=== PATIENT | female | born 1955 | race Caucasian/White ===

== ENCOUNTER 2024-03-21 16:52 | Emergency (ER) | payer OTHER, SELFPAY ==
[2024-03-21 17:01] VITALS: PULSE 90; TEMP 36.6; O2SAT 98; BMI 32.6
[2024-03-21 17:04] VITALS: BP 165/88; O2SAT 98
--- NOTE | 2024-03-21 17:16 | ED.BACK1 ---
HPI HPI - Back Pain/Injury General Chief Complaint: Back Pain/Injury Stated Complaint: BACK PAIN Time Seen by Provider: 03/21/24 17:11 Source: patient Mode of arrival: walk-in History of Present Illness HPI Narrative: 69 year old female presents to the ED for right mid back pain. Onset was 3 days ago. Denies fever, chills, injury, urinary sx. Denies cough, SOB. She took Aleve this morning. The pain is worse with movement and palpation. Related Data Previous Rx's ?Medication ?Instructions ?Recorded acetaminophen 300 mg-codeine 30 mg 1 tab PO TID PRN pain 4 days #12 03/21/24 tablet tabs lidocaine 5 % topical patch 1 patch topical DAILY #15 ea 03/21/24 (Lidoderm) Allergies Allergy/AdvReac Type Severity Reaction Status Date / Time Penicillins AdvReac Unknown Rash Verified 03/21/24 17:05 Sulfa (Sulfonamide AdvReac Unknown Rash Verified 03/21/24 17:05 Antibiotics) Opioid HPI Opioid Management Most Recent Opioid Data: Last SEP Pain Assessment 03/21/24 17:31 Review of Systems ROS Constitutional Denies: fever or chills Ears, nose, mouth, and throat Denies: neck pain Cardiovascular Denies: chest pain Respiratory Denies: shortness of breath or cough Gastrointestinal Denies: abdominal pain, nausea, vomiting or diarrhea Genitourinary Denies: painful urination, urinary frequency, urinary urgency or blood in urine Musculoskeletal Reports: back pain; Denies: neck pain, extremity pain or extremity swelling Neurological Denies: numbness in extremities or weakness in extremities Exam Constitutional Vital Signs, click to edit/add: Last Vital Signs Temp 97.8 F 03/21/24 17:01 Pulse 74 03/21/24 19:20 Resp 18 03/21/24 19:20 BP 164/82 H 03/21/24 19:20 Pulse Ox 97 03/21/24 19:20 O2 Del Method Room Air 03/21/24 19:20 Common normals: no apparent distress and oriented x3 General appearance: cooperative Eye Common normals: conjunctivae normal and no scleral icterus Neck & C-Spine Common normals: supple Chest Chest: symmetrical chest wall rise Respiratory Common normals: normal respiratory effort Effort & inspection: able to speak in complete sentences and symmetric chest movement Cardio Common normals: regular rate and regular rhythm Bladder/kidney exam: no CVA tenderness Back & Pelvis Thoracic spine/upper back: normal to inspection and paraspinal muscle tenderness Thoracic paraspinal muscle tenderness: right; no thoracic spinal tenderness Lumbar spine/lower back: normal to inspection; no lumbar spinal tenderness and no paraspinal muscle tenderness Neuro Common normals: oriented x3 and moves all extremities Sensorium/orientation: awake and alert Course Vital Signs Vital signs: Vital Signs Temperature 97.8 F 03/21/24 17:01 Pulse Rate 90 03/21/24 17:01 Respiratory Rate 20 03/21/24 17:01 Pulse Oximetry 98 03/21/24 17:01 Temperature 97.8 F 03/21/24 17:01 Pulse Rate 74 03/21/24 19:20 Respiratory Rate 18 03/21/24 19:20 Blood Pressure 164/82 H 03/21/24 19:20 Pulse Oximetry 97 03/21/24 19:20 Oxygen Delivery Method Room Air 03/21/24 19:20 MDM - Back Pain/Injury MDM Narrative Medical decision making narrative: The patient's pain appeared to be musculoskeletal. She was given medication for her sx with some improvement. Urinalysis was unremarkable for blood and infection. X-ray of the thoracic spine was negative for acute findings; degenerative changes with relatively preserved intervertebral disc heights. OARRS was reviewed. Prescriptions were provided for Lidoderm patches and norco. Follow up with pcp for a recheck, further evaluation and treatment. Medical Records Attestation: I reviewed the patient's medical records. Lab Data Attestation: I reviewed the patient's lab results. Labs: Lab Results 03/21/24 Range/Units 17:28 Urine Color Lt. yellow (YELLOW) Urine Clarity Clear (CLEAR) Urine pH 6.5 (5.0-9.0) Ur Specific [place] 1.015 (1.005-1.025) Urine Protein Negative (NEG/TRACE) mg/dL Urine Glucose (UA) >=1000 A (NEGATIVE) mg/dL Urine Ketones Negative (NEGATIVE) mg/dL Urine Occult Blood Negative (NEGATIVE) Urine Nitrite Negative (NEGATIVE) Urine Bilirubin Negative (NEGATIVE) Urine Urobilinogen 0.2 (0.2-1.0) EU/dL Ur Leukocyte Esterase Negative (NEGATIVE) Imaging Data XR thoracic: Attestation: I have reviewed the pertinent imaging results. Radiologist's impression: ITS Impressions Thoracic Spine X-Ray 03/21/24 18:05 IMPRESSION: No radiographically evident thoracic spine fractures or malalignment. Thoracic spine degenerative changes with relatively preserved intervertebral disc heights. Remainder unremarkable Electronically authenticated by: LEONA LOMAX Date: 03/21/2024 18:46 Discharge Plan Discharge Stand Alone Forms: Work/School Release, Portal Instructions Chief Complaint: Back Pain/Injury Clinical Impression: Back pain Patient Disposition: Home, Self-Care Time of Disposition Decision: 19:01 Condition: Good Mode of Transportation: Private Vehicle Prescriptions / Home Meds: New lidocaine [Lidoderm] 5 % adhesive patch,medicated 1 patch topical DAILY Qty: 15 0RF Rx Instructions: leave on most painful area for up to 12 hrs acetaminophen-codeine 300-30 mg tablet 1 tab PO TID PRN (Reason: pain) 4 Days Qty: 12 0RF Print Language: Hebrew Instructions: Muscle Spasm (ED), Back Pain (ED) Additional Instructions: Return to the ER for new or worsening symptoms. Referrals: ALANA PARKINSON [Primary Care Provider] - 1 week Discharge Date/Time: 03/21/24 19:20
[2024-03-21] MEDS: MORPHINE SULFATE 2 MG/ML SYRINGE IM (17:31)
[2024-03-21] MEDS: LIDOCAINE 5% PATCH 1 PATCH TOPICAL (17:32)
[2024-03-21] MEDS: TIZANIDINE HCL 4 MG TABLET PO (17:32)
[2024-03-21 17:46] LABS: Bilirubin Urine NEGATIVE (NEGATIVE); Blood Urine NEGATIVE (NEGATIVE); Clarity Urine CLEAR (CLEAR); Color Urine LT. YELLOW (YELLOW); Glucose Urine UA >=1000 mg/dL (NEGATIVE); Ketones Urine NEGATIVE (NEGATIVE); Leukocyte Esterase Urine NEGATIVE (NEGATIVE); Nitrite Urine NEGATIVE (NEGATIVE); Protein Urine NEGATIVE (NEG/TRACE); Specific Gravity Urine 1.015 (1.005-1.025); Urobilinogen Urine 0.2 EU/dL (0.2-1.0); pH Urine 6.5 (5.0-9.0)
[2024-03-21 17:47] LABS: Urine Microscopic Indicated NO
--- NOTE | 2024-03-21 18:05 | XR_ITS ---
[address] [address] Patient Name: VIRGILIO BROWN MRN: [id number] date: 1955 Sex: F Assigned Patient Location: ER Current Patient Location: ED.MAIN Accession/Order Number: [id number] Exam Date: 03/21/2024 17:55 Report Date: 03/21/2024 18:46 At the request of: JOSE MCKEON Procedure: XR thoracic spine 3V Exam: Radiographs: XR thoracic spine 3V Reason for exam: pain Comparison: None XR/XR thoracic spine 3V IMPRESSION: No radiographically evident thoracic spine fractures or malalignment. Thoracic spine degenerative changes with relatively preserved intervertebral disc heights. Remainder unremarkable Electronically authenticated by: LEONA LOMAX Date: 03/21/2024 18:46
[2024-03-21] MEDS: OXYCODONE HCL/ACETAMINOPHEN 5MG/325MG 1 TAB PO (19:11)
[2024-03-21] MEDS: KETOROLAC TROMETHAMINE 30 MG/ML VIAL 15 MG IM (19:12)
[2024-03-21 19:20] VITALS: BP 164/82; PULSE 74; O2SAT 97
== END 2024-03-21 19:20 | disposition home or self-care (01) ==
PROVIDERS: Nurse Practitioner Family; Emergency Provider Emergency Medicine; PCP Family Medicine
DX: M54.89 Other dorsalgia (principal)
CPT/HCPCS: 72072; 81003; 96372; 99285; J1885; J2270

== ENCOUNTER 2024-09-26 10:08 | Emergency (ER) | payer MEDICARE, SELFPAY ==
[2024-09-26 10:18] VITALS: BP 123/72; PULSE 103; TEMP 37.2; O2SAT 97; BMI 32.2
--- OUTSIDE RECORDS SUMMARY | 2024-09-26 10:18 | XMS_ITS | CCD ---
Author Organization [facility] Care Team Providers Care Process Improvement Consultant Name Role Phone Alana Parkinson Unavailable DO Alana Parkinson Primary Care Provider [phone] [facility] Emergency Provider LORENZO Palacios Emergency Provider DO Alana Parkinson Attending Provider Noé Ko II Unavailable DO Alana Parkinson Primary Care Provider [facility] [place] E Emergency Provider [phone] LORENZO Palacios Emergency Provider DO Alana Parkinson Attending Provider MD Noé Ko II Attending Provider Community, Outreach Attending Provider DO Alana Parkinson Primary Care Provider STEFANIE Jimenez Attending Provider [phone] Community, Outreach Attending Provider DO Alana Parkinson Primary Care Provider DO Alana Parkinson Attending Provider DO Jarrett Dang Emergency Provider MD Brigido Man Attending Provider [phone] DO Alana Parkinson Primary Care Provider MD Brigido Man Attending Provider DO Alana Parkinson Attending Provider DO Alana Parkinson Primary Care Provider [phone] DO Hector Wall Attending Provider NO FAMILY, PHYSICIAN Primary Care Provider Unava ilable Jarrett Dang Admitting Unavailable Jarrett Dang Attending Unavailable Gwendolyn, Alana Primary Care Unavailable Hector Wall Admitting Unavailable Gwendolyn, Alana Primary Care Unavailable Hector Wall Attending Unavailable Hector Wall Referring Unavailable Alana Parkinson Attending Unavailable Gwendolyn, Alana Admitting Unavailable Gwendolyn, Alana Primary Care Unavailable Brigido Man Admitting Unavailable Brigido Man Attending Unavailable Gwendolyn, Alana Primary Care Unavailable Gwendolyn, Alana Admitting Unavailable Gwendolyn, Alana Primary Care Unavailable Gwendolyn, Alana Attending Unavailable Gwendolyn, Alana Admitting Unavailable Gwendolyn, Alana Primary Care Unavailable Gwendolyn, Alana Attending Unavailable NO FAMILY, PHYSICIAN Primary Care Unavailable Hector Wall Admitting Unavailable Hector Wall Attending Unavailable DO Hector Wall Referring Provider DO Alana Parkinson Primary Care Provider [phone] Alana Parkinson MD Primary Care Provider Tabitha New Unavailable [phone] BRIGIDO MAN Attending Unavailable BRIGIDO MAN Referring Unavailable TABITHA THORNTON Attending Unavailable ALANA PARKINSON Referring Unavailable JESS OREILLY Attending Unavailable JESS OREILLY Attending Unavailable JESS OREILLY Attending Unavailable JUAN PABLO RUEDA Attending Unavailable HECTOR WALL Attending Unavailable JESS OREILLY Referring Unavailable HECTOR WALL Attending Unavailable HECTOR WALL Attending Unavailable HECTOR WALL Attending Unavailable EVELINA CHAN Attending Unavailable EVELINA CHAN Referring Unavailable Allergies Allergy Classification Reported Allergen(s) Allergy Type Date of Onset Reaction(s) Facility (19 sources) Penicillin Drug Allergy Unknown [facility] Other (19 sources) Sulfonamides (Antibiotic) Propensity to adverse reactions Unknown [facility] Other (20 sources) Penicillins; Translations: [Penicillins] Allergy to substance 2 [facility] (18 sources) Sulfonamides (Antibiotic); Translations: [Sulfa (Sulfonamide Antibiotics)] Allergy to substance 2 Rash [facility] (8 sources) Sulfanilamide Allergy to substance 4 Rash [facility] Medications Current Medications Medication Drug Class(es) Dates Sig (Normalized) Sig (Original) acetaminophen 325 mg / HYDROcodone bitartrate 5 mg oral tablet (20 sources) Opioid Agonist Start: 07-27-2023 End: 12-10-2023 take 1 tablet by mouth every four to six hours Hydrocodone-Aceta minophen Active 1 TAB PO EVERY 4-6 HOURS December 10, 2023 11:02am Start: 05-27-2022 End: 07-27-2023 take 1 tablet by mouth every six hours Hydrocodone-Acetaminophen Discontinued 1 TAB PO Q6H 10 3 May 27, 2022 July 27, 2023 1:06pm atorvastatin 40 mg oral tablet (20 sources) HMG-CoA Reductase Inhibitor Start: 07-17-2022 take 1 tablet by mouth every twenty-four hours Atorvastatin Calcium 40 MG 1 tablet Orally Once a day Jul, Active Start: 05-27-2022 Atorvastatin A ctive MG TABLET May 27, 2022 12:00am Start: 11-13-2020 take 20 mg by mouth once daily Atorvastatin Active 20 MG PO Daily May 27, 2022 12:00am Start: 11-13-2020 take 1 tablet by fe th every twenty-four hours Atorvastatin Calcium 40 MG 1 tablet Orally Once a day Oct, Active cholecalciferol 0.125 mg oral tablet (13 sources) Vitamin D Start: 07-27-2023 take 1 tablet by mouth once daily Cholecalciferol (Vitamin D3) (Vitamin D3) 125 mcg (5,000 unit) Tablet Active 125 MCG PO Daily July 27, 2023 1:00am Start: 01-20-2023 take 1 capsule by mo uth every twenty-four hours Vitamin D3 50 MCG (2000 UT) 1 capsule Orally Once a day Dec, Active Continuous Glucose Biomechanical Engineer (FreeStyle [place] 2 [place]) device (3 sources) Start: 03-29-2024 Continuous Glucose Biomechanical Engineer (FreeStyle [place] 2 [place]) device USE DIRECTED. 03/29/2024 Active Continuous Glucose Sensor (FreeStyle Desean 2 Sensor) misc (3 sources) Start: 03-29-2024 Continuous Glucose Sensor (FreeStyle Desean 2 Sensor) misc CHANGE EVERY 14 DAYS. 03/29/2024 Active cyclobenzaprine hydrochloride 5 mg oral tablet (12 sources) Muscle Relaxant Start: 07-27-2023 End: 12-10-2023 take 5 mg by mouth every eight hours Cyclobenzaprine Active 5 MG PO Q8H December 10, 2023 10:58am empagliflozin 25 mg oral tablet (3 sources) Sodium-Glucose Cotransporter 2 Inhibitor take 25 mg by mouth once daily empagliflozin (Jardiance) 25 MG Take 25 mg by mouth Daily Active FreeStyle [place] Glucometer (14 sources) Start: 05-22-2014 FreeStyle [place] Glucometer test kit daily as directed Dx: Insulin Dependent Diabetes May, Active FreeStyle D[place] 2 [place] - (4 sources) Start: 01-20-2023 FreeStyle D[place] 2 [place] - as directed E11.65 for 30 days Dec, Active FreeStyle Desean 2 Sensor - (4 sources) Start: 01-20-2023 FreeStyle [place] 2 Sensor - as directed E11.65 for 28 days Dec, Active gabapentin 300 mg oral capsule (5 sources) Anti-epileptic Agent take 1 capsule by mouth once daily at bedtime Gabapentin 300 MG TAKE 1 CAPSULE BY MOUTH EVERY NIGHT AT BEDTIME FOR 30 DAYS Oral Active Insulin Aspart U-100 (Novolog Flexpen U-100 Insulin) 100 unit/mL (3 mL) insulin pen (17 sources) Start: 05-27-2022 inject 100 [IU] by subcutaneous injection before mealtime Insulin Aspart U-100 (Novolog Flexpen U-100 Insulin) 100 unit/mL (3 mL) insulin pen Active SUBCUT Before meals May 27, 2022 12:00am Start: 05-27-2022 inject 100 [IU] by s ubcutaneous injection before mealtime Insulin Aspart U-100 (Novolog Flexpen U-100 Insulin) 100 unit/mL (3 mL) insulin pen Active SUBCUT Before meals May 26, 2022 11:00pm Start: 05-27-2022 Insulin Aspart U-100 (Novolog Flexpen U-100 Insulin) 100 unit/mL (3 mL) insulin pen Active SUBCUT May 26, 2022 11:00pm Start: 05-27-2022 Insulin Aspart U-100 (Novolog Flexpen U-100 Insulin) 100 unit/mL (3 mL) insulin pen Active SUBCUT May 27, 2022 12:00am 3 ml insulin aspart, human 100 unt/ml pen injector (20 sources) Insulin Analog Start: 12-27-2015 inject 8 [IU] by subcutaneous injection before lunch, then inject 12 [IU] by subcutaneous injection at dinner NovoLOG FlexPen 100 UNIT/ML 8 units Subcutaneous before lunch and 12 units before evening meal November, Active Start: 12-27-2015 inject 8 [IU] by sub cutaneous injection once before lunch, then inject 12 [IU] by subcutaneous injection at dinner NovoLOG FlexPen 100 UNIT/ML 8 units Subcutaneous before lunch and 12 units before evening meal quantity sufficient for 90 days November, Active 3 ml insulin detemir 100 unt/ml pen injector (20 sources) Insulin Analog Start: 05-27-2022 Insulin Detemi r U-100 (Levemir Flextouch U-100 Insuln) 100 unit/mL (3 mL) insulin pen Active UNIT SUBCUT May 26, 2022 11:00pm insulin detemir (Levemir FlexTouch) 100 UNIT/ML pen Subcutaneous Active Levemir FlexPen 100 UNIT/ML INJECT 60 UNITS UNDER THE SKIN AT BEDTIME for 90 Active 3 ml insulin glargine 100 unt/ml pen injector (6 sources) Insulin Analog Start: 12-10-2023 Insulin Glargi ne (Lantus Solostar U-100 Insulin) 100 unit/mL (3 mL) insulin pen Active 60 UNIT SUBCUT .COMPLEX 15 December 10, 2023 12:00am 60 units subcutaneously at bedtime; Start: 06-16-2023 Lantus SoloSta r 100 UNIT/ML inject 60 units Subcutaneous at bedtime for 90 days Jun, Active LEVEMIR FLEXTOUCH 100 UNIT/ ML (7 sources) Start: 04-28-2017 LEVEMIR FLEXTO UCH 100 UNIT/ ML inject 60 units Subcutaneous qd hs for 90 days Apr, Active Start: 04-28-2017 LEVEMIR FLEXTO UCH 100 UNIT/ ML inject 60 units Subcutaneous qd hs Apr, Active Levemir FlexTouch 100 UNIT/ML (1 source) Levemir FlexTouc h 100 UNIT/ML INJECT 60 UNITS SUBCUTANEOUSLY AT BEDTIME Active melatonin gummy (4 sources) Start: 12-10-2023 melatonin gummy Active PO December 10, 2023 12:00am Multiple Vitamin (multivitamin) capsule (8 sources) take 1 capsule by mouth once daily Multiple Vitamin (multivitamin) capsule Take 1 capsule by mouth Daily Active Multivit With Min-Folic Acid (Multivitamin Gummies) 200 mcg Tablet,Chewable (8 sources) Start: 07-27-2023 take 1 tablet by mouth once daily Multivit With Min-Folic Acid (Multivitamin Gummies) 200 mcg Tablet,Chewable Active 1 TAB PO Daily July 27, 2023 1:00am Start: 07-27-2023 take 1 tablet by fe th once daily Multivit With Min-Folic Acid (Multivitamin Gummies) 200 mcg Tablet,Chewable Active 1 TAB PO Daily July 27, 2023 12:00am naproxen sodium 220 mg oral capsule (4 sources) Nonsteroidal Anti-inflammatory Drug Start: 12-10-2023 take 1 capsule by mouth once Naproxen Sodium (Aleve) 220 mg capsule Active 220 MG PO Once December 10, 2023 12:00am pioglitazone 45 mg oral tablet (4 sources) Peroxisome Proliferator Receptor alpha Agonist, Peroxisome Proliferator Receptor gamma Agonist, Thiazolidinedione Start: 07-12-2024 End: 07-12-2025 take 1 tablet by mouth once daily pioglitazone (Actos) 45 MG tablet Indications: Type 2 diabetes mellitus with hyperglycemia, with long-term current use of insulin (CMS/HCC) Take 1 tablet (45 mg) by mouth Daily 90 tablet 3 07/12/2024 07/12/2025 Active End: 07-12-2024 take 1 tablet by mouth once daily pioglitazone (Actos) 15 MG tablet Take 15 mg by mouth Daily 07/12/2024 Discontinued (Dose adjustment) rosuvastatin calcium 10 mg oral tablet (8 sources) HMG-CoA Reductase Inhibitor rosuvastatin (Cresto r) 10 MG tablet 1 (one) time each day at the same time Active True Metrix Blood Glucose Test - (8 sources) True Metrix Bloo d Glucose Test - TEST BLOOD SUGAR THREE TIMES DAILY DIRECTED for 90 Active True Metrix Bloo d Glucose Test - TEST 3 TIMES DAILY DIRECTED for 90 Active Completed/Discontinued Medications Medication Drug Class(es) Dates Sig (Normalized) Sig (Original) acetaminophen 325 mg / oxyCODONE hydrochloride 5 mg oral tablet (17 sources) Opioid Agonist Start: 04-17-2019 End: 05-27-2022 take 2 tablets by mouth every four to six hours Oxycodone-Acetamin ophen (Percocet) 5-325 mg tablet Discontinued 2 TAB PO EVERY 4-6 HOURS 19 10April 17, 2019 May 27, 2022 12:25pm doxycycline hyclate 100 mg oral capsule (20 sources) Tetracycline-class Drug Start: 05-27-2022 End: 07-27-2023 take 100 mg by mouth twice daily Doxycycline Hyclate Discontinued 100 MG PO Twice daily 21 05May 27, 2022 12:00am July 27, 2023 1:06pm ibuprofen 800 mg oral tablet (14 sources) Nonsteroidal Anti-inflammatory Drug Start: 06-18-2022 Ibuprofen 800 MG 1 tablet Orally q8-12 hrs prn with food Jun, Not-Taking/PRN Start: 06-18-2022 Ibuprofen 800 MG 1 tablet Orally q8-12 hrs prn with food Jun, Not-Taking take 1 tablet by fe th in the morning as needed, then take 1 tablet by mouth in the evening as needed, then take 1 tablet by mouth at bedtime as needed ibuprofen 800 MG tablet Take 800 mg by mouth in the morning and 800 mg in the evening and 800 mg before bedtime. With food or milk as needed. Active Insulin Detemir U-100 (Levem ir Flextouch U-100 Insuln) 100 unit/mL (3 mL) insulin pen (8 sources) Start: 05-27-2022 End: 12-10-2023 Insulin Detemir U-100 (Levem ir Flextouch U-100 Insuln) 100 unit/mL (3 mL) insulin pen Discontinued 60 UNIT SUBCUT Every evening May 27, 2022 12:00am December 10, 2023 11:46am Start: 05-27-2022 Insulin Detemi r U-100 (Levemir Flextouch U-100 Insuln) 100 unit/mL (3 mL) insulin pen Active 60 UNIT SUBCUT Every evening May 27, 2022 12:00am Start: 05-27-2022 Insulin Detemi r U-100 (Levemir Flextouch U-100 Insuln) 100 unit/mL (3 mL) insulin pen Active 60 UNIT SUBCUT Every evening May 26, 2022 11:00pm lidocaine 0.05 mg/mg medicated patch (8 sources) Antiarrhythmic, Amide Local Anesthetic Start: 07-27-2023 End: 12-10-2023 apply 1 dose topically once daily Lidocaine (Lidoderm) 5 % adhesive patch,medicated Discontinued 1 PATCH TOPICAL Daily July 27, 2023 1:00am December 10, 2023 11:13am leave on most painful area for up to 12 hrs lisinopril 10 mg oral tablet (20 sources) Angiotensin Converting Enzyme Inhibitor Start: 05-27-2022 End: 12-10-2023 take 10 mg by mouth once daily Lisinopril Discontinued 10 MG PO Daily May 27, 2022 12:00am December 10, 2023 10:59am Start: 05-27-2022 Lisinopril Act kay MG TABLET May 27, 2022 12:00am Triamcinolone (20 sources) Corticosteroid Start: 03-29-2018 Kenalog -40 mg Mar, 40 mg Problems Active Problems Problem Classification Problem Date Documented Da te Episodic/Chronic Coagulation and hemorrhagic disorders (20 sources) Thrombocytopenic disorder; Translations: [Thrombocytopenia, unspecified] Chronic Complications of surgical procedures or medical care (3 sources) Postprocedural infection; Translations: [Infection following a procedure, unspecified, initial encounter] Onset: 4 05-10-2024 Episodic Diabetes mellitus with complications (20 sources) Type II diabetes mellitus uncontrolled; Translations: [Type 2 diabetes mellitus with hyperglycemia] Onset: 1 Resolved: 2 Chronic Diabetes mellitus without complication (7 sources) Diabetes mellitus; Translations: [Type 2 diabetes mellitus without complications] Onset: 4 11-15-2023 Chronic Disorders of lipid metabolism (20 sources) Hyperlipidemia; Translations: [Hyperlipidemia, unspecified] Onset: 1 Resolved: 2 Chronic Essential hypertension (20 sources) Hypertensive disorder; Translations: [Essential (primary) hypertension] Onset: 1 Resolved: 2 Chronic Fracture of upper limb (17 sources) Fracture of humerus ; Translations: [Unspecified fracture of shaft of humerus, unspecified arm, initial encounter for closed fracture] 04-17-2019 Episodic Genitourinary symptoms and ill-defined conditions (1 source) Nocturia Episodic Lymphadenitis (2 sources) Localized enlarged lymph nodes Episodic Nonmalignant breast conditions (1 source) Mastodynia Episodic Nutritional deficiencies (5 sources) Vitamin D deficiency; Translations: [Vitamin D deficiency, unspecified] Onset: 4 07-12-2024 Chronic Osteoarthritis (20 sources) Bilateral arthritis of knees; Translations: [Bilateral primary osteoarthritis of knee] Chronic Other aftercare (16 sources) Follow-up status; Translations: [Encounter for change or removal of nonsurgical wound dressing] 05-29-2022 Episodic Other aftercare (4 sources) Long-term current use of 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; Translations: [Other correction (current) 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] 12-10-2023 Episodic Other aftercare (5 sources) Long-term current use of insulin; Translations: [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] Onset: 4 07-12-2024 Episodic Other and unspecified benign neoplasm (4 sources) Hemangioma of liver; Translations: [Hemangioma of intra-abdominal structures] 12-10-2023 Episodic Other and unspecified benign neoplasm (3 sources) Hemangioma of intra-abdominal structures; Translations: [Hemangioma of intra-abdominal structures] 12-10-2023 Episodic Other bone disease and musculoskeletal deformities (5 sources) Other specified disorders of bone density and structure, unspecified site; Translations: [Disorder of bone and cartilage, unspecified] Episodic Other bone disease and musculoskeletal deformities (4 sources) Osteopenia; Translations: [Other specified disorders of bone density and structure, unspecified site] 12-10-2023 Episodic Other connective tissue disease (1 source) Pain in leg, unspecified Episodic Other connective tissue disease (16 sources) Pain in left lower limb; Translations: [Pain in left leg] 05-29-2022 Episodic Other connective tissue disease (1 source) Pain in left leg Episodic Other ear and sense organ disorders (4 sources) Tinnitus; Translations: [Tinnitus, unspecified ear] 12-10-2023 Episodic Other ear and sense organ disorders (3 sources) Tinnitus, unspecified ear; Translations: [Tinnitus, unspecified] 12-10-2023 Episodic Other gastrointestinal disorders (4 sources) Diarrhea; Translations: [Diarrhea, unspecified] 12-10-2023 Episodic Other gastrointestinal disorders (4 sources) Constipation; Translations: [Constipation, unspecified] 12-10-2023 Episodic Other gastrointestinal disorders (3 sources) Constipation, unspecified; Translations: [Constipation, unspecified] 12-10-2023 Episodic Other gastrointestinal disorders (3 sources) Diarrhea, unspecified; Translations: [Diarrhea] 12-10-2023 Episodic Other liver diseases (4 sources) Steatosis of liver; Translations: [Fatty (change of) liver, not elsewhere classified] 12-10-2023 Chronic Other liver diseases (3 sources) Fatty (change of) liver, not elsewhere classified; Translations: [Other chronic nonalcoholic liver disease] 12-10-2023 Chronic Other liver diseases (1 source) Abnormal levels of other serum enzymes Episodic Other nervous system disorders (19 sources) Peripheral nerve disease ; Translations: [Polyneuropathy, unspecified] Chronic Other nervous system disorders (2 sources) Polyneuropathy, unspecified Onset: 1 Resolved: 2 Chronic Other nervous system disorders (8 sources) Neuropathy of lower limb; Translations: [Unspecified mononeuropathy of left lower limb] Chronic Other nervous system disorders (1 source) Unspecified mononeuropathy of left lower limb Chronic Other nervous system disorders (4 sources) Left leg peripheral neuropathy; Translations: [Unspecified mononeuropathy of left lower limb] 12-10-2023 Chronic Other nutritional; endocrine; and metabolic disorders (2 sources) Obesity caused by energy imbalance; Translations: [Class 1 obesity due to excess calories with serious comorbidity and body mass index (BMI) of 32.0 to 32.9 in adult] 07-12-2024 Chronic Other nutritional; endocrine; and metabolic disorders (3 sources) Body mass index 30+ - obesity; Translations: [Body mass index (BMI) 33.0-33.9, adult] Onset: 4 06-14-2024 Chronic Other nutritional; endocrine; and metabolic disorders (3 sources) Obesity; Translations: [Obesity, unspecified] Onset: 4 06-14-2024 Chronic Other nutritional; endocrine; and metabolic disorders (3 sources) Abnormal weight loss Onset: 1 Resolved: 1 Episodic Other nutritional; endocrine; and metabolic disorders (2 sources) Abnormal weight gain Onset: 2 Resolved: 2 Episodic Other screening for suspected conditions (not mental disorders or infectious disease) (3 sources) Encounter for screening mammogram for malignant neoplasm of breast Onset: 1 Resolved: 2 Episodic Residual codes; unclassified (1 source) Family history of ischemic heart disease and other diseases of the circulatory system Episodic Substance-related disorders (7 sources) Nicotine dependence; Translations: [Nicotine dependence, unspecified, uncomplicated] 12-10-2023 Chronic Unclassified (1 source) Encounter for screening mammogram for malignant neoplasm of breast; Translations: [Encounter for screening mammogram for malignant neoplasm of breast] Onset: 4 Past or Other Problems Problem Classification Problem Date Documented Da te Episodic/Chronic Abdominal pain (9 sources) Unspecified abdominal pain; Translations: [Abdominal pain] Onset: 06-16-2021 Resolved: 06-16-2021 Episodic Calculus of urinary tract (1 source) Calculus of kidney; Translations: [Calculus of kidney] Onset: 11-22-2023 Episodic Conditions associated with dizziness or vertigo (1 source) Dizziness and giddiness Onset: 06-16-2021 Resolved: 06-16-2021 Episodic E Codes: Fall (1 source) Unspecified fall, initial encounter Onset: 06-16-2021 Resolved: 06-16-2021 Episodic Open wounds of head; neck; and trunk (10 sources) Open wound of abdomen; Translations: [Unspecified open wound of abdominal wall, unspecified quadrant without penetration into peritoneal cavity, initial encounter] Onset: 03-07-2024 03-07-2024 Episodic Other aftercare (7 sources) Other correction (current) 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; Translations: [Long-term (current) use of other medications] Onset: 06-16-2021 Resolved: 06-16-2021 Episodic Other non-traumatic joint disorders (1 source) Pain in unspecified knee Onset: 01-27-2022 Resolved: 01-27-2022 Episodic Skin and subcutaneous tissue infections (20 sources) Abscess of buttock; Translations: [Cutaneous abscess of buttock] Onset: 03-07-2024 05-27-2022 Episodic Spondylosis; intervertebral disc disorders; other back problems (10 sources) Backache; Translations: [Dorsalgia, unspecified] Onset: 07-27-2023 07-27-2023 Episodic Unclassified (2 sources) Acute low back pain, unspecified back pain laterality, unspecified whether sciatica present M54.50 Results Test Name Value Interpretation Reference Range Facility Glucose (Bld) [Mass/Vol]Orde red By: Chela Jean on 07-12-2024 Glucose Blood, POC 219 mg/dL [facility] - Hematology and Cell countson 07-12-2024 HbA1c (Bld) [Mass fraction] 11.8 % [facility] No Panel InformationOrdered By: Chela Jean on 07-12-2024 [facility] PATHOLOGY REQUEST FOR LAB CO RPon 03-15-2024 PATHOLOGY REQUEST FOR LAB ADRIAN [facility] Comment on above: See report. Scanned copy available in EMR. PATHOLOGY SKIN BX SPECIMEN [facility] No Panel InformationOrdered By: Hector Wall on 2024 Miscellaneous Pathology Test See comment [facility] Comment on above: See report. Scanned copy available in EMR. Pathology Request for Lab Co rpon 2024 Pathology Request for Lab Adrian Normal [facility] Comment on above: Order Comment: PATHO LOGY SKIN BX SPECIMEN Result Comment: See report. Scanned copy available in EMR. PERFORMED BY: [place] [address] PATHOLOGIST MACHINE FEEDER RAW STOCK BRODY GARZA M.D. Performed By: #### P ATH TO [facility] ####[facility] [id number] [address] US renal BIon 11-22-2023 US renal BI [facility] [address] [place] [address] Ultrasound Report Signed Patient: Chela Padilla MR#: [id number] 06 : 1955 Acct:[id number] Age/Sex: 68 / F ADM Date: 11/22/23 Loc: UL Room: Type: [facility] Attending Dr: lAana Parkinson DO Ordering Provider: Alana Parkinson DO Date of Service: 11/22/23 US/US abdomen limited: R10.9 - Unspecified abdominal pain ([id number]) US/US renal BI: R10.9 - Unspecified abdominal pain Copies to: Alana Parkinson DO CLINICAL HISTORY: Right upper quadrant and back pain. LIMITED ABDOMINAL ULTRASOUND: COMPARISON: CT 07/27/2023 The gallbladder is physiologically distended without shadowing calculi, wall thickening or pericholecystic fluid. There is a small amount of sludge. No intra- or extrahepatic biliary dilatation is evident. The common duct measures 3 - 4 mm. The liver is echogenic correlating with fatty infiltration seen at the time of the prior. There is a hypoechoic area near the gallbladder that may be focal fatty sparing. There is a hyperechoic nodular area within the periphery of the right hepatic lobe measuring 15 x 17 x 21 mm that likely correlates with the hemangioma seen previously. The pancreas shows no significant sonographic abnormality. There is appropriate hepatopetal flow within the main portal vein. No ascites is noted. US/US abdomen limited IMPRESSION: FATTY LIVER WITH FOCAL SPARING AND A RIGHT HEPATIC HEMANGIOMA. MILD GALLBLADDER SLUDGE. BILATERAL RENAL AND BLADDER ULTRASOUND COMPARISON: CT 07/27/2023 Estimation of renal size is approximately 12.1 cm on the right and 10.1 cm on the left. No shadowing calculi or hydronephrosis are identified. No renal mass lesions were imaged. There is no perinephric fluid. The urinary bladder is partially distended with a volume of 120 mL No contour or intraluminal abnormalities are seen. The post void bladder residual is 24 mL. IMPRESSION: NO OBSTRUCTIVE UROPATHY. Impression dictated by: Cici Andrade M.D.11/22/2023 10:52 AM Dictation Location: [place] [address] Tech: Rosalina Tom Transcribed By: YUNG 11/22/23 1052 Dictated By: Cici Adnrade MD 11/22/23 1035 Signed By: 11/22/23 1052 Normal [facility] A1C with Estimated Average G gaudenciochristopher 11-16-2023 Glucose [Mass/Vol] 335 mg/dL Normal [facility] Comment on above: Result Comment: PERF ORMED BY: [facility] [address] [place] [address] PATHOLOGIST MACHINE FEEDER RAW STOCK BRODY GARZA M.D. Performed By: #### C BC, LIPID, A1C WTH eA, CMP #### [facility] [address] [place] [address] [place] Alanine aminotransferase [En zymatic activity/volume] in Serum or PlasmaOrdered By: Alana Parkinson on 11-16-2023 ALT [Catalytic activity/Vol] 18 U/L Normal 7-52 [facility] Comment on above: Performed By: #### C BC, LIPID, A1C WTH eA, CMP #### [facility] [address] [place] [address] [place] Albumin [Mass/volume] in Ser um or Plasma by Bromocresol green (BCG) dye binding methoOrdered By: Alana Parkinson on 11-16-2023 Albumin BCG dye [Mass/Vol] 3.8 g/dL 3.5-5.7 [facility] Alkaline phosphatase [Enzyma tic activity/volume] in Serum or PlasmaOrdered By: Alana Parkinson on 11-16-2023 ALP [Catalytic activity/Vol] 92 U/L Normal 34-104 [facility] Comment on above: Performed By: #### C BC, LIPID, A1C WT eA, CMP #### [place] [address] [place] Aspartate aminotransferase [ Enzymatic activity/volume] in Serum or PlasmaOrdered By: Alana Parkinson on 11-16-2023 AST [Catalytic activity/Vol] 14 U/L Normal 13-39 [facility] Comment on above: Performed By: #### C BC, LIPID, A1C WT eA, CMP #### [facility] [address] [place] [address] [place] Automated basophil %Ordered By: Alana Parkinson on 11-16-2023 Basophils/100 WBC (Bld) 0.9 % Normal . [facility] Comment on above: Performed By: #### C BC, LIPID, A1C WTH eA, CMP #### [place] [address] [place] Automated basophil countOrde red By: Alana Parkinson on 11-16-2023 Basophils (Bld) [#/Vol] 0.1 10*3/uL Normal 0.0-0.2 [facility] Comment on above: Result Comment: PERF ORMED BY: [place] [address] PATHOLOGIST MACHINE FEEDER RAW STOCK BRODY GARZA M.D. Performed By: #### C BC, LIPID, A1C WTH eA, CMP #### [address] Automated blood monocyte cou ntOrdered By: Alana Parkinson on 11-16-2023 Monocytes (Bld) [#/Vol] 0.4 10*3/uL Normal 0.0-0.8 [facility] Comment on above: Performed By: #### C BC, LIPID, A1C WTH eA, CMP #### [address] Automated eosinophil %Ordere d By: Alana Parkinson on 11-16-2023 Eosinophils/100 WBC (Bld) 5.2 % Normal . [facility] Comment on above: Performed By: #### C BC, LIPID, A1C WTH eA, CMP #### [address] Automated eosinophil countOr dered By: Alana Parkinson on 11-16-2023 Eosinophils (Bld) [#/Vol] 0.3 10*3/uL Normal 0.0-0.45 [facility] Comment on above: Performed By: #### C BC, LIPID, A1C WTH eA, CMP #### [address] Automated monocyte %Ordered By: Alana Parkinson on 11-16-2023 Monocytes/100 WBC (Bld) 5.9 % Normal . [facility] Comment on above: Performed By: #### C BC, LIPID, A1C WTH eA, CMP #### [address] Automated neutrophil %Ordere d By: Alana Parkinson on 11-16-2023 Neutrophils/100 WBC (Bld) 60.1 % Normal . [facility] Comment on above: Performed By: #### C BC, LIPID, A1C WTH eA, CMP #### [address] Bilirubin.total [Mass/volume ] in Serum or PlasmaOrdered By: Alnaa Parkinson on 11-16-2023 Bilirubin [Mass/Vol] 0.4 mg/dL Normal 0.3-1.0 [facility] Comment on above: Performed By: #### C BC, LIPID, A1C WTH eA, CMP #### [facility] [address] [place] [address] [place] Calcium [Mass/volume] in Ser um or PlasmaOrdered By: Alana Parkinson on 11-16-2023 Calcium [Mass/Vol] 9.3 mg/dL Normal 8.6-10.3 [facility] Comment on above: Performed By: #### C BC, LIPID, A1C WTH eA, CMP #### [facility] [address] Carbon dioxide, total [Moles /volume] in Serum or PlasmaOrdered By: Alana Parkinson on 11-16-2023 CO2 [Moles/Vol] 32.4 mmol/L High 21.0-31.0 [facility] Comment on above: Performed By: #### C BC, LIPID, A1C WTH eA, CMP #### [facility] [address] [place] [address] [place] Chloride [Moles/volume] in S atul or PlasmaOrdered By: Alana Parkinson on 11-16-2023 Chloride [Moles/Vol] 104 mmol/L Normal 98-107 [facility] Comment on above: Performed By: #### C BC, LIPID, A1C WTH eA, CMP #### [facility] [address] [place] [address] [place] Cholesterol [Mass/volume] in Serum or PlasmaOrdered By: Alana Parkinson on 11-16-2023 Cholesterol [Mass/Vol] 232 mg/dL High 140-200 [facility] Comment on above: Chol less than 200 m g/dl low riskChol 201-239 mg/dl borderline riskChol 240 mg/dl and greater high risk Result Comment: Chol less than 200 mg/dl low risk Chol 201-239 mg/dl borderline risk Chol 240 mg/dl and greater high risk Performed By: #### C BC, LIPID, A1C WTH eA, CMP #### [facility] [address] Cholesterol in LDL Calc [Mas s/Vol]Ordered By: Alana Parkinson on 11-16-2023 Cholesterol in LDL [Mass/Vol] 152 mg/dL 0-100 [facility] Comment on above: LDL ATP III CLASSIFI CATIONLDL less than 100 mg/dL OptimalLDL 100-129 mg/dL Near or above optimalLDL 130-159 mg/dL Borderline highLDL 160-189 mg/dL HighLDL greater than 189 mg/dL Very high Cholesterol in VLDL Calc [Ma ss/Vol]Ordered By: Alana Parkinson on 11-16-2023 Cholesterol in VLDL [Mass/Vol] 31 mg/dL [facility] Complete Blood Count Auto Di ffon 11-16-2023 Mean Corpuscular HGB Conc 33.2 g/dL Normal 32.0-35.0 [facility] Comment on above: Performed By: #### C BC, LIPID, A1C WT Candy, CMP #### [address] NRBC% 0.1 /100{WBC} Normal 0-0.5 [facility] Comment on above: Performed By: #### C BC, LIPID, A1C WT Candy, CMP #### [facility] [address] Comprehensive Metabolic Pane shalini 11-16-2023 Albumin [Mass/Vol] 3.8 g/dL Normal 3.5-5.7 [facility] Comment on above: Performed By: #### C BC, LIPID, A1C WT Candy, CMP #### [place] [address] [place] GFR/1.73 sq M.predicted MDRD (S/P/Bld) [Vol rate/Area] mL/min/{1.73_m2} Normal [facility] Comment on above: Performed By: #### C BC, LIPID, A1C WTH Candy, CMP #### [address] Creatinine [Mass/volume] in Serum or PlasmaOrdered By: Alana Parkinson on 11-16-2023 Creatinine [Mass/Vol] 0.58 mg/dL Low 0.60-1.20 [facility] Comment on above: Performed By: #### C BC, LIPID, A1C WT eA, CMP #### [facility] [address] Erythrocyte distribution wid th [Ratio] by Automated countOrdered By: Alana Parkinson on 11-16-2023 Erythrocyte distribution width (RBC) [Ratio] 13.6 % Normal 11.9-15.3 [facility] Comment on above: Performed By: #### C BC, LIPID, A1C WT eA, CMP #### [facility] [address] Erythrocytes [#/volume] in B lood by Automated countOrdered By: Alana Parkinson on 11-16-2023 RBC (Bld) [#/Vol] 4.72 10*6/uL Normal 3.60-5.00 [facility] Comment on above: Performed By: #### C BC, LIPID, A1C WT Candy, CMP #### [facility] [address] Glucose [Mass/volume] in Ser um or PlasmaOrdered By: Alana Parkinson on 11-16-2023 Glucose [Mass/Vol] 185 mg/dL High 70-100 [facility] Comment on above: ADA recommended refe rence rangeRandom Glucose Reference Range is dependent on time and content of last meal. Glucose of more than 200 mg/dL in a nonstressed, ambulatory subject supports the diagnosis of Diabetes Mellitus. Result Comment: [place] Glucose Reference Range is dependent on time and content of last meal. Glucose of more than 200 mg/dL in a nonstressed, ambulatory subject supports the diagnosis of Diabetes Mellitus. ADA recommended reference range Performed By: #### C BC, LIPID, A1C WT eA, CMP #### [facility] [address] Glucose mean value [Mass/vol ume] in Blood Estimated from glycated hemoglobinOrdered By: Alana Parkinson on 11-16-2023 Average glucose Estimated from glycated hemoglobin (Bld) [Mass/Vol] 335 mg/dL [facility] Hematocrit [Volume Fraction] of Blood by Automated countOrdered By: Alana Parkinson on 11-16-2023 Hematocrit (Bld) [Volume fraction] 42.5 % Normal 34.0-46.4 [facility] Comment on above: Performed By: #### C BC, LIPID, A1C WTH eA, CMP #### [address] Hemoglobin A1c percentageOrd ered By: Alana Parkinson on 11-16-2023 HbA1c (Bld) [Mass fraction] 13.3 % High 4.3-5.6 [facility] Comment on above: Increased risk for d iabetes: 5.7 - 6.4diabetes: >6.4glycemic control for adults with diabetes: <7.0 Result Comment: Incr eased risk for diabetes: 5.7 - 6.4 diabetes: >6.4 glycemic control for adults with diabetes: <7.0 Performed By: #### C BC, LIPID, A1C WTH eA, CMP #### [address] Hemoglobin [Mass/volume] in BloodOrdered By: Alana Parkinson on 11-16-2023 Hemoglobin (Bld) [Mass/Vol] 14.1 g/dL Normal 11.8-15.4 [facility] Comment on above: Performed By: #### C BC, LIPID, A1C WTH eA, CMP #### [address] Leukocytes [#/volume] correc adalid for nucleated erythrocytes in Blood by Automated counOrdered By: Alana Parkinson on 11-16-2023 WBC corrected for nucl RBC Auto (Bld) [#/Vol] 6.6 10*3/uL 3.8-11.6 [facility] Leukocytes [#/volume] in Blo od by Automated countOrdered By: Alana Parkinson on 11-16-2023 WBC (Bld) [#/Vol] 6.6 10*3/uL Normal 3.8-11.6 [facility] Comment on above: Performed By: #### C BC, LIPID, A1C WTH eA, CMP #### [address] [place] [address] [place] Lipid Panelon 11-16-2023 LDL Cholesterol,Calculated 152 mg/dL High 0-100 [facility] Comment on above: Result Comment: LDL ATP III CLASSIFICATION LDL less than 100 mg/dL Optimal LDL 100-129 mg/dL Near or above optimal LDL 130-159 mg/dL Borderline high LDL 160-189 mg/dL High LDL greater than 189 mg/dL Very high Performed By: #### C BC, LIPID, A1C WTH eA, CMP #### [address] Triglyceride w/Reflex 155 mg/dL High 0-149 [facility] Comment on above: Result Comment: TRIG ATP III CLASSIFICATION TRIG less than 150 mg/dL Normal TRIG 150-199 mg/dL Borderline high TRIG 200-500 mg/dL High TRIG greater than 500 mg/dL Very high Standard traceable to the Center for Disease Conrtrol and Prevention (CDC) test method. Performed By: #### C BC, LIPID, A1C WTH eA, CMP #### [address] VLDL CHOLESTEROL 31 mg/dL Normal [facility] Comment on above: Performed By: #### C BC, LIPID, A1C WTH eA, CMP #### [address] Lymphocytes [#/volume] in Bl ood by Automated countOrdered By: Alana Parkinson on 11-16-2023 Lymphocytes (Bld) [#/Vol] 1.8 10*3/uL Normal 1.00-4.8 [facility] Comment on above: Performed By: #### C BC, LIPID, A1C WTH eA, CMP #### [place] [address] [place] Lymphocytes/100 leukocytes i n Blood by Automated countOrdered By: Alana Parkinson on 11-16-2023 Lymphocytes/100 WBC (Bld) 27.9 % Normal . [facility] Comment on above: Performed By: #### C BC, LIPID, A1C WTH eA, CMP #### [place] [address] [place] MCH [Entitic mass] by Automa adalid countOrdered By: Alana Parkinson on 11-16-2023 MCH (RBC) [Entitic mass] 29.8 pg Normal 24.7-34.3 [facility] Comment on above: Performed By: #### C BC, LIPID, A1C WT eA, CMP #### [address] MCHC Auto (RBC) [Mass/Vol]Or dered By: Alana Parkinson on 11-16-2023 MCHC (RBC) [Mass/Vol] 33.2 g/dL 32.0-35.0 [facility] MCV [Entitic volume] by Auto mated countOrdered By: Alana Parkinson on 11-16-2023 MCV (RBC) [Entitic vol] 90.0 fL Normal 80-100 [facility] Comment on above: Performed By: #### C BC, LIPID, A1C [facility] eA, CMP #### [address] Neutrophils [#/volume] in Bl ood by Automated countOrdered By: Alana Parkinson on 11-16-2023 Neutrophils (Bld) [#/Vol] 4.0 10*3/uL Normal 1.8-7.7 [facility] Comment on above: Performed By: #### C BC, LIPID, A1C [facility] eA, CMP #### [address] No Panel InformationOrdered By: Alana Parkinson on 11-16-2023 Estimated GFR (CKD-EPI) > 60.0 mL/Min [facility] Creatinine Clearance (Chem N/A [facility] Nucleated erythrocytes [Pres ence] in Blood by Automated countOrdered By: Alana Parkinson on 11-16-2023 Nucleated RBC Auto Ql (Bld) 0.1 /100{WBC} 0-0.5 [facility] Platelet mean volume [Entiti c volume] in Blood by Automated countOrdered By: Alana Parkinson on 11-16-2023 Platelet mean volume (Bld) [Entitic vol] 9.3 fL Normal 6.3-10.7 [facility] Comment on above: Performed By: #### C BC, LIPID, A1C WTH eA, CMP #### [address] Platelets [#/volume] in Bloo d by Automated countOrdered By: Alana Parkinson on 11-16-2023 Platelets (Bld) [#/Vol] 187 10*3/uL Normal 150-450 [facility] Comment on above: Performed By: #### C BC, LIPID, A1C WTH eA, CMP #### [address] Potassium [Moles/volume] in Serum or PlasmaOrdered By: Alana Parkinson on 11-16-2023 Potassium [Moles/Vol] 4.2 mmol/L Normal 3.5-5.1 [facility] Comment on above: Performed By: #### C BC, LIPID, A1C WTH eA, CMP #### [address] Protein [Mass/volume] in Ser um or PlasmaOrdered By: Alana Parkinson on 11-16-2023 Protein [Mass/Vol] 6.0 g/dL Low 6.4-8.9 [facility] Comment on above: Performed By: #### C BC, LIPID, A1C WTH eA, CMP #### [address] Serum globulin measurement b y calculation (mass/volume)Ordered By: Alana Parkinson on 11-16-2023 Globulin (S) [Mass/Vol] 2.2 g/dL [facility] Comment on above: Performed By: #### C BC, LIPID, A1C WTH eA, CMP #### [address] Serum or plasma albumin/glob ulin mass ratioOrdered By: Alana Parkinson on 11-16-2023 Albumin/Globulin [Mass ratio] 1.7 {ratio} [facility] Comment on above: Performed By: #### C BC, LIPID, A1C WTH eA, CMP #### [address] Serum or plasma anion gap de terminationOrdered By: Alana Parkinson on 11-16-2023 Anion gap [Moles/Vol] 6.8 mmol/L Normal 6.0-15.0 [facility] Comment on above: Performed By: #### C BC, LIPID, A1C WTH eA, CMP #### [address] Serum or plasma high density lipoprotein (HDL) cholesterol measurementOrdered By: Alana Parkinson on 11-16-2023 Cholesterol in HDL [Mass/Vol] 49 mg/dL Normal 23-92 [facility] Comment on above: HDL CHOL ATP-III CLA SSIFICATION Cardiovascular RiskHDL > or equal to 60 mg/dL LOWHDL < 40 mg/dL HIGH Result Comment: HDL CHOL ATP-III CLASSIFICATION Cardiovascular Risk HDL > or equal to 60 mg/dL LOW HDL < 40 mg/dL HIGH Performed By: #### C BC, LIPID, A1C WTH eA, CMP #### [address] Serum or plasma total choles terol/high density lipoprotein (HDL) cholesterol mass ratOrdered By: Alana Parkinson on 11-16-2023 Cholesterol.total/Chol esterol in HDL [Mass ratio] 4.7 {ratio} Normal <5.0 [facility] Comment on above: Result Comment: PERF ORMED BY: [place] [address] PATHOLOGIST MACHINE FEEDER RAW STOCK BRODY GARZA M.D. Performed By: #### C BC, LIPID, A1C WTH eA, CMP #### [address] Sodium [Moles/volume] in Ser um or PlasmaOrdered By: Alana Parkinson on 11-16-2023 Sodium [Moles/Vol] 139 mmol/L Normal 136-145 [facility] Comment on above: Performed By: #### C BC, LIPID, A1C WTH eA, CMP #### [address] Triglyceride [Mass/volume] i n Serum or PlasmaOrdered By: Alana Parkinson on 04-16-2024 Triglyceride [Mass/Vol] 155 mg/dL 0-149 [facility] Comment on above: TRIG ATP III CLASSIF ICATIONTRIG less than 150 mg/dL NormalTRIG 150-199 mg/dL Borderline highTRIG 200-500 mg/dL High TRIG greater than 500 mg/dL Very highStandard traceable to the Center for Disease Conrtrol and Prevention (CDC) test method. Urea nitrogen [Mass/volume] in Serum or PlasmaOrdered By: Alana Parkinson on 11-16-2023 Urea nitrogen [Mass/Vol] 13 mg/dL Normal 7-25 [facility] Comment on above: Performed By: #### C BC, LIPID, A1C WTH eA, CMP #### [facility] [address] XR KUBon 11-16-2023 XR KUB [facility] [address] [place] [address] [place] [address] XRay Report Signed Patient: Chela Padilla MR#: [id number] [birth year] : 1955 Acct:[id number] Age/Sex: 68 / F ADM Date: 11/16/23 Loc: XD Room: Type: [facility] Attending Dr: Alana Parkinson DO Copies to: Alana Parkinson DO Ordering Provider: Alana Parkinson DO Date of Service: 11/16/23 XR/XR KUB: R10.9 - Unspecified abdominal pain KUB: COMPARISON: CT 07/27/2023 CLINICAL DATA: Posterior mid and lower back pain. History kidney stones. Supine view of the abdomen and pelvis was obtained. There is scattered small and large bowel air, without disproportionate distention. There is mild to moderate right and mild left-sided colonic stool. There is air within several left-sided colonic diverticula. No soft tissue masses or suspect renal calculi are noted. Pelvic phleboliths are again seen on the left. There are minor degenerative changes at the spine. XR/XR KUB IMPRESSION: NONSPECIFIC, NONOBSTRUCTIVE BOWEL GAS PATTERN. DIVERTICULOSIS. Impression dictated by: Cici Andrade M.D.11/16/2023 2:06 PM Dictation Location: [place] [address] Transcribed By: YUNG 11/16/23 1406 Dictated By: Cici Andrade MD 11/16/23 1403 Signed By: 11/16/23 1406 Normal [facility] MM screening mammo BI w/CADo n 08-31-2023 MM screening mammo BI w/CAD [facility] [address] [place] [address] [place], [place] [id number] Mammography Report Signed Patient: Chela Padilla MR#: [id number] [birth year] : 1955 Acct:[id number] Age/Sex: 68 / F ADM Date: 08/31/23 Loc: [place] Room: Type: [facility] Attending Dr: Brigido Man MD Copies to: DO Brigido Hahn MD-[facility] Ordering Provider: Brigido Man MD-[facility] Date of Service: 08/31/23 MM/MM screening mammo BI w/CAD: screening;Screening mammogram, encounter for CLINICAL DATA: Screening for malignancy. BILATERAL SCREENING MAMMOGRAMS - FULL FIELD DIGITAL WITH TOMOSYNTHESIS AND CAD Tomosynthesis craniocaudal and mediolateral oblique views of both breasts were obtained using low- dose digital technique. Comparison is made to prior studies from July 10, 2016 through August 21, 2022. This examination was reviewed with the aid of CAD. The breast parenchyma has been largely replaced by fat. Benign calcifications are visualized. Similar asymmetries are present at the lateral breasts. There are no developing masses, typically malignant calcifications or architectural distortion. There has been no significant interval change. MM/MM screening mammo BI w/CAD IMPRESSION: NO MAMMOGRAPHIC EVIDENCE OF MALIGNANCY. ROUTINE FOLLOW-UP IS RECOMMENDED IN ONE YEAR. RESULT CODE: 2 Benign Findings(s) DENSITY CODE: 1 (<25% glandular) FOLLOW UP: 1YR The false-negative rate of mammography is approximately 10-percent. Management of a palpable abnormality must be based on clinical grounds. Patient was entered into a reminder system with a target due date for the next mammogram. Impression dictated by: Cici Andrade M.D.08/31/2023 2:14 PM Dictation Location: [facility] Transcribed By: YUNG 08/31/23 1414 Dictated By: Cici Andrade MD 08/31/23 1410 Signed By: 08/31/23 1414 Normal [facility] Activated partial thrombopla stin time (aPTT) in platelet poor plasma by coagulation aOrdered By: Jarrett Dang on 07-27-2023 aPTT Coag (PPP) [Time] 26.5 s 25.1-36.5 [facility] Comment on above: A hematocrit value g reater than 55% may lead to inaccurate results in coagulation testing. Patients having hematocrit values >55% require a special collection tube for coagulation studies. Please contact the laboratory at [phone] for redraw instructions. Alanine aminotransferase [En zymatic activity/volume] in Serum or PlasmaOrdered By: Jarrett Dang on 07-27-2023 ALT [Catalytic activity/Vol] 19 U/L Normal 7-52 [facility] Comment on above: Performed By: #### B WILDLIFE TECHNICIAN, DDIMER, HS TROP, BMP, PT, PTT, CBC, HEPATIC, CK #### [facility] [address] [place] [address] [place] Albumin [Mass/volume] in Ser um or Plasma by Bromocresol green (BCG) dye binding methoOrdered By: Jarrett Dang on 07-27-2023 Albumin BCG dye [Mass/Vol] 3.9 g/dL 3.5-5.7 [facility] Alkaline phosphatase [Enzyma tic activity/volume] in Serum or PlasmaOrdered By: Jarrett Dang on 07-27-2023 ALP [Catalytic activity/Vol] 98 U/L Normal 34-104 [facility] Comment on above: Performed By: #### B WILDLIFE TECHNICIAN, DDIMER, HS TROP, BMP, PT, PTT, CBC, HEPATIC, CK #### [facility] [address] [place] [id number] [place] Aspartate aminotransferase [ Enzymatic activity/volume] in Serum or PlasmaOrdered By: Jarrett Dang on 07-27-2023 AST [Catalytic activity/Vol] 13 U/L Normal 13-39 [facility] Comment on above: Performed By: #### B WILDLIFE TECHNICIAN, DDIMER, HS TROP, BMP, PT, PTT, CBC, HEPATIC, CK #### [facility] [address] [place] [address] [place] Automated basophil %Ordered By: Jarrett Dang on 07-27-2023 Basophils/100 WBC (Bld) 1.2 % Normal . [facility] Comment on above: Performed By: #### B WILDLIFE TECHNICIAN, DDIMER, HS TROP, BMP, PT, PTT, CBC, HEPATIC, CK #### [address] Automated basophil countOrde red By: Jarrett Dang on 07-27-2023 Basophils (Bld) [#/Vol] 0.1 10*3/uL Normal 0.0-0.2 [facility] Comment on above: Result Comment: PERF ORMED BY: [place] [address] PATHOLOGIST MACHINE FEEDER RAW STOCK BRODY GARZA M.D. Performed By: #### B WILDLIFE TECHNICIAN, DDIMER, HS TROP, BMP, PT, PTT, CBC, HEPATIC, CK #### [address] Automated blood monocyte cou ntOrdered By: Jarrett Dang on 07-27-2023 Monocytes (Bld) [#/Vol] 0.4 10*3/uL Normal 0.0-0.8 [facility] Comment on above: Performed By: #### B WILDLIFE TECHNICIAN, DDIMER, HS TROP, BMP, PT, PTT, CBC, HEPATIC, CK #### [address] Automated eosinophil %Ordere d By: Jarrett Dang on 07-27-2023 Eosinophils/100 WBC (Bld) 2.3 % Normal . [facility] Comment on above: Performed By: #### B WILDLIFE TECHNICIAN, DDIMER, HS TROP, BMP, PT, PTT, CBC, HEPATIC, CK #### [address] Automated eosinophil countOr dered By: Jarrett Dang on 07-27-2023 Eosinophils (Bld) [#/Vol] 0.2 10*3/uL Normal 0.0-0.45 [facility] Comment on above: Performed By: #### B WILDLIFE TECHNICIAN, DDIMER, HS TROP, BMP, PT, PTT, CBC, HEPATIC, CK #### [facility] [address] Automated monocyte %Ordered By: Jarrett Dang on 07-27-2023 Monocytes/100 WBC (Bld) 5.5 % Normal . [facility] Comment on above: Performed By: #### B WILDLIFE TECHNICIAN, DDIMER, HS TROP, BMP, PT, PTT, CBC, HEPATIC, CK #### [facility] [address] Automated neutrophil %Ordere d By: Jarrett Dang on 07-27-2023 Neutrophils/100 WBC (Bld) 77.1 % Normal . [facility] Comment on above: Performed By: #### B WILDLIFE TECHNICIAN, DDIMER, HS TROP, BMP, PT, PTT, CBC, HEPATIC, CK #### [address] BNP ser/plasOrdered By: Dia Dang on 07-27-2023 Natriuretic peptide B (Bld) [Mass/Vol] 129.0 pg/mL High 5-100 [facility] Comment on above: Result Comment: PERF ORMED BY: [place] [address] PATHOLOGIST MACHINE FEEDER RAW STOCK BRODY GARZA M.D. Performed By: #### B WILDLIFE TECHNICIAN, DDIMER, HS TROP, BMP, PT, PTT, CBC, HEPATIC, CK ####[address] Basic Metabolic Panelon 12-2 Creatinine Clr Calc Pharmacy 66.11 Normal [facility] Comment on above: Result Comment: PERF ORMED BY: [place] [address] PATHOLOGIST MACHINE FEEDER RAW STOCK BRODY GARZA M.D. Performed By: #### B WILDLIFE TECHNICIAN, DDIMER, HS TROP, BMP, PT, PTT, CBC, HEPATIC, CK ####[facility] GFR/1.73 sq M.predicted MDRD (S/P/Bld) [Vol rate/Area] mL/min/{1.73_m2} Normal [facility] Comment on above: Performed By: #### B WILDLIFE TECHNICIAN, DDIMER, HS TROP, BMP, PT, PTT, CBC, HEPATIC, CK ####[facility] [id number] Bilirubin.direct [Mass/volum e] in Serum or PlasmaOrdered By: Jarrett Dang on 07-27-2023 Bilirubin.direct [Mass/Vol] 0.00 mg/dL 0.03-0.18 [facility] Comment on above: If the DBIL is less than 0.1, IBIL is not able to becalculated. Bilirubin.total [Mass/volume ] in Serum or PlasmaOrdered By: Jarrett Dang on 07-27-2023 Bilirubin [Mass/Vol] 0.5 mg/dL Normal 0.3-1.0 [facility] Comment on above: Performed By: #### B WILDLIFE TECHNICIAN, DDIMER, HS TROP, BMP, PT, PTT, CBC, HEPATIC, CK #### [facility] [address] COVID CepheidOrdered By: Melissa Dang on 07-27-2023 SARS-CoV-2 (COVID-19) Ab IA Ql Negative Negative [facility] Comment on above: This is a duplicate Cepheid Xpert Xpress CoV-2/Flu/RSV Plus RNA by RT-PCR result to be used for statistical tracking purpose only. SARS-CoV-2 (COVID-19) RNA LATANYA+probe Ql (Unsp spec) [facility] COVID-19 / Flu A/B / RSV PCR on 07-27-2023 SARS-CoV-2 (COVID-19) RNA LATANYA+probe Ql (Unsp spec) COVID-19 Cepheid Result Negative for SARS-CoV-2 RNA by RT-PCR Flu A Cepheid Result Negative for Flu A RNA by RT-PCR Flu B Cepheid Result Negative for Flu B RNA by RT-PCR RSV Cepheid Result Negative for RSV RNA by RT-PCR COVID19 Blank Space ---- Reference: Negative COVID19 Blank Space ---- Cepheid Disclaimer The Cepheid Xpert Xpress CoV-2/Flu/RSV Plus has Cepheid Disclaimer not been FDA cleared or approved; this test has Cepheid Disclaimer been authorized by FDA under an EUA for use by Cepheid Disclaimer authorized laboratories; this test has been Cepheid Disclaimer authorized only for the simultaneous qualitative Cepheid Disclaimer detection and differentiation of nucleic acids from Cepheid Disclaimer SARS-CoV-2, influenza A, influenza B, and Cepheid Disclaimer respiratory syncytial virus (RSV), and not for any Cepheid Disclaimer other viruses or pathogens; and this test is only Cepheid Disclaimer authorized for the duration of the declaration that Cepheid Disclaimer circumstances exist justifying the authorization of Cepheid Disclaimer emergency use of in vitro diagnostic tests for Cepheid Disclaimer detection and/or diagnosis of COVID-19 under Cepheid Disclaimer Section 564(b)(1) of the Act, 21 U.S.C. 360bbb- Cepheid Disclaimer 3(b)(1), unless the authorization is terminated or Cepheid Disclaimer revoked sooner. PERFORMED BY: [place] [address] PATHOLOGIST MACHINE FEEDER RAW STOCK BRODY GARZA M.D. Normal [facility] Comment on above: Performed By: #### C OVID19 FLU RSV, CEPHEID NEG ####[facility] [id number] [place] [id number] [facility] CT chest w christopher 07-27-2023 CT chest w [facility] [address] [place] [address] [place] [id number] Scan Report Signed Patient: Chela Padilla MR#: [id number] 06 : 1955 Acct:[id number] Age/Sex: 68 / F ADM Date: 07/27/23 Loc: ER Room: Type: [facility] ER Attending Dr: Copies to: Jarrett Dang DO Ordering Provider: Jarrett Dang DO Date of Service: 07/27/23 CT/CT chest w con: back pain ([id number]) CT/CT abdomen pelvis w con: back pain CT CHEST, ABDOMEN AND PELVIS WITH CONTRAST COMPARISON: CT abdomen 11/19/2020 CLINICAL DATA: Shortness of breath, diaphoresis and mid back pain. Spiral images were obtained through the chest, abdomen and pelvis following 90 mL of Isovue-300. Images of the chest were reviewed using both narrow and wide window settings. This CT exam was performed using one or more following dose reduction techniques: Automated exposure control, adjustment of the mA and/or kV according to patient size, or use of iterative reconstruction technique. The heart is within normal limits for size. No pericardial effusion is present. There is minor coronary artery disease. There is no aortic aneurysm or dissection. There is minor plaque at the aortic arch. No enlarged lymph nodes are seen. There is minor atelectasis or scarring at the bases, greater on the left. There is no additional consolidation. No pleural effusion or pneumothorax is seen. No pulmonary nodularity is noted. No acute compression fractures or displacement are identified. Endplate spurring is present. There is fatty infiltration of the liver. There is an enhancing area at the hepatic dome which was seen previously and is probably hemangioma. No developing hepatic abnormalities are present. No calcified gallstones or biliary dilatation are seen. The spleen, pancreas and adrenal glands show no acute findings. There are symmetric bilateral renal nephrograms, without hydronephrosis. A punctate stone is present at the lower pole of the left kidney. There is atherosclerotic plaque involving the aorta. There are tiny abdominal lymph nodes. No ascites is present. The stomach is decompressed. Normal caliber small bowel loops are seen. There is stool within the colon, greater on the right. Scattered colonic diverticula are visualized. Once again , there is skin thickening and subcutaneous stranding in the supraumbilical region. There are no acute lumbar compression fractures or displacement. There is minor degenerative change at the lumbar spine, greatest at the lumbosacral junction. Images through the pelvis show normal caliber small bowel loops. There is moderate stool at the cecum and a small amount at the distal colon. There are additional diverticula, without associated active inflammation. The appendix is surgically absent. The uterus is retroverted and tilted toward the right. There are no adnexal cysts. No bladder abnormalities are seen. There is no ascites. CT/CT abdomen pelvis w con IMPRESSION: MINOR ATELECTASIS OR SCARRING. FATTY LIVER WITH SUSPECTED HEMANGIOMA. NO BOWEL OR URINARY TRACT OBSTRUCTION. LEFT NEPHROLITHIASIS. DIVERTICULOSIS. NO ACUTE FINDINGS. Impression dictated by: Cici Andrade M.D.07/27/2023 1:30 PM Dictation Location: [place] [address] Transcribed By: [facility] 07/27/23 1330 Dictated By: Cici Andrade MD 07/27/23 1318 Signed By: 07/27/23 1330 Normal [facility] Calcium [Mass/volume] in Ser um or PlasmaOrdered By: Jarrett Dang on 07-27-2023 Calcium [Mass/Vol] 9.1 mg/dL Normal 8.6-10.3 [facility] Comment on above: Performed By: #### B WILDLIFE TECHNICIAN, DDIMER, HS TROP, BMP, PT, PTT, CBC, HEPATIC, CK ####[facility] [id number] [place] [id number] [facility] Carbon dioxide, total [Moles /volume] in Serum or PlasmaOrdered By: Jarrett Dang on 07-27-2023 CO2 [Moles/Vol] 27.6 mmol/L Normal 21.0-31.0 [facility] Comment on above: Performed By: #### B WILDLIFE TECHNICIAN, DDIMER, HS TROP, BMP, PT, PTT, CBC, HEPATIC, CK ####[facility] [id number] [place] [address] [facility] Cepheid COVID PCR Negativeon 07-27-2023 SARS-CoV-2 (COVID-19) RNA LATANYA+probe Ql (Unsp spec) Negative Normal Negative [facility] Comment on above: Result Comment: This is a duplicate Cepheid Xpert Xpress CoV-2/Flu/RSV Plus RNA by RT-PCR result to be used for statistical tracking purpose only. PERFORMED BY: [facility] [address] [address] PATHOLOGIST MACHINE FEEDER RAW STOCK BRODY GARZA M.D. Performed By: #### C OVID19 FLU RSV, CEPHEID NEG ####[address] Chloride [Moles/volume] in S atul or PlasmaOrdered By: Jarrett Dang on 07-27-2023 Chloride [Moles/Vol] 104 mmol/L Normal 98-107 [facility] Comment on above: Performed By: #### B WILDLIFE TECHNICIAN, DDIMER, HS TROP, BMP, PT, PTT, CBC, HEPATIC, CK ####[place] [address] [address] Complete Blood Count Auto Di ffon 07-27-2023 Mean Corpuscular HGB Conc 34.1 g/dL Normal 32.0-35.0 [facility] Comment on above: Performed By: #### B WILDLIFE TECHNICIAN, DDIMER, HS TROP, BMP, PT, PTT, CBC, HEPATIC, CK #### [address] Monocytes/100 WBC (Bld) 18.82 % Normal 0.00-20.00 [facility] Comment on above: Performed By: #### B WILDLIFE TECHNICIAN, DDIMER, HS TROP, BMP, PT, PTT, CBC, HEPATIC, CK #### [facility] [address] NRBC% 0.1 /100{WBC} Normal 0-0.5 [facility] Comment on above: Performed By: #### B WILDLIFE TECHNICIAN, DDIMER, HS TROP, BMP, PT, PTT, CBC, HEPATIC, CK #### [facility] [address] [place] [address] [place] Creatine kinase [Enzymatic a ctivity/volume] in Serum or PlasmaOrdered By: Jarrett Dang on 07-27-2023 CK [Catalytic activity/Vol] 100 U/L Normal 30-223 [facility] Comment on above: Performed By: #### B WILDLIFE TECHNICIAN, DDIMER, HS TROP, BMP, PT, PTT, CBC, HEPATIC, CK ####[address] [place] [address] [facility] Creatinine [Mass/volume] in Serum or PlasmaOrdered By: Jarrett Dang on 07-27-2023 Creatinine [Mass/Vol] 0.65 mg/dL Normal 0.60-1.20 [facility] Comment on above: Performed By: #### B WILDLIFE TECHNICIAN, DDIMER, HS TROP, BMP, PT, PTT, CBC, HEPATIC, CK ####[place] [address] [place] [address] [facility] D-Dimer High Sensitivityon 1 09-27-2022 D-Dimer High Sensitivity < 200 Normal 0-243 [facility] Comment on above: Result Comment: The reference range for D-dimer is <243 ng/mL D-dimer units. D-dimer results must be used in conjunction with a clinical pretest probability (PTP) assessment model for deep vein thrombosis (DVT) and pulmonary embolism (PE). Results <230 ng/mL d-dimer units can be used as a negative predictor in patients with low or moderate probability for DVT/PE. Results above the exclusion threshold of 230 ng/ml D-dimer units for DVT/PE may indicate the need for further diagnostic testing. D-Dimer can be increased in hospitalized patients due to co-morbid conditions. A hematocrit value greater than 55% may lead to inaccurate results in coagulation testing. Patients having hematocrit values >55% require a special collection tube for coagulation studies. Please contact the laboratory at [phone] for redraw instructions. PERFORMED BY: [place] [address] PATHOLOGIST MACHINE FEEDER RAW STOCK BRODY GARZA M.D. Performed By: #### B WILDLIFE TECHNICIAN, DDIMER, HS TROP, BMP, PT, PTT, CBC, HEPATIC, CK ####[place] [address] [place] [address] [facility] ECG 12 lead ECGon 07-27-2023 ECG 12 lead ECG [facility] [address] [place] [address] [place], [place] [id number] Electrocardiograph Report Signed Patient: Chela Padilla MR#: [id number] 06 : 1955 Acct:[id number] Age/Sex: 68 / F ADM Date: 07/27/23 Loc: ER Room: Type: [facility] ER Attending Dr: Ordering Provider: Jarrett Dang DO Date of Service: 07/27/23 ECG/ECG 12 lead ECG: Back Pain/Injury Copies to: Test Reason : Blood Pressure : 198/091 mmHG Vent. Rate : 080 BPM Atrial Rate : 080 BPM P-R Int : 152 ms QRS Dur : 080 ms QT Int : 396 ms P-R-T Axes : 021 -14 052 degrees QTc Int : 456 ms Normal sinus rhythm Low voltage QRS Cannot rule out Anterior infarct , age undetermined Abnormal ECG When compared with ECG of 16-AUG-2013 04:04, Minimal criteria for Anterior infarct are now present ST no longer depressed in Anterior leads Nonspecific T wave abnormality, worse in Anterior leads Confirmed by Jarrett Dang DO ([id number]) on 07/27/2023 1:55:56 PM Referred By: Electronically Signed By:Jarrett Dang DO Transcribed By: MUS Signed By Jarrett Dang DO 3 1356 Normal [facility] Erythrocyte distribution wid th [Ratio] by Automated countOrdered By: Jarrett Dang on 07-27-2023 Erythrocyte distribution width (RBC) [Ratio] 13.3 % Normal 11.9-15.3 [facility] Comment on above: Performed By: #### B WILDLIFE TECHNICIAN, DDIMER, HS TROP, BMP, PT, PTT, CBC, HEPATIC, CK #### [facility] [address] Erythrocytes [#/volume] in B lood by Automated countOrdered By: Jarrett Dang on 07-27-2023 RBC (Bld) [#/Vol] 4.66 10*6/uL Normal 3.60-5.00 [facility] Comment on above: Performed By: #### B WILDLIFE TECHNICIAN, DDIMER, HS TROP, BMP, PT, PTT, CBC, HEPATIC, CK #### [facility] [address] Fibrin D-dimer [Presence] in Platelet poor plasma by Latex agglutinationOrdered By: Jarrett Dang on 07-27-2023 Fibrin D-dimer LA Ql (PPP) < 200 ng/mL 0-243 [facility] Comment on above: The reference range for D-dimer is <243 ng/mL D-dimer units.D-dimer results must be used in conjunction with a clinicalpretest probability (PTP) assessment model for deep veinthrombosis (DVT) and pulmonary embolism (PE). Results <230ng/mL d-dimer units can be used as a negative predictor inpatients with low or moderate probability for DVT/PE.Results above the exclusion threshold of 230 ng/ml D-dimerunits for DVT/PE may indicate the need for furtherdiagnostic testing.D-Dimer can be increased in hospitalized patients due toco-morbid conditions.A hematocrit value greater than 55% may lead to inaccurate results in coagulation testing. Patients having hematocrit values >55% require a special collection tube for coagulation studies. Please contact the laboratory at [phone] for redraw instructions. Glucose [Mass/volume] in Ser um or PlasmaOrdered By: Jarrett Dang on 07-27-2023 Glucose [Mass/Vol] 297 mg/dL High 70-100 [facility] Comment on above: ADA recommended refe rence rangeRandom Glucose Reference Range is dependent on time and content of last meal. Glucose of more than 200 mg/dL in a nonstressed, ambulatory subject supports the diagnosis of Diabetes Mellitus. Result Comment: [place] Glucose Reference Range is dependent on time and content of last meal. Glucose of more than 200 mg/dL in a nonstressed, ambulatory subject supports the diagnosis of Diabetes Mellitus. ADA recommended reference range Performed By: #### B WILDLIFE TECHNICIAN, DDIMER, HS TROP, BMP, PT, PTT, CBC, HEPATIC, CK ####[facility] [id number] Hematocrit [Volume Fraction] of Blood by Automated countOrdered By: Jarrett Dang on 07-27-2023 Hematocrit (Bld) [Volume fraction] 41.9 % Normal 34.0-46.4 [facility] Comment on above: Performed By: #### B WILDLIFE TECHNICIAN, DDIMER, HS TROP, BMP, PT, PTT, CBC, HEPATIC, CK #### [facility] [address] Hemoglobin [Mass/volume] in BloodOrdered By: Jarrett Dang on 07-27-2023 Hemoglobin (Bld) [Mass/Vol] 14.3 g/dL Normal 11.8-15.4 [facility] Comment on above: Performed By: #### B WILDLIFE TECHNICIAN, DDIMER, HS TROP, BMP, PT, PTT, CBC, HEPATIC, CK #### [facility] [address] Hepatic Panelon 07-27-2023 Albumin [Mass/Vol] 3.9 g/dL Normal 3.5-5.7 [facility] Comment on above: Performed By: #### B WILDLIFE TECHNICIAN, DDIMER, HS TROP, BMP, PT, PTT, CBC, HEPATIC, CK #### [facility] [address] Bilirubin,Indirect 0.5 mg/dL Normal [facility] Comment on above: Performed By: #### B WILDLIFE TECHNICIAN, DDIMER, HS TROP, BMP, PT, PTT, CBC, HEPATIC, CK #### [facility] [address] Bilirubin.indirect [Mass/Vol] 0.00 mg/dL Low 0.03-0.18 [facility] Comment on above: Result Comment: If t he DBIL is less than 0.1, IBIL is not able to be calculated. Performed By: #### B WILDLIFE TECHNICIAN, DDIMER, HS TROP, BMP, PT, PTT, CBC, HEPATIC, CK #### [facility] [address] INR in Platelet poor plasma by Coagulation assayOrdered By: Jarrett Dang on 07-27-2023 INR Coag (PPP) [Relative time] 0.9 {INR} Normal [facility] Comment on above: INR Therapeutic Rang e A) Pre- and Peroperative OAT started two weeks before surgery. NOT HIP SURGERY: 1.5 - 2.5 HIP SURGERY: 2 - 3B) Primary and secondary prevention of venous THROMBOSIS: 2 - 3C) Active venous thrombosis, pulmonary embolismand prevention of recurrent venous thrombosis: 2 - 3D) Prevention of arterial thromboembolismincluding patients with mechanical heart valves: 3 - 4.5 Result Comment: INR Therapeutic Range A) Pre- and Peroperative OAT started two weeks before surgery. NOT HIP SURGERY: 1.5 - 2.5 HIP SURGERY: 2 - 3 B) Primary and secondary prevention of venous THROMBOSIS: 2 - 3 C) Active venous thrombosis, pulmonary embolism and prevention of recurrent venous thrombosis: 2 - 3 D) Prevention of arterial thromboembolism including patients with mechanical heart valves: 3 - 4.5 Performed By: #### B WILDLIFE TECHNICIAN, DDIMER, HS TROP, BMP, PT, PTT, CBC, HEPATIC, CK ####[facility] [id number] Leukocytes [#/volume] correc adalid for nucleated erythrocytes in Blood by Automated counOrdered By: Jarrett Dang on 07-27-2023 WBC corrected for nucl RBC Auto (Bld) [#/Vol] 7.7 10*3/uL 3.8-11.6 [facility] Leukocytes [#/volume] in Blo od by Automated countOrdered By: Jarrett Dang on 07-27-2023 WBC (Bld) [#/Vol] 7.7 10*3/uL Normal 3.8-11.6 [facility] Comment on above: Performed By: #### B WILDLIFE TECHNICIAN, DDIMER, HS TROP, BMP, PT, PTT, CBC, HEPATIC, CK #### [facility] [address] Lymphocytes [#/volume] in Bl ood by Automated countOrdered By: Jarrett Dang on 07-27-2023 Lymphocytes (Bld) [#/Vol] 1.1 10*3/uL Normal 1.00-4.8 [facility] Comment on above: Performed By: #### B WILDLIFE TECHNICIAN, DDIMER, HS TROP, BMP, PT, PTT, CBC, HEPATIC, CK #### [facility] [address] [place] [address] [place] Lymphocytes/100 leukocytes i n Blood by Automated countOrdered By: Jarrett Dang on 07-27-2023 Lymphocytes/100 WBC (Bld) 13.9 % Normal . [facility] Comment on above: Performed By: #### B WILDLIFE TECHNICIAN, DDIMER, HS TROP, BMP, PT, PTT, CBC, HEPATIC, CK #### [facility] [address] [place] [address] [place] MCH [Entitic mass] by Automa adalid countOrdered By: Jarrett Dang on 07-27-2023 MCH (RBC) [Entitic mass] 30.6 pg Normal 24.7-34.3 [facility] Comment on above: Performed By: #### B WILDLIFE TECHNICIAN, DDIMER, HS TROP, BMP, PT, PTT, CBC, HEPATIC, CK #### [facility] [address] MCHC Auto (RBC) [Mass/Vol]Or dered By: Jarrett Dang on 07-27-2023 MCHC (RBC) [Mass/Vol] 34.1 g/dL 32.0-35.0 [facility] MCV [Entitic volume] by Auto mated countOrdered By: Jarrett Dang on 07-27-2023 MCV (RBC) [Entitic vol] 89.9 fL Normal 80-100 [facility] Comment on above: Performed By: #### B WILDLIFE TECHNICIAN, DDIMER, HS TROP, BMP, PT, PTT, CBC, HEPATIC, CK #### [facility] [address] Monocyte distribution width [Entitic volume] in Blood by AutomatedOrdered By: Jarrett Dang on 07-27-2023 Monocyte distribution width Auto (Bld) [Entitic vol] 18.82 % 0.00-20.00 [facility] Neutrophils [#/volume] in Bl ood by Automated countOrdered By: Jarrett Dang on 07-27-2023 Neutrophils (Bld) [#/Vol] 5.9 10*3/uL Normal 1.8-7.7 [facility] Comment on above: Performed By: #### B WILDLIFE TECHNICIAN, DDIMER, HS TROP, BMP, PT, PTT, CBC, HEPATIC, CK #### [facility] [address] No Panel InformationOrdered By: Jarrett Dang on 07-27-2023 Estimated GFR (CKD-EPI) > 60.0 mL/Min [facility] Creatinine Clearance (Chem 66.11 [facility] Nucleated erythrocytes [Pres ence] in Blood by Automated countOrdered By: Jarrett Dang on 07-27-2023 Nucleated RBC Auto Ql (Bld) 0.1 /100{WBC} 0-0.5 [facility] Partial Thromboplastin Timeo n 07-27-2023 aPTT Coag (Bld) [Time] 26.5 s Normal 25.1-36.5 [facility] Comment on above: Result Comment: A he matocrit value greater than 55% may lead to inaccurate results in coagulation testing. Patients having hematocrit values >55% require a special collection tube for coagulation studies. Please contact the laboratory at [phone] for redraw instructions. Performed By: #### B WILDLIFE TECHNICIAN, DDIMER, HS TROP, BMP, PT, PTT, CBC, HEPATIC, CK ####[facility] Ofw[address] [place] [address] [place] Platelet mean volume [Entiti c volume] in Blood by Automated countOrdered By: Jarrett Dang on 07-27-2023 Platelet mean volume (Bld) [Entitic vol] 9.0 fL Normal 6.3-10.7 [facility] Comment on above: Performed By: #### B WILDLIFE TECHNICIAN, DDIMER, HS TROP, BMP, PT, PTT, CBC, HEPATIC, CK #### [facility] [address] [place] [address] [place] Platelets [#/volume] in Bloo d by Automated countOrdered By: Jarrett Dang on 07-27-2023 Platelets (Bld) [#/Vol] 167 10*3/uL Normal 150-450 [facility] Comment on above: Performed By: #### B WILDLIFE TECHNICIAN, DDIMER, HS TROP, BMP, PT, PTT, CBC, HEPATIC, CK #### [facility] [address] [place] [id number] [place] Potassium [Moles/volume] in Serum or PlasmaOrdered By: Jarrett Dang on 07-27-2023 Potassium [Moles/Vol] 4.0 mmol/L Normal 3.5-5.1 [facility] Comment on above: Performed By: #### B WILDLIFE TECHNICIAN, DDIMER, HS TROP, BMP, PT, PTT, CBC, HEPATIC, CK ####[facility] [id number] [place] [id number] [place] Protein [Mass/volume] in Ser um or PlasmaOrdered By: Jarrett Dang on 07-27-2023 Protein [Mass/Vol] 6.4 g/dL Normal 6.4-8.9 [facility] Comment on above: Performed By: #### B WILDLIFE TECHNICIAN, DDIMER, HS TROP, BMP, PT, PTT, CBC, HEPATIC, CK #### [facility] [address] Prothrombin time (PT)Ordered By: Jarrett Dang on 07-27-2023 PT Coag (PPP) [Time] 10.5 s Normal 9.0-12.9 [facility] Comment on above: A hematocrit value g reater than 55% may lead to inaccurate results in coagulation testing. Patients having hematocrit values >55% require a special collection tube for coagulation studies. Please contact the laboratory at [phone] for redraw instructions. Result Comment: A he matocrit value greater than 55% may lead to inaccurate results in coagulation testing. Patients having hematocrit values >55% require a special collection tube for coagulation studies. Please contact the laboratory at [phone] for redraw instructions. Performed By: #### B WILDLIFE TECHNICIAN, DDIMER, HS TROP, BMP, PT, PTT, CBC, HEPATIC, CK ####[facility] Serum globulin measurement b y calculation (mass/volume)Ordered By: Jarrett Dang on 07-27-2023 Globulin (S) [Mass/Vol] 2.5 g/dL [facility] Comment on above: Performed By: #### B WILDLIFE TECHNICIAN, DDIMER, HS TROP, BMP, PT, PTT, CBC, HEPATIC, CK #### [facility] [facility] [address] Serum or plasma albumin/glob ulin mass ratioOrdered By: Jarrett Dang on 07-27-2023 Albumin/Globulin [Mass ratio] 1.6 {ratio} [facility] Comment on above: Performed By: #### B WILDLIFE TECHNICIAN, DDIMER, HS TROP, BMP, PT, PTT, CBC, HEPATIC, CK #### [facility] [address] Serum or plasma anion gap de terminationOrdered By: Jarrett Dang on 07-27-2023 Anion gap [Moles/Vol] 10.4 mmol/L Normal 6.0-15.0 [facility] Comment on above: Performed By: #### B WILDLIFE TECHNICIAN, DDIMER, HS TROP, BMP, PT, PTT, CBC, HEPATIC, CK ####[place] [id number] [place] [id number] [facility] Serum or plasma non-glucuron idated bilirubin measurement (mass/volume)Ordered By: Jarrett Dang on 07-27-2023 Bilirubin.indirect [Mass/Vol] 0.5 mg/dL [facility] Sodium [Moles/volume] in Ser um or PlasmaOrdered By: Jarrett Dang on 07-27-2023 Sodium [Moles/Vol] 138 mmol/L Normal 136-145 [facility] Comment on above: Performed By: #### B WILDLIFE TECHNICIAN, DDIMER, HS TROP, BMP, PT, PTT, CBC, HEPATIC, CK ####[place] [address] [place] [id number] [facility] Troponin I High Sensitivityo n 07-27-2023 Troponin I High Sensitivity 4.4 pg/mL Normal 0.0-15.0 [facility] Comment on above: Result Comment: PERF ORMED BY: [facility] [address] [place] [id number] PATHOLOGIST MACHINE FEEDER RAW STOCK BRODY GARZA M.D. Performed By: #### B WILDLIFE TECHNICIAN, DDIMER, HS TROP, BMP, PT, PTT, CBC, HEPATIC, CK ####[place] [id number] [facility] Troponin I.cardiac [Mass/vol ume] in Serum or Plasma by Detection limit <= 0.01 ng/Ordered By: Jarrett Dang on 07-27-2023 Troponin I.cardiac DL <= 0.01 ng/mL [Mass/Vol] 4.4 pg/mL 0.0-15.0 [facility] Urea nitrogen [Mass/volume] in Serum or PlasmaOrdered By: Jarrett Dang on 07-27-2023 Urea nitrogen [Mass/Vol] 13 mg/dL Normal 7-25 [facility] Comment on above: Performed By: #### B WILDLIFE TECHNICIAN, DDIMER, HS TROP, BMP, PT, PTT, CBC, HEPATIC, CK ####[facility] XR chest 1V portableon 07-27 XR chest 1V portable [facility] Main [place] [address] [place] [address] XRay Report Signed Patient: Chela Padilla MR#: [id number] 06 : 1955 Acct:[id number] Age/Sex: 68 / F ADM Date: 07/27/23 Loc: ER Room: Type: [facility] ER Attending Dr: Copies to: Jarrett Dang DO Ordering Provider: Jarrett Dang DO Date of Service: 07/27/23 XR/XR chest 1V portable: Back Pain/Injury SINGLE VIEW CHEST CLINICAL HISTORY: Shortness of breath with back pain started yesterday. COMPARISON: None FINDINGS: Heart normal size. Lungs are clear. No free air. XR/XR chest 1V portable IMPRESSION: NO ACUTE FINDINGS Impression dictated by: Moo Maxwell Jr., D.O.07/27/2023 10:57 AM Dictation Location: [place] [address] Transcribed By: YUNG 07/27/23 105 Dictated By: Moo Maxwell Jr, DO 07/27/23 105 Signed By: 07/27/23 105 Normal [facility] Alanine aminotransferase [En zymatic activity/volume] in Serum or PlasmaOrdered By: Alana Parkinson on 06-18-2023 ALT [Catalytic activity/Vol] 18 U/L Normal [facility] Comment on above: Performed By: #### A DDONUAPLUS, CMP, TSH3, A1C WTH eA, URMACRERAT, CUU, LIPID, CBC ####[facility] [address] Albumin [Mass/volume] in Ser um or Plasma by Bromocresol green (BCG) dye binding methoOrdered By: Alana Parkinson on 06-18-2023 Albumin BCG dye [Mass/Vol] 3.8 g/dL 3.5-5.7 [facility] Alkaline phosphatase [Enzyma tic activity/volume] in Serum or PlasmaOrdered By: Alana Parkinson on 06-18-2023 ALP [Catalytic activity/Vol] 115 U/L High 34-104 [facility] Comment on above: Performed By: #### A DDONUAPLUS, CMP, TSH3, A1C WTH eA, URMACRERAT, CUU, LIPID, CBC ####[address] Aspartate aminotransferase [ Enzymatic activity/volume] in Serum or PlasmaOrdered By: Alana Parkinson on 06-18-2023 AST [Catalytic activity/Vol] 11 U/L Low 13-39 [facility] Comment on above: Performed By: #### A DDONUAPLUS, CMP, TSH3, A1C WTH eA, URMACRERAT, CUU, LIPID, CBC ####[address] Automated basophil %Ordered By: Alana Parkinson on 06-18-2023 Basophils/100 WBC (Bld) 1.3 % Normal . [facility] Comment on above: Performed By: #### A DDONUAPLUS, CMP, TSH3, A1C WTH eA, URMACRERAT, CUU, LIPID, CBC ####[address] Automated basophil countOrde red By: Alana Parkinson on 06-18-2023 Basophils (Bld) [#/Vol] 0.1 10*3/uL Normal 0.0-0.2 [facility] Comment on above: Result Comment: PERF ORMED BY: [facility] [address] [place] [address] PATHOLOGIST MACHINE FEEDER RAW STOCK BRODY GARZA M.D. Performed By: #### A DDONUAPLUS, CMP, TSH3, A1C WTH eA, URMACRERAT, CUU, LIPID, CBC ####[place] [id number] [facility] Automated blood monocyte cou ntOrdered By: Alana Parkinson on 06-18-2023 Monocytes (Bld) [#/Vol] 0.4 10*3/uL Normal 0.0-0.8 [facility] Comment on above: Performed By: #### A DDONUAPLUS, CMP, TSH3, A1C WTH eA, URMACRERAT, CUU, LIPID, CBC ####[place] [address] Automated eosinophil %Ordere d By: Alana Parkinson on 06-18-2023 Eosinophils/100 WBC (Bld) 4.5 % Normal . [facility] Comment on above: Performed By: #### A DDONUAPLUS, CMP, TSH3, A1C WTH eA, URMACRERAT, CUU, LIPID, CBC ####[address] Automated eosinophil countOr dered By: Alana Parkinson on 06-18-2023 Eosinophils (Bld) [#/Vol] 0.3 10*3/uL Normal 0.0-0.45 [facility] Comment on above: Performed By: #### A DDONUAPLUS, CMP, TSH3, A1C WTH eA, URMACRERAT, CUU, LIPID, CBC ####[address] Automated erythrocytes count in urine sediment (number/area)Ordered By: Alana Parkinson on 06-18-2023 RBC Auto (Urine sed) [#/Area] 0-1 [HPF] 0-4 [facility] Automated leukocytes count i n urine sediment (number/area)Ordered By: Alana Parkinson on 06-18-2023 WBC Auto (Urine sed) [#/Area] 20-49 [HPF] 0-4 [facility] Automated monocyte %Ordered By: Alana Parkinson on 06-18-2023 Monocytes/100 WBC (Bld) 5.8 % Normal . [facility] Comment on above: Performed By: #### A DDONUAPLUS, CMP, TSH3, A1C WTH eA, URMACRERAT, CUU, LIPID, CBC ####[address] Automated neutrophil %Ordere d By: Alana Parkinson on 06-18-2023 Neutrophils/100 WBC (Bld) 61.4 % Normal . [facility] Comment on above: Performed By: #### A DDONUAPLUS, CMP, TSH3, A1C WTH eA, URMACRERAT, CUU, LIPID, CBC ####[place] [address] [place] [address] [facility] Automated urine color determ inationOrdered By: Alana Parkinson on 06-18-2023 Color (U) Yellow Normal Yellow [facility] Comment on above: Order Comment: Name Collection Type:: Clean-Voided Midstream Performed By: #### A DDONUAPLUS, CMP, TSH3, A1C WTH eA, URMACRERAT, CUU, LIPID, CBC ####[place] [address] [place] [id number] [facility] Bilirubin Test strip Ql (U)O rdered By: Alana Parkinson on 06-18-2023 Bilirubin Ql (U) Negative Negative [facility] Bilirubin.total [Mass/volume ] in Serum or PlasmaOrdered By: Alnaa Parkinson on 06-18-2023 Bilirubin [Mass/Vol] 0.5 mg/dL Normal 0.3-1.0 [facility] Comment on above: Performed By: #### A DDONUAPLUS, CMP, TSH3, A1C WTH eA, URMACRERAT, CUU, LIPID, CBC ####[place] [id number] [facility] Calcium [Mass/volume] in Ser um or PlasmaOrdered By: Alana Parkinson on 06-18-2023 Calcium [Mass/Vol] 9.1 mg/dL Normal 8.6-10.3 [facility] Comment on above: Performed By: #### A DDONUAPLUS, CMP, TSH3, A1C WTH eA, URMACRERAT, CUU, LIPID, CBC ####[place] [address] [place] [address] [facility] Carbon dioxide, total [Moles /volume] in Serum or PlasmaOrdered By: Alana Parkinson on 06-18-2023 CO2 [Moles/Vol] 30.4 mmol/L Normal 21.0-31.0 [facility] Comment on above: Performed By: #### A DDONUAPLUS, CMP, TSH3, A1C WTH eA, URMACRERAT, CUU, LIPID, CBC ####[facility] [address] [place] [address] [place] Chloride [Moles/volume] in S atul or PlasmaOrdered By: Alana Parkinson on 06-18-2023 Chloride [Moles/Vol] 102 mmol/L Normal 98-107 [facility] Comment on above: Performed By: #### A DDONUAPLUS, CMP, TSH3, A1C WTH eA, URMACRERAT, CUU, LIPID, CBC ####[facility] [address] [place] [id number] [facility] Cholesterol [Mass/volume] in Serum or PlasmaOrdered By: Alana Parkinson on 06-18-2023 Cholesterol [Mass/Vol] 210 mg/dL High 140-200 [facility] Comment on above: Chol less than 200 m g/dl low riskChol 201-239 mg/dl borderline riskChol 240 mg/dl and greater high risk Result Comment: Chol less than 200 mg/dl low risk Chol 201-239 mg/dl borderline risk Chol 240 mg/dl and greater high risk Performed By: #### A DDONUAPLUS, CMP, TSH3, A1C WTH eA, URMACRERAT, CUU, LIPID, CBC ####[facility] [id number] [place] [id number] [facility] Cholesterol in LDL Calc [Mas s/Vol]Ordered By: Alana Parkinson on 06-18-2023 Cholesterol in LDL [Mass/Vol] 135 mg/dL 0-100 [facility] Comment on above: LDL ATP III CLASSIFI CATIONLDL less than 100 mg/dL OptimalLDL 100-129 mg/dL Near or above optimalLDL 130-159 mg/dL Borderline highLDL 160-189 mg/dL HighLDL greater than 189 mg/dL Very high Cholesterol in VLDL Calc [Ma ss/Vol]Ordered By: Alana aPrkinson on 06-18-2023 Cholesterol in VLDL [Mass/Vol] 28 mg/dL [facility] Complete Blood Count Auto Di ffon 06-18-2023 Mean Corpuscular HGB Conc 33.1 g/dL Normal 32.0-35.0 [facility] Comment on above: Performed By: #### A DDONUAPLUS, CMP, TSH3, A1C WTH eA, URMACRERAT, CUU, LIPID, CBC ####[place] [address] [place] [address] [facility] NRBC% 0.1 /100{WBC} Normal 0-0.5 [facility] Comment on above: Performed By: #### A DDONUAPLUS, CMP, TSH3, A1C WTH eA, URMACRERAT, CUU, LIPID, CBC ####[place] [address] [place] [id number] [facility] Comprehensive Metabolic Pane shalini 06-18-2023 Albumin [Mass/Vol] 3.8 g/dL Normal 3.5-5.7 [facility] Comment on above: Performed By: #### A DDONUAPLUS, CMP, TSH3, A1C WTH eA, URMACRERAT, CUU, LIPID, CBC ####[place] [id number] [facility] GFR/1.73 sq M.predicted MDRD (S/P/Bld) [Vol rate/Area] mL/min/{1.73_m2} Normal [facility] Comment on above: Performed By: #### A DDONUAPLUS, CMP, TSH3, A1C WTH eA, URMACRERAT, CUU, LIPID, CBC ####[place] [id number] [facility] Creatinine [Mass/volume] in Serum or PlasmaOrdered By: Alana Parkinson on 06-18-2023 Creatinine [Mass/Vol] 0.68 mg/dL Normal 0.60-1.20 [facility] Comment on above: Performed By: #### A DDONUAPLUS, CMP, TSH3, A1C WTH eA, URMACRERAT, CUU, LIPID, CBC ####[address] [address] [facility] Creatinine [Mass/volume] in UrineOrdered By: Alana Parkinson on 06-18-2023 Creatinine (U) [Mass/Vol] 59.0 mg/dL 11.0-20.0 [facility] Dipstick and Microscopicon 1 08-18-2022 Appearance (U) Clear Normal Clear [facility] Comment on above: Order Comment: Name Collection Type:: Clean-Voided Midstream Performed By: #### A DDONUAPLUS, CMP, TSH3, A1C WTH eA, URMACRERAT, CUU, LIPID, CBC ####[place] [id number] [facility] Bacteria,Urine 1+ High None Seen [facility] Comment on above: Order Comment: Name Collection Type:: Clean-Voided Midstream Performed By: #### A DDONUAPLUS, CMP, TSH3, A1C WTH eA, URMACRERAT, CUU, LIPID, CBC ####[address] Bilirubin,Urine Negative Normal Negative [facility] Comment on above: Order Comment: Name Collection Type:: Clean-Voided Midstream Performed By: #### A DDONUAPLUS, CMP, TSH3, A1C WTH eA, URMACRERAT, CUU, LIPID, CBC ####[address] [address] [facility] Glucose Ql (U) >=1000 High Normal [facility] Comment on above: Order Comment: Name Collection Type:: Clean-Voided Midstream Performed By: #### A DDONUAPLUS, CMP, TSH3, A1C WTH eA, URMACRERAT, CUU, LIPID, CBC ####[address] [address] [facility] Hyaline Casts,Urine 0-8 Normal 0-8 [facility] Comment on above: Order Comment: Name Collection Type:: Clean-Voided Midstream Result Comment: PERF ORMED BY: [facility] [address] [place] [id number] PATHOLOGIST MACHINE FEEDER RAW STOCK BRODY GARZA M.D. Performed By: #### A DDONUAPLUS, CMP, TSH3, A1C WTH eA, URMACRERAT, CUU, LIPID, CBC ####[address] Ketones Ql (U) Negative Normal Negative [facility] Comment on above: Order Comment: Name Collection Type:: Clean-Voided Midstream Performed By: #### A DDONUAPLUS, CMP, TSH3, A1C WTH eA, URMACRERAT, CUU, LIPID, CBC ####[place] [id number] [facility] Leukocyte esterase Test strip Ql (U) 2+ High Negative [facility] Comment on above: Order Comment: Name Collection Type:: Clean-Voided Midstream Performed By: #### A DDONUAPLUS, CMP, TSH3, A1C WTH eA, URMACRERAT, CUU, LIPID, CBC ####[address] Nitrite,Urine Negative Normal Negative [facility] Comment on above: Order Comment: Name Collection Type:: Clean-Voided Midstream Performed By: #### A DDONUAPLUS, CMP, TSH3, A1C WTH eA, URMACRERAT, CUU, LIPID, CBC ####[place] [id number] [facility] Occult Blood,Urine Negative Normal Negative [facility] Comment on above: Order Comment: Name Collection Type:: Clean-Voided Midstream Result Comment: PERF ORMED BY: [facility] [address] [place] [address] PATHOLOGIST MACHINE FEEDER RAW STOCK BRODY GARZA M.D. Performed By: #### A DDONUAPLUS, CMP, TSH3, A1C WTH eA, URMACRERAT, CUU, LIPID, CBC ####[address] Protein,Urine Negative Normal Negative [facility] Comment on above: Order Comment: Name Collection Type:: Clean-Voided Midstream Performed By: #### A DDONUAPLUS, CMP, TSH3, A1C WTH eA, URMACRERAT, CUU, LIPID, CBC ####[address] RBC LM.HPF (Urine sed) [#/Area] 0 /[HPF] Normal 0-4 [facility] Comment on above: Order Comment: Name Collection Type:: Clean-Voided Midstream Performed By: #### A DDONUAPLUS, CMP, TSH3, A1C WTH eA, URMACRERAT, CUU, LIPID, CBC ####[address] Specificy [place],Urine 1.031 High 1.001-1.03 0 [facility] Comment on above: Order Comment: Name Collection Type:: Clean-Voided Midstream Performed By: #### A DDONUAPLUS, CMP, TSH3, A1C WTH eA, URMACRERAT, CUU, LIPID, CBC ####[address] Squamous Epithelial Cell,Urine 3-4 High 0-2 [facility] Comment on above: Order Comment: Name Collection Type:: Clean-Voided Midstream Performed By: #### A DDONUAPLUS, CMP, TSH3, A1C WTH eA, URMACRERAT, CUU, LIPID, CBC ####[address] Urobilinogen,Urine Normal Normal Normal [facility] Comment on above: Order Comment: Name Collection Type:: Clean-Voided Midstream Performed By: #### A DDONUAPLUS, CMP, TSH3, A1C WTH eA, URMACRERAT, CUU, LIPID, CBC ####[address] WBC,Urine 20-49 High 0-4 [facility] Comment on above: Order Comment: Name Collection Type:: Clean-Voided Midstream Performed By: #### A DDONUAPLUS, CMP, TSH3, A1C WTH eA, URMACRERAT, CUU, LIPID, CBC ####[address] [address] [facility] Erythrocyte distribution wid th [Ratio] by Automated countOrdered By: Alana Parkinson on 06-18-2023 Erythrocyte distribution width (RBC) [Ratio] 13.1 % Normal 11.9-15.3 [facility] Comment on above: Performed By: #### A DDONUAPLUS, CMP, TSH3, A1C WTH eA, URMACRERAT, CUU, LIPID, CBC ####[facility] [place] [id number] [facility] Erythrocytes [#/volume] in B lood by Automated countOrdered By: Alana Parkinson on 06-18-2023 RBC (Bld) [#/Vol] 4.69 10*6/uL Normal 3.60-5.00 [facility] Comment on above: Performed By: #### A DDONUAPLUS, CMP, TSH3, A1C WTH eA, URMACRERAT, CUU, LIPID, CBC ####[place] [address] [place] [id number] [facility] Glucose [Mass/volume] in Ser um or PlasmaOrdered By: Alana Parkinson on 06-18-2023 Glucose [Mass/Vol] 329 mg/dL Normal [facility] Comment on above: ADA recommended refe rence rangeRandom Glucose Reference Range is dependent on time and content of last meal. Glucose of more than 200 mg/dL in a nonstressed, ambulatory subject supports the diagnosis of Diabetes Mellitus. Result Comment: [place] Glucose Reference Range is dependent on time and content of last meal. Glucose of more than 200 mg/dL in a nonstressed, ambulatory subject supports the diagnosis of Diabetes Mellitus. ADA recommended reference range Performed By: #### A DDONUAPLUS, CMP, TSH3, A1C WTH eA, URMACRERAT, CUU, LIPID, CBC ####[facility]1111 [place] [id number] [facility] Result Comment: PERF ORMED BY: [facility] [address] [place] [place] [id number] PATHOLOGIST MACHINE FEEDER RAW STOCK BRODY GARZA M.D. Glucose mean value [Mass/vol ume] in Blood Estimated from glycated hemoglobinOrdered By: Alana Parkinson on 06-18-2023 Average glucose Estimated from glycated hemoglobin (Bld) [Mass/Vol] 329 mg/dL [facility] Hematocrit [Volume Fraction] of Blood by Automated countOrdered By: Alana Parkinson on 06-18-2023 Hematocrit (Bld) [Volume fraction] 42.6 % Normal 34.0-46.4 [facility] Comment on above: Performed By: #### A DDONUAPLUS, CMP, TSH3, A1C WTH eA, URMACRERAT, CUU, LIPID, CBC ####[address] Hemoglobin A1c percentageOrd ered By: Alana Parkinson on 06-18-2023 HbA1c (Bld) [Mass fraction] 13.1 % High 4.3-5.6 [facility] Comment on above: Increased risk for d iabetes: 5.7 - 6.4diabetes: >6.4glycemic control for adults with diabetes: <7.0 Result Comment: Incr eased risk for diabetes: 5.7 - 6.4 diabetes: >6.4 glycemic control for adults with diabetes: <7.0 Performed By: #### A DDONUAPLUS, CMP, TSH3, A1C WTH eA, URMACRERAT, CUU, LIPID, CBC ####[address] Hemoglobin [Mass/volume] in BloodOrdered By: Alana Parkinson on 06-18-2023 Hemoglobin (Bld) [Mass/Vol] 14.1 g/dL Normal 11.8-15.4 [facility] Comment on above: Performed By: #### A DDONUAPLUS, CMP, TSH3, A1C WTH eA, URMACRERAT, CUU, LIPID, CBC ####[address] Ketones Auto test strip (U) [Mass/Vol]Ordered By: Alana Parkinson on 06-18-2023 Ketones (U) [Mass/Vol] Negative Negative [facility] - UrinalysisOrder ed By: Alana Parkinson on 06-18-2023 Hyaline casts LM Ql (Urine sed) 0-8 [LPF] 0-8 [facility] Leukocytes [#/volume] correc adalid for nucleated erythrocytes in Blood by Automated counOrdered By: Alana Parkinson on 06-18-2023 WBC corrected for nucl RBC Auto (Bld) [#/Vol] 6.7 10*3/uL 3.8-11.6 [facility] Leukocytes [#/volume] in Blo od by Automated countOrdered By: Alana Parkinson on 06-18-2023 WBC (Bld) [#/Vol] 6.7 10*3/uL Normal 3.8-11.6 [facility] Comment on above: Performed By: #### A DDONUAPLUS, CMP, TSH3, A1C WTH eA, URMACRERAT, CUU, LIPID, CBC ####[facility] [address] Lipid Panelon 06-18-2023 LDL Cholesterol,Calculated 135 mg/dL High 0-100 [facility] Comment on above: Result Comment: LDL ATP III CLASSIFICATION LDL less than 100 mg/dL Optimal LDL 100-129 mg/dL Near or above optimal LDL 130-159 mg/dL Borderline high LDL 160-189 mg/dL High LDL greater than 189 mg/dL Very high Performed By: #### A DDONUAPLUS, CMP, TSH3, A1C WTH eA, URMACRERAT, CUU, LIPID, CBC ####[facility] Triglyceride w/Reflex 143 mg/dL Normal 0-149 [facility] Comment on above: Result Comment: TRIG ATP III CLASSIFICATION TRIG less than 150 mg/dL Normal TRIG 150-199 mg/dL Borderline high TRIG 200-500 mg/dL High TRIG greater than 500 mg/dL Very high Standard traceable to the Center for Disease Conrtrol and Prevention (CDC) test method. Performed By: #### A DDONUAPLUS, CMP, TSH3, A1C WTH eA, URMACRERAT, CUU, LIPID, CBC ####[facility] VLDL CHOLESTEROL 28 mg/dL Normal [facility] Comment on above: Performed By: #### A DDONUAPLUS, CMP, TSH3, A1C WTH eA, URMACRERAT, CUU, LIPID, CBC ####[address] Lymphocytes [#/volume] in Bl ood by Automated countOrdered By: Alana Parkinson on 06-18-2023 Lymphocytes (Bld) [#/Vol] 1.8 10*3/uL Normal 1.00-4.8 [facility] Comment on above: Performed By: #### A DDONUAPLUS, CMP, TSH3, A1C WTH eA, URMACRERAT, CUU, LIPID, CBC ####[address] Lymphocytes/100 leukocytes i n Blood by Automated countOrdered By: Alana Parkinson on 06-18-2023 Lymphocytes/100 WBC (Bld) 27.0 % Normal . [facility] Comment on above: Performed By: #### A DDONUAPLUS, CMP, TSH3, A1C WTH eA, URMACRERAT, CUU, LIPID, CBC ####[address] MCH [Entitic mass] by Automa adalid countOrdered By: Alana Parkinson on 06-18-2023 MCH (RBC) [Entitic mass] 30.0 pg Normal 24.7-34.3 [facility] Comment on above: Performed By: #### A DDONUAPLUS, CMP, TSH3, A1C WTH eA, URMACRERAT, CUU, LIPID, CBC ####[place] [id number] [facility] MCHC Auto (RBC) [Mass/Vol]Or dered By: Alana Parkinson on 06-18-2023 MCHC (RBC) [Mass/Vol] 33.1 g/dL 32.0-35.0 [facility] MCV [Entitic volume] by Auto mated countOrdered By: Alana Parkinson on 06-18-2023 MCV (RBC) [Entitic vol] 90.7 fL Normal 80-100 [facility] Comment on above: Performed By: #### A DDONUAPLUS, CMP, TSH3, A1C WTH eA, URMACRERAT, CUU, LIPID, CBC ####[place] [address] [place] [id number] [facility] MicroAlb Creat Ratio,Uon Creatinine, Urine (Random) 59.0 mg/dL High 11.0-20.0 [facility] Comment on above: Performed By: #### A DDONUAPLUS, CMP, TSH3, A1C WTH eA, URMACRERAT, CUU, LIPID, CBC ####[place] [address] [place] [id number] [facility] Microalbumin/Creatinin e Ratio 38.0 mg/g High 0.0-30.0 [facility] Comment on above: Result Comment: 30-3 00 mg/g indicates an increased risk for diabetic nephropathy. Greater than 300 mg/g is consistent with clinical nephropathy. (Am. J. Kidney Disease 1995, 25:107) PERFORMED BY: [facility] [address] [place] [address] PATHOLOGIST MACHINE FEEDER RAW STOCK BRODY GARZA M.D. Performed By: #### A DDONUAPLUS, CMP, TSH3, A1C WTH eA, URMACRERAT, CUU, LIPID, CBC ####[place] [id number] [place] [id number] [facility] Microalbumin [Mass/volume] i n UrineOrdered By: Alana Parkinson on 06-18-2023 Albumin DL <= 20 mg/L (U) [Mass/Vol] 2.3 mg/dL High 0.0-1.8 [facility] Comment on above: Performed By: #### A DDONUAPLUS, CMP, TSH3, A1C WTH eA, URMACRERAT, CUU, LIPID, CBC ####[address] Neutrophils [#/volume] in Bl ood by Automated countOrdered By: Alana Parkinson on 06-18-2023 Neutrophils (Bld) [#/Vol] 4.1 10*3/uL Normal 1.8-7.7 [facility] Comment on above: Performed By: #### A DDONUAPLUS, CMP, TSH3, A1C WTH eA, URMACRERAT, CUU, LIPID, CBC ####[place] [id number] [address] Nitrite Test strip Ql (U)Ord ered By: Alana Parkinson on 06-18-2023 Nitrite Ql (U) Negative Negative [facility] No Panel InformationOrdered By: Alana Parkinson on 06-18-2023 Estimated GFR (CKD-EPI) > 60.0 mL/Min [facility] Creatinine Clearance (Chem N/A [facility] Nucleated erythrocytes [Pres ence] in Blood by Automated countOrdered By: Alana Parkinson on 06-18-2023 Nucleated RBC Auto Ql (Bld) 0.1 /100{WBC} 0-0.5 [facility] Platelet mean volume [Entiti c volume] in Blood by Automated countOrdered By: Alana Parkinson on 06-18-2023 Platelet mean volume (Bld) [Entitic vol] 9.5 fL Normal 6.3-10.7 [facility] Comment on above: Performed By: #### A DDONUAPLUS, CMP, TSH3, A1C WTH eA, URMACRERAT, CUU, LIPID, CBC ####[place] [id number] [address] Platelets [#/volume] in Bloo d by Automated countOrdered By: Alana Parkinson on 06-18-2023 Platelets (Bld) [#/Vol] 178 10*3/uL Normal 150-450 [facility] Comment on above: Performed By: #### A DDONUAPLUS, CMP, TSH3, A1C WTH eA, URMACRERAT, CUU, LIPID, CBC ####[place] [id number] [place] [id number] [place] Potassium [Moles/volume] in Serum or PlasmaOrdered By: Alana Parkinson on 06-18-2023 Potassium [Moles/Vol] 4.3 mmol/L Normal 3.5-5.1 [facility] Comment on above: Performed By: #### A DDONUAPLUS, CMP, TSH3, A1C WTH eA, URMACRERAT, CUU, LIPID, CBC ####[place] [id number] [address] Protein Auto test strip (U) [Mass/Vol]Ordered By: Alana Parkinson on 06-18-2023 Protein (U) [Mass/Vol] Negative Negative [facility] Protein [Mass/volume] in Ser um or PlasmaOrdered By: Alana Parkinson on 06-18-2023 Protein [Mass/Vol] 5.9 g/dL Low 6.4-8.9 [facility] Comment on above: Performed By: #### A DDONUAPLUS, CMP, TSH3, A1C WTH eA, URMACRERAT, CUU, LIPID, CBC ####[address] Serum globulin measurement b y calculation (mass/volume)Ordered By: Alana Parkinson on 06-18-2023 Globulin (S) [Mass/Vol] 2.1 g/dL Normal [facility] Comment on above: Performed By: #### A DDONUAPLUS, CMP, TSH3, A1C WTH eA, URMACRERAT, CUU, LIPID, CBC ####[address] Serum or plasma albumin/glob ulin mass ratioOrdered By: Alana Parkinson on 06-18-2023 Albumin/Globulin [Mass ratio] 1.8 {ratio} [facility] Comment on above: Performed By: #### A DDONUAPLUS, CMP, TSH3, A1C WTH eA, URMACRERAT, CUU, LIPID, CBC ####[address] Serum or plasma anion gap de terminationOrdered By: Alana Parkinson on 06-18-2023 Anion gap [Moles/Vol] 10.9 mmol/L Normal 6.0-15.0 [facility] Comment on above: Performed By: #### A DDONUAPLUS, CMP, TSH3, A1C WTH eA, URMACRERAT, CUU, LIPID, CBC ####[facility] [id number] Serum or plasma high density lipoprotein (HDL) cholesterol measurementOrdered By: Alana Parkinson on 06-18-2023 Cholesterol in HDL [Mass/Vol] 46 mg/dL Normal 23-92 [facility] Comment on above: HDL CHOL ATP-III CLA SSIFICATION Cardiovascular RiskHDL > or equal to 60 mg/dL LOWHDL < 40 mg/dL HIGH Result Comment: HDL CHOL ATP-III CLASSIFICATION Cardiovascular Risk HDL > or equal to 60 mg/dL LOW HDL < 40 mg/dL HIGH Performed By: #### A DDONUAPLUS, CMP, TSH3, A1C WTH eA, URMACRERAT, CUU, LIPID, CBC ####[facility] [id number] Serum or plasma total choles terol/high density lipoprotein (HDL) cholesterol mass ratOrdered By: Alana Parkinson on 06-18-2023 Cholesterol.total/Chol esterol in HDL [Mass ratio] 4.6 {ratio} Normal <5.0 [facility] Comment on above: Performed By: #### A DDONUAPLUS, CMP, TSH3, A1C WTH eA, URMACRERAT, CUU, LIPID, CBC ####[facility] [id number] [address] Sodium [Moles/volume] in Ser um or PlasmaOrdered By: Alana Parkinson on 06-18-2023 Sodium [Moles/Vol] 139 mmol/L Normal 136-145 [facility] Comment on above: Performed By: #### A DDONUAPLUS, CMP, TSH3, A1C WTH eA, URMACRERAT, CUU, LIPID, CBC ####[facility] [id number] [address] Specific gravity Auto test s trip (U) [Rel density]Ordered By: Alana Parkinson on 06-18-2023 Specific gravity (U) [Rel density] 1.031 1.001-1.03 0 [facility] Squamous epithelial cells de tection in urine sediment by light microscopyOrdered By: Alana Parkinson on 06-18-2023 Epithelial cells.squamous LM Ql (Urine sed) 3-4 [HPF] 0-2 [facility] Thyrotropin [Units/volume] i n Serum or PlasmaOrdered By: Alana Parkinson on 06-18-2023 TSH Qn 1.62 m[IU]/L Normal 0.45-5.33 [facility] Comment on above: Result Comment: PERF ORMED BY: [facility] [address] [place] [id number] PATHOLOGIST MACHINE FE[employer] BRODY GARZA M.D. Performed By: #### A DDONUAPLUS, CMP, TSH3, A1C WTH eA, URMACRERAT, CUU, LIPID, CBC ####[place] [address] [place] [address] [facility] Triglyceride [Mass/volume] i n Serum or PlasmaOrdered By: Alana Parkinson on 06-18-2023 Triglyceride [Mass/Vol] 143 mg/dL 0-149 [facility] Comment on above: TRIG ATP III CLASSIF ICATIONTRIG less than 150 mg/dL NormalTRIG 150-199 mg/dL Borderline highTRIG 200-500 mg/dL High TRIG greater than 500 mg/dL Very highStandard traceable to the Center for Disease Conrtrol and Prevention (CDC) test method. Urea nitrogen [Mass/volume] in Serum or PlasmaOrdered By: Alana Parkinson on 06-18-2023 Urea nitrogen [Mass/Vol] 14 mg/dL Normal 7-25 [facility] Comment on above: Performed By: #### A DDONUAPLUS, CMP, TSH3, A1C WTH eA, URMACRERAT, CUU, LIPID, CBC ####[place] [address] [place] [address] [facility] Urine Cultureon 06-18-2023 Bacteria identified Cx Nom (U) ORGANISM: Strep. agalactiae Grp B (O:B) Gilbert Count 25,000 PERFORMED BY: [facility] [address] [place] [address] PATHOLOGIST MACHINE FEEDER [employer]OCK RBODY GARZA M.D. Normal [facility] Comment on above: Performed By: #### A DDONUAPLUS, CMP, TSH3, A1C WTH eA, URMACRERAT, CUU, LIPID, CBC ####[facility] [id number] [place] [address] [facility] Urine bacteria detection by automated methodOrdered By: Alana Parkinson on 06-18-2023 Bacteria Auto Ql (U) 1+ None Seen [facility] Urine clarity by refractomet ry automatedOrdered By: Alana Parkinson on 06-18-2023 Clarity Refractometry automated (U) Clear Clear [facility] Urine culture routineOrdered By: Alana Parkinson on 06-18-2023 Bacteria identified Cx Nom (U) Strep. agalactiae Grp B [facility] Urine glucose measurement by automated test strip (mass/volume)Ordered By: Alana Parkinson on 06-18-2023 Glucose Auto test strip (U) [Mass/Vol] >=1000 mg/dL Normal [facility] Urine hemoglobin detection b y automated test stripOrdered By: Alana Parkinson on 06-18-2023 Hemoglobin Auto test strip Ql (U) Negative Negative [facility] Urine leukocyte esterase det ection by automated test stripOrdered By: Alana Parkinson on 06-18-2023 Leukocyte esterase Auto test strip Ql (U) 2+ Negative [facility] Urine microalbumin/creatinin e mass ratioOrdered By: Alana Parkinson on 06-18-2023 Albumin/Creatinine DL <= 20 mg/L (U) [Mass ratio] 38.0 mg/g 0.0-30.0 [facility] Comment on above: 30-300 mg/g indicate s an increased risk for diabetic nephropathy. Greater than 300 mg/g is consistent with clinical nephropathy. (Am. J. Kidney Disease 1995, 25:107) Urine pH measurement by auto mated test stripOrdered By: Alana Parkinson on 06-18-2023 pH (U) 6.0 [pH] Normal 5.0-9.0 [facility] Comment on above: Order Comment: Name Collection Type:: Clean-Voided Midstream Performed By: #### A DDONUAPLUS, CMP, TSH3, A1C WTH eA, URMACRERAT, CUU, LIPID, CBC ####[facility] [id number] [place] [address] [facility] Urobilinogen Auto test strip (U) [Mass/Vol]Ordered By: Alana Parkinson on 06-18-2023 Urobilinogen (U) [Mass/Vol] Normal mg/dL Normal [facility] Alanine aminotransferase [En zymatic activity/volume] in Serum or PlasmaOrdered By: [facility] on 01-16-2023 ALT [Catalytic activity/Vol] 20 U/L 7-52 [facility] Albumin [Mass/volume] in Ser um or Plasma by Bromocresol green (BCG) dye binding methoOrdered By: [facility] on 01-16-2023 Albumin BCG dye [Mass/Vol] 4.1 g/dL 3.5-5.7 [facility] Alkaline phosphatase [Enzyma tic activity/volume] in Serum or PlasmaOrdered By: [facility] on 01-16-2023 ALP [Catalytic activity/Vol] 110 U/L 34-104 [facility] Aspartate aminotransferase [ Enzymatic activity/volume] in Serum or PlasmaOrdered By: [facility] on 01-16-2023 AST [Catalytic activity/Vol] 14 U/L 13-39 [facility] Bilirubin.total [Mass/volume ] in Serum or PlasmaOrdered By: [facility] on 01-16-2023 Bilirubin [Mass/Vol] 0.4 mg/dL 0.3-1.0 [facility] Calcium [Mass/volume] in Ser um or PlasmaOrdered By: [facility] on 01-16-2023 Calcium [Mass/Vol] 9.4 mg/dL 8.6-10.3 [facility] Carbon dioxide, total [Moles /volume] in Serum or PlasmaOrdered By: [facility] on 01-16-2023 CO2 [Moles/Vol] 31.5 mmol/L 21.0-31.0 [facility] Chloride [Moles/volume] in S atul or PlasmaOrdered By: [facility] on 01-16-2023 Chloride [Moles/Vol] 104 mmol/L 98-107 [facility] Cholesterol [Mass/volume] in Serum or PlasmaOrdered By: [facility] on 01-16-2023 Cholesterol [Mass/Vol] 228 mg/dL 140-200 [facility] Comment on above: Chol less than 200 m g/dl low riskChol 201-239 mg/dl borderline riskChol 240 mg/dl and greater high risk Cholesterol in LDL Calc [Mas s/Vol]Ordered By: [facility] on 01-16-2023 Cholesterol in LDL [Mass/Vol] 148 mg/dL 0-100 [facility] Comment on above: LDL ATP III CLASSIFI CATIONLDL less than 100 mg/dL OptimalLDL 100-129 mg/dL Near or above optimalLDL 130-159 mg/dL Borderline highLDL 160-189 mg/dL HighLDL greater than 189 mg/dL Very high Cholesterol in VLDL Calc [Ma ss/Vol]Ordered By: [facility] on 01-16-2023 Cholesterol in VLDL [Mass/Vol] 33 mg/dL [facility] Creatinine [Mass/volume] in Serum or PlasmaOrdered By: [facility] on 01-16-2023 Creatinine [Mass/Vol] 0.61 mg/dL 0.60-1.20 [facility] Erythrocyte distribution wid th Auto (RBC) [Ratio]Ordered By: [facility] on 01-16-2023 Erythrocyte distribution width (RBC) [Ratio] 13.5 % 11.9-15.3 [facility] Glucose [Mass/volume] in Ser um or PlasmaOrdered By: [facility] on 01-16-2023 Glucose [Mass/Vol] 150 mg/dL 70-100 [facility] Comment on above: ADA recommended refe rence rangeRandom Glucose Reference Range is dependent on time and content of last meal. Glucose of more than 200 mg/dL in a nonstressed, ambulatory subject supports the diagnosis of Diabetes Mellitus. Glucose mean value [Mass/vol ume] in Blood Estimated from glycated hemoglobinOrdered By: [facility] on 01-16-2023 Average glucose Estimated from glycated hemoglobin (Bld) [Mass/Vol] 324 mg/dL [facility] Hematocrit Auto (Bld) [Volum e fraction]Ordered By: [facility] on 01-16-2023 Hematocrit (Bld) [Volume fraction] 43.4 % 34.0-46.4 [facility] Hemoglobin [Mass/volume] in BloodOrdered By: [facility] on 01-16-2023 Hemoglobin (Bld) [Mass/Vol] 14.6 g/dL 11.8-15.4 [facility] Laboratory - Hematology and Cell countsOrdered By: [facility] on 01-16-2023 HbA1c (Bld) [Mass fraction] 12.9 % 4.3-5.6 [facility] Comment on above: Increased risk for d iabetes: 5.7 - 6.4diabetes: >6.4glycemic control for adults with diabetes: <7.0 Leukocytes [#/volume] correc adalid for nucleated erythrocytes in Blood by Automated counOrdered By: [facility] on 01-16-2023 WBC corrected for nucl RBC Auto (Bld) [#/Vol] 6.4 10*3/uL 3.8-11.6 [facility] MCH Auto (RBC) [Entitic mass ]Ordered By: [facility] on 01-16-2023 MCH (RBC) [Entitic mass] 30.4 pg 24.7-34.3 [facility] MCHC Auto (RBC) [Mass/Vol]Or dered By: [facility] on 01-16-2023 MCHC (RBC) [Mass/Vol] 33.7 g/dL 32.0-35.0 [facility] MCV Auto (RBC) [Entitic vol] Ordered By: [facility] on 01-16-2023 MCV (RBC) [Entitic vol] 90.0 fL 80-100 [facility] No Panel InformationOrdered By: [facility] on 01-16-2023 Estimated GFR (CKD-EPI) > 60.0 mL/Min [facility] Creatinine Clearance (Chem N/A [facility] Platelet mean volume Auto (B ld) [Entitic vol]Ordered By: [facility] on 01-16-2023 Platelet mean volume (Bld) [Entitic vol] 9.4 fL 6.3-10.7 [facility] Platelets Auto (Bld) [#/Vol] Ordered By: [facility] on 01-16-2023 Platelets (Bld) [#/Vol] 170 10*3/uL 150-450 [facility] Potassium [Moles/volume] in Serum or PlasmaOrdered By: [facility] on 01-16-2023 Potassium [Moles/Vol] 3.9 mmol/L 3.5-5.1 [facility] Protein [Mass/volume] in Ser um or PlasmaOrdered By: OUTREACH [facility] on 01-16-2023 Protein [Mass/Vol] 6.1 g/dL 6.4-8.9 [facility] RBC Auto (Bld) [#/Vol]Ordere d By: [facility] on 01-16-2023 RBC (Bld) [#/Vol] 4.82 10*6/uL 3.60-5.00 [facility] Serum or plasma anion gap de terminationOrdered By: OUTREACH [facility] on 01-16-2023 Anion gap [Moles/Vol] 10.4 mmol/L 6.0-15.0 [facility] Serum or plasma high density lipoprotein (HDL) cholesterol measurementOrdered By: OUTREACH [facility] on 01-16-2023 Cholesterol in HDL [Mass/Vol] 47 mg/dL 23- [facility] Comment on above: HDL CHOL ATP-III CLA SSIFICATION Cardiovascular RiskHDL > or equal to 60 mg/dL LOWHDL < 40 mg/dL HIGH Serum or plasma total choles terol/high density lipoprotein (HDL) cholesterol mass ratOrdered By: OUTREACH [facility] on 01-16-2023 Cholesterol.total/Chol esterol in HDL [Mass ratio] 4.9 {ratio} <5.0 [facility] Sodium [Moles/volume] in Ser um or PlasmaOrdered By: OUTREACH [facility] on 01-16-2023 Sodium [Moles/Vol] 142 mmol/L 136-145 [facility] Triglyceride [Mass/volume] i n Serum or PlasmaOrdered By: [facility] on 01-16-2023 Triglyceride [Mass/Vol] 166 mg/dL 0-149 [facility] Comment on above: TRIG ATP III CLASSIF ICATIONTRIG less than 150 mg/dL NormalTRIG 150-199 mg/dL Borderline highTRIG 200-500 mg/dL High TRIG greater than 500 mg/dL Very highStandard traceable to the Center for Disease Conrtrol and Prevention (CDC) test method. Urea nitrogen [Mass/volume] in Serum or PlasmaOrdered By: [facility] on 01-16-2023 Urea nitrogen [Mass/Vol] 13 mg/dL 7-25 [facility] Alanine aminotransferase [En zymatic activity/volume] in Serum or PlasmaOrdered By: Jenna Jimenez on 10-20-2022 ALT [Catalytic activity/Vol] 19 U/L 7-52 [facility] Albumin [Mass/volume] in Ser um or PlasmaOrdered By: Jenna Jimenez on 10-20-2022 Albumin [Mass/Vol] 3.4 g/dL 2.9-4.4 [facility] Albumin [Mass/volume] in Ser um or Plasma by Bromocresol green (BCG) dye binding methoOrdered By: Jenna Jimenez on 10-20-2022 Albumin BCG dye [Mass/Vol] 4.1 g/dL 3.5-5.7 [facility] Alkaline phosphatase [Enzyma tic activity/volume] in Serum or PlasmaOrdered By: Jenna Jimenez on 10-20-2022 ALP [Catalytic activity/Vol] 97 U/L 34-104 [facility] Aspartate aminotransferase [ Enzymatic activity/volume] in Serum or PlasmaOrdered By: Jenna Jimenez on 10-20-2022 AST [Catalytic activity/Vol] 14 U/L 13-39 [facility] Basophils Auto (Bld) [#/Vol] Ordered By: Jenna Jimenez on 10-20-2022 Basophils (Bld) [#/Vol] 0.0 10*3/uL 0.0-0.2 [facility] Basophils/100 WBC Auto (Bld) Ordered By: Jenna Jimenez on 10-20-2022 Basophils/100 WBC (Bld) 0.3 % . [facility] Bilirubin.total [Mass/volume ] in Serum or PlasmaOrdered By: Jenna Jimenez on 10-20-2022 Bilirubin [Mass/Vol] 0.7 mg/dL 0.3-1.0 [facility] Calcium [Mass/volume] in Ser um or PlasmaOrdered By: Jenna Jimenez on 10-20-2022 Calcium [Mass/Vol] 9.1 mg/dL 8.6-10.3 [facility] Carbon dioxide, total [Moles /volume] in Serum or PlasmaOrdered By: Jenna Jimenez on 10-20-2022 CO2 [Moles/Vol] 29.9 mmol/L 21.0-31.0 [facility] Chloride [Moles/volume] in S atul or PlasmaOrdered By: Jenna Jimenez on 10-20-2022 Chloride [Moles/Vol] 101 mmol/L 98-107 [facility] Creatinine [Mass/volume] in Serum or PlasmaOrdered By: Jenna Jimenez on 10-20-2022 Creatinine [Mass/Vol] 0.70 mg/dL 0.60-1.20 [facility] Eosinophils Auto (Bld) [#/Vo l]Ordered By: Jenna Jimenez on 10-20-2022 Eosinophils (Bld) [#/Vol] 0.3 10*3/uL 0.0-0.45 [facility] Eosinophils/100 WBC Auto (Bl d)Ordered By: Jenna Jimenez on 10-20-2022 Eosinophils/100 WBC (Bld) 4.1 % . [facility] Erythrocyte distribution wid th Auto (RBC) [Ratio]Ordered By: Jenna Jimenez on 10-20-2022 Erythrocyte distribution width (RBC) [Ratio] 13.4 % 11.9-15.3 [facility] Erythrocyte sedimentation ra te by Photometric methodOrdered By: Jenna Jimenez on 10-20-2022 ESR Photometric method (Bld) [Velocity] 25 mm/hr 0-29 [facility] Globulin Calc (S) [Mass/Vol] Ordered By: Jenna Jimenez on 10-20-2022 Globulin (S) [Mass/Vol] 2.1 g/dL [facility] Glucose [Mass/volume] in Ser um or PlasmaOrdered By: Jenna Jimenez on 10-20-2022 Glucose [Mass/Vol] 267 mg/dL 74-109 [facility] Comment on above: ADA recommended refe rence rangeRandom Glucose Reference Range is dependent on time and content of last meal. Glucose of more than 200 mg/dL in a nonstressed, ambulatory subject supports the diagnosis of Diabetes Mellitus. Glucose mean value [Mass/vol ume] in Blood Estimated from glycated hemoglobinOrdered By: Jenna Jimenez on 10-20-2022 Average glucose Estimated from glycated hemoglobin (Bld) [Mass/Vol] 298 mg/dL [facility] Hematocrit Auto (Bld) [Volum e fraction]Ordered By: Jenna Jimenez on 10-20-2022 Hematocrit (Bld) [Volume fraction] 42.3 % 34.0-46.4 [facility] Hemoglobin A1c percentageOrd ered By: Jenna Jimenez on 10-20-2022 HbA1c (Bld) [Mass fraction] 12.0 % 4.3-5.6 [facility] Comment on above: Increased risk for d iabetes: 5.7 - 6.4diabetes: >6.4glycemic control for adults with diabetes: <7.0 Hemoglobin [Mass/volume] in BloodOrdered By: Jenna Jimenez on 10-20-2022 Hemoglobin (Bld) [Mass/Vol] 14.2 g/dL 11.8-15.4 [facility] IgA [Mass/volume] in Serum o r PlasmaOrdered By: Jenna Jimenez on 10-20-2022 IgA [Mass/Vol] 231 mg/dL 87-352 [facility] IgG [Mass/volume] in Serum o r PlasmaOrdered By: Jenna Jimenez on 10-20-2022 IgG [Mass/Vol] 562 mg/dL [phone] [facility] IgM [Mass/volume] in Serum o r PlasmaOrdered By: Jenna Jimenez on 10-20-2022 IgM [Mass/Vol] 60 mg/dL 26-217 [facility] Comment on above: Performed at: [place] [id number] Director: Mau Reyna PhD, Phone: [phone] Laboratory - Chemistry and C hemistry - challengeOrdered By: Jenna Jimenez on 10-20-2022 GFR/1.73 sq M.predicted MDRD (S/P/Bld) [Vol rate/Area] mL/min/{1.73_m2} [facility] Leukocytes [#/volume] correc adalid for nucleated erythrocytes in Blood by Automated counOrdered By: Jenna Jimenez on 10-20-2022 WBC corrected for nucl RBC Auto (Bld) [#/Vol] 7.8 10*3/uL 3.8-11.6 [facility] Lymphocytes Auto (Bld) [#/Vo l]Ordered By: Jenna Jimenez on 10-20-2022 Lymphocytes (Bld) [#/Vol] 1.6 10*3/uL 1.00-4.8 [facility] Lymphocytes/100 WBC Auto (Bl d)Ordered By: Jenna Jimenez on 10-20-2022 Lymphocytes/100 WBC (Bld) 21.1 % . [facility] MCH Auto (RBC) [Entitic mass ]Ordered By: Jenna Jimenez on 10-20-2022 MCH (RBC) [Entitic mass] 29.9 pg 24.7-34.3 [facility] MCHC Auto (RBC) [Mass/Vol]Or dered By: Jenna Jimenez on 10-20-2022 MCHC (RBC) [Mass/Vol] 33.5 g/dL 32.0-35.0 [facility] MCV Auto (RBC) [Entitic vol] Ordered By: Jenna Jimenez on 10-20-2022 MCV (RBC) [Entitic vol] 89.3 fL 80-100 [facility] Monocytes Auto (Bld) [#/Vol] Ordered By: Jenna Jimenez on 10-20-2022 Monocytes (Bld) [#/Vol] 0.4 10*3/uL 0.0-0.8 [facility] Monocytes/100 WBC Auto (Bld) Ordered By: Jenna Jimenez on 10-20-2022 Monocytes/100 WBC (Bld) 5.8 % . [facility] Neutrophils Auto (Bld) [#/Vo l]Ordered By: Jenna Jimenez on 10-20-2022 Neutrophils (Bld) [#/Vol] 5.3 10*3/uL 1.8-7.7 [facility] Neutrophils/100 WBC Auto (Bl d)Ordered By: Jenna Jimenez on 10-20-2022 Neutrophils/100 WBC (Bld) 68.7 % . [facility] No Panel InformationOrdered By: Jenna Jimenez on 10-20-2022 Pharmacy Creatinine Clearance (Chem N/A [facility] Protein Electrophoresis M-Harinder Not observed g/dL Not Observed [facility] Protein Electrophoresis Note See comment . [facility] Comment on above: Protein electrophore sis scan will follow via computer,mail, or multimedia manager delivery.Performed at: [address] [id number] Director: Mau Reyna PhD, Phone: [phone] Serum Immunofixation See comment . [facility] Comment on above: No monoclonality det ected. Nucleated erythrocytes [Pres ence] in Blood by Automated countOrdered By: Jenna Jimenez on 10-20-2022 Nucleated RBC Auto Ql (Bld) 0.1 /100{WBC} 0-0.5 [facility] Platelet mean volume Auto (B ld) [Entitic vol]Ordered By: Jenna Jimenez on 10-20-2022 Platelet mean volume (Bld) [Entitic vol] 8.8 fL 6.3-10.7 [facility] Platelets Auto (Bld) [#/Vol] Ordered By: Jenna Jimenez on 10-20-2022 Platelets (Bld) [#/Vol] 180 10*3/uL 150-450 [facility] Potassium [Moles/volume] in Serum or PlasmaOrdered By: Jenna Jimenez on 10-20-2022 Potassium [Moles/Vol] 4.4 mmol/L 3.5-5.1 [facility] Protein [Mass/volume] in Ser um or PlasmaOrdered By: Jenna Jimenez on 10-20-2022 Protein [Mass/Vol] 6.2 g/dL 6.0-8.5 [facility] RBC Auto (Bld) [#/Vol]Ordere d By: Jenna Jimenez on 10-20-2022 RBC (Bld) [#/Vol] 4.74 10*6/uL 3.60-5.00 [facility] Serum globulin measurement ( mass/volume)Ordered By: Jenna Jimenez on 10-20-2022 Globulin (S) [Mass/Vol] 2.8 g/dL 2.2-3.9 [facility] Serum or plasma albumin/glob ulin mass ratioOrdered By: Jenna Jimenez on 10-20-2022 Albumin/Globulin [Mass ratio] 2.0 {ratio} [facility] Albumin/Globulin [Mass ratio] 1.2 {ratio} 0.7-1.7 [facility] Serum or plasma alpha 1 glob ulin measurement by electrophoresis (mass/volume)Ordered By: Jenna Jimenez on 10-20-2022 Alpha 1 globulin Elph [Mass/Vol] 0.2 g/dL 0.0-0.4 [facility] Serum or plasma alpha 2 glob ulin measurement by electrophoresis (mass/volume)Ordered By: Jenna Jimenez on 10-20-2022 Alpha 2 globulin Elph [Mass/Vol] 0.9 g/dL 0.4-1.0 [facility] Serum or plasma anion gap de terminationOrdered By: Jenna Jimenez on 10-20-2022 Anion gap [Moles/Vol] 12.5 mmol/L 6.0-15.0 [facility] Serum or plasma beta globuli n measurement by electrophoresis (mass/volume)Ordered By: Jenna Jimenez on 10-20-2022 Beta globulin Elph [Mass/Vol] 1.0 g/dL 0.7-1.3 [facility] Serum or plasma free cefurox jose measurement (mass/volume)Ordered By: Jenna Jimenez on 10-20-2022 Cefuroxime free [Mass/Vol] Negative Negative [facility] Comment on above: Performed at: [facility] [place], [place] [id number] Director: Mau Reyna PhD, Phone: [phone] Serum or plasma gamma globul in measurement by electrophoresis (mass/volume)Ordered By: Jenna Jimenez on 10-20-2022 Gamma globulin Elph [Mass/Vol] 0.6 g/dL 0.4-1.8 [facility] Serum or plasma rheumatoid f actor measurement (units/volume)Ordered By: Jenna Jimenez on 10-20-2022 Rheumatoid factor Qn 10.9 [IU]/mL <14.0 [facility] Comment on above: Performed at: [facility] [place], [place] [id number] Director: Mau Reyna PhD, Phone: [phone] Sodium [Moles/volume] in Ser um or PlasmaOrdered By: Jenna Jimenez on 10-20-2022 Sodium [Moles/Vol] 139 mmol/L 136-145 [facility] Thyrotropin [Units/volume] i n Serum or PlasmaOrdered By: Jenna Jimenez on 10-20-2022 TSH Qn 1.43 m[IU]/L 0.45-5.33 [facility] Urea nitrogen [Mass/volume] in Serum or PlasmaOrdered By: Jenna Jimenez on 10-20-2022 Urea nitrogen [Mass/Vol] 15 mg/dL 7-25 [facility] Vitamin B12 ser/plasOrdered By: Jenna Tony on 10-20-2022 Cobalamin (Vitamin B12) [Mass/Vol] 232 pg/mL 180-914 [facility] WBC Auto (Bld) [#/Vol]Ordere d By: Jenna Jimenez on 10-20-2022 WBC (Bld) [#/Vol] 7.8 10*3/uL 3.8-11.6 [facility] FFD mammogram Breast - bilat eral Screeningon 08-21-2022 MM screening mammo BI w/CAD [facility] ([employer]) Other MM screening mammo BI w/CAD [facility] [employer] [facility] ([employer]) Other MM screening mammo BI w/CAD [address] [place] [address] [employer] [facility] ([employer]) Other MM screening mammo BI w/[place] [address] [facility] Other MM screening mammo BI w/CAD Mammography Report [facility] Other MM screening mammo BI w/CAD Signed [facility] Other MM screening mammo BI w/CAD Patient: Chela Padilla MR#: [id number] [facility] Other MM screening mammo BI w/CAD 06 [facility] Other MM screening mammo BI w/CAD : 1955 Acct:[id number] [facility] Other MM screening mammo BI w/CAD Age/Sex: 67 / F ADM Date: 08/21/22 [facility] Other MM screening mammo BI w/CAD Loc: [place] Room: Type: [facility] Other MM screening mammo BI w/CAD Attending Dr: Alana Parkinson DO [facility] Other MM screening mammo BI w/CAD Copies to: Alana Parkinson, [facility] Other MM screening mammo BI w/CAD Ordering Provider: Alana Parkinson DO [facility] Other MM screening mammo BI w/CAD Date of Service: 08/21/22 [facility] Other MM screening mammo BI w/CAD MM/MM screening mammo BI w/CAD: SCREENING [facility] Other MM screening mammo BI w/CAD CLINICAL DATA: Screening for malignancy. [facility] Other MM screening mammo BI w/CAD BILATERAL SCREENING MAMMOGRAMS - FULL FIELD DIGITAL WITH TOMOSYNTHESIS AND CAD [facility] Other MM screening mammo BI w/CAD Tomosynthesis craniocaudal and mediolateral oblique views of both breasts were obtained using low- [facility] Other MM screening mammo BI w/CAD dose digital technique. Comparison is made to prior studies from 03/21/2019, 07/23/2017, 07/10/2016, [facility] Other MM screening mammo BI w/CAD and 06/21/2015. This examination was reviewed with the aid of CAD. [facility] Other MM screening mammo BI w/CAD The breast parenchyma has been largely replaced by fat. Benign-appearing lymph nodes are [facility] Other MM screening mammo BI w/CAD redemonstrated along the chest wall bilaterally. There are punctate benign-appearing calcifications [facility] Other MM screening mammo BI w/CAD bilaterally. There are no dominant masses, typically malignant calcifications or architectural [facility] Other MM screening mammo BI w/CAD distortion. There has been no significant interval change. [facility] Other MM screening mammo BI w/CAD MM/MM screening mammo BI w/CAD [facility] Other MM screening mammo BI w/CAD IMPRESSION: [facility] Other MM screening mammo BI w/CAD NO MAMMOGRAPHIC EVIDENCE OF MALIGNANCY. [facility] Other MM screening mammo BI w/CAD ROUTINE FOLLOW-UP IS RECOMMENDED IN ONE YEAR. [facility] Other MM screening mammo BI w/CAD RESULT CODE: 2 [facility] Other MM screening mammo BI w/CAD Benign Findings(s) [facility] Other MM screening mammo BI w/CAD DENSITY CODE: 1 (<25% glandular) [facility] Other MM screening mammo BI w/CAD FOLLOW UP: 1YR [facility] Other MM screening mammo BI w/CAD The false-negative rate of mammography is approximately 10-percent. [facility] Other MM screening mammo BI w/CAD Management of a palpable abnormality must be based on clinical grounds. [facility] Other MM screening mammo BI w/CAD Patient was entered into a reminder system with a target due date for the next mammogram. [facility] Other MM screening mammo BI w/CAD Impression dictated by: Ankush Roberts M.D.08/21/2022 12:03 PM [facility] Other MM screening mammo BI w/CAD Dictation Location: [facility] Other MM screening mammo BI w/CAD Transcribed By: YUNG 08/21/22 1203 [facility] Other MM screening mammo BI w/CAD Dictated By: Ankush Roberts II, MD 08/21/22 1156 [employer] [facility] [employer] Other MM screening mammo BI w/CAD Signed By: [facility] Other MM screening mammo BI w/CAD 08/21/22 1204 [employer] [facility] Other Albumin [Mass/volume] in Ser um or PlasmaOrdered By: [facility] on 07-04-2022 Albumin [Mass/Vol] 3.5 g/dL 3.2-5.5 [facility] Cholesterol [Mass/volume] in Serum or PlasmaOrdered By: [facility] on 07-04-2022 Cholesterol [Mass/Vol] 241 mg/dL 140-200 [facility] Comment on above: Chol less than 200 m g/dl low riskChol 201-239 mg/dl borderline riskChol 240 mg/dl and greater high risk Cholesterol in LDL Calc [Mas s/Vol]Ordered By: [facility] on 07-04-2022 Cholesterol in LDL [Mass/Vol] 158 mg/dL 0-100 [facility] Comment on above: LDL ATP III CLASSIFI CATIONLDL less than 100 mg/dL OptimalLDL 100-129 mg/dL Near or above optimalLDL 130-159 mg/dL Borderline highLDL 160-189 mg/dL HighLDL greater than 189 mg/dL Very high Cholesterol in VLDL Calc [Ma ss/Vol]Ordered By: [facility] on 07-04-2022 Cholesterol in VLDL [Mass/Vol] 30 mg/dL [facility] Creatinine and Glomerular fi ltration rate.predicted panel (S/P/Bld)Ordered By: [facility] on 07-04-2022 Creatinine [Mass/Vol] 0.59 mg/dL 0.44-1.03 [facility] Erythrocyte distribution wid th Auto (RBC) [Ratio]Ordered By: [facility] on 07-04-2022 Erythrocyte distribution width (RBC) [Ratio] 13.3 % 11.9-15.3 [facility] Estimated glomerular filtrat ion rate (GFR) non- AmericanOrdered By: [facility] on 07-04-2022 GFR/1.73 sq M.predicted among non-blacks MDRD (S/P/Bld) [Vol rate/Area] > 60 mL/Min [facility] Glucose mean value [Mass/vol ume] in Blood Estimated from glycated hemoglobinOrdered By: [facility] on 07-04-2022 Average glucose Estimated from glycated hemoglobin (Bld) [Mass/Vol] 283 mg/dL [facility] Hematocrit Auto (Bld) [Volum e fraction]Ordered By: [facility] on 07-04-2022 Hematocrit (Bld) [Volume fraction] 43.4 % 34.0-46.4 [facility] Hemoglobin [Mass/volume] in BloodOrdered By: [facility] on 07-04-2022 Hemoglobin (Bld) [Mass/Vol] 14.2 g/dL 11.8-15.4 [facility] Laboratory - Hematology and Cell countsOrdered By: [facility] on 07-04-2022 HbA1c (Bld) [Mass fraction] 11.5 % 4.3-5.6 [facility] Comment on above: Increased risk for d iabetes: 5.7 - 6.4diabetes: >6.4glycemic control for adults with diabetes: <7.0 Leukocytes [#/volume] correc adalid for nucleated erythrocytes in Blood by Automated counOrdered By: [facility] on 07-04-2022 WBC corrected for nucl RBC Auto (Bld) [#/Vol] 6.4 10*3/uL 3.8-11.6 [facility] MCH Auto (RBC) [Entitic mass ]Ordered By: OUTREACH [facility] on 07-04-2022 MCH (RBC) [Entitic mass] 29.7 pg 24.7-34.3 [facility] MCHC Auto (RBC) [Mass/Vol]Or dered By: OUTREACH [facility] on 07-04-2022 MCHC (RBC) [Mass/Vol] 32.6 g/dL 32.0-35.0 [facility] MCV Auto (RBC) [Entitic vol] Ordered By: OUTREACH [facility] on 07-04-2022 MCV (RBC) [Entitic vol] 90.9 fL 80-100 [facility] No Panel InformationOrdered By: OUTREACH [facility] on 07-04-2022 Estimated GFR () > 60 mL/Min [facility] Comment on above: GFR estimated refere nce range: According to KDOQI guidelines, <60 ml/min/1.73m2 is sufficient to diagnose a patient with chronic kidney disease. Pharmacy Creatinine Clearance (Chem N/A [facility] Triglycerides Reflex 152 mg/dL 35-149 [facility] Comment on above: TRIG ATP III CLASSIF ICATIONTRIG less than 150 mg/dL NormalTRIG 150-199 mg/dL Borderline highTRIG 200-500 mg/dL High TRIG greater than 500 mg/dL Very highStandard traceable to the Center for Disease Conrtrol and Prevention (CDC) test method. Platelet mean volume Auto (B ld) [Entitic vol]Ordered By: [facility] on 07-04-2022 Platelet mean volume (Bld) [Entitic vol] 9.3 fL 6.3-10.7 [facility] Platelets Auto (Bld) [#/Vol] Ordered By: [facility] on 07-04-2022 Platelets (Bld) [#/Vol] 179 10*3/uL 150-450 [facility] Protein [Mass/volume] in Ser um or PlasmaOrdered By: [facility] on 07-04-2022 Protein [Mass/Vol] 5.8 g/dL 6.1-7.9 [facility] RBC Auto (Bld) [#/Vol]Ordere d By: [facility] on 07-04-2022 RBC (Bld) [#/Vol] 4.78 10*6/uL 3.60-5.00 [facility] Serum or plasma alanine tyler otransferase measurement without P-5'-P (enzymatic activiOrdered By: OUTREACH [facility] on 07-04-2022 ALT No additional P-5'-P [Catalytic activity/Vol] 20 U/L 10-60 [facility] Serum or plasma alkaline hector sphatase measurement (enzymatic activity/volume)Ordered By: [facility] on 07-04-2022 ALP [Catalytic activity/Vol] 84 U/L 32-92 [facility] Serum or plasma anion gap de terminationOrdered By: [facility] on 07-04-2022 Anion gap [Moles/Vol] 11.2 mmol/L 6.0-15.0 [facility] Serum or plasma aspartate am inotransferase measurement (enzymatic activity/volume)Ordered By: [facility] on 07-04-2022 AST [Catalytic activity/Vol] 14 U/L 10-42 [facility] Serum or plasma calcium zainab urement (mass/volume)Ordered By: [facility] on 07-04-2022 Calcium [Mass/Vol] 9.2 mg/dL 8.2-10.2 [facility] Serum or plasma chloride abbi surement (moles/volume)Ordered By: [facility] on 07-04-2022 Chloride [Moles/Vol] 102 mmol/L 95-114 [facility] Serum or plasma glucose zainab urement (mass/volume)Ordered By: [facility] on 07-04-2022 Glucose [Mass/Vol] 207 mg/dL 70-100 [facility] Comment on above: ADA recommended refe rence rangeRandom Glucose Reference Range is dependent on time and content of last meal. Glucose of more than 200 mg/dL in a nonstressed, ambulatory subject supports the diagnosis of Diabetes Mellitus. Serum or plasma high density lipoprotein (HDL) cholesterol measurementOrdered By: [facility] on 07-04-2022 Cholesterol in HDL [Mass/Vol] 53 mg/dL 35-85 [facility] Comment on above: HDL CHOL ATP-III CLA SSIFICATION Cardiovascular RiskHDL > or equal to 60 mg/dL LOWHDL < 40 mg/dL HIGH Serum or plasma potassium me asurement (moles/volume)Ordered By: [facility] on 07-04-2022 Potassium [Moles/Vol] 4.2 mmol/L 3.5-5.1 [facility] Serum or plasma sodium measu rement (moles/volume)Ordered By: [facility] on 07-04-2022 Sodium [Moles/Vol] 138 mmol/L 136-146 [facility] Serum or plasma total biliru bin measurement (mass/volume)Ordered By: [facility] on 07-04-2022 Bilirubin [Mass/Vol] 0.6 mg/dL 0.3-1.2 [facility] Serum or plasma total carbon dioxide measurement (moles/volume)Ordered By: [facility] on 07-04-2022 CO2 [Moles/Vol] 29.0 mmol/L 22.0-30.0 [facility] Serum or plasma total choles terol/high density lipoprotein (HDL) cholesterol mass ratOrdered By: OUTREACH [facility] on 07-04-2022 Cholesterol.total/Chol esterol in HDL [Mass ratio] 4.5 {ratio} <5.0 [facility] Serum or plasma urea nitroge n measurement (mass/volume)Ordered By: [facility] on 07-04-2022 Urea nitrogen [Mass/Vol] 13 mg/dL 04-24 [facility] Vital Signs Date Time Vital Sign Value Performing Clinician Facility 07-12-2024 13:23-0500 Body height 162.6 cm Evelina Chan MD Work Phone: [facility] 07-12-2024 13:23-0500 Body mass index (BMI) [Ratio] 32.79 kg/m2 Evelina Chan MD Work Phone: [facility] 07-12-2024 13:23-0500 Body weight 86.64 kg Evelina Chan MD Work Phone: [facility] 07-12-2024 13:23-0500 Diastolic blood pressure 68 mm[Hg] Evelina Chan MD Work Phone: [facility] 07-12-2024 13:23-0500 Heart rate 98 /min Evelina Chan MD Work Phone: [facility] 07-12-2024 13:23-0500 Respiratory rate 18 /min Evelina Chan MD Work Phone: [facility] 07-12-2024 13:23-0500 Systolic blood pressure 132 mm[Hg] Evelina Chan MD Work Phone: [facility] 12-10-2023 10:52-0400 Body height 157.48 cm DO Alana Parkinson Work Phone: [facility] 12-10-2023 10:52-0400 Body mass index (BMI) [Ratio] 33.6 kg/m2 DO Alana Parkinson Work Phone: [facility] 12-10-2023 10:52-0400 Body temperature 97.2 [degF] DO Alana Parkinson Work Phone: [facility] 12-10-2023 10:52-0400 Body weight 83.46 kg DO Alana Parkinson Work Phone: [facility] 12-10-2023 10:52-0400 Diastolic blood pressure 78 mm[Hg] DO Alana Parkinson Work Phone: [facility] 12-10-2023 10:52-0400 Systolic blood pressure 132 mm[Hg] DO Alana Parkinson Work Phone: [facility] 07-27-2023 14:17-0500 Diastolic blood pressure 70 mm[Hg] DO Alana Parkinson Work Phone: [facility] 07-27-2023 14:17-0500 Heart rate 73 /min DO Alana Parkinson Work Phone: [facility] 07-27-2023 14:17-0500 Respiratory rate 20 /min DO Alana Parkinson Work Phone: [facility] 07-27-2023 14:17-0500 SaO2% (BldA) [Mass fraction] 97 % DO Alana Parkinson Work Phone: [facility] 07-27-2023 14:17-0500 Systolic blood pressure 146 mm[Hg] DO Alana Parkinson Work Phone: [facility] 07-27-2023 10:06-0500 Body height 157.48 cm DO Alana Parkinson Work Phone: [facility] 07-27-2023 10:06-0500 Body temperature 98.2 [degF] DO Alana Parkinson Work Phone: [facility] 07-27-2023 10:06-0500 Body weight 82.6 kg DO Alana Parkinson Work Phone: [facility] 01-20-2023 14:40-0400 Body height 157.48 cm Alana Parkinson Other [facility] Other 01-20-2023 14:40-0400 Body mass index (BMI) [Ratio] 33.65 kg/m2 Alana Parkinson Other [facility] Other 01-20-2023 14:40-0400 Body temperature 98.3 [degF] Alana Parkinson Other [facility] Other 01-20-2023 14:40-0400 Body weight 83.46 kg Alana Parkinson Other [facility] Other 01-20-2023 14:40-0400 Diastolic blood pressure 84 mm[Hg] Alana Parkinson Other [facility] Other 01-20-2023 14:40-0400 Respiratory rate 18 /min Alana Parkinson Other [facility] Other 01-20-2023 14:40-0400 SaO2% (BldA) [Mass fraction] 97 % Alana Parkinson Other [facility] Other 01-20-2023 14:40-0400 Systolic blood pressure 136 mm[Hg] Alana Parkinson Other [facility] Other 07-17-2022 13:30-0500 Body height 157.48 cm Alana Parkinson Other [facility] Other 07-17-2022 13:30-0500 Body mass index (BMI) [Ratio] 33.83 kg/m2 Alana Parkinson Other [facility] Other 07-17-2022 13:30-0500 Body temperature 96.8 [degF] Alana Parkinson Other [facility] Other 07-17-2022 13:30-0500 Body weight 83.92 kg Alana Parkinson Other [facility] Other 07-17-2022 13:30-0500 Diastolic blood pressure 88 mm[Hg] Alana Parkinson Other [facility] Other 07-17-2022 13:30-0500 Respiratory rate 18 /min lAana Parkinson Other [facility] Other 07-17-2022 13:30-0500 SaO2% (BldA) [Mass fraction] 98 % Alana Muellerariella Other [facility] Other 07-17-2022 13:30-0500 Systolic blood pressure 138 mm[Hg] Alana Parkinson Other [facility] Other 06-17-2022 15:00-0500 Body height 157.48 cm Noé [place] II Other [facility] Other 06-17-2022 15:00-0500 Body mass index (BMI) [Ratio] 33.47 kg/m2 Noé [place] Other [facility] Other 06-17-2022 15:00-0500 Body weight 83.01 kg Noé [place] Other [facility] Other 05-29-2022 13:28-0400 Body height 157.48 cm DO Alana Parkinson Work Phone: [facility] 05-29-2022 13:28-0400 Body temperature 97.7 [degF] DO Alana Parkinson Work Phone: [facility] 05-29-2022 13:28-0400 Body weight 83.5 kg DO Alana Parkinson Work Phone: [facility] 05-29-2022 13:28-0400 Diastolic blood pressure 78 mm[Hg] DO Alana Parkinson Work Phone: [facility] 05-29-2022 13:28-0400 Heart rate 111 /min DO Alana Parkinson Work Phone: [facility] 05-29-2022 13:28-0400 Respiratory rate 20 /min DO Alana Parkinson Work Phone: [facility] 05-29-2022 13:28-0400 SaO2% (BldA) [Mass fraction] 96 % DO Alana Parkinson Work Phone: [facility] 05-29-2022 13:0400 Systolic blood pressure 131 mm[Hg] DO Alana Parkinson Work Phone: [facility] 05-27-2022 12:26-0400 Body height 157.48 cm DO Alana Parkinson Work Phone: [facility] 05-27-2022 12:26-0400 Body temperature 98.2 [degF] DO Alana Parkinson Work Phone: [facility] 05-27-2022 12:260400 Body weight 83.05 kg DO Alana Parkinson Work Phone: [facility] 05-27-2022 12:26-0400 Diastolic blood pressure 95 mm[Hg] DO Alana Parkinson Work Phone: [facility] 05-27-2022 12:26-0400 Heart rate 95 /min DO Alana Parkinson Work Phone: [facility] 05-27-2022 12:26-0400 Respiratory rate 18 /min DO Alana Parkinson Work Phone: [facility] 05-27-2022 12:26-0400 SaO2% (BldA) [Mass fraction] 95 % DO Alana Parkinson Work Phone: [facility] 05-27-2022 12:26-0400 Systolic blood pressure 155 mm[Hg] DO Alana Parkinson Work Phone: [facility] 01-27-2022 10:50-0400 Body height 157.48 cm Alana Parkinson Other [facility] Other 01-27-2022 10:50-0400 Body mass index (BMI) [Ratio] 34.02 kg/m2 Alana Parkinson Other [facility] Other 01-27-2022 10:50-0400 Body temperature 97.3 [degF] Alana Parkinson Other [facility] Other 01-27-2022 10:50-0400 Body weight 84.37 kg Alana Parkinson Other [facility] Other 01-27-2022 10:50-0400 Diastolic blood pressure 94 mm[Hg] Alana Parkinson Other [facility] Other 01-27-2022 10:50-0400 Respiratory rate 18 /min Alana Parkinson Other [facility] Other 01-27-2022 10:50-0400 SaO2% (BldA) [Mass fraction] 97 % Alana Parkinson Other [facility] Other 01-27-2022 10:50-0400 Systolic blood pressure 154 mm[Hg] Alana Parkinson Other [facility] Other 06-16-2021 10:10-0500 Body height 157.48 cm Alana Parkinson Other [facility] Other 06-16-2021 10:10-0500 Body mass index (BMI) [Ratio] 33.28 kg/m2 Alana Parkinson Other [facility] Other 06-16-2021 10:10-0500 Body temperature 97.1 [degF] Alana Muellerariella Other [facility] Other 06-16-2021 10:10-0500 Body weight 82.56 kg Alana Muellerariella Other [facility] Other 06-16-2021 10:10-0500 Diastolic blood pressure 88 mm[Hg] Alana Parkinson Other [facility] Other 06-16-2021 10:10-0500 Respiratory rate 18 /min Alana Muellerariella Other [facility] Other 06-16-2021 10:10-0500 SaO2% (BldA) [Mass fraction] 97 % Alana Muellerariella Other [facility] Other 06-16-2021 10:10-0500 Systolic blood pressure 138 mm[Hg] Alana Parkinson Other [facility] Other Encounters Encounter Date Encounter Type Care Provider Facility Start: 07-12-2024 End: 07-12-2024 Michelle flowsheet Evelina Chan MD Work Phone: [facility] Start: 07-12-2024 End: 07-12-2024 [employer] flowsheet Evelina Chan MD Work Phone: [facility] Start: 07-12-2024 End: 07-12-2024 Office outpatient visit 25 minutes Evelina Chan MD Work Phone: [facility] Comment on above: Type 2 diabetes ligia itus with hyperglycemia, with long-term current use of insulin (CMS/HCC) (Primary Dx); 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 (CMS/HCC); Vitamin D deficiency, unspecified; Mixed hyperlipidemia (CMS/HCC); Class 1 obesity due to excess calories with serious comorbidity and body mass index (BMI) of 32.0 to 32.9 in adult; Primary hypertension (CMS/HCC) Start: 07-12-2024 End: 07-12-2024 ambulatory EVELINA CHAN Not Available Start: 04-12-2024 End: 04-12-2024 Office outpatient visit 10 minutes Hector Wall DO Work Phone: [facility] Comment on above: Abscess of skin of a bdomen (Primary Dx) Start: 04-12-2024 End: 04-12-2024 ambulatory HECTOR WALL Not Available Start: 03-21-2024 End: 03-21-2024 ambulatory HECTOR WALL Not Available Start: 03-21-2024 End: 03-21-2024 Postop follow up visit related to original px Hector Wall DO Work Phone: [facility] Comment on above: Abscess of skin of a bdomen (Primary Dx); Open abdominal wall wound, initial encounter Start: 03-20-2024 End: 03-20-2024 ambulatory Hector Wall Facility:[facility] Start: 03-20-2024 End: 03-20-2024 Discharged Recurring PHYSICIAN NO [facility] - [facility]/P Work Phone: Start: 2024 End: 04-11-2024 External Result Encounter Hector Wlal DO Work Phone: [facility] Unsolicited Start: 2024 End: 04-11-2024 External Result Encounter Hector Wall DO Work Phone: [facility] Unsolicited Start: 2024 End: 2024 Departed Referred PHYSICIAN NO [facility] [place] Work Phone: Start: 2024 End: 2024 ambulatory PHYSICIAN NO [facility] Work Phone: Start: 03-07-2024 End: 03-07-2024 ambulatory HECTOR WALL Not Available Start: 03-05-2024 End: 03-05-2024 ambulatory JUAN PABLO RUEDA Not Available Start: 03-02-2024 End: 03-02-2024 ambulatory JESS MARSHS Not Available Start: 03-01-2024 ambulatory [facility] Work Phone: Start: 03-01-2024 Non-patient / Non-visit [facility] Phys[facility] Work Phone: Start: 02-29-2024 End: 02-29-2024 ambulatory JESSDIONNA MARSHS Not Available Start: 02-28-2024 End: 02-28-2024 ambulatory JESS MARSHS Not Available Start: 02-28-2024 End: 02-28-2024 ambulatory TABITHA THORNTON Not Available Start: 12-10-2023 End: 12-10-2023 ambulatory DO Alana Parkinson Work Phone: [facility] Work Phone: Start: 12-10-2023 End: 12-10-2023 Patient encounter procedure DO Alana Parkinson Work Phone: [facility] Physician [facility] [place] Work Phone: Start: 11-22-2023 End: 11-22-2023 Patient encounter procedure DO Alana Parkinson Work Phone: [facility] [place] Work Phone: Start: 11-22-2023 End: 11-22-2023 ambulatory DO Alana Parkinson Work Phone: [facility] Work Phone: Start: 11-16-2023 End: 11-16-2023 Patient encounter procedure DO Alana Parkinson Work Phone: [facility] [place] Work Phone: Start: 11-16-2023 End: 11-16-2023 ambulatory DO Alana Parkinson Work Phone: [facility] Work Phone: Start: 10-26-2023 End: 10-26-2023 ambulatory BRIGIDO MAN Not Available Start: 08-31-2023 End: 08-31-2023 Patient encounter procedure DO Alana Parkinson Work Phone: [facility] Work Phone: Start: 08-31-2023 End: 08-31-2023 ambulatory DO Alana Parkinson Work Phone: [facility] Work Phone: Start: 08-03-2023 End: 08-03-2023 ambulatory Alana Parkinson Other [facility] Other Start: 08-03-2023 Telephone encounter Alana Muellerariella [facility] [place] Start: 07-27-2023 End: 07-27-2023 Emergency department patient visit DO Alana Parkinson Work Phone: [facility] Work Phone: Start: 06-18-2023 End: 06-18-2023 Patient encounter procedure DO Alana Parkinson Work Phone: [facility] [place] Work Phone: Start: 06-18-2023 End: 06-18-2023 ambulatory DO Alana Parkinson Work Phone: [facility] Work Phone: Start: 06-16-2023 End: 06-16-2023 ambulatory Alana Parkinson Other [facility] Other Start: 06-16-2023 Telephone encounter Alana Muellerariella [facility] [place] Start: 06-15-2023 End: 06-15-2023 ambulatory Alana Parkinson Other [facility] Other Start: 06-15-2023 Telephone encounter Alana Parkinson [facility] [place] Start: 01-25-2023 End: 01-25-2023 ambulatory Alana Parkinson Other [facility] Other Start: 01-25-2023 Telephone encounter Alana Parkinson [facility] [place] Start: 01-20-2023 End: 01-20-2023 ambulatory Alana Parkinson Other [facility] Other Start: 01-20-2023 Office outpatient vi sit 25 minutes Alana Parkinson [facility] [place] Start: 01-16-2023 End: 01-16-2023 ambulatory DO Alana Parkinson Work Phone: [facility] Work Phone: Start: 01-16-2023 End: 01-16-2023 Departed Referred DO Alana Parkinson Work Phone: [facility] Work Phone: Start: 10-20-2022 End: 10-20-2022 Patient encounter procedure DO Alana Parkinson Work Phone: [facility] [place] Work Phone: Start: 08-21-2022 End: 08-21-2022 ambulatory DO Alana Parkinson Work Phone: [facility] Work Phone: Start: 08-21-2022 End: 08-21-2022 Patient encounter procedure DO Alana Parkinson Work Phone: [facility] Work Phone: Start: 08-07-2022 End: 08-07-2022 ambulatory Alana Parkinson Other [facility] Other Start: 08-07-2022 Telephone encounter Alana Parkinson [facility] [place] Start: 07-17-2022 End: 07-17-2022 ambulatory Alana Parkinson Other [facility] Other Start: 07-17-2022 Office outpatient vi sit 25 minutes Alana Parkinson [facility] [place] Start: 07-17-2022 Telephone encounter Alana Parkinson [facility] [place] Start: 07-07-2022 End: 07-07-2022 ambulatory Noé Ko II Other [facility] Other Start: 07-07-2022 Telephone encounter Noé Ko II [facility] Start: 07-04-2022 End: 07-04-2022 ambulatory DO Alana Parkinson Work Phone: [facility] Work Phone: Start: 07-04-2022 End: 07-04-2022 Departed Referred DO Alana Parkinson Work Phone: [facility] Start: 07-01-2022 End: 07-01-2022 ambulatory DO Alana Parkinson Work Phone: [facility] Work Phone: Start: 07-01-2022 End: 07-01-2022 Patient encounter procedure DO Alana Parkinson Work Phone: [facility] [address] Start: 06-18-2022 End: 06-18-2022 ambulatory Alana Parkinson Other [facility] Other Start: 06-18-2022 Telephone encounter Alana Parkinson [facility] [place] Start: 06-17-2022 FQHC visit new patient Noé henriquez II [facility] Start: 06-17-2022 Telephone encounter Alana Parkinson [facility] [place] Start: 06-17-2022 End: 06-17-2022 ambulatory DO Alana Parkinson Work Phone: [facility] Work Phone: Start: 06-17-2022 End: 06-17-2022 Patient encounter procedure DO Alana Parkinson Work Phone: [facility] [place] [facility] Start: 06-03-2022 End: 06-03-2022 ambulatory Alana Parkinson Other [facility] Other Start: 06-03-2022 Telephone encounter Alana Parkinson [facility] [place] Start: 06-02-2022 End: 06-02-2022 ambulatory Alana Parkinson Other [facility] Other Start: 06-02-2022 Telephone encounter Alana Parkinson [facility] [place] Start: 06-01-2022 End: 06-01-2022 Patient encounter procedure DO Alana Parkinson Work Phone: [facility] [place] Start: 06-01-2022 End: 06-01-2022 ambulatory DO Alana Parkinson Work Phone: [facility] Other Start: 06-01-2022 Telephone encounter Alana Parkinson [facility] [place] Start: 05-29-2022 End: 05-29-2022 Emergency department patient visit DO Alana Parkinson Work Phone: [facility] Start: 05-27-2022 End: 05-27-2022 Emergency department patient visit DO Alana Parkinson Work Phone: [facility] Start: 01-27-2022 End: 01-27-2022 ambulatory Alana Parkinson Other [facility] Other Start: 01-27-2022 Office outpatient vi sit 25 minutes Alana Parkinson [facility] [place] Start: 08-18-2021 End: 08-18-2021 ambulatory Alana Parkinson Other [facility] Other Start: 08-18-2021 Telephone encounter Alana Muellerariella [facility] [place] Start: 08-13-2021 End: 08-13-2021 ambulatory Alana Parkinson Other [facility] Other Start: 08-13-2021 Telephone encounter Alana Parkinson [facility] [place] Start: 06-16-2021 End: 06-16-2021 ambulatory Alana Parkinson Other [facility] Other Start: 06-16-2021 Office outpatient vi sit 25 minutes Alana Parkinson [facility] Procedures Date Procedure Procedure Detail Performing Clinician Start: 07-12-2024 Gluc bld gluc mntr d ev cleared fda spec home use Evelina Chan MD Work Phone: Start: 2024 PATHOLOGY REQUEST FO R LAB [facility] Hector Wall DO Work Phone: Start: 11-22-2023 Ultrasonography of b ilateral kidneys DO Alana Parkinson Work Phone: Start: 11-22-2023 Ultrasonography of abdomen DO Alana Parkinson Work Phone: Start: 11-16-2023 Diagnostic radiograp hy of abdomen DO Alana Parkinson Work Phone: Start: 08-31-2023 End: 08-31-2023 Screening mammography of bilateral breasts DO Alana Parkinson Work Phone: Start: 07-27-2023 SARS-CoV-2, Influenz a & RSV (PCR) DO Alana Parkinson Work Phone: Start: 07-27-2023 Computed tomography of abdomen and pelvis with contrast DO Alana Parkinson Work Phone: Start: 07-27-2023 CT of thorax with contrast DO Alana Parkinson Work Phone: Start: 07-27-2023 Plain chest X-ray DO Hugo Parkinson Work Phone: Start: 06-18-2023 Urine culture DO Alana Parkinson Work Phone: Start: 08-21-2022 Screening mammograph y of bilateral breasts DO Alana Parkinson Work Phone: Start: 07-01-2022 MR lumbar spine wo con DO Alana Parkinson Work Phone: Start: 06-17-2022 Plain X-ray of left hip DO Alana Parkinson Work Phone: Start: 06-17-2022 Radiologic examinati on of knee DO Alana Parkinson Work Phone: Start: 06-17-2022 X-ray of lumbar spin e, four views DO Alana Parkinson Work Phone: Start: 06-01-2022 Duplex scan of lower limb veins DO Alana Parkinson Work Phone: Plan of Treatment Date Care Activity Detail Author Start: 11-08-2024 End: 11-08-2024 Patient encounter procedure 11/08/2024 1:30 PM EDT Office Visit [facility] [address] [place] [id number] Evelina Chan MD [address] [place] [id number] [facility] Start: 10-26-2024 End: 10-26-2024 Patient encounter procedure 10/26/2024 10:45 AM EDT Office Visit [facility] [address] [place] [phone] Brigido Man MD [address] [place] [address] [facility] Start: 08-31-2024 Screening for malign ant neoplasm of breast Mammogram [facility] Start: 07-12-2024 End: 07-12-2024 Patient encounter procedure 07/12/2024 1:30 PM EST Office Visit [facility] [address] [place] [address] Eveilna Chan MD [address] [place] [address] Type 2 diabetes mellitus with hyperglycemia, with long-term current use of insulin ([facility]) [facility] Comment on above: Type 2 diabetes ligia itus with hyperglycemia, with long-term current use of insulin ([facility]) Start: 06-28-2024 End: 06-28-2024 Patient encounter procedure 06/28/2024 10:20 AM EST Office Visit [facility] [address] [place] [phone] Evelina Chan MD [address] [place] [address] [facility] Start: 04-12-2024 End: 04-12-2024 Patient encounter procedure 04/12/2024 10:30 AM EDT Office Visit [facility] [address] [place] [address] Hector Wall, [address] [facility] [address] [place] [address] [facility] Start: 04-02-2024 Influenza vaccination Influenza Vacc ine (#1) [facility] Start: 03-01-2024 Patient referral [facility] Work Phone: Start: 12-10-2023 Patient referral [facility] Work Phone: Start: 06-01-2022 Duplex scan of lower limb veins US venous duplex LE [facility] Start: 06-01-2022 US Lower extremity v ein - left [facility] Start: 2019 Pneumococcal Vaccine : 65+ Years (1 of 1 - PCV) Pneumococcal Vaccine: 65+ Years (1 of 1 - PCV) [facility] Start: 1955 Screening for malign ant neoplasm of colon [facility] Bacteria identified in Urine by Culture [facility] Comprehensive metabo lic 2000 panel - Serum or Plasma [facility] Glucose measurement estimated from glycated hemoglobin [facility] Work Phone: Hemoglobin A1c measurement [facility] Work Phone: Patient Education [facility] Work Phone: Patient referral [facility] Work Phone: US Lower extremity v ein - left [facility] Immunizations Immunization Date Immunization Notes Care Provider Fa cility 05-29-2021 COVID-19 Vaccine Moderna - Documentation Purposes Only Alana Parkinson Other [facility] 11-08-2020 COVID-19 Vaccine Moderna - Documentation Purposes Only Alana Parkinson Other [facility] 10-11-2020 COVID-19 Vaccine Moderna - Documentation Purposes Only Alana Parkinson Other [facility] NEGATED: Highlighted row has not occurred!06-16-2021 influenza, seasonal, injectable Patient Objection Alana Parkinson Other [facility] Other Payers Date Payer Category Payer Medicare (Managed Care) [employer] [id number] 2023 Unknown [employer] [facility] [employer] [id number] 2023-Present [address] [place] [id number] 2023 Medicare [id number] 2023 Self-pay [id number] 2021 Private Health Insurance [id number] 1954 Unknown [id number] 2.16.840.1.843827.3.579.2. 1259 1954 Unknown [id number] 2.16.840.1.138241.3.579.2. 1258 1954 Unknown [id number] 2.840.1.186168.3.579.2. 1258 1954 Unknown [id number] 2.16.840.1.441745.3.579.2. 1258 1954 Unknown [id number] 2.840.1.143061.3.579.2. 1258 1954 Unknown [id number] 2.0.1.697336.3.579.2. 1258 1954 Unknown [id number] 2.0.1.844673.3.579.2. 1258 1954 Unknown [id number] 2.0.1.558053.3.579.2. 1258 1954 Unknown [id number] 2.0.1.489235.3.579.2. 1258 1954 Unknown [id number] 2.0.1.463693.3.579.2. 1258 1954 Unknown [id number] 2.0.1.776934.3.579.2. 1259 Medicare [id number] [id number] Unknown [id number] 2.0.1.710521.19 Unknown Regular Insurance [id number] Unknown [place] [id number] Unknown [id number] 2.840.1.908706.3.579.2. 531 Unknown [id number] 2.840.1.140746.3.579.2. 531 Unknown [id number] 2.16840.1.363562.3.579.2. 531 Unknown [id number] 2.840.1.713188.3.579.2. 531 Unknown [id number] 2.16.840.1.869007.3.579.2. 531 Unknown [id number] 2.16.840.1.322135.3.579.2. 531 Unknown [id number] 2.16.840.1.968013.3.579.2. 531 Social History Date Type Detail Facility Unknown if ever smoked Located Within [facility] Other Start: 10-26-2023 End: 03-07-2024 Sex Assigned At Located Within [facility] [employer] Other Start: 05-27-2022 End: 05-29-2022 Tobacco smoking status WVIS Never smoked tobacco (finding) [facility] Start: 1955 Sex Assigned At Female F [facility] Start: 07-27-2023 End: 12-10-2023 Tobacco smoking status WVIS Smoker (finding) [facility] Start: 03-07-2024 Tobacco smoking stat [facility] Smokes tobacco daily [facility] History of tobacco use Cigarette Smoker [facility] Start: 03-07-2024 Tobacco use and exposure Smokeless tobacco non-user [facility] Start: 03-07-2024 End: 06-14-2024 Alcoholic beverage intake Ex-drinker (finding) [facility] Start: 10-26-2023 End: 03-07-2024 History of Social function [facility] How often to you hav e a drink containing alcohol? Never [facility] How many standard drinks containing alcohol do you have on a typical day? Patient does not drink [facility] Start: 1955 Sex assigned at Not on file [facility] Medical Equipment Procedure Code Equipment Code Equipment Origin al Text Equipment Identifier Dates Start: 07-22-2012 Blood Sugar Diagnostic (True Metrix Glucose Test Strip) strip Start: 05-27-2022 Lancets (Trueplu s Lancets) 33 gauge misc Start: 05-27-2022 Blood Sugar Diagnostic (True Metrix Glucose Test Strip) strip Start: 05-27-2022 Lancets (Trueplu s Lancets) 33 gauge misc Start: 05-27-2022 Blood Sugar Diagnostic (True Metrix Glucose Test Strip) strip Start: 05-27-2022 Lancets (Trueplu s Lancets) 33 gauge misc Start: 05-27-2022 Blood Sugar Diagnostic (True Metrix Glucose Test Strip) strip Start: 05-27-2022 Lancets (Trueplu s Lancets) 33 gauge misc Start: 05-27-2022 Blood Sugar Diagnostic (True Metrix Glucose Test Strip) strip Start: 05-27-2022 Lancets (Trueplu s Lancets) 33 gauge misc Start: 05-27-2022 Blood Sugar Diagnostic (True Metrix Glucose Test Strip) strip Start: 05-27-2022 Lancets (Trueplu s Lancets) 33 gauge misc Start: 05-27-2022 Blood Sugar Diagnostic (True Metrix Glucose Test Strip) strip Start: 05-27-2022 Lancets (Trueplu s Lancets) 33 gauge misc Start: 05-27-2022 Blood Sugar Diagnostic (True Metrix Glucose Test Strip) strip Start: 05-27-2022 Lancets (Trueplu s Lancets) 33 gauge misc Start: 05-27-2022 Blood Sugar Diagnostic (True Metrix Glucose Test Strip) strip Start: 05-27-2022 Lancets (Trueplu s Lancets) 33 gauge misc Start: 05-27-2022 Blood Sugar Diagnostic (True Metrix Glucose Test Strip) strip Start: 05-27-2022 Lancets (Trueplu s Lancets) 33 gauge misc Start: 05-27-2022 Blood Sugar Diagnostic (True Metrix Glucose Test Strip) strip Start: 05-27-2022 Lancets (Trueplu s Lancets) 33 gauge misc Start: 05-27-2022 Blood Sugar Diagnostic (True Metrix Glucose Test Strip) strip Start: 05-27-2022 Lancets (Trueplu s Lancets) 33 gauge misc Start: 05-27-2022 Blood Sugar Diagnostic (True Metrix Glucose Test Strip) strip Start: 05-27-2022 Lancets (Trueplu s Lancets) 33 gauge misc Start: 05-27-2022 Blood Sugar Diagnostic (True Metrix Glucose Test Strip) strip Start: 05-27-2022 Lancets (Trueplu s Lancets) 33 gauge misc Start: 05-27-2022 Pen Needle, Diab etic (Bd Ultra-Fine Short Pen Needle) 31 gauge x 5/16 needle Start: 12-10-2023 Blood Sugar Diagnostic (True Metrix Glucose Test Strip) strip Start: 05-27-2022 Lancets (Trueplu s Lancets) 33 gauge misc Start: 05-27-2022 Pen Needle, Diab etic (Bd Ultra-Fine Short Pen Needle) 31 gauge x 5/16 needle Start: 12-10-2023 Blood Sugar Diagnostic (True Metrix Glucose Test Strip) strip Start: 05-27-2022 Lancets (Trueplu s Lancets) 33 gauge misc Start: 05-27-2022 Pen Needle, Diab etic (Bd Ultra-Fine Short Pen Needle) 31 gauge x 5/16 needle Start: 12-10-2023 Blood Sugar Diagnostic (True Metrix Glucose Test Strip) strip Start: 05-27-2022 Lancets (Trueplu s Lancets) 33 gauge misc Start: 05-27-2022 Pen Needle, Diab etic (Bd Ultra-Fine Short Pen Needle) 31 gauge x 5/16 needle Start: 12-10-2023 Clinical Notes 04-17-2019 to 07-12-2024 Evelina Chan MD - 07/12/2024 1:30 PM Sharla Wall DO - 03/21/2024 1:15 PM EDT Note Date & Type Note Facility 07-12-2024 History of Presen t illness Narrative Chayo Padilla is a 69 y.o. female Evelina Chan MD presents with chief complaint of Diabetes and Follow-up HPI: IM : 07/2024 Follow-up visit 07/12/2024 A1c is office 11, blood sugar 219, she is still on Levemir 60 units, NovoLog 03/11/12, not able to afford Jardiance and Januvia, currently on Actos 15 mg once a day, lab done total cholesterol 240, triglycerides 205, LDL 153, C-peptide 1.7, vitamin-D 22. HPI: 03/2024 New patient sent from Alana Parkinson. A1c in our office 12.5, blood sugar high, and blood sugar 215 and she is currently on Lantus 60 and switched from Levemir and NovoLog between 8 to 10. She used it once a time a day and have been told not to take metformin since she is on insulin and I think she tried some kind of a GL2 and it gave her some yeast infection, but she is not sure what the name. Denies complication from diabetes other than cataract for her eyes. No coronary artery disease. No stroke. SUBJECTIVE: MEDICATIONS: Current Outpatient Medications Medication Instructions atorvastatin (Lipitor) 20 MG tablet Every 24 hours Continuous Glucose Biomechanical Engineer (FreeStyle Desean 2 [place]) device USE DIRECTED. Continuous Glucose Sensor (FreeStyle Desean 2 Sensor) misc CHANGE EVERY 14 DAYS. empagliflozin (JARDIANCE) 25 mg, Daily ibuprofen 800 mg, 3 times daily insulin aspart (NovoLOG FLEXPEN) 100 UNIT/ML pen 8 units prn Subcutaneous insulin detemir (Levemir FlexTouch) 100 UNIT/ML pen Subcutaneous lisinopril 10 MG tablet Daily Multiple Vitamin (multivitamin) capsule 1 capsule, Daily pioglitazone (ACTOS) 45 mg, Oral, Daily rosuvastatin (Crestor) 10 MG tablet Every 24 hours ALLERGIES: Allergies Allergen Reactions Penicillins Rash Sulfanilamide Rash Past Medical History: Diagnosis Date BMI 33.0-33.9,adult Diabetes ([facility]) High cholesterol ([facility]) Hypertension ([facility]) detention (current) use of insulin ([facility]) Mixed hyperlipidemia (CMS/HCC) Obesity, unspecified Osteoarthritis Osteopenia Type 2 diabetes mellitus with hyperglycemia ([facility]) Vitamin D deficiency, unspecified Past Surgical History: Procedure Laterality Date APPENDECTOMY CATARACT EXTRACTION Bilateral KNEE ARTHROSCOPY W/ LASER Right VARICOSE VEIN SURGERY Bilateral REVIEW OF SYMPTOMS: 14 POINT OF SYSTEM REVIEWED AND NEGATIVE OBJECTIVE: Constitutional: Afebrile @ home; no weakness or night sweats SKIN: No change in skin color; no itching, rash or lesions; no hair loss; HEENT: No HAs or injury; no dizziness; No difficulty with vision; no eye pain, discharge or lesions; no hearing loss or difficulty; no nasal discharge, NECK: No pain, limitation of motion, lumps or swollen glands RESP: No cough, wheezing or difficulty breathing. No CP with breathing; CARDIO: No CP , SOB or fatigue, No edema, palpitations or dyspnea with exertion GI: No N/V/D or abd. pain; good appetite with no recent change. No heart burn, liver or gallbladder disease; no rectal bleeding or pain : No urinary pain , frequency or odor. MUSCULOSKELETAL: No muscle pain or cramps; no extremity weakness.No joint pain, stiffness, swelling or limitation of movement NEUROLOGY: No H/O seizures, stroke or fainting. No weakness, tremors. Hematology: No bleeding problems or excessive bruising ENDOCRINE: No increase in hunger, thirst or urination; admits compliance to medical management plan Feet: numbness tingling , ulcers or skin break Lab Results Component Value Date HGBA1C 11.8 07/12/2024 Lab Results Component Value Date GLU 219 07/12/2024 Visit Vitals BP 132/68 Pulse 98 Resp 18 Ht 5' 4 Wt 191 lb LMP (LMP Unknown) BMI 32.79 kg/m OB Status Postmenopausal Smoking Status Every Day BSA 1.98 m ASSESSMENT AND PLAN: Assessment/Plan Diagnoses and all orders for this visit: Type 2 diabetes mellitus with hyperglycemia, with long-term current use of insulin ([facility]) - POCT glucose manually resulted - POCT glycosylated hemoglobin (Hb A1C) docked device - pioglitazone (Actos) 45 MG tablet; Take 1 tablet (45 mg) by mouth Daily We will continue with Levemir and switch it to Lantus next year 60 units , we will continue with NovoLog 03-11-12 according to meal size, I will increase her Actos to 45 mg once a day, prescription sent. 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 (CMS/HCC) Vitamin D deficiency, unspecified Mixed hyperlipidemia (CMS/HCC) LDL 153 continue with atorvastatin 20 mg once daily Class 1 obesity due to excess calories with serious comorbidity and body mass index (BMI) of 32.0 to 32.9 in adult Primary hypertension (CMS/HCC) Continue lisinopril Follow up in about 3 months (around 10/10/2024). documented in this encounter [facility] 03-21-2024 History of Presen t illness Narrative Images from the original note were not included. Chayo Padilla 1955 Chayo Padilla is a 69 y.o. female presents for 1st pow- debridement of abdominal wound (In office procedure. ) HPI: HPI Patient is not having any pain or soreness. She feels a lot better. Really is not needing any packing changes it is healing really well. She does not feel like she needs to go to infusion center anymore. OBJECTIVE: Physical Exam Constitutional: Appearance: Normal appearance. She is not ill-appearing. Cardiovascular: Rate and Rhythm: Regular rhythm. Abdominal: General: There is no distension. Tenderness: There is no abdominal tenderness. Comments: No erythema or cellulitis. Good granulation tissue. Very minimal depth to wound. ASSESSMENT AND PLAN: Assessment/Plan Diagnoses and all orders for this visit: Abscess of skin of abdomen Open abdominal wall wound, initial encounter Status post excisional debridement of abdominal wound. Well healing. Does not need to go to infusion center anymore. Just should wash this out daily in the shower and place a gauze pad or Band-Aid over it. Will see her again in 3 weeks. No follow-ups on file. documented in this encounter [facility] 03-01-2024 Hospital Discharg e instructions Ambulatory OrdersReferral to General Surgery Time Frame: 03/01/24, Location: None Selected [facility] Work Phone: 12-10-2023 Evaluation note Authored December 10, 2023 12:15 pm The above note written by __ _Sebastián Judge____ acting as human recorder, note dictated by Dr. Mendez .I performed the above HPI, ROS, and Examination. I formulated and dictated the treatment plan and was present for entire encounter. Alana Parkinson D.O. [facility] Work Phone: [phone]) 694-210211-15-2023 Evaluation note* Encounter Date Diagnosis Assessment Notes Treatment Notes Treatment Clinical Notes Jun, Diabetes type 2, uncontrolled (ICD-10 - E11.65) [facility] Other 11-14-2023 Evaluation note* Encounter Date Diagnosis Assessment Notes Treatment Notes Treatment Clinical Notes Jun, Diabetes type 2, uncontrolled (ICD-10 - E11.65) Jun, Hyperlipidemia (ICD- 10 - E78.5) Jun, Weight loss (ICD-10 - R63.4) Jun, Other correction (current) 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 (ICD-10 - Z79.899) Jun, Thrombocytopenia (ICD-10 - D69.6) Jun, Nocturia (ICD-10 - R35.1) [facility] Other 06-21-2023 Evaluation note* Encounter Date Diagnosis Assessment Notes Treatment Notes Treatment Clinical Notes Dec, Diabetes type 2, uncontrolled (ICD-10 - E11.65) Discussed blood sugar results with patient today. Glucose is 150. HgA1C is up from 11.5 to 12.9 which is uncontrolled and higher than we would like to see. She is using her insulin multiple times a day. She tests her blood sugar three times a day right now. We discussed her using the Freestyle Desean system to help her monitor her blood sugar and see what is raising her blood sugar readings. I do feel she will benefit from the Desean system. A face to face encounter was done in the office today to evaluate and discuss the need for the Desean system. I encouraged her to cut back on her intake of carbs and sugars. Stay active. If she is unable to make lifestyle and dietary changes on her own then we will need to make adjustments to her medication. She admits that she has been under a great deal of stress caring for her who has dementia and she feels that this has contributed to her elevated readings. I asked her to let me know when she has the Freestyle Desean system, at that point we would see her one month from then to review her blood sugar readings and see if her medications need to be adjusted. Dec, Hyperlipidemia (ICD-10 - E78.5) She voices that she has Atorvastatin 20 MG tablets at home so she takes 2 (total of 40 MG) daily. Discussed cholesterol results with her today. Her total cholesterol was 228. HDL was 47. LDL was 148. Triglycerides were 166. VLDL is 33. Dec, Hypertension (ICD-10 - I10) Blood pressure is controlled. Continue with above medication daily as directed. Dec, Neuropathy of left lower extremity (ICD-10 - G57.92) She voices that she did see Dr. Carrion for evaluation but did not return to see them because of the cost of her co-pays. She voices that she is not planning to see them again because of the cost. Their office has been calling her to schedule an appointment to review their results with her. She had an EMG done on her left leg which showed severe neuropathy. She is taking the Gabapentin at bedtime which has allowed her to sleep. She was not able to take this when her was at home because she had to be alert when he was home to care for him. The medication is helping her nerve pain and pain. She does not take it every night, it depends on how much throbbing she has in the left leg. Dec, Weight loss (ICD-10 - R63.4) She has lost one pound since last seen. Dec, Osteopenia determined by x-ray (ICD-10 - M85.80) She voices that she did not see Dr. Chan. Her has dementia and at the time her children could only provide her with one day where she could leave the home to get her errands run. Her is now in a skilled nursing but she is not sure how long he will be in there for. Dec, Elevated alkaline phosphatase level (ICD-10 - R74.8) Her alk phos level is 110. I did recommend that she take a Vitamin D3 supplement once a day which should help this level. Dec, Other She voices that she has a Cologuard kit at home ordered by Dr. Man but she does not understand how to use the kit. I did recommend that she contact [facility] and have them explain to her how to use the kit. She voices understanding. [facility] Other 12-30-2022 NoteHISTORY: Bone density screening. COMPARISON: None available. PROCEDURE: Imaging of the lumbar spine and bilateral hips was obtained for bone density evaluation. FINDINGS: REGION BMD (g/cm??) YOUNG ADULT T-SCORE AGE-MATCHED Z-SCORE LEFT FEMORAL NECK 0.621 -2.1 0.3 RIGHT FEMORAL NECK 0.602 -2.2 0.5 LUMBAR (L1-L4) 0.939 -1.0 1.0 The mean BMD and corresponding T-score listed above indicates: Osteopenia and places the patient at a mild to moderate increased risk for fracture. There may be a future risk of developing osteoporosis. Recommend follow-up exam in 1 year, sooner as clinically necessary. Comment: The T-score is the primary focus of the interpretation of a patient???s bone mineral density measurement. The T-score is the number of standard deviations and individual is above or below the mean value for a young female having normal bone mass. The WHO defines osteoporosis based on the T-score value: +1.0 to -0.9 : Normal bone mass -1.0 to -2.5 : Osteopenia and thus may be at future risk of fracture. -2.6 to -5.0 : Osteoporosis and at significantly increased risk of fracture. 10 year probability (FRAX) of major osteoporotic fracture is 23% and hip fracture 4.6%. IMPRESSION: OSTEOPENIA. Report reported and signed by Corby Bueno on 07/31/2022 [id number]12-16-2022 Evaluation note* Encounter Date Diagnosis Assessment Notes Treatment Notes Treatment Clinical Notes Jul, Enlarged lymph nodes in armpit (ICD-10 - R59.0) [facility] Other 12-16-2022 Evaluation note* Encounter Date Diagnosis Assessment Notes Treatment Notes Treatment Clinical Notes Jul, Diabetes type 2, uncontrolled (ICD-10 - E11.65) Discussed blood sugar results with patient today. Glucose is 207. HgA1C is 11.5 which is higher than we would like to see. We discussed that if she has to be treated for osteopenia she may need to see Dr. Chan who can also treat her for Diabetes. She is agreeable to see him if needed. I encouraged her to watch her intake of carbs and sugars. Stay active as tolerated with her knees and back. Jul, Hyperlipidemia (ICD-10 - E78.5) We discussed that when last seen we had wanted her to increase her Atorvastatin to 40 MG daily. She voices that she did not do this and has been only taking 1 per day. At this time we will increase her dose again and she will begin taking 2 of the 20 MG tablets together once a day. Her total cholesterol is 241. HDL is 53. LDL is 158. Triglycerides are 152. VLDL is 30. I would like to see how her cholesterol is once she has increased her dose to 40 MG per day. She voices that she has not been eating garbage at night and eats dinner earlier in the day. She is to continue with those things and avoid carbs and sugars. Jul, Hypertension (ICD-10 - I10) Continue with above medication daily. We discussed that the Lisinopril helps to protect her kidneys. Jul, Osteopenia determined by x-ray (ICD-10 - M85.80) I did advise her that her osteopenia was seen on x-ray results. She voices that it has been years since she had a DEXA scan done. I would like to order this to be done. She does take a Womens Plus 50 vitamin daily. She agrees to having the DEXA done. If she needs treatment then we would likely have her see Dr. Chan for evaluation. Jul, Arthritis of both knees (ICD-10 - M17.0) She voices that she has significant pain in her left knee. She has such severe pain in her left leg that she cannot even touch her leg. She has fallen because of her leg pain. She was told she had severe arthritis in her left knee and she voices that this is where her pain is. Suspect her pain is coming more from her knee and not her low back. Jul, Other correction (current) 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 (ICD-10 - Z79.899) Jul, Acute low back pain, unspecified back pain laterality, unspecified whether sciatica present (ICD-10 - M54.50) She has an appointment to see Dr. Ordaz next week to review her MRI of the lumbar spine. Jul, Breast pain in female (ICD-10 - N64.4) She usually has two cups of caffeine per day. She voices that her breasts are sore but it comes and goes. She has not had her mammogram yet and I did recommend that she have the mammogram done. An order was provided. She feels like she is being electrocuted at times. No lumps or leaking from her nipples. Jul, Breast cancer screening (ICD-10 - Z12.31) Provided her with an order to have a bilateral mammogram done. Jul, Enlarged lymph nodes in armpit (ICD-10 - R59.0) She voices that she has tender lymph nodes in her right axilla. Because of the breast pain she has had I am going to prescribe Doxycycline for her to take twice a day for ten days. She will still need to get the mammogram done. Jul, Weight gain (ICD-10 - R63.5) She has gained two pounds since last seen. [facility] Other 11-16-2022 Evaluation note* Encounter Date Diagnosis Assessment Notes Treatment Notes Treatment Clinical Notes Jun, Left leg pain (ICD-10 - M79.605) Jun, Acute low back pain, unspecified back pain laterality, unspecified whether sciatica present (ICD-10 - M54.50) Jun, Other I had a long discussion today with the patient regarding the etiology of her symptoms. We discussed all of her x-rays as well. I explained to her that her left hip looks pristine and I do not have any concern for left hip osteoarthritis. We also discussed that her left knee does have fairly significant osteoarthritis on the medial compartment but this is a chronic finding for her and she is known about this for several years. I do not feel that the knee is causing the current symptoms in the left lower extremity. Based on her lumbar imaging, she certainly has some degenerative disc disease and facet arthropathy that could correlate with some of the weakness with the L5 nerve root on the left. As a result, I have recommended an MRI of her lumbar spine without contrast to evaluate for nerve impingement. In the meantime, I discussed with the patient considering a Medrol Dosepak to try and calm down any inflammation. However, because she is an insulin-dependent diabetic, I do not feel comfortable ordering this medication without her checking with her primary care provider and determining if there is anything she needs to adjust with her diabetes medications. At this time the patient will plan to call her primary care provider and ask for guidance on adjustments of medications if her PCP feels it okay to get a Medrol Dosepak. Patient will then call back into our office and we will order a Medrol Dosepak if her primary care provider agrees. I will plan to see her back in the office with the MRI results. However, if I see the MRI results and this is something that may be surgical then we will get her into see one of our neurosurgeons. [facility] Other 10-31-2022 Evaluation note* Encounter Date Diagnosis Assessment Notes Treatment Notes Treatment Clinical Notes May, Leg pain (ICD-10 - M79.606) left leg May, Family history of DVT (ICD-10 - Z82.49) [facility] Other 06-28-2022 Evaluation note* Encounter Date Diagnosis Assessment Notes Treatment Notes Treatment Clinical Notes Dec, Diabetes type 2, uncontrolled (ICD-10 - E11.65) She voices that she continues to use 60 units of Levemir at bedtime. She did run out of meal time insulin, voices that what she has is . I will send a new prescription in for her today. I anticpate that as she uses her insulin correctly and on a regular basis her A1C will go down. She does not want to see Dr. Sloan at this time. Her glucose level was 286 when checked. Her HgA1C was 12.5 which is higher than we would like to see. I encouraged her to use her insulin as directed. Watch intake of carbs and sugars. Stay active as tolerated. She admits she likes to eat bread, she eats honey wheat bread. She eats sandwiches for lunch but will eat eggs, ceballos or ham for breakfast. She will eat pot pies for supper and will have bread with supper. She drinks orange juice but the low sugar brand. I did explain to her that this is still high in sugar. She should drink plenty of water during the day. Diet was discussed in length today. I did recommend that she eat more green vegetables and proteins, eat more low carb low sugar. She questions her meal time insulin and is told that her dose may need to be adjusted but we will have to see how she does. If needed she can increase her dose by two units at a time but needs to keep me posted with what she is doing. Dec, Hyperlipidemia (ICD-10 - E78.5) Discussed cholesterol results with patient today. Total is 240. HDL is 49. LDL is 157. Triglycerides are 170 which go hand in hand with blood sugar. I would like to see her LDL between 70-100. I did recommend that we increase her dose of Atorvastatin to gain better control of her cholesterol and improve her LDL. She can take 2 of the 20 MG tablets together. She is in agreement with this. When she runs low she can call for a refill and we will send in 40 MG and she can take 1 per day. Again, watch diet to include intake of carbs and sugars. Stay active. Dec, Hypertension (ICD-10 - I10) Her blood pressure is elevated today at 154/94. She voices that she just took her medication prior to her visit and drank coffee. I did recommend that she check her blood pressure on her own and track readings, I asked her to call me with at least five readings and based on those then we may need to raise her dose of Lisinopril. Dec, Peripheral neuropathy (ICD-10 - G62.9) bilateral We discussed that her symptoms are consistent with peripheral neuropathy which is caused by her blood sugar. She does check her feet regularly. She previously followed with a foot doctor (Dr. Savage) but has not recently. She has not seen an eye doctor recently but will schedule an appointment with Dr. Grimes. Dec, Weight gain (ICD-10 - R63.5) She has gained four pounds since last seen. Dec, Knee pain (ICD-10 - M25.569) bilateral She voices that her knees are very bad and she was told she had arthritis. She can barely walk because of her knees. I did discuss with her that surgery would not likely be done unless her A1C was under 8 and her A1C is 12.5 at this time. She will continue to monitor. Dec, Encounter for screening mammogram for breast cancer (ICD-10 - Z12.31) Provided her with an order to have a bilateral mammogram done. Dec, Other Advance care directives were discussed. She has a will and a power of trade mark attorney and thinks she has a Healthcare power of trade mark attorney. I did recommend that she provide the office with a copy of this. She should discuss her wishes with her and family. [facility] Other 01-12-2022 Evaluation note* Encounter Date Diagnosis Assessment Notes Treatment Notes Treatment Clinical Notes Aug, Hypertension (ICD-10 - I10) Aug, Hyperlipidemia (ICD-10 - E78.5) Aug, Diabetes type 2, uncontrolled (ICD-10 - E11.65) [facility] Other 11-15-2021 Evaluation note* Encounter Date Diagnosis Assessment Notes Treatment Notes Treatment Clinical Notes Jun, Diabetes type 2, uncontrolled (ICD-10 - E11.65) She voices that right now due to cost she is not using the Levemir and is only using the NovoLog. She is in the process of changing insurance companies at the beginning of the year and hopes the cost of her medications will go down and will be more affordable. She voices that she has been drinking an herb supplement but not daily but she found that is is supposed to be good for you, she cannot remember the name. Her glucose was 213. HgA1C has gone down from 13.4 to 13.2. I did explain to her that her A1C is higher than I would like to see. We did discuss her seeing Dr. Tabitha Sloan, she voices that she had an appointment with her in the past but the pandemic started so the appointment was cancelled. She is willing to see her again, a referral is provided. A bilateral monofilament test was done in the office today. She has diabetic peripheral neuropathy noted on exam, we discussed that this will make it difficult for her to have her balance. Her blood sugar needs to get under better control. Jun, Peripheral neuropathy (ICD-10 - G62.9) bilateral Noted on bilateral foot exam today. Jun, Hyperlipidemia (ICD-10 - E78.5) Discussed cholesterol results with patient today. Total is 255. HDL is 42. LDL is 176. Triglycerides are 183. I would like to see her LDL between 70-100. She is encouraged to watch her intake of carbs and sugars. Stay active. I suspect once her blood sugar is under better control her cholesterol will improve. Jun, Weight loss (ICD-10 - R63.4) She has lost 9 pounds since last seen. We discussed that her weight loss is likely caused by her uncontrolled blood sugar. Jun, Vertigo (ICD-10 - R42) She voices that sometimes the mojica are spinning when she is up and walking. She has fallen several times since last seen. The room only spins when she is standing. She did have treatment for vertigo in the past when she was doing PT for her shoulder. I did discuss treatment for this but explained that this can cause severe fatigue so I am hesitant to prescribe this. I did recommend she walk with a cane due to the peripheral neuropathy she has. She voices that she has bilateral knee braces that she will wear when she walks, and she will walk very slow. If she has something that she can hold on to she does better. Jun, Hypertension (ICD-10 - I10) Her blood pressure is controlled, she is to continue with above medication daily as directed. Jun, Other correction (current) 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 (ICD-10 - Z79.899) Jun, Abdominal pain (ICD-10 - R10.9) She voices that she saw Dr. Wall for evaluation, she says that the pain she was having has continued. She had a CT scan done which did show swelling at the injection sites where she gives her insulin. She voices that both sides of her abdomen hurt. I suspect that her pain is still caused by areas where she injects her insulin. She can give insulin in the top of her thigh, back of her arm, encouraged her to rotate injection sites and see if the pain in her abdomen improves. Jun, Fall (ICD-10 - W19.XXXA) She voices that she has been falling alot recently. We discussed that her elevated A1C can affect the nerves which can affect her feet and this can cause her to lose her balance. One time she was outside and fell on her chest. Another time she was walking down her hallway and hit her wall. I suspect the peripheral neuropathy she has is causing the falling she has had. Her has two Rollator walkers she can use when she is out to prevent her from falling. Jun, Encounter for screening mammogram for breast cancer (ICD-10 - Z12.31) Provided her with an order to have a bilateral mammogram done Jun, Other Her alk phos le daly is 101. I did explain to her that this is only slightly elevated and likely due to the lab being too strict. This is something that we will continue to monitor closely. [facility] Other 09-16-2019 History general Narrative - Reported* Type Description Date Medical History hypertension Medical History diabetes mellitus Medical History hyperlipidemia Medical History Arthritis bilateral knees Medical History fractured r shoulder 04/17/19 Surgical History appendectomy Surgical History vericose veins Surgical History right eye cataract surgery- Dr Banerjee 08-25-2011 Surgical History right eye cataract surgery; Dr. Banerjee 08-25-11 Surgical History rt knee surgery/ Dr. Jacobs arth roscopy 04/19/2012 Surgical History mammogram -[facility] - [address] 17 Hospitalization History appendicitis Hospitalization History child x3 Hospitalization History child x 3 Located Within [facility] ([employer]) Other evaluation noteNo InformationN[facility] ([employer]) Other evaluation noteNo assessment information available [facility] Work Phone: [email or web address] note* Diagnosis Onset Date Resolution Status Abdominal pain acute Constipation acute Diarrhea acute Fatty liver acute Hepatic hemangioma acute HTN (hypertension) acute Hyperlipidemia acute Nicotine dependence acute Osteopenia acute Other correction (current) 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 acute Tinnitus acute Uncontrolled type 2 diabetes mellitus acute [facility] Work Phone: [email or web address] note* Diagnosis Type 2 diabetes mellitus with hyperglycemia, with long-term current use of insulin ([facility])- Primary detention (current) use of insulin ([facility]) Vitamin D deficiency, unspecified Mixed hyperlipidemia ([facility]) Mixed hyperlipidemia Class 1 obesity due to excess calories with serious comorbidity and body mass index (BMI) of 32.0 to 32.9 in adult Primary hypertension ([facility]) Unspecified essential hypertension documented [facility]* Diagnosis Abscess of skin of abdomen- Primary Open abdominal wall wound, initial encounter [facility]* Diagnosis Abscess of skin of abdomen- Primary documented in this encounter [facility] HealthcareHistory of Present illness Narrative* Hector Wall DO - 04/12/2024 10:30 AM EDT Images from the original note were not included. Chayo Padilla 1955 Chayo Padilla is a 69 y.o. female presents for 5th pow debridement of abd. wound HPI: HPI Patient said that she had a good scab and then she accidentally pull that off in the shower. She keeps a Band-Aid on it only when she is out and about. She has not having any pain or soreness or drainage. OBJECTIVE: Physical Exam Patient is comfortable conversive pleasant. Abdomen is soft nontender nondistended. Right wound site is well healed, granulation is up to the skin level and this is about to completely epithelialize over. ASSESSMENT AND PLAN: Assessment/Plan Diagnoses and all orders for this visit: Abscess of skin of abdomen Status post incision and drainage and debridement of abscess and wound. 99 percent healed, I encouraged her to not pick the scab off of the wound and then this will completely be healed. She appreciates all help. I will see her again on an as-needed basis otherwise she is discharged from my care. No follow-ups on file. [facility] instructions Additional Instructions Take the antibiotic doxycycline twice a day for 10 days take with food 1 hydrocodone every 6 hours for severe pain You may still take plain [id number] Tylenol and or ibuprofen for less severe pain You may take a shower but do not let the water run directly on the abscess site Change the dressing as needed but try to leave the packing in place Return to the ER in 2 days for packing removal recheck Return sooner if worsening redness swelling pain fever chills or any other concernsMartin [facility] Work Phone: Hospital Discharge instructions Additional Instructions Apply warm compresses to the abscess left buttock several times a day Take antibiotic and pain medications as prescribed Have your vascular study completed as needed we discussed Return here if any problems persist worsening fever, chills, nausea, vomiting chest pain, shortness of breath or any other concernsMartin [facility] Hospital Work Phone: Hospital Discharge instructions Additional Instructions Follow-up with your primary care doctor Return to ED for worsening symptoms or concernsMartin [facility] Hospital Work Phone: Hospital Discharge instructionsAmbulatory Orders* Referral to Audiology Time Frame: 12/10/23, Location: None Selected * Referral to Endocrinology Time Frame: 12/10/23, Location: None Selected [facility] Work Phone: Reason for visit [facility] Community Outreach [employer] [place] Other Relpyr for visit [facility] [place] Other Reason for Referral Reason appt pt needs cons ult to discuss uncontrolled Diabetes Diagnosis 1 Diabetes type 2, unc ontrolled (E11.65) Referral Organization [facility] Referring Provider First Name Alana Referring Provider Last Name Gwendolyn Referring Provider Specialty Family Prac fabio Referred Organization [facility] Referred Provider Tabitha Sloan Referred Address ,[place], [place],[address] Referred Provider Specialty Family Medic in[facility] Referral Priority Routine General Notes Lorena Miller 06/16/2021 09:47:09 AM > referral sent p2p with office note and last two community outreach labs. pt informed she will be contacted to schedule this appt. Reason appt consult for e eliud and treatment of lt lower leg pain/difficulty walking Diagnosis 1 Leg pain, left (M79. 605) Referral Organization [facility] [place] Referring Provider First Name Alana Referring Provider Last Name Gwendolyn Referring Provider Specialty Family Prac fabio Referred Organization [facility] [place] [facility] Referred Provider Yonatan Ocasio Referred Address [address] [facility],[place],[address] Referred Provider Specialty Orthopedic S urgery Referral Priority Urgent General Notes Lorena Miller 06/03/2022 10:26:56 AM > referral sent p2p. pt understands she will be contacted to schedule this appt. Reason appt consult to aristeo duran diabetes and osteopenia treatment Diagnosis 1 Diabetes type 2, unc ontrolled (E11.65) Diagnosis 2 Osteopenia (M85.80) Referral Organization [facility] [place] Referring Provider First Name Alana Referring Provider Last Name Gwendolyn Referring Provider Specialty Family Prac fabio Referred Organization [facility] Referred Provider Evelina Chan Referred Address [address] [facility] [address],[place], [place],[address] Referred Provider Specialty Internal Med icine Referral Priority Routine Referral Appointment Date 2022-08-25 General Notes Lorena Miller 08/07/2022 10:22:53 AM > referral sent p2p with TE message, last visit note, last three [facility] labs, DEXA report and insurance cards. pt understands she will be contacted to schedule this appt. Lorena Miller 09/16/2022 01:58:47 PM > per Dr Chan's office, pt was scheduled on 08/25/22 and she no showed for this appt. referral closed. Chief Complaint and Reason for Visit Chief Complaint rectal pain Chief Complaint rectal pain packing removal Chief Complaint rectal pain packing removal lt calf pain Chief Complaint rectal pain packing removal lt calf pain M79.605 Chief Complaint rectal pain packing removal lt calf pain M79.605 M79.605 M54.50 Chief Complaint rectal pain packing removal lt calf pain M79.605 M79.605 M54.50 CBC A1C Chief Complaint rectal pain packing removal lt calf pain M79.605 M79.605 M54.50 CBC A1C Screening Chief Complaint G62.9 CBC A1C Chief Complaint e11.65 e78.5 r63.4 z 79.899 r35.1 Chief Complaint e11.65 e78.5 r63.4 z 79.899 r35.1 Middle back pain Chief Complaint e11.65 e78.5 r63.4 z 79.899 r35.1 Middle back pain Screening Chief Complaint Screening Z79.899 E78.5 E11.9 R10.9 Chief Complaint Screening Z79.899 E78.5 E11.9 R10.9 R10.9 Chief Complaint Z79.899 E78.5 E11.9 R10.9 R10.9 review labs Reason for Visit Abdominal pain Constipation Diarrhea Fatty liver Hepatic hemangioma HTN (hypertension) Hyperlipidemia Nicotine dependence Osteopenia 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 Tinnitus Uncontrolled type 2 diabetes mellitus Chief Complaint review labs Reason for Visit Abdominal pain Constipation Diarrhea Fatty liver Hepatic hemangioma HTN (hypertension) Hyperlipidemia Nicotine dependence Osteopenia Other correction (current) 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 Tinnitus Uncontrolled type 2 diabetes mellitus Chief Complaint review labs abcess of right abdomen skin Reason for Visit Abdominal pain Constipation Diarrhea Fatty liver Hepatic hemangioma HTN (hypertension) Hyperlipidemia Nicotine dependence Osteopenia Other correction (current) 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 Tinnitus Uncontrolled type 2 diabetes mellitus Chief Complaint abcess of right abdo men skin Abdominal wound Advance Directives Advance Directive Response Recorded Date/ Time Advance Directives No July 2:10pm Advance Directive Response Recorded Date/ Time Advance Directives No July 1:10pm Summary Purpose Family History Relationship Condition Age at Onset Recorded Date/T jose father Unknown grandparent Unknown Not Specified Family history of other condition Unknow n Unknown Relationship Condition Age at Onset Recorded Date/T jose father Unknown grandparent Unknown mother Family history of other condition Unknown Unknown Additional Source Comments REASON FOR VISIT (unrecogniz ed section and content) Reason Comments Diabetes Follow-up Reason Comments 1st pow- debridement of abdominal wound In office procedure. Reason Comments 5th pow debridement of abd. wound Care Teams (unrecognized sec tion and content) Team Status: Active Member Role Status Cristopher Parkinson DO Primary Care Provider Active Team Status: Active Member Role Status Cristopher Parkinson DO Primary Care Provide r, Attending Provider Active Start: March 01, 2024 Team Status: Inactive Member Role Status Cristopher Wall DO Attending Provider Active Start : 2024 End: 2024 PHYSICIAN NO FAMILY Primary Care Provider Active Start: 2024 End: 2024 Team Status: Inactive Member Role Status Cristopher Wall DO Attending Provider, Referring Provider Active Start: March 20, 2024 End: March 20, 2024 Alana Parkinson DO Primary Care Provider Active S tart: March 20, 2024 End: March 20, 2024 Team Status: Inactive Member Role Status Cristopher Parkinson DO Primary Care Provider, Attending Pro vider Active Team Status: Inactive Member Role Status Cristopher Parkinson DO Primary Care Provider Active Noa Waters RN [facility]- Emergency Provider Active Team Status: Inactive Member Role Status Cristopher Parkinson DO Primary Care Provider Active Gloria Palacios APRN Emergency Provider Active Team Status: Inactive Member Role Status Cristopher Parkinson DO Primary Care Provider Active Noé Ko II, MD Attending Provider Active Team Status: Inactive Member Role Status Cristopher Parkinson DO Primary Care Provider Active [facility] Attending Provider Active Team Status: Inactive Member Role Status Cristopher Parkinson DO Primary Care Provider Active Jenna Jimenez PA-C Attending Provider Active Team Status: Inactive Member Role Status Cristopher Parkinson DO Primary Care Provider Active Jarrett Dang , Emergency Provider Active Team Status: Inactive Member Role Status Cristopher Parkinson DO Primary Care Provide r, Attending Provider Active Start: June 18, 2023 End: June 18, 2023 Team Status: Inactive Member Role Status Dates Alana Parkinson DO Primary Care Provider Active S tart: July 27, 2023 End: July 27, 2023 Jarrett Dang , DO Emergency Provider Active Sta rt: July 27, 2023 End: July 27, 2023 Team Status: Inactive Member Role Status Dates Alana Parkinson DO Primary Care Provider Active S tart: August 31, 2023 End: August 31, 2023 Brigido Man MD Attending Provider Active St art: August 31, 2023 End: August 31, 2023 Team Status: Inactive Member Role Status Dates Alana Parkinson DO Primary Care Provide r, Attending Provider Active Start: November 16, 2023 End: November 16, 2023 Team Status: Inactive Member Role Status Dates Alana Parkinson DO Primary Care Provide r, Attending Provider Active Start: November 22, 2023 End: November 22, 2023 Team Status: Inactive Member Role Status Dates Alana Parkinson DO Primary Care Provide r, Attending Provider Active Start: December 10, 2023 End: December 10, 2023 Process Improvement Consultant Relationship Specialty Start Date End Date Alana Parkinson MD [address] [place] [address] PCP - General Family Medicine 10/26/23 Tabitha Thornton AUD [address] [address] Audiology 02/28/24 Process Improvement Consultant Relationship Specialty Start Date End Date Alana Parkinson MD [address] [place] [address] PCP - General Family Medicine 10/26/23 Tabitha Thornton AUD [address] [place] [address] Audiology 02/28/24 Process Improvement Consultant Relationship Specialty Start Date End Date Alana Parkinson MD [address] [place] [address] PCP - General Family [facility] 10/26/23 Tabitha Thornton AUD [address] [place] [address] Audiology 02/28/24 Process Improvement Consultant Relationship Specialty Start Date End Date Alana Parkinson MD [address] [place] [address] PCP - General Family [facility] 10/26/23 Tabitha Thornton AUD [address] [place] [address] Audiology 02/28/24 Process Improvement Consultant Relationship Specialty Start Date End Date Alana Parkinson MD [address] [place] [address] PCP - General [facility] 10/26/23 Tabitha Thornton AUD [address] [place] [address] Audiology 02/28/24 Goals (unrecognized section and content) Goals may be documented in a n alternate section INFORMATION SOURCE (unrecogn ized section and content) DATE CREATED AUTHOR 07/31/2022 [facility] dical Specialist DATE CREATED AUTHOR AUTHOR'S ORGANIZ ATION 03/21/2024 [facility] DATE CREATED AUTHOR AUTHOR'S ORGANIZ ATION 07/15/2024 [facility] dical Specialists EPIC FOR RECORDS PERTAINING TO PATIENTS WHO ARE OR HAVE BEEN ENROLLED IN A CHEMICAL DEPENDENCY/SUBSTANCEABUSE PROGRAM, SOME INFORMATION MAY BE OMITTED. This clinical summary was aggregated from multiple sources. Caution should be exercised in using it in the provision of clinical care. This summary normalizes information from multiple sources, and as a consequence, information in this document may materially change the coding, format and clinical context of patient data. In addition, data may be omitted in some cases. CLINICAL DECISIONS SHOULD BE BASED ON THE PRIMARY CLINICAL RECORDS. [employer] [facility]. provides no warranty or guarantee of the accuracy or completeness of information in this document.
[2024-09-26] MEDS: KETOROLAC TROMETHAMINE 30 MG/ML VIAL 15 MG IVP (11:11)
[2024-09-26 11:26] LABS: Basophils Percent Auto 0.3 % (0.2-2.0); Eosinophils Absolute Auto 0.1 10^3/uL (0.0-0.7); Eosinophils Percent Auto 0.4 % (0.9-7.0); Hematocrit 39.6 % (36.0-48.0); Hemoglobin 13.1 g/dL (12.0-16.0); Immature Granulocytes Abs Auto 0.05 10^3/uL (0.00-0.03); Immature Granulocytes Pct Auto 0.4 % (0.0-0.5); Lymphocytes Absolute Auto 0.9 10^3/uL (1.2-3.8); Lymphocytes Percent Auto 6.5 % (20.5-60.0); Mean Corpuscular HGB Conc 33.1 g/dL (29.9-35.2); Mean Corpuscular Hemoglobin 30.3 pg (26.7-34.0); Mean Corpuscular Volume 91.5 fL (81.0-99.0); Mean Platelet Volume 11.2 fL (9.5-13.5); Monocytes Absolute Auto 0.9 10^3/uL (0.3-0.8); Monocytes Percent Auto 6.6 % (1.7-12.0); Neutrophils Absolute Auto 11.1 10^3/uL (1.4-6.5); Neutrophils Percent Auto 85.8 % (43.0-75.0); Platelet Count 185 10^3/uL (150-450); Red Blood Count 4.33 10^6/uL (4.20-5.40); Red Cell Distribution Width 12.1 % (11.0-15.0)
[2024-09-26 11:51] LABS: Lactate/Lactic Acid 1.4 mmol/L (0.4-2.0)
[2024-09-26 11:58] LABS: Alanine Aminotransferase 22 U/L (14-59); Albumin Globulin Ratio 0.6; Albumin Level 2.6 g/dL (3.4-5.0); Alkaline Phosphatase 120 U/L (46-116); Aspartate Amino Transferase 11 U/L (15-37); BUN Creatinine Ratio 15.9; Calcium 9.3 mg/dL (8.5-10.1); Carbon Dioxide 23.5 mmol/L (21.0-32.0); Chloride 96 mmol/L (98-107); Estimated GFR (African America >60 (>=60 mL/min/1.73m^2); Estimated GFR (Non-African Ame 51 (>=60 mL/min/1.73m^2); Globulin 4.2 g/dL; Glucose 450 mg/dL (74-106); Potassium 4.5 mmol/L (3.5-5.1); Sodium 132 mmol/L (136-145); Total Protein 6.8 g/dL (6.4-8.2)
[2024-09-26] MEDS: MORPHINE SULFATE 4 MG/ML VIAL IV (12:05)
[2024-09-26] MEDS: DOXYCYCLINE HYCLATE 100 MG in 0.9 % SODIUM CHLORIDE 100 ML IV (13:44)
--- NOTE | 2024-09-26 14:00 | ED_ITS ---
HPI - Skin/Abscess/Foreign Bdy General Chief complaint: Skin/Abscess/Foreign Body Stated complaint: LOCALIZED SWELLING Time Seen by Provider: 09/26/24 10:33 Mode of arrival: Wheelchair Limitations: no limitations History of Present Illness HPI narrative: The patient have a history of MRSA infection to the abdomen is coming to the ER with almost 2 to 3 days history of right buttock pain, she mentioned that the pain showed up all of a sudden associated with redness in the area, she had no fever or chills no nausea or vomiting The patient has been having pain there that she said it 10 out of 10 Related Data Previous Rx's ?Medication ?Instructions ?Recorded cephalexin 500 mg capsule 500 mg PO Q8H 7 days #21 caps 09/26/24 doxycycline hyclate 100 mg capsule 100 mg PO BID 7 days #14 caps 09/26/24 oxycodone-acetaminophen 5 mg-325 1 tab PO TID PRN pain 3 days #9 09/26/24 mg tablet (Percocet) tabs Allergies Allergy/AdvReac Type Severity Reaction Status Date / Time Penicillins AdvReac Unknown Rash Verified 03/21/24 17:05 Sulfa (Sulfonamide AdvReac Unknown Rash Verified 03/21/24 17:05 Antibiotics) Review of Systems ROS Status of ROS 10 or more systems reviewed and unremark able except as noted in history and below [facility] Medical History (Updated 09/26/24 @ 14:57 by Abbie Redd MD) MRSA (methicillin resistant Staphylococcus aureus) ?A49.02 - Methicillin resistant Staphylococcus aureus infection, unspecified site (ICD-10) Social History Little interest or pleasure in doing things: not at all Feeling down, depressed, or hopeless: not at all Exam Narrative Exam Narrative: Nurses notes and vital signs reviewed and patient is not hypoxic. General: Well-appearing and in no apparent distress. Skin: Warm, dry, no pallor noted. No rash. Head: Normocephalic, atraumatic. Neck: Supple, non-tender. Eye: Pupils are equal, round and EOMI. No scleral icterus. Ears, Nose, Mouth, and Throat: TM are clear, no nasal mucosal hypertrophy. Oral mucosa is moist, no posterior oropharynx erythema, uvula is mid-line Cardiovascular: Regular Rate and Rhythm without murmur, gallop or rub. Respiratory: No accessory muscle use or respiratory distress. Lungs are clear to auscultation, no wheezing, rales or rhonchi Chest Wall: no tenderness Back: No midline thoracic or lumbar vertebral tenderness. No CVA tenderness Musculoskeletal: normal ROM, no calf or popliteal tenderness, no lower extremity edema/swelling GI: Abdomen is soft, non-distended. Normal bowel sounds. No masses appreciated. No tenderness to palpation. No rebound, guarding, or rigidity noted. There is an area of redness in the right buttock area mostly medially with no area of collection of any abscess, there is no induration but the redness and tenderness that almost 12 cm x 7 cm Constitutional Vital Signs, click to edit/add: Last Vital Signs Temp 98.9 F 09/26/24 10:18 Pulse 103 H 09/26/24 10:18 Resp 18 09/26/24 10:18 BP 123/72 09/26/24 10:18 Pulse Ox 97 09/26/24 10:18 O2 Del Method Room Air 09/26/24 10:18 Course Vital Signs Vital signs: Vital Signs Temperature 98.9 F 09/26/24 10:18 Pulse Rate 103 H 09/26/24 10:18 Respiratory Rate 18 09/26/24 10:18 Blood Pressure 123/72 09/26/24 10:18 Pulse Oximetry 97 09/26/24 10:18 Oxygen Delivery Method Room Air 09/26/24 10:18 Temperature 98.9 F 09/26/24 10:18 Pulse Rate 103 H 09/26/24 10:18 Respiratory Rate 18 09/26/24 10:18 Blood Pressure 123/72 09/26/24 10:18 Pulse Oximetry 97 09/26/24 10:18 Oxygen Delivery Method Room Air 09/26/24 10:18 MDM - Skin/Abscess/Foreign Bdy MDM Narrative Medical decision making narrative: The patient CBC shows leukocytosis of 13 there is no lactic acid elevation Upon arrival there was a tachycardia of 103 CT of the abdomen pelvis showed that the patient have area of inflammation The patient had a blood culture obtained and the plan was to start an IV antibiotic Provided with a report from her CAT scan to make sure that she follow-up on the incidental finding of the liver She patient also had no fluid collection on the CAT scan that need to be drained Right now the patient had the area marked initially I was planning to admit her provide antibiotic but the patient preferred to go home I did explain to her that because she is diabetic usually antibiotic would be a better option but she will try that at p.o. antibiotic right now and if there is no improvement whether there is a fever or increasing pain she is to come back to the ER Patient was discharged after she was provided with ceftriaxone and doxycycline and Percocet for pain The patient is to follow up with primary care physician in next 2-3 days or to return to the emergency department should any of the signs or symptoms worsen or new symptoms develop. The patient agrees with the following Diagnosis and Treatment plan and the patient will be discharged home. Lab Data Labs: Lab Results 09/26/24 Range/Units 11:08 WBC 13.0 H (4.0-11.0) 10^3/uL RBC 4.33 (4.20-5.40) 10^6/uL Hgb 13.1 (12.0-16.0) g/dL Hct 39.6 (36.0-48.0) % MCV 91.5 (81.0-99.0) fL MCH 30.3 (26.7-34.0) pg MCHC 33.1 (29.9-35.2) g/dL RDW 12.1 (11.0-15.0) % Plt Count 185 (150-450) 10^3/uL MPV 11.2 (9.5-13.5) fL Neut % (Auto) 85.8 H (43.0-75.0) % Lymph % (Auto) 6.5 L (20.5-60.0) % [place] % (Auto) 6.6 (1.7-12.0) % Eos % (Auto) 0.4 L (0.9-7.0) % Baso % (Auto) 0.3 (0.2-2.0) % Neut # (Auto) 11.1 H (1.4-6.5) 10^3/uL Lymph # (Auto) 0.9 L (1.2-3.8) 10^3/uL [place] # (Auto) 0.9 H (0.3-0.8) 10^3/uL Eos # (Auto) 0.1 (0.0-0.7) 10^3/uL Baso # (Auto) 0.0 (0.0-0.1) 10^3/uL Abs Immat Gran (auto) 0.05 H (0.00-0.03) 10^3/uL Imm/Tot Granulo (auto) 0.4 (0.0-0.5) % Sodium 132 L (136-145) mmol/L Potassium 4.5 (3.5-5.1) mmol/L Chloride 96 L (98-107) mmol/L Carbon Dioxide 23.5 (21.0-32.0) mmol/L Anion Gap 17.0 BUN 17.0 (7.0-18.0) mg/dL Creatinine 1.07 H (0.55-1.02) mg/dL Est GFR ( Amer) >60 (>=60 mL/min/1.73m^2) Est GFR (Non-Af Amer) 51 L (>=60 mL/min/1.73m^2) BUN/Creatinine Ratio 15.9 Glucose 450 H (74-106) mg/dL Lactate 1.4 (0.4-2.0) mmol/L Calcium 9.3 (8.5-10.1) mg/dL Total Bilirubin 1.0 (0.2-1.0) mg/dL AST 11 L (15-37) U/L ALT 22 (14-59) U/L Alkaline Phosphatase 120 H (46-116) U/L Total Protein 6.8 (6.4-8.2) g/dL Albumin 2.6 L (3.4-5.0) g/dL Globulin 4.2 g/dL Albumin/Globulin Ratio 0.6 Discharge Plan Discharge Chief Complaint: Skin/Abscess/Foreign Body Clinical Impression: Cellulitis Qualifiers: Site of cellulitis: buttock Qualified Code(s): L03.317 - Cellulitis of buttock Patient Disposition: Home, Self-Care Time of Disposition Decision: 14:09 Condition: Good Prescriptions / Home Meds: New oxycodone-acetaminophen [Percocet] 5-325 mg tablet 1 tab PO TID PRN (Reason: pain) 3 Days Qty: 9 0RF cephalexin 500 mg capsule 500 mg PO Q8H 7 Days Qty: 21 0RF doxycycline hyclate 100 mg capsule 100 mg PO BID 7 Days Qty: 14 0RF Print Language: Anguill[place] Instructions: Cellulitis (ED) Referrals: GIRVIN,ALANA [Primary Care Provider] - 1 week
[2024-09-26] MEDS: CEFTRIAXONE 1,000 MG in 0.9 % SODIUM CHLORIDE 50 ML 100 MG IV (14:43)
[2024-09-27 09:40] LABS: A. calcoaceticus-baumannii Cpx NOT DETECTED (NOT DETECTE); Bacteroides fragilis NOT DETECTED (NOT DETECTE); Candida albicans NOT DETECTED (NOT DETECTE); Candida auris NOT DETECTED (NOT DETECTE); Candida glabrata NOT DETECTED (NOT DETECTE); Candida krusei NOT DETECTED (NOT DETECTE); Candida parapsilosis NOT DETECTED (NOT DETECTE); Candida tropicalis NOT DETECTED (NOT DETECTE); Cryptococcus neoformans/gattii NOT DETECTED (NOT DETECTE); Enterobacter cloacae complex NOT DETECTED (NOT DETECTE); Enterobacterales NOT DETECTED (NOT DETECTE); Enterococcus faecalis NOT DETECTED (NOT DETECTE); Enterococcus faecium NOT DETECTED (NOT DETECTE); Haemophilus influenzae NOT DETECTED (NOT DETECTE); Klebsiella aerogenes NOT DETECTED (NOT DETECTE); Klebsiella pneumoniae group NOT DETECTED (NOT DETECTE); Listeria monocytogenes NOT DETECTED (NOT DETECTE); Neisseria meningitidis NOT DETECTED (NOT DETECTE); Proteus spp. NOT DETECTED (NOT DETECTE); Pseudomonas aeruginosa NOT DETECTED (NOT DETECTE); Salmonella spp. NOT DETECTED (NOT DETECTE); Serratia marcescens NOT DETECTED (NOT DETECTE); Staphylococcus epidermidis NOT DETECTED (NOT DETECTE); Staphylococcus lugdunensis NOT DETECTED (NOT DETECTE); Stenotrophomonas maltophilia NOT DETECTED (NOT DETECTE); Streptococcus agalactiae NOT DETECTED (NOT DETECTE); Streptococcus pneumoniae NOT DETECTED (NOT DETECTE); Streptococcus pyogenes NOT DETECTED (NOT DETECTE); Streptococcus spp. NOT DETECTED (NOT DETECTE)
[2024-09-27 11:09] LABS: Source Blood
[2024-09-27 11:11] LABS: Staphylococcus spp. DETECTED (NOT DETECTE)
== END 2024-09-26 15:18 | disposition home or self-care (01) ==
PROVIDERS: Emergency Provider Emergency Medicine; PCP Family Medicine
DX: L03.317 Cellulitis of buttock (principal); M79.18 Myalgia, other site; L53.8 Other specified erythematous conditions; E11.8 Type 2 diabetes mellitus with unspecified complications
CPT/HCPCS: 36415; 74177; 80053; 83605; 85025; 87040; 87150; 96365; 96367; 96375; 99285; J0696; J1885; J2270; Q9967

== ENCOUNTER 2024-09-29 15:00 | Inpatient (IN) | payer MEDICARE, SELFPAY ==
--- OUTSIDE RECORDS SUMMARY | 2024-09-29 15:15 | XMS_ITS | CCD ---
Author Organization [facility] Care Team Providers Care 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 Name Role Phone Alana Parkinson Unavailable DO Alana Parkinson Primary Care Provider [phone] [facility] [place] E Emergency Provider LORENZO [place] Emergency Provider DO Alana Parkinson Attending Provider [phone] Noé Ko II Unavailable DO Alana Parkinson Primary Care Provider [facility] [place] E Emergency Provider [phone] LORENZO Palacios Emergency Provider DO Alana Parkinson Attending Provider [phone] MD Noé Ko II Attending Provider Community, Outreach Attending Provider [phone] DO Alana Parkinson Primary Care Provider STEFANIE Jimenez Attending Provider Community, Outreach Attending Provider DO Alana Parkinson Primary Care Provider DO Alana Parkinson Attending Provider DO Jarrett Dang Emergency Provider [phone] MD Brigido Man Attending Provider [phone] DO Alana Parkinson Primary Care Provider MD Brigido Man Attending Provider DO Alana Parkinson Attending Provider DO Alana Parkinson Primary Care Provider DO Hector Wall Attending Provider NO FAMILY, PHYSICIAN Primary Care Provider Unava ilable Jrarett Dang Admitting Unavailable Jarrett Dang Attending Unavailable [...] Provider DO Alana Parkinson Primary Care Provider Alana Parkinson MD Primary Care Provider Tabitha New Unavailable BRIGIDO MAN Attending Unavailable BRIGIDO MAN Referring [...] Facility (19 sources) Penicillin Drug Allergy Unknown [facility] Other (19 sources) Sulfonamides (Antibiotic) Propensity to adverse reactions Unknown [facility] Other (20 sources) Penicillins; Translations: [Penicillins] Allergy to substance 2 [facility] (18 sources) Sulfonamides (Antibiotic); Translations: [Sulfa (Sulfonamide Antibiotics)] Allergy to substance 2 Rash [facility] (8 sources) Sulfanilamide Allergy to substance 4 [...] Once a day Dec, Active Continuous Glucose Mid Level Net Developer (FreeStyle [place]) device (3 sources) Start: 03-29-2024 Continuous Glucose Mid Level Net Developer (FreeStyle [place]) device USE DIRECTED. 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 Scanned copy available in EMR. PATHOLOGY SKIN BX SPECIMEN [facility] No Panel InformationOrdered By: Hector Wall on 2024 Miscellaneous Pathology Test See comment [facility] Comment on above: See report. Scanned copy available in EMR. Pathology Request for Lab Co rpon 2024 Pathology Request for Lab Adrian Normal [facility] Comment on above: Order Comment: PATHO LOGY SKIN BX SPECIMEN Result Comment: See report. Scanned copy available in EMR. PERFORMED BY: [place] [address] PATHOLOGIST PAD EXTRACTION TENDER BRODY GARZA M.D. Performed By: #### P ATH TO [facility] ####[facility] [id number] US renal BIon 11-22-2023 US renal BI [facility] [place] [address] [place] [address] Ultrasound Report Signed Patient: Chela Padilla MR#: [id number] 06 : 1955 Acct:[id number] Age/Sex: 68 / F ADM Date: 11/22/23 Loc: UL Room: Type: [facility] Attending Dr: Alana Parkinson DO Ordering Provider: Alana Parkinson DO Date of Service: 11/22/23 US/US abdomen limited: R10.9 - Unspecified abdominal pain ([id number]) US/US renal BI: R10.9 - Unspecified abdominal [...] Cici Andrade M.D.11/22/2023 10:52 AM Dictation Location: [place] [address] Tech: Rosalina Tom Transcribed By: YUNG 11/22/23 1052 Dictated By: Cici Andrade MD 11/22/23 1035 Signed By: 11/22/23 1052 Normal [facility] A1C with Estimated Average G gaudenciochristopher 11-16-2023 Glucose [Mass/Vol] 335 mg/dL Normal [facility] Comment on above: Result Comment: PERF ORMED BY: [facility] [address] [place] [address] PATHOLOGIST PAD EXTRACTION TENDER BRODY GARZA M.D. Performed By: #### C BC, LIPID, A1C WTH eA, CMP #### [facility] Ctr [address] [place] [address] [place] Alanine aminotransferase [En zymatic activity/volume] in Serum or PlasmaOrdered By: Alana Parkinson on 11-16-2023 ALT [Catalytic activity/Vol] 18 U/L Normal 7-52 [facility] Comment on above: Performed By: #### C BC, LIPID, A1C WTH eA, CMP #### [facility] [address] [place] [address] [place] Albumin [Mass/volume] in Ser um or Plasma by Bromocresol green (BCG) dye binding methoOrdered By: Alana Parkinson on 11-16-2023 Albumin BCG dye [Mass/Vol] 3.8 g/dL 3.5-5.7 [facility] Alkaline phosphatase [Enzyma tic activity/volume] in Serum or PlasmaOrdered By: Alana Parkinson on 11-16-2023 ALP [Catalytic activity/Vol] 92 U/L Normal 34-104 [facility] Comment on above: Performed By: #### C BC, LIPID, A1C WT eA, CMP #### [place] [address] [place] Aspartate aminotransferase [ Enzymatic activity/volume] in Serum or PlasmaOrdered By: Alana Parkinson on 11-16-2023 AST [Catalytic activity/Vol] 14 U/L Normal 13-39 [facility] Comment on above: Performed By: #### C BC, LIPID, A1C WT eA, CMP #### [facility] Ctr [address] [place] [address] [place] Automated basophil %Ordered By: Alana Parkinson on 11-16-2023 Basophils/100 WBC (Bld) 0.9 % Normal . [facility] Comment on above: Performed By: #### C BC, LIPID, A1C WTH eA, CMP #### [place] [address] [place] Automated basophil countOrde red By: Alana Parkinson on 11-16-2023 Basophils (Bld) [#/Vol] 0.1 10*3/uL Normal 0.0-0.2 [facility] Comment on above: Result Comment: PERF ORMED BY: [place] [address] PATHOLOGIST PAD EXTRACTION TENDER BRODY GARZA M.D. Performed By: #### C BC, LIPID, A1C WTH eA, CMP #### [address] Automated blood monocyte cou ntOrdered By: Alana Parkinson on 11-16-2023 Monocytes (Bld) [#/Vol] 0.4 10*3/uL Normal 0.0-0.8 [facility] Comment on above: Performed By: #### C BC, LIPID, A1C WTH eA, CMP #### [address] Automated eosinophil %Ordere d By: Alana Parkinson on 11-16-2023 Eosinophils/100 WBC (Bld) 5.2 % Normal . [facility] Comment on above: Performed By: #### C BC, LIPID, A1C WTH eA, CMP #### [address] Automated eosinophil countOr dered By: Alana Parkinson on 11-16-2023 Eosinophils (Bld) [#/Vol] 0.3 10*3/uL Normal 0.0-0.45 [facility] Comment on above: Performed By: #### C BC, LIPID, A1C WTH eA, CMP #### [address] Automated monocyte %Ordered By: Alana Parkinson on 11-16-2023 Monocytes/100 WBC (Bld) 5.9 % Normal . [facility] Comment on above: Performed By: #### C BC, LIPID, A1C WTH eA, CMP #### [address] Automated neutrophil %Ordere d By: Alana Parkinson on 11-16-2023 Neutrophils/100 WBC (Bld) 60.1 % Normal . [facility] Comment on above: Performed By: #### C BC, LIPID, A1C WTH eA, CMP #### [address] Bilirubin.total [Mass/volume ] in Serum or PlasmaOrdered By: Alana Parkinson on 11-16-2023 Bilirubin [Mass/Vol] 0.4 mg/dL Normal 0.3-1.0 [facility] Comment on above: Performed By: #### C BC, LIPID, A1C WTH eA, CMP #### [facility] [address] [place] [address] [place] Calcium [Mass/volume] in Ser um or PlasmaOrdered By: Alana Parkinson on 11-16-2023 Calcium [Mass/Vol] 9.3 mg/dL Normal 8.6-10.3 [facility] Comment on above: Performed By: #### C BC, LIPID, A1C WTH eA, CMP #### [facility] [address] Carbon dioxide, total [Moles /volume] in Serum or PlasmaOrdered By: Alana Parkinson on 11-16-2023 CO2 [Moles/Vol] 32.4 mmol/L High 21.0-31.0 [facility] Comment on above: Performed By: #### C BC, LIPID, A1C WTH eA, CMP #### [facility] [address] [place] [address] [place] Chloride [Moles/volume] in S atul or PlasmaOrdered By: Alana Parkinson on 11-16-2023 Chloride [Moles/Vol] 104 mmol/L Normal 98-107 [facility] Comment on above: Performed By: #### C BC, LIPID, A1C WTH eA, CMP #### [facility] [address] [place] [address] [place] Cholesterol [Mass/volume] in Serum or PlasmaOrdered By: Alana Parkinson on 11-16-2023 Cholesterol [Mass/Vol] 232 mg/dL High 140-200 [facility] Comment on above: Chol less than 200 m g/dl low riskChol 201-239 mg/dl borderline riskChol 240 mg/dl and greater high risk Result Comment: Chol less than 200 mg/dl low risk Chol 201-239 mg/dl borderline risk Chol 240 mg/dl and greater high risk Performed By: #### C BC, LIPID, A1C WTH eA, CMP #### [facility] [address] Cholesterol in LDL Calc [Mas s/Vol]Ordered By: Alana Parkinson on 11-16-2023 Cholesterol in LDL [Mass/Vol] 152 mg/dL 0-100 [facility] Comment on above: LDL ATP III CLASSIFI CATIONLDL less than 100 mg/dL OptimalLDL 100-129 mg/dL Near or above optimalLDL 130-159 mg/dL Borderline highLDL 160-189 mg/dL HighLDL greater than 189 mg/dL Very high Cholesterol in VLDL Calc [Ma ss/Vol]Ordered By: Alana Parkinson on 11-16-2023 Cholesterol in VLDL [Mass/Vol] 31 mg/dL [facility] Complete Blood Count Auto Di ffon 11-16-2023 Mean Corpuscular HGB Conc 33.2 g/dL Normal 32.0-35.0 [facility] Comment on above: Performed By: #### C BC, LIPID, A1C WT Candy, CMP #### [address] NRBC% 0.1 /100{WBC} Normal 0-0.5 [facility] Comment on above: Performed By: #### C BC, LIPID, A1C WT Candy, CMP #### [facility] [address] Comprehensive Metabolic Pane shalini 11-16-2023 Albumin [Mass/Vol] 3.8 g/dL Normal 3.5-5.7 [facility] Comment on above: Performed By: #### C BC, LIPID, A1C WT Candy, CMP #### [place] [address] [place] GFR/1.73 sq M.predicted MDRD (S/P/Bld) [Vol rate/Area] mL/min/{1.73_m2} Normal [facility] Comment on above: Performed By: #### C BC, LIPID, A1C WTH Candy, CMP #### [address] Creatinine [Mass/volume] in Serum or PlasmaOrdered By: Alana Parkinson on 11-16-2023 Creatinine [Mass/Vol] 0.58 mg/dL Low 0.60-1.[address] [facility] Comment on above: Performed By: #### C BC, LIPID, A1C WT eA, CMP #### [facility] [address] Erythrocyte distribution wid th [Ratio] by Automated countOrdered By: Alana Parkinson on 11-16-2023 Erythrocyte distribution width (RBC) [Ratio] 13.6 % Normal 11.9-15.3 [facility] Comment on above: Performed By: #### C BC, LIPID, A1C WT eA, CMP #### [facility] [address] Erythrocytes [#/volume] in B lood by Automated countOrdered By: Alana Parkinson on 11-16-2023 RBC (Bld) [#/Vol] 4.72 10*6/uL Normal 3.60-5.00 [facility] Comment on above: Performed By: #### C BC, LIPID, A1C WT Candy, CMP #### [facility] [address] Glucose [Mass/volume] in Ser um or PlasmaOrdered By: Alana Parkinson on 11-16-2023 Glucose [Mass/Vol] 185 mg/dL High 70-100 [facility] Comment on above: ADA recommended refe rence rangeRandom Glucose Reference Range is dependent on time and content of last meal. Glucose of more than 200 mg/dL in a nonstressed, ambulatory subject supports the diagnosis of Diabetes Mellitus. Result Comment: [place] om Glucose Reference Range is dependent on time and content of last meal. Glucose of more than 200 mg/dL in a nonstressed, ambulatory subject supports the diagnosis of Diabetes Mellitus. ADA recommended reference range Performed By: #### C BC, LIPID, A1C WT eA, CMP #### [facility] [address] Glucose mean value [Mass/vol ume] in Blood Estimated from glycated hemoglobinOrdered By: Alana Parkinson on 11-16-2023 Average glucose Estimated from glycated hemoglobin (Bld) [Mass/Vol] 335 mg/dL [facility] Hematocrit [Volume Fraction] of Blood by Automated countOrdered By: Alana Parkinson on 11-16-2023 Hematocrit (Bld) [Volume fraction] 42.5 % Normal 34.0-46.4 [facility] Comment on above: Performed By: #### C BC, LIPID, A1C WTH eA, CMP #### [address] Hemoglobin A1c percentageOrd ered By: Alana Parkinson on 11-16-2023 HbA1c (Bld) [Mass fraction] 13.3 % High 4.3-5.6 [facility] Comment on above: Increased risk for d iabetes: 5.7 - 6.4diabetes: >6.4glycemic control for adults with diabetes: <7.0 Result Comment: Incr eased risk for diabetes: 5.7 - 6.4 diabetes: >6.4 glycemic control for adults with diabetes: <7.0 Performed By: #### C BC, LIPID, A1C WTH eA, CMP #### [address] Hemoglobin [Mass/volume] in BloodOrdered By: Alana Parkinson on 11-16-2023 Hemoglobin (Bld) [Mass/Vol] 14.1 g/dL Normal 11.8-15.4 [facility] Comment on above: Performed By: #### C BC, LIPID, A1C WTH eA, CMP #### [address] Leukocytes [#/volume] correc adalid for nucleated erythrocytes in Blood by Automated counOrdered By: Alana Parkinson on 11-16-2023 WBC corrected for nucl RBC Auto (Bld) [#/Vol] 6.6 10*3/uL 3.8-11.6 [facility] Leukocytes [#/volume] in Blo od by Automated countOrdered By: Alana Parkinson on 11-16-2023 WBC (Bld) [#/Vol] 6.6 10*3/uL Normal 3.8-11.6 [facility] Comment on above: Performed By: #### C BC, LIPID, A1C WTH eA, CMP #### [address] [place] [address] [place] Lipid Panelon 11-16-2023 LDL Cholesterol,Calculated 152 mg/dL High 0-100 [facility] Comment on above: Result Comment: LDL ATP III CLASSIFICATION LDL less than 100 mg/dL Optimal LDL 100-129 mg/dL Near or above optimal LDL 130-159 mg/dL Borderline high LDL 160-189 mg/dL High LDL greater than 189 mg/dL Very high Performed By: #### C BC, LIPID, A1C WTH eA, CMP #### [address] Triglyceride w/Reflex 155 mg/dL High 0-149 [facility] Comment on above: Result Comment: TRIG ATP III CLASSIFICATION TRIG less than 150 mg/dL Normal TRIG 150-199 mg/dL Borderline high TRIG 200-500 mg/dL High TRIG greater than 500 mg/dL Very high Standard traceable to the Center for Disease Conrtrol and Prevention (CDC) test method. Performed By: #### C BC, LIPID, A1C WTH eA, CMP #### [address] VLDL CHOLESTEROL 31 mg/dL Normal [facility] Comment on above: Performed By: #### C BC, LIPID, A1C WTH eA, CMP #### [address] Lymphocytes [#/volume] in Bl ood by Automated countOrdered By: Alana Parkinson on 11-16-2023 Lymphocytes (Bld) [#/Vol] 1.8 10*3/uL Normal 1.00-4.8 [facility] Comment on above: Performed By: #### C BC, LIPID, A1C WTH eA, CMP #### [place] [address] [place] Lymphocytes/100 leukocytes i n Blood by Automated countOrdered By: Alana Parkinson on 11-16-2023 Lymphocytes/100 WBC (Bld) 27.9 % Normal . [facility] Comment on above: Performed By: #### C BC, LIPID, A1C WTH eA, CMP #### [place] [address] [place] MCH [Entitic mass] by Automa adalid countOrdered By: Alana Parkinson on 11-16-2023 MCH (RBC) [Entitic mass] 29.8 pg Normal 24.7-34.3 [facility] Comment on above: Performed By: #### C BC, LIPID, A1C WT eA, CMP #### [address] MCHC Auto (RBC) [Mass/Vol]Or dered By: Alana Parkinson on 11-16-2023 MCHC (RBC) [Mass/Vol] 33.2 g/dL 32.0-35.[address] [facility] MCV [Entitic volume] by Auto mated countOrdered By: Alana Parkinson on 11-16-2023 MCV (RBC) [Entitic vol] 90.0 fL Normal 80-100 [facility] Comment on above: Performed By: #### C BC, LIPID, A1C [facility] eA, CMP #### [address] Neutrophils [#/volume] in Bl ood by Automated countOrdered By: Alana Parkinson on 11-16-2023 Neutrophils (Bld) [#/Vol] 4.0 10*3/uL Normal 1.8-7.7 [facility] Comment on above: Performed By: #### C BC, LIPID, A1C [facility] eA, CMP #### [address] No Panel InformationOrdered By: Alana Parkinson on 11-16-2023 Estimated GFR (CKD-EPI) > 60.0 mL/Min [facility] Creatinine Clearance (Chem N/A [facility] Nucleated erythrocytes [Pres ence] in Blood by Automated countOrdered By: Alana Parkinson on 11-16-2023 Nucleated RBC Auto Ql (Bld) 0.1 /100{WBC} 0-0.5 [facility] Platelet mean volume [Entiti c volume] in Blood by Automated countOrdered By: Alana Parkinson on 11-16-2023 Platelet mean volume (Bld) [Entitic vol] 9.3 fL Normal 6.3-10.7 [facility] Comment on above: Performed By: #### C BC, LIPID, A1C WTH eA, CMP #### [address] Platelets [#/volume] in Bloo d by Automated countOrdered By: Alana Parkinson on 11-16-2023 Platelets (Bld) [#/Vol] 187 10*3/uL Normal 150-450 [facility] Comment on above: Performed By: #### C BC, LIPID, A1C WTH eA, CMP #### [address] Potassium [Moles/volume] in Serum or PlasmaOrdered By: Alana Parkinson on 11-16-2023 Potassium [Moles/Vol] 4.2 mmol/L Normal 3.5-5.[address] [facility] Comment on above: Performed By: #### C BC, LIPID, A1C WTH eA, CMP #### [address] Protein [Mass/volume] in Ser um or PlasmaOrdered By: Alana Parkinson on 11-16-2023 Protein [Mass/Vol] 6.0 g/dL Low 6.4-8.9 [facility] Comment on above: Performed By: #### C BC, LIPID, A1C WTH eA, CMP #### [address] Serum globulin measurement b y calculation (mass/volume)Ordered By: Alana Parkinson on 11-16-2023 Globulin (S) [Mass/Vol] 2.2 g/dL [facility] Comment on above: Performed By: #### C BC, LIPID, A1C WTH eA, CMP #### [address] Serum or plasma albumin/glob ulin mass ratioOrdered By: Alana Parkinson on 11-16-2023 Albumin/Globulin [Mass ratio] 1.7 {ratio} [facility] Comment on above: Performed By: #### C BC, LIPID, A1C WTH eA, CMP #### [address] Serum or plasma anion gap de terminationOrdered By: Alana Parkinson on 11-16-2023 Anion gap [Moles/Vol] 6.8 mmol/L Normal 6.0-15.[address] [facility] Comment on above: Performed By: #### C BC, LIPID, A1C WTH eA, CMP #### [address] Serum or plasma high density lipoprotein (HDL) cholesterol measurementOrdered By: Alana Parkinson on 11-16-2023 Cholesterol in HDL [Mass/Vol] 49 mg/dL Normal 23-92 [facility] Comment on above: HDL CHOL ATP-III CLA SSIFICATION Cardiovascular RiskHDL > or equal to 60 mg/dL LOWHDL < 40 mg/dL HIGH Result Comment: HDL CHOL ATP-III CLASSIFICATION Cardiovascular Risk HDL > or equal to 60 mg/dL LOW HDL < 40 mg/dL HIGH Performed By: #### C BC, LIPID, A1C WTH eA, CMP #### [address] Serum or plasma total choles terol/high density lipoprotein (HDL) cholesterol mass ratOrdered By: Alana Parkinson on 11-16-2023 Cholesterol.total/Chol esterol in HDL [Mass ratio] 4.7 {ratio} Normal <5.0 [facility] Comment on above: Result Comment: PERF ORMED BY: [place] [address] PATHOLOGIST PAD EXTRACTION TENDER BRODY GARZA M.D. Performed By: #### C BC, LIPID, A1C WTH eA, CMP #### [address] Sodium [Moles/volume] in Ser um or PlasmaOrdered By: Alana Parkinson on 11-16-2023 Sodium [Moles/Vol] 139 mmol/L Normal 136-145 [facility] Comment on above: Performed By: #### C BC, LIPID, A1C WTH eA, CMP #### [address] Triglyceride [Mass/volume] i n Serum or PlasmaOrdered By: Alana Parkinson on 04-16-2024 Triglyceride [Mass/Vol] 155 mg/dL 0-149 [facility] Comment on above: TRIG ATP III CLASSIF ICATIONTRIG less than 150 mg/dL NormalTRIG 150-199 mg/dL Borderline highTRIG 200-500 mg/dL High TRIG greater than 500 mg/dL Very highStandard traceable to the Center for Disease Conrtrol and Prevention (CDC) test method. Urea nitrogen [Mass/volume] in Serum or PlasmaOrdered By: Alana Parkinson on 11-16-2023 Urea nitrogen [Mass/Vol] 13 mg/dL Normal 7-25 [facility] Comment on above: Performed By: #### C BC, LIPID, A1C WTH eA, CMP #### [facility] [address] XR KUBon 11-16-2023 XR KUB [facility] [place] [address] [place] [address] XRay Report Signed Patient: Chela Padilla MR#: [id number] [birth year] : 1955 Acct:[id number] Age/Sex: 68 / F ADM Date: 11/16/23 Loc: XD Room: Type: [facility] Attending Dr: Alana Parkinson DO Copies to: [...] Cici Andrade M.D.11/16/2023 2:06 PM Dictation Location: [place] [address] Transcribed By: YUNG 11/16/23 1406 Dictated By: Cici Andrade MD 11/16/23 1403 Signed By: 11/16/23 1406 Normal [facility] MM screening mammo BI w/CADo n 08-31-2023 MM screening mammo BI w/CAD [facility] [place] [address] [place], [place] [id number] Mammography Report Signed Patient: Chela Padilla MR#: [id number] [birth year] : 1955 Acct:[id number] Age/Sex: 68 / F ADM Date: 08/31/23 Loc: [place] Room: Type: [facility] Attending Dr: Brigido Man MD Copies to: [...] Cici Andrade M.D.08/31/2023 2:14 PM Dictation Location: [facility] Transcribed By: YUNG 08/31/23 1414 Dictated By: Cici Andrade MD 08/31/23 1410 Signed By: 08/31/23 1414 Normal [facility] Activated partial thrombopla stin time (aPTT) in platelet poor plasma by coagulation aOrdered By: Jarrett Dang on 07-27-2023 aPTT Coag (PPP) [Time] 26.5 s 25.1-36.5 [facility] Comment on above: A hematocrit value g reater than 55% may lead to inaccurate results in coagulation testing. Patients having hematocrit values >55% require a special collection tube for coagulation studies. Please contact the laboratory at [phone] for redraw instructions. Alanine aminotransferase [En zymatic activity/volume] in Serum or PlasmaOrdered By: Jarrett Dang on 07-27-2023 ALT [Catalytic activity/Vol] 19 U/L Normal 7-52 [facility] Comment on above: Performed By: #### B BRAID CUTTER, DDIMER, HS TROP, BMP, PT, PTT, CBC, HEPATIC, CK #### [facility] [address] [place] [address] [place] Albumin [Mass/volume] in Ser um or Plasma by Bromocresol green (BCG) dye binding methoOrdered By: Jarrett Dang on 07-27-2023 Albumin BCG dye [Mass/Vol] 3.9 g/dL 3.5-5.7 [facility] Alkaline phosphatase [Enzyma tic activity/volume] in Serum or PlasmaOrdered By: Jarrett Dang on 07-27-2023 ALP [Catalytic activity/Vol] 98 U/L Normal 34-104 [facility] Comment on above: Performed By: #### B BRAID CUTTER, DDIMER, HS TROP, BMP, PT, PTT, CBC, HEPATIC, CK #### [facility] [address] [place] [id number] [place] Aspartate aminotransferase [ Enzymatic activity/volume] in Serum or PlasmaOrdered By: Jarrett Dang on 07-27-2023 AST [Catalytic activity/Vol] 13 U/L Normal 13-39 [facility] Comment on above: Performed By: #### B BRAID CUTTER, DDIMER, HS TROP, BMP, PT, PTT, CBC, HEPATIC, CK #### [facility] [address] [place] [address] [place] Automated basophil %Ordered By: Jarrett Dang on 07-27-2023 Basophils/100 WBC (Bld) 1.2 % Normal . [facility] Comment on above: Performed By: #### B BRAID CUTTER, DDIMER, HS TROP, BMP, PT, PTT, CBC, HEPATIC, CK #### [address] Automated basophil countOrde red By: Jarrett Dang on 07-27-2023 Basophils (Bld) [#/Vol] 0.1 10*3/uL Normal 0.0-0.2 [facility] Comment on above: Result Comment: PERF ORMED BY: [place] [address] PATHOLOGIST PAD EXTRACTION TENDER BRODY GARZA M.D. Performed By: #### B BRAID CUTTER, DDIMER, HS TROP, BMP, PT, PTT, CBC, HEPATIC, CK #### [address] Automated blood monocyte cou ntOrdered By: Jarrett Dang on 07-27-2023 Monocytes (Bld) [#/Vol] 0.4 10*3/uL Normal 0.0-0.8 [facility] Comment on above: Performed By: #### B BRAID CUTTER, DDIMER, HS TROP, BMP, PT, PTT, CBC, HEPATIC, CK #### [address] Automated eosinophil %Ordere d By: Jarrett Dang on 07-27-2023 Eosinophils/100 WBC (Bld) 2.3 % Normal . [facility] Comment on above: Performed By: #### B BRAID CUTTER, DDIMER, HS TROP, BMP, PT, PTT, CBC, HEPATIC, CK #### [address] Automated eosinophil countOr dered By: Jarrett Dang on 07-27-2023 Eosinophils (Bld) [#/Vol] 0.2 10*3/uL Normal 0.0-0.45 [facility] Comment on above: Performed By: #### B BRAID CUTTER, DDIMER, HS TROP, BMP, PT, PTT, CBC, HEPATIC, CK #### [facility] [address] Automated monocyte %Ordered By: Jarrett Dang on 07-27-2023 Monocytes/100 WBC (Bld) 5.5 % Normal . [facility] Comment on above: Performed By: #### B BRAID CUTTER, DDIMER, HS TROP, BMP, PT, PTT, CBC, HEPATIC, CK #### [facility] [address] Automated neutrophil %Ordere d By: Jarrett Dang on 07-27-2023 Neutrophils/100 WBC (Bld) 77.1 % Normal . [facility] Comment on above: Performed By: #### B BRAID CUTTER, DDIMER, HS TROP, BMP, PT, PTT, CBC, HEPATIC, CK #### [address] BNP ser/plasOrdered By: Dia Dang on 07-27-2023 Natriuretic peptide B (Bld) [Mass/Vol] 129.0 pg/mL High 5-100 [facility] Comment on above: Result Comment: PERF ORMED BY: [place] [address] PATHOLOGIST PAD EXTRACTION TENDER BRODY GARZA M.D. Performed By: #### B BRAID CUTTER, DDIMER, HS TROP, BMP, PT, PTT, CBC, HEPATIC, CK ####[address] Basic Metabolic Panelon 12-2 Creatinine Clr Calc Pharmacy 66.11 Normal [facility] Comment on above: Result Comment: PERF ORMED BY: [place] [address] PATHOLOGIST PAD EXTRACTION TENDER BRODY GARZA M.D. Performed By: #### B BRAID CUTTER, DDIMER, HS TROP, BMP, PT, PTT, CBC, HEPATIC, CK ####[facility] GFR/1.73 sq M.predicted MDRD (S/P/Bld) [Vol rate/Area] mL/min/{1.73_m2} Normal [facility] Comment on above: Performed By: #### B BRAID CUTTER, DDIMER, HS TROP, BMP, PT, PTT, CBC, HEPATIC, CK ####[facility] [id number] Bilirubin.direct [Mass/volum e] in Serum or PlasmaOrdered By: Jarrett Dang on 07-27-2023 Bilirubin.direct [Mass/Vol] 0.00 mg/dL 0.03-0.18 [facility] Comment on above: If the DBIL is less than 0.1, IBIL is not able to becalculated. Bilirubin.total [Mass/volume ] in Serum or PlasmaOrdered By: Jarrett Dang on 07-27-2023 Bilirubin [Mass/Vol] 0.5 mg/dL Normal 0.3-1.0 [facility] Comment on above: Performed By: #### B BRAID CUTTER, DDIMER, HS TROP, BMP, PT, PTT, CBC, HEPATIC, CK #### [facility] [address] COVID CepheidOrdered By: Melissa Dang on 07-27-2023 SARS-CoV-2 (COVID-19) Ab IA Ql Negative Negative [facility] Comment on above: This is a duplicate Cepheid Xpert Xpress CoV-2/Flu/RSV Plus RNA by RT-PCR result to be used for statistical tracking purpose only. SARS-CoV-2 (COVID-19) RNA LATANYA+probe Ql (Unsp spec) [facility] COVID-19 / Flu A/B / RSV PCR [...] or Cepheid Disclaimer revoked sooner. PERFORMED BY: [place] [address] PATHOLOGIST PAD EXTRACTION TENDER BRODY GARZA M.D. Normal [facility] Comment on above: Performed By: #### C OVID19 FLU RSV, CEPHEID NEG ####[facility] [id number] [place] [id number] [facility] CT chest w christopher 07-27-2023 CT chest w [facility] [place] [address] [place] [id number] [address] Scan Report Signed Patient: Chela Padilla MR#: [id number] 06 : 1955 Acct:[id number] Age/Sex: 68 / F ADM Date: 07/27/23 Loc: ER Room: Type: [facility] ER Attending Dr: Copies to: Jarrett Dang DO Ordering Provider: Jarrett Dang DO Date of Service: 07/27/23 CT/CT chest w con: back pain ([id number]) CT/CT abdomen pelvis w con: back pain [...] Cici Andrade M.D.07/27/2023 1:30 PM Dictation Location: [place] [address] Transcribed By: [facility] 07/27/23 1330 Dictated By: Cici Andrade MD 07/27/23 1318 Signed By: 07/27/23 1330 Normal [facility] Calcium [Mass/volume] in Ser um or PlasmaOrdered By: Jarrett Dang on 07-27-2023 Calcium [Mass/Vol] 9.1 mg/dL Normal 8.6-10.3 [facility] Comment on above: Performed By: #### B BRAID CUTTER, DDIMER, HS TROP, BMP, PT, PTT, CBC, HEPATIC, CK ####[facility] [id number] [place] [id number] [facility] Carbon dioxide, total [Moles /volume] in Serum or PlasmaOrdered By: Jarrett Dang on 07-27-2023 CO2 [Moles/Vol] 27.6 mmol/L Normal 21.0-31.0 [facility] Comment on above: Performed By: #### B BRAID CUTTER, DDIMER, HS TROP, BMP, PT, PTT, CBC, HEPATIC, CK ####[facility] [id number] [place] [address] [facility] Cepheid COVID PCR Negativeon 07-27-2023 SARS-CoV-2 (COVID-19) RNA LATANYA+probe Ql (Unsp spec) Negative Normal Negative [facility] Comment on above: Result Comment: This is a duplicate Cepheid Xpert Xpress CoV-2/Flu/RSV Plus RNA by RT-PCR result to be used for statistical tracking purpose only. PERFORMED BY: [facility] [address] [place] [address] PATHOLOGIST PAD EXTRACTION TENDER BRODY GARZA M.D. Performed By: #### C OVID19 FLU RSV, CEPHEID NEG ####[address] Chloride [Moles/volume] in S atul or PlasmaOrdered By: Jarrett Dang on 07-27-2023 Chloride [Moles/Vol] 104 mmol/L Normal 98-107 [facility] Comment on above: Performed By: #### B BRAID CUTTER, DDIMER, HS TROP, BMP, PT, PTT, CBC, HEPATIC, CK ####[place] [id number] [address] Complete Blood Count Auto Di ffon 07-27-2023 Mean Corpuscular HGB Conc 34.1 g/dL Normal 32.0-35.0 [facility] Comment on above: Performed By: #### B BRAID CUTTER, DDIMER, HS TROP, BMP, PT, PTT, CBC, HEPATIC, CK #### [address] Monocytes/100 WBC (Bld) 18.82 % Normal 0.00-20.00 [facility] Comment on above: Performed By: #### B BRAID CUTTER, DDIMER, HS TROP, BMP, PT, PTT, CBC, HEPATIC, CK #### [facility] [address] NRBC% 0.1 /100{WBC} Normal 0-0.5 [facility] Comment on above: Performed By: #### B BRAID CUTTER, DDIMER, HS TROP, BMP, PT, PTT, CBC, HEPATIC, CK #### [facility] [address] [place] [address] [place] Creatine kinase [Enzymatic a ctivity/volume] in Serum or PlasmaOrdered By: Jarrett Dang on 07-27-2023 CK [Catalytic activity/Vol] 100 U/L Normal 30-223 [facility] Comment on above: Performed By: #### B BRAID CUTTER, DDIMER, HS TROP, BMP, PT, PTT, CBC, HEPATIC, CK ####[address] [place] [address] [facility] Creatinine [Mass/volume] in Serum or PlasmaOrdered By: Jarrett Dang on 07-27-2023 Creatinine [Mass/Vol] 0.65 mg/dL Normal 0.60-1.[address] [facility] Comment on above: Performed By: #### B BRAID CUTTER, DDIMER, HS TROP, BMP, PT, PTT, CBC, HEPATIC, CK ####[place] [address] [place] [address] [facility] D-Dimer High Sensitivityon 1 09-27-2022 D-Dimer High Sensitivity < 200 Normal 0-243 [facility] Comment on above: Result [...] coagulation studies. Please contact the laboratory at [phone] for redraw instructions. PERFORMED BY: [place] [address] PATHOLOGIST PAD EXTRACTION TENDER BRODY GARZA M.D. Performed By: #### B BRAID CUTTER, DDIMER, HS TROP, BMP, PT, PTT, CBC, HEPATIC, CK ####[place] [address] [place] [address] [facility] ECG 12 lead ECGon 07-27-2023 ECG 12 lead ECG [facility] [place] [address] [place], [place] [id number] Electrocardiograph Report Signed Patient: Chela Padilla MR#: [id number] 06 : 1955 Acct:[id number] Age/Sex: 68 / F ADM Date: 07/27/23 Loc: ER Room: Type: [facility] ER Attending Dr: Ordering Provider: [...] Anterior leads Confirmed by Jarrett Dang DO ([id number]) on 07/27/2023 1:55:56 PM Referred By: Electronically Signed By:Jarrett Dang DO Transcribed By: MUS Signed By Jarrett Dang DO 3 1356 Normal [facility] Erythrocyte distribution wid th [Ratio] by Automated countOrdered By: Jarrett Dang on 07-27-2023 Erythrocyte distribution width (RBC) [Ratio] 13.3 % Normal 11.9-15.3 [facility] Comment on above: Performed By: #### B BRAID CUTTER, DDIMER, HS TROP, BMP, PT, PTT, CBC, HEPATIC, CK #### [facility] [address] Erythrocytes [#/volume] in B lood by Automated countOrdered By: Jarrett Dang on 07-27-2023 RBC (Bld) [#/Vol] 4.66 10*6/uL Normal 3.60-5.00 [facility] Comment on above: Performed By: #### B BRAID CUTTER, DDIMER, HS TROP, BMP, PT, PTT, CBC, HEPATIC, CK #### [facility] [address] Fibrin D-dimer [Presence] in Platelet poor plasma by Latex agglutinationOrdered By: Jarrett Dang on 07-27-2023 Fibrin D-dimer LA Ql (PPP) < 200 ng/mL 0-243 [facility] Comment on above: The reference range for [...] coagulation studies. Please contact the laboratory at [phone] for redraw instructions. Glucose [Mass/volume] in Ser um or PlasmaOrdered By: Jarrett Dang on 07-27-2023 Glucose [Mass/Vol] 297 mg/dL High 70-100 [facility] Comment on above: ADA recommended refe rence rangeRandom Glucose Reference Range is dependent on time and content of last meal. Glucose of more than 200 mg/dL in a nonstressed, ambulatory subject supports the diagnosis of Diabetes Mellitus. Result Comment: [place] om Glucose Reference Range is dependent on time and content of last meal. Glucose of more than 200 mg/dL in a nonstressed, ambulatory subject supports the diagnosis of Diabetes Mellitus. ADA recommended reference range Performed By: #### B BRAID CUTTER, DDIMER, HS TROP, BMP, PT, PTT, CBC, HEPATIC, CK ####[facility] [id number] Hematocrit [Volume Fraction] of Blood by Automated countOrdered By: Jarrett Dang on 07-27-2023 Hematocrit (Bld) [Volume fraction] 41.9 % Normal 34.0-46.4 [facility] Comment on above: Performed By: #### B BRAID CUTTER, DDIMER, HS TROP, BMP, PT, PTT, CBC, HEPATIC, CK #### [facility] [address] Hemoglobin [Mass/volume] in BloodOrdered By: Jarrett Dang on 07-27-2023 Hemoglobin (Bld) [Mass/Vol] 14.3 g/dL Normal 11.8-15.4 [facility] Comment on above: Performed By: #### B BRAID CUTTER, DDIMER, HS TROP, BMP, PT, PTT, CBC, HEPATIC, CK #### [facility] [address] Hepatic Panelon 07-27-2023 Albumin [Mass/Vol] 3.9 g/dL Normal 3.5-5.7 [facility] Comment on above: Performed By: #### B BRAID CUTTER, DDIMER, HS TROP, BMP, PT, PTT, CBC, HEPATIC, CK #### [facility] [address] Bilirubin,Indirect 0.5 mg/dL Normal [facility] Comment on above: Performed By: #### B BRAID CUTTER, DDIMER, HS TROP, BMP, PT, PTT, CBC, HEPATIC, CK #### [facility] [address] Bilirubin.indirect [Mass/Vol] 0.00 mg/dL Low 0.03-0.18 [facility] Comment on above: Result Comment: If t he DBIL is less than 0.1, IBIL is not able to be calculated. Performed By: #### B BRAID CUTTER, DDIMER, HS TROP, BMP, PT, PTT, CBC, HEPATIC, CK #### [facility] [address] INR in Platelet poor plasma by Coagulation assayOrdered By: Jarrett Dang on 07-27-2023 INR Coag (PPP) [Relative time] 0.9 {INR} Normal [facility] Comment on above: INR Therapeutic Rang e [...] 3 - 4.5 Performed By: #### B BRAID CUTTER, DDIMER, HS TROP, BMP, PT, PTT, CBC, HEPATIC, CK ####[facility] [id number] Leukocytes [#/volume] correc adalid for nucleated erythrocytes in Blood by Automated counOrdered By: Jarrett Dang on 07-27-2023 WBC corrected for nucl RBC Auto (Bld) [#/Vol] 7.7 10*3/uL 3.8-11.6 [facility] Leukocytes [#/volume] in Blo od by Automated countOrdered By: Jarrett Dang on 07-27-2023 WBC (Bld) [#/Vol] 7.7 10*3/uL Normal 3.8-11.6 [facility] Comment on above: Performed By: #### B BRAID CUTTER, DDIMER, HS TROP, BMP, PT, PTT, CBC, HEPATIC, CK #### [facility] [address] Lymphocytes [#/volume] in Bl ood by Automated countOrdered By: Jarrett Dang on 07-27-2023 Lymphocytes (Bld) [#/Vol] 1.1 10*3/uL Normal 1.00-4.8 [facility] Comment on above: Performed By: #### B BRAID CUTTER, DDIMER, HS TROP, BMP, PT, PTT, CBC, HEPATIC, CK #### [facility] [address] [place] [address] [place] Lymphocytes/100 leukocytes i n Blood by Automated countOrdered By: Jarrett Dang on 07-27-2023 Lymphocytes/100 WBC (Bld) 13.9 % Normal . [facility] Comment on above: Performed By: #### B BRAID CUTTER, DDIMER, HS TROP, BMP, PT, PTT, CBC, HEPATIC, CK #### [facility] [address] [place] [address] [place] MCH [Entitic mass] by Automa adalid countOrdered By: Jarrett Dang on 07-27-2023 MCH (RBC) [Entitic mass] 30.6 pg Normal 24.7-34.3 [facility] Comment on above: Performed By: #### B BRAID CUTTER, DDIMER, HS TROP, BMP, PT, PTT, CBC, HEPATIC, CK #### [facility] [address] MCHC Auto (RBC) [Mass/Vol]Or dered By: Jarrett Dang on 07-27-2023 MCHC (RBC) [Mass/Vol] 34.1 g/dL 32.0-35.[address] [facility] MCV [Entitic volume] by Auto mated countOrdered By: Jarrett Dang on 07-27-2023 MCV (RBC) [Entitic vol] 89.9 fL Normal 80-100 [facility] Comment on above: Performed By: #### B BRAID CUTTER, DDIMER, HS TROP, BMP, PT, PTT, CBC, HEPATIC, CK #### [facility] [address] Monocyte distribution width [Entitic volume] in Blood by AutomatedOrdered By: Jarrett Dang on 07-27-2023 Monocyte distribution width Auto (Bld) [Entitic vol] 18.82 % 0.00-20.00 [facility] Neutrophils [#/volume] in Bl ood by Automated countOrdered By: Jarrett Dang on 07-27-2023 Neutrophils (Bld) [#/Vol] 5.9 10*3/uL Normal 1.8-7.7 [facility] Comment on above: Performed By: #### B BRAID CUTTER, DDIMER, HS TROP, BMP, PT, PTT, CBC, HEPATIC, CK #### [facility] [address] No Panel InformationOrdered By: Jarrett Dang on 07-27-2023 Estimated GFR (CKD-EPI) > 60.0 mL/Min [facility] Creatinine Clearance (Chem 66.11 [facility] Nucleated erythrocytes [Pres ence] in Blood by Automated countOrdered By: Jarrett Dang on 07-27-2023 Nucleated RBC Auto Ql (Bld) 0.1 /100{WBC} 0-0.5 [facility] Partial Thromboplastin Timeo n 07-27-2023 aPTT Coag (Bld) [Time] 26.5 s Normal 25.1-36.5 [facility] Comment on above: Result Comment: A he matocrit value greater than 55% may lead to inaccurate results in coagulation testing. Patients having hematocrit values >55% require a special collection tube for coagulation studies. Please contact the laboratory at [phone] for redraw instructions. Performed By: #### B BRAID CUTTER, DDIMER, HS TROP, BMP, PT, PTT, CBC, HEPATIC, CK ####[facility] [id number] [place] [address] [place] Platelet mean volume [Entiti c volume] in Blood by Automated countOrdered By: Jarrett Dang on 07-27-2023 Platelet mean volume (Bld) [Entitic vol] 9.0 fL Normal 6.3-10.7 [facility] Comment on above: Performed By: #### B BRAID CUTTER, DDIMER, HS TROP, BMP, PT, PTT, CBC, HEPATIC, CK #### [facility] [address] [place] [address] [place] Platelets [#/volume] in Bloo d by Automated countOrdered By: Jarrett Dang on 07-27-2023 Platelets (Bld) [#/Vol] 167 10*3/uL Normal 150-450 [facility] Comment on above: Performed By: #### B BRAID CUTTER, DDIMER, HS TROP, BMP, PT, PTT, CBC, HEPATIC, CK #### [facility] [address] [place] [id number] [place] Potassium [Moles/volume] in Serum or PlasmaOrdered By: Jarrett Dang on 07-27-2023 Potassium [Moles/Vol] 4.0 mmol/L Normal 3.5-5.[address] [facility] Comment on above: Performed By: #### B BRAID CUTTER, DDIMER, HS TROP, BMP, PT, PTT, CBC, HEPATIC, CK ####[facility] [id number] [place] [id number] [place] Protein [Mass/volume] in Ser um or PlasmaOrdered By: Jarrett Dang on 07-27-2023 Protein [Mass/Vol] 6.4 g/dL Normal 6.4-8.9 [facility] Comment on above: Performed By: #### B BRAID CUTTER, DDIMER, HS TROP, BMP, PT, PTT, CBC, HEPATIC, CK #### [facility] [address] Prothrombin time (PT)Ordered By: Jarrett Dang on 07-27-2023 PT Coag (PPP) [Time] 10.5 s Normal 9.0-12.9 [facility] Comment on above: A hematocrit value g reater than 55% may lead to inaccurate results in coagulation testing. Patients having hematocrit values >55% require a special collection tube for coagulation studies. Please contact the laboratory at [phone] for redraw instructions. Result Comment: A he matocrit value greater than 55% may lead to inaccurate results in coagulation testing. Patients having hematocrit values >55% require a special collection tube for coagulation studies. Please contact the laboratory at [phone] for redraw instructions. Performed By: #### B BRAID CUTTER, DDIMER, HS TROP, BMP, PT, PTT, CBC, HEPATIC, CK ####[facility] Serum globulin measurement b y calculation (mass/volume)Ordered By: Jarrett Dang on 07-27-2023 Globulin (S) [Mass/Vol] 2.5 g/dL [facility] Comment on above: Performed By: #### B BRAID CUTTER, DDIMER, HS TROP, BMP, PT, PTT, CBC, HEPATIC, CK #### [facility] [address] Serum or plasma albumin/glob ulin mass ratioOrdered By: Jarrett Dang on 07-27-2023 Albumin/Globulin [Mass ratio] 1.6 {ratio} [facility] Comment on above: Performed By: #### B BRAID CUTTER, DDIMER, HS TROP, BMP, PT, PTT, CBC, HEPATIC, CK #### [facility] [address] Serum or plasma anion gap de terminationOrdered By: Jarrett Dang on 07-27-2023 Anion gap [Moles/Vol] 10.4 mmol/L Normal 6.0-15.0 [facility] Comment on above: Performed By: #### B BRAID CUTTER, DDIMER, HS TROP, BMP, PT, PTT, CBC, HEPATIC, CK ####[place] [address] [place] [id number] [facility] Serum or plasma non-glucuron idated bilirubin measurement (mass/volume)Ordered By: Jarrett Dang on 07-27-2023 Bilirubin.indirect [Mass/Vol] 0.5 mg/dL [facility] Sodium [Moles/volume] in Ser um or PlasmaOrdered By: Jarrett Dang on 07-27-2023 Sodium [Moles/Vol] 138 mmol/L Normal 136-145 [facility] Comment on above: Performed By: #### B BRAID CUTTER, DDIMER, HS TROP, BMP, PT, PTT, CBC, HEPATIC, CK ####[place] [address] [place] [id number] [facility] Troponin I High Sensitivityo n 07-27-2023 Troponin I High Sensitivity 4.4 pg/mL Normal 0.0-15.0 [facility] Comment on above: Result Comment: PERF ORMED BY: [facility] [address] [place] [address] [id number] PATHOLOGIST PAD EXTRACTION TENDER BRODY GARZA M.D. Performed By: #### B BRAID CUTTER, DDIMER, HS TROP, BMP, PT, PTT, CBC, HEPATIC, CK ####[place] [id number] [facility] Troponin I.cardiac [Mass/vol ume] in Serum or Plasma by Detection limit <= 0.01 ng/Ordered By: Jarrett Dang on 07-27-2023 Troponin I.cardiac DL <= 0.01 ng/mL [Mass/Vol] 4.4 pg/mL 0.0-15.0 [facility] Urea nitrogen [Mass/volume] in Serum or PlasmaOrdered By: Jarrett Dang on 07-27-2023 Urea nitrogen [Mass/Vol] 13 mg/dL Normal 7-25 [facility] Comment on above: Performed By: #### B BRAID CUTTER, DDIMER, HS TROP, BMP, PT, PTT, CBC, HEPATIC, CK ####[facility] XR chest 1V portableon 07-27 XR chest 1V portable [facility] [place] [address] [place] [address] XRay Report Signed Patient: Chela Paidlla MR#: [id number] 06 : 1955 Acct:[id number] Age/Sex: 68 / F ADM Date: 07/27/23 Loc: ER Room: Type: [facility] ER Attending Dr: Copies to: [...] Maxwell Jr., D.O.07/27/2023 10:57 AM Dictation Location: [place] [address] Transcribed By: YUNG 07/27/23 105 Dictated By: Moo Maxwell Jr, DO 07/27/23 105 Signed By: 07/27/23 105 Normal [facility] Alanine aminotransferase [En zymatic activity/volume] in Serum or PlasmaOrdered By: Alana Parkinson on 06-18-2023 ALT [Catalytic activity/Vol] 18 U/L Normal [facility] Comment on above: Performed By: #### A DDONUAPLUS, CMP, TSH3, A1C WTH eA, URMACRERAT, CUU, LIPID, CBC ####[facility] [id number] Albumin [Mass/volume] in Ser um or Plasma by Bromocresol green (BCG) dye binding methoOrdered By: Alana Parkinson on 06-18-2023 Albumin BCG dye [Mass/Vol] 3.8 g/dL 3.5-5.7 [facility] Alkaline phosphatase [Enzyma tic activity/volume] in Serum or PlasmaOrdered By: Alana Parkinson on 06-18-2023 ALP [Catalytic activity/Vol] 115 U/L High 34-104 [facility] Comment on above: Performed By: #### A DDONUAPLUS, CMP, TSH3, A1C WTH eA, URMACRERAT, CUU, LIPID, CBC ####[address] Aspartate aminotransferase [ Enzymatic activity/volume] in Serum or PlasmaOrdered By: Alana Parkinson on 06-18-2023 AST [Catalytic activity/Vol] 11 U/L Low 13-39 [facility] Comment on above: Performed By: #### A DDONUAPLUS, CMP, TSH3, A1C WTH eA, URMACRERAT, CUU, LIPID, CBC ####[address] Automated basophil %Ordered By: Alana Parkinson on 06-18-2023 Basophils/100 WBC (Bld) 1.3 % Normal . [facility] Comment on above: Performed By: #### A DDONUAPLUS, CMP, TSH3, A1C WTH eA, URMACRERAT, CUU, LIPID, CBC ####[address] Automated basophil countOrde red By: Alana Parkinson on 06-18-2023 Basophils (Bld) [#/Vol] 0.1 10*3/uL Normal 0.0-0.2 [facility] Comment on above: Result Comment: PERF ORMED BY: [facility] [address] [place] [address] PATHOLOGIST PAD EXTRACTION TENDER BRODY GARZA M.D. Performed By: #### A DDONUAPLUS, CMP, TSH3, A1C WTH eA, URMACRERAT, CUU, LIPID, CBC ####[place] [id number] [facility] Automated blood monocyte cou ntOrdered By: Alana Parkinson on 06-18-2023 Monocytes (Bld) [#/Vol] 0.4 10*3/uL Normal 0.0-0.8 [facility] Comment on above: Performed By: #### A DDONUAPLUS, CMP, TSH3, A1C WTH eA, URMACRERAT, CUU, LIPID, CBC ####[place] [id number] [address] Automated eosinophil %Ordere d By: Alana Parkinson on 06-18-2023 Eosinophils/100 WBC (Bld) 4.5 % Normal . [facility] Comment on above: Performed By: #### A DDONUAPLUS, CMP, TSH3, A1C WTH eA, URMACRERAT, CUU, LIPID, CBC ####[address] Automated eosinophil countOr dered By: Alana Parkinson on 06-18-2023 Eosinophils (Bld) [#/Vol] 0.3 10*3/uL Normal 0.0-0.45 [facility] Comment on above: Performed By: #### A DDONUAPLUS, CMP, TSH3, A1C WTH eA, URMACRERAT, CUU, LIPID, CBC ####[address] Automated erythrocytes count in urine sediment (number/area)Ordered By: Alana Parkinson on 06-18-2023 RBC Auto (Urine sed) [#/Area] 0-1 [HPF] 0-4 [facility] Automated leukocytes count i n urine sediment (number/area)Ordered By: Alana Parkinson on 06-18-2023 WBC Auto (Urine sed) [#/Area] 20-49 [HPF] 0-4 [facility] Automated monocyte %Ordered By: Alana Parkinson on 06-18-2023 Monocytes/100 WBC (Bld) 5.8 % Normal . [facility] Comment on above: Performed By: #### A DDONUAPLUS, CMP, TSH3, A1C WTH eA, URMACRERAT, CUU, LIPID, CBC ####[address] Automated neutrophil %Ordere d By: Alana Parkinson on 06-18-2023 Neutrophils/100 WBC (Bld) 61.4 % Normal . [facility] Comment on above: Performed By: #### A DDONUAPLUS, CMP, TSH3, A1C WTH eA, URMACRERAT, CUU, LIPID, CBC ####[place] [id number] [place] [address] [facility] Automated urine color determ inationOrdered By: Alana Parkinson on 06-18-2023 Color (U) Yellow Normal Yellow [facility] Comment on above: Order Comment: Name Collection Type:: Clean-Voided Midstream Performed By: #### A DDONUAPLUS, CMP, TSH3, A1C WTH eA, URMACRERAT, CUU, LIPID, CBC ####[place] [id number] [place] [id number] [facility] Bilirubin Test strip Ql (U)O rdered By: Alana Parkinson on 06-18-2023 Bilirubin Ql (U) Negative Negative [facility] Bilirubin.total [Mass/volume ] in Serum or PlasmaOrdered By: Alana Parkinsno on 06-18-2023 Bilirubin [Mass/Vol] 0.5 mg/dL Normal 0.3-1.0 [facility] Comment on above: Performed By: #### A DDONUAPLUS, CMP, TSH3, A1C WTH eA, URMACRERAT, CUU, LIPID, CBC ####[place] [id number] [facility] Calcium [Mass/volume] in Ser um or PlasmaOrdered By: Alana Parkinson on 06-18-2023 Calcium [Mass/Vol] 9.1 mg/dL Normal 8.6-10.3 [facility] Comment on above: Performed By: #### A DDONUAPLUS, CMP, TSH3, A1C WTH eA, URMACRERAT, CUU, LIPID, CBC ####[place] [address] [place] [address] [facility] Carbon dioxide, total [Moles /volume] in Serum or PlasmaOrdered By: Alana Parkinson on 06-18-2023 CO2 [Moles/Vol] 30.4 mmol/L Normal 21.0-31.0 [facility] Comment on above: Performed By: #### A DDONUAPLUS, CMP, TSH3, A1C WTH eA, URMACRERAT, CUU, LIPID, CBC ####[facility] [id number] [place] [address] [place] Chloride [Moles/volume] in S atul or PlasmaOrdered By: Alana Parkinson on 06-18-2023 Chloride [Moles/Vol] 102 mmol/L Normal 98-107 [facility] Comment on above: Performed By: #### A DDONUAPLUS, CMP, TSH3, A1C WTH eA, URMACRERAT, CUU, LIPID, CBC ####[facility] [id number] [place] [id number] [facility] Cholesterol [Mass/volume] in Serum or PlasmaOrdered By: Alana Parkinson on 06-18-2023 Cholesterol [Mass/Vol] 210 mg/dL High 140-200 [facility] Comment on above: Chol less than 200 m g/dl low riskChol 201-239 mg/dl borderline riskChol 240 mg/dl and greater high risk Result Comment: Chol less than 200 mg/dl low risk Chol 201-239 mg/dl borderline risk Chol 240 mg/dl and greater high risk Performed By: #### A DDONUAPLUS, CMP, TSH3, A1C WTH eA, URMACRERAT, CUU, LIPID, CBC ####[facility] [id number] [place] [id number] [facility] Cholesterol in LDL Calc [Mas s/Vol]Ordered By: Alana Parkinson on 06-18-2023 Cholesterol in LDL [Mass/Vol] 135 mg/dL 0-100 [facility] Comment on above: LDL ATP III CLASSIFI CATIONLDL less than 100 mg/dL OptimalLDL 100-129 mg/dL Near or above optimalLDL 130-159 mg/dL Borderline highLDL 160-189 mg/dL HighLDL greater than 189 mg/dL Very high Cholesterol in VLDL Calc [Ma ss/Vol]Ordered By: Alana Parkinson on 06-18-2023 Cholesterol in VLDL [Mass/Vol] 28 mg/dL [facility] Complete Blood Count Auto Di ffon 06-18-2023 Mean Corpuscular HGB Conc 33.1 g/dL Normal 32.0-35.0 [facility] Comment on above: Performed By: #### A DDONUAPLUS, CMP, TSH3, A1C WTH eA, URMACRERAT, CUU, LIPID, CBC ####[place] [address] [place] [address] [facility] NRBC% 0.1 /100{WBC} Normal 0-0.5 [facility] Comment on above: Performed By: #### A DDONUAPLUS, CMP, TSH3, A1C WTH eA, URMACRERAT, CUU, LIPID, CBC ####[place] [id number] [place] [id number] [facility] Comprehensive Metabolic Pane shalini 06-18-2023 Albumin [Mass/Vol] 3.8 g/dL Normal 3.5-5.7 [facility] Comment on above: Performed By: #### A DDONUAPLUS, CMP, TSH3, A1C WTH eA, URMACRERAT, CUU, LIPID, CBC ####[place] [id number] [facility] GFR/1.73 sq M.predicted MDRD (S/P/Bld) [Vol rate/Area] mL/min/{1.73_m2} Normal [facility] Comment on above: Performed By: #### A DDONUAPLUS, CMP, TSH3, A1C WTH eA, URMACRERAT, CUU, LIPID, CBC ####[place] [id number] [facility] Creatinine [Mass/volume] in Serum or PlasmaOrdered By: Alana Parkinson on 06-18-2023 Creatinine [Mass/Vol] 0.68 mg/dL Normal 0.60-1.[address] [facility] Comment on above: Performed By: #### A DDONUAPLUS, CMP, TSH3, A1C WTH eA, URMACRERAT, CUU, LIPID, CBC ####[address] [address] [facility] Creatinine [Mass/volume] in UrineOrdered By: Alana Parkinson on 06-18-2023 Creatinine (U) [Mass/Vol] 59.0 mg/dL 11.0-20.0 [facility] Dipstick and Microscopicon 1 08-18-2022 Appearance (U) Clear Normal Clear [facility] Comment on above: Order Comment: Name Collection Type:: Clean-Voided Midstream Performed By: #### A DDONUAPLUS, CMP, TSH3, A1C WTH eA, URMACRERAT, CUU, LIPID, CBC ####[place] [id number] [facility] Bacteria,Urine 1+ High None Seen [facility] Comment on above: Order Comment: Name Collection Type:: Clean-Voided Midstream Performed By: #### A DDONUAPLUS, CMP, TSH3, A1C WTH eA, URMACRERAT, CUU, LIPID, CBC ####[address] Bilirubin,Urine Negative Normal Negative The [facility] Comment on above: Order Comment: Name Collection Type:: Clean-Voided Midstream Performed By: #### A DDONUAPLUS, CMP, TSH3, A1C WTH eA, URMACRERAT, CUU, LIPID, CBC ####[address] [address] [facility] Glucose Ql (U) >=1000 High Normal [facility] Comment on above: Order Comment: Name Collection Type:: Clean-Voided Midstream Performed By: #### A DDONUAPLUS, CMP, TSH3, A1C WTH eA, URMACRERAT, CUU, LIPID, CBC ####[address] [address] [facility] Hyaline Casts,Urine 0-8 Normal 0-8 [facility] Comment on above: Order Comment: Name Collection Type:: Clean-Voided Midstream Result Comment: PERF ORMED BY: [facility] [address] [place] [id number] PATHOLOGIST PAD EXTRACTION TENDER BRODY GARZA M.D. Performed By: #### A DDONUAPLUS, CMP, TSH3, A1C WTH eA, URMACRERAT, CUU, LIPID, CBC ####[address] Ketones Ql (U) Negative Normal Negative [facility] Comment on above: Order Comment: Name Collection Type:: Clean-Voided Midstream Performed By: #### A DDONUAPLUS, CMP, TSH3, A1C WTH eA, URMACRERAT, CUU, LIPID, CBC ####[place] [id number] [facility] Leukocyte esterase Test strip Ql (U) 2+ High Negative [facility] Comment on above: Order Comment: Name Collection Type:: Clean-Voided Midstream Performed By: #### A DDONUAPLUS, CMP, TSH3, A1C WTH eA, URMACRERAT, CUU, LIPID, CBC ####[address] Nitrite,Urine Negative Normal Negative [facility] Comment on above: Order Comment: Name Collection Type:: Clean-Voided Midstream Performed By: #### A DDONUAPLUS, CMP, TSH3, A1C WTH eA, URMACRERAT, CUU, LIPID, CBC ####[place] [id number] [facility] Occult Blood,Urine Negative Normal Negative [facility] Comment on above: Order Comment: Name Collection Type:: Clean-Voided Midstream Result Comment: PERF ORMED BY: [facility] [address] [place] [address] PATHOLOGIST PAD EXTRACTION TENDER BRODY GARZA M.D. Performed By: #### A DDONUAPLUS, CMP, TSH3, A1C WTH eA, URMACRERAT, CUU, LIPID, CBC ####[address] Protein,Urine Negative Normal Negative [facility] Comment on above: Order Comment: Name Collection Type:: Clean-Voided Midstream Performed By: #### A DDONUAPLUS, CMP, TSH3, A1C WTH eA, URMACRERAT, CUU, LIPID, CBC ####[address] RBC LM.HPF (Urine sed) [#/Area] 0 /[HPF] Normal 0-4 [facility] Comment on above: Order Comment: Name Collection Type:: Clean-Voided Midstream Performed By: #### A DDONUAPLUS, CMP, TSH3, A1C WTH eA, URMACRERAT, CUU, LIPID, CBC ####[address] Specificy Center,Urine 1.031 High 1.001-1.03 0 [facility] Comment on above: Order Comment: Name Collection Type:: Clean-Voided Midstream Performed By: #### A DDONUAPLUS, CMP, TSH3, A1C WTH eA, URMACRERAT, CUU, LIPID, CBC ####[address] Squamous Epithelial Cell,Urine 3-4 High 0-2 [facility] Comment on above: Order Comment: Name Collection Type:: Clean-Voided Midstream Performed By: #### A DDONUAPLUS, CMP, TSH3, A1C WTH eA, URMACRERAT, CUU, LIPID, CBC ####[address] Urobilinogen,Urine Normal Normal Normal [facility] Comment on above: Order Comment: Name Collection Type:: Clean-Voided Midstream Performed By: #### A DDONUAPLUS, CMP, TSH3, A1C WTH eA, URMACRERAT, CUU, LIPID, CBC ####[address] WBC,Urine 20-49 High 0-4 [facility] Comment on above: Order Comment: Name Collection Type:: Clean-Voided Midstream Performed By: #### A DDONUAPLUS, CMP, TSH3, A1C WTH eA, URMACRERAT, CUU, LIPID, CBC ####[address] [address] [facility] Erythrocyte distribution wid th [Ratio] by Automated countOrdered By: Alana Parkinson on 06-18-2023 Erythrocyte distribution width (RBC) [Ratio] 13.1 % Normal 11.9-15.3 [facility] Comment on above: Performed By: #### A DDONUAPLUS, CMP, TSH3, A1C WTH eA, URMACRERAT, CUU, LIPID, CBC ####[facility] [place] [id number] [facility] Erythrocytes [#/volume] in B lood by Automated countOrdered By: Alana Parkinson on 06-18-2023 RBC (Bld) [#/Vol] 4.69 10*6/uL Normal 3.60-5.00 [facility] Comment on above: Performed By: #### A DDONUAPLUS, CMP, TSH3, A1C WTH eA, URMACRERAT, CUU, LIPID, CBC ####[place] [id number] [place] [id number] [facility] Glucose [Mass/volume] in Ser um or PlasmaOrdered By: Alana Parkinson on 06-18-2023 Glucose [Mass/Vol] 329 mg/dL Normal [facility] Comment on above: ADA recommended refe rence rangeRandom Glucose Reference Range is dependent on time and content of last meal. Glucose of more than 200 mg/dL in a nonstressed, ambulatory subject supports the diagnosis of Diabetes Mellitus. Result Comment: [place] om Glucose Reference Range is dependent on time and content of last meal. Glucose of more than 200 mg/dL in a nonstressed, ambulatory subject supports the diagnosis of Diabetes Mellitus. ADA recommended reference range Performed By: #### A DDONUAPLUS, CMP, TSH3, A1C WTH eA, URMACRERAT, CUU, LIPID, CBC ####[facility] [place] [id number] [facility] Result Comment: PERF ORMED BY: [facility] [address] [place] [id number] PATHOLOGIST PAD EXTRACTION TENDER BRODY GARZA M.D. Glucose mean value [Mass/vol ume] in Blood Estimated from glycated hemoglobinOrdered By: Alana Parkinson on 06-18-2023 Average glucose Estimated from glycated hemoglobin (Bld) [Mass/Vol] 329 mg/dL [facility] Hematocrit [Volume Fraction] of Blood by Automated countOrdered By: Alana Parkinson on 06-18-2023 Hematocrit (Bld) [Volume fraction] 42.6 % Normal 34.0-46.4 [facility] Comment on above: Performed By: #### A DDONUAPLUS, CMP, TSH3, A1C WTH eA, URMACRERAT, CUU, LIPID, CBC ####[address] Hemoglobin A1c percentageOrd ered By: Alana Parkinson on 06-18-2023 HbA1c (Bld) [Mass fraction] 13.1 % High 4.3-5.6 [facility] Comment on above: Increased risk for d iabetes: 5.7 - 6.4diabetes: >6.4glycemic control for adults with diabetes: <7.0 Result Comment: Incr eased risk for diabetes: 5.7 - 6.4 diabetes: >6.4 glycemic control for adults with diabetes: <7.0 Performed By: #### A DDONUAPLUS, CMP, TSH3, A1C WTH eA, URMACRERAT, CUU, LIPID, CBC ####[address] Hemoglobin [Mass/volume] in BloodOrdered By: Alana Parkinson on 06-18-2023 Hemoglobin (Bld) [Mass/Vol] 14.1 g/dL Normal 11.8-15.4 [facility] Comment on above: Performed By: #### A DDONUAPLUS, CMP, TSH3, A1C WTH eA, URMACRERAT, CUU, LIPID, CBC ####[address] Ketones Auto test strip (U) [Mass/Vol]Ordered By: Alana Parkinson on 06-18-2023 Ketones (U) [Mass/Vol] Negative Negative [facility] Laboratory - UrinalysisOrder ed By: Alana Parkinson on 06-18-2023 Hyaline casts LM Ql (Urine sed) 0-8 [LPF] 0-8 [facility] Leukocytes [#/volume] correc adalid for nucleated erythrocytes in Blood by Automated counOrdered By: Alana Parkinson on 06-18-2023 WBC corrected for nucl RBC Auto (Bld) [#/Vol] 6.7 10*3/uL 3.8-11.6 [facility] Leukocytes [#/volume] in Blo od by Automated countOrdered By: Alana Parkinson on 06-18-2023 WBC (Bld) [#/Vol] 6.7 10*3/uL Normal 3.8-11.6 [facility] Comment on above: Performed By: #### A DDONUAPLUS, CMP, TSH3, A1C WTH eA, URMACRERAT, CUU, LIPID, CBC ####[facility] [id number] Lipid Panelon 06-18-2023 LDL Cholesterol,Calculated 135 mg/dL High 0-100 [facility] Comment on above: Result Comment: LDL ATP III CLASSIFICATION LDL less than 100 mg/dL Optimal LDL 100-129 mg/dL Near or above optimal LDL 130-159 mg/dL Borderline high LDL 160-189 mg/dL High LDL greater than 189 mg/dL Very high Performed By: #### A DDONUAPLUS, CMP, TSH3, A1C WTH eA, URMACRERAT, CUU, LIPID, CBC ####[facility] Triglyceride w/Reflex 143 mg/dL Normal 0-149 [facility] Comment on above: Result Comment: TRIG ATP III CLASSIFICATION TRIG less than 150 mg/dL Normal TRIG 150-199 mg/dL Borderline high TRIG 200-500 mg/dL High TRIG greater than 500 mg/dL Very high Standard traceable to the Center for Disease Conrtrol and Prevention (CDC) test method. Performed By: #### A DDONUAPLUS, CMP, TSH3, A1C WTH eA, URMACRERAT, CUU, LIPID, CBC ####[facility] VLDL CHOLESTEROL 28 mg/dL Normal [facility] Comment on above: Performed By: #### A DDONUAPLUS, CMP, TSH3, A1C WTH eA, URMACRERAT, CUU, LIPID, CBC ####[address] Lymphocytes [#/volume] in Bl ood by Automated countOrdered By: Alana Parkinson on 06-18-2023 Lymphocytes (Bld) [#/Vol] 1.8 10*3/uL Normal 1.00-4.8 [facility] Comment on above: Performed By: #### A DDONUAPLUS, CMP, TSH3, A1C WTH eA, URMACRERAT, CUU, LIPID, CBC ####[address] Lymphocytes/100 leukocytes i n Blood by Automated countOrdered By: Alana Parkinson on 06-18-2023 Lymphocytes/100 WBC (Bld) 27.0 % Normal . [facility] Comment on above: Performed By: #### A DDONUAPLUS, CMP, TSH3, A1C WTH eA, URMACRERAT, CUU, LIPID, CBC ####[address] MCH [Entitic mass] by Automa adalid countOrdered By: Alana Parkinson on 06-18-2023 MCH (RBC) [Entitic mass] 30.0 pg Normal 24.7-34.3 [facility] Comment on above: Performed By: #### A DDONUAPLUS, CMP, TSH3, A1C WTH eA, URMACRERAT, CUU, LIPID, CBC ####[place] [id number] [facility] MCHC Auto (RBC) [Mass/Vol]Or dered By: Alana Parkinson on 06-18-2023 MCHC (RBC) [Mass/Vol] 33.1 g/dL 32.0-35.[address] [facility] MCV [Entitic volume] by Auto mated countOrdered By: Alana Parkinson on 06-18-2023 MCV (RBC) [Entitic vol] 90.7 fL Normal 80-100 [facility] Comment on above: Performed By: #### A DDONUAPLUS, CMP, TSH3, A1C WTH eA, URMACRERAT, CUU, LIPID, CBC ####[place] [id number] [place] [id number] [facility] MicroAlb Creat Ratio,Uon Creatinine, Urine (Random) 59.0 mg/dL High 11.0-20.0 [facility] Comment on above: Performed By: #### A DDONUAPLUS, CMP, TSH3, A1C WTH eA, URMACRERAT, CUU, LIPID, CBC ####[place] [address] [place] [id number] [facility] Microalbumin/Creatinin e Ratio 38.0 mg/g High 0.0-30.0 [facility] Comment on above: Result Comment: 30-3 00 mg/g indicates an increased risk for diabetic nephropathy. Greater than 300 mg/g is consistent with clinical nephropathy. (Am. J. Kidney Disease 1995, 25:107) PERFORMED BY: [facility] [address] [place] [address] PATHOLOGIST PAD EXTRACTION TENDER BRODY GARZA M.D. Performed By: #### A DDONUAPLUS, CMP, TSH3, A1C WTH eA, URMACRERAT, CUU, LIPID, CBC ####[place] [address] [place] [id number] [facility] Microalbumin [Mass/volume] i n UrineOrdered By: Alana Parkinson on 06-18-2023 Albumin DL <= 20 mg/L (U) [Mass/Vol] 2.3 mg/dL High 0.0-1.8 [facility] Comment on above: Performed By: #### A DDONUAPLUS, CMP, TSH3, A1C WTH eA, URMACRERAT, CUU, LIPID, CBC ####[address] Neutrophils [#/volume] in Bl ood by Automated countOrdered By: Alana Parkinson on 06-18-2023 Neutrophils (Bld) [#/Vol] 4.1 10*3/uL Normal 1.8-7.7 [facility] Comment on above: Performed By: #### A DDONUAPLUS, CMP, TSH3, A1C WTH eA, URMACRERAT, CUU, LIPID, CBC ####[place] [id number] Nitrite Test strip Ql (U)Ord ered By: Alana Parkinson on 06-18-2023 Nitrite Ql (U) Negative Negative [facility] No Panel InformationOrdered By: Alana Parkinson on 06-18-2023 Estimated GFR (CKD-EPI) > 60.0 mL/Min [facility] Creatinine Clearance (Chem N/A [facility] Nucleated erythrocytes [Pres ence] in Blood by Automated countOrdered By: Alana Parkinson on 06-18-2023 Nucleated RBC Auto Ql (Bld) 0.1 /100{WBC} 0-0.5 [facility] Platelet mean volume [Entiti c volume] in Blood by Automated countOrdered By: Alana Parkinson on 06-18-2023 Platelet mean volume (Bld) [Entitic vol] 9.5 fL Normal 6.3-10.7 [facility] Comment on above: Performed By: #### A DDONUAPLUS, CMP, TSH3, A1C WTH eA, URMACRERAT, CUU, LIPID, CBC ####[place] [id number] Platelets [#/volume] in Bloo d by Automated countOrdered By: Alana Parkinson on 06-18-2023 Platelets (Bld) [#/Vol] 178 10*3/uL Normal 150-450 [facility] Comment on above: Performed By: #### A DDONUAPLUS, CMP, TSH3, A1C WTH eA, URMACRERAT, CUU, LIPID, CBC ####[place] [id number] [place] [phone] [place] Potassium [Moles/volume] in Serum or PlasmaOrdered By: Alana Parkinson on 06-18-2023 Potassium [Moles/Vol] 4.3 mmol/L Normal 3.5-5.[address] [facility] Comment on above: Performed By: #### A DDONUAPLUS, CMP, TSH3, A1C WTH eA, URMACRERAT, CUU, LIPID, CBC ####[place] [id number] Protein Auto test strip (U) [Mass/Vol]Ordered By: Alana Parkinson on 06-18-2023 Protein (U) [Mass/Vol] Negative Negative [facility] Protein [Mass/volume] in Ser um or PlasmaOrdered By: Alana Parkinson on 06-18-2023 Protein [Mass/Vol] 5.9 g/dL Low 6.4-8.9 [facility] Comment on above: Performed By: #### A DDONUAPLUS, CMP, TSH3, A1C WTH eA, URMACRERAT, CUU, LIPID, CBC ####[address] Serum globulin measurement b y calculation (mass/volume)Ordered By: Alana Parkinson on 06-18-2023 Globulin (S) [Mass/Vol] 2.1 g/dL Normal [facility] Comment on above: Performed By: #### A DDONUAPLUS, CMP, TSH3, A1C WTH eA, URMACRERAT, CUU, LIPID, CBC ####[address] Serum or plasma albumin/glob ulin mass ratioOrdered By: Alana Parkinson on 06-18-2023 Albumin/Globulin [Mass ratio] 1.8 {ratio} [facility] Comment on above: Performed By: #### A DDONUAPLUS, CMP, TSH3, A1C WTH eA, URMACRERAT, CUU, LIPID, CBC ####[address] Serum or plasma anion gap de terminationOrdered By: Alana Parkinson on 06-18-2023 Anion gap [Moles/Vol] 10.9 mmol/L Normal 6.0-15.0 [facility] Comment on above: Performed By: #### A DDONUAPLUS, CMP, TSH3, A1C WTH eA, URMACRERAT, CUU, LIPID, CBC ####[facility] [id number] Serum or plasma high density lipoprotein (HDL) cholesterol measurementOrdered By: Alana Parkinson on 06-18-2023 Cholesterol in HDL [Mass/Vol] 46 mg/dL Normal 23-92 [facility] Comment on above: HDL CHOL ATP-III CLA SSIFICATION Cardiovascular RiskHDL > or equal to 60 mg/dL LOWHDL < 40 mg/dL HIGH Result Comment: HDL CHOL ATP-III CLASSIFICATION Cardiovascular Risk HDL > or equal to 60 mg/dL LOW HDL < 40 mg/dL HIGH Performed By: #### A DDONUAPLUS, CMP, TSH3, A1C WTH eA, URMACRERAT, CUU, LIPID, CBC ####[facility] [id number] Serum or plasma total choles terol/high density lipoprotein (HDL) cholesterol mass ratOrdered By: Alana Parkinson on 06-18-2023 Cholesterol.total/Chol esterol in HDL [Mass ratio] 4.6 {ratio} Normal <5.0 [facility] Comment on above: Performed By: #### A DDONUAPLUS, CMP, TSH3, A1C WTH eA, URMACRERAT, CUU, LIPID, CBC ####[facility] [id number] Sodium [Moles/volume] in Ser um or PlasmaOrdered By: Alana Parkinson on 06-18-2023 Sodium [Moles/Vol] 139 mmol/L Normal 136-145 [facility] Comment on above: Performed By: #### A DDONUAPLUS, CMP, TSH3, A1C WTH eA, URMACRERAT, CUU, LIPID, CBC ####[facility] [id number] Specific gravity Auto test s trip (U) [Rel density]Ordered By: Alana Parkinson on 06-18-2023 Specific gravity (U) [Rel density] 1.031 1.001-1.03 0 [facility] Squamous epithelial cells de tection in urine sediment by light microscopyOrdered By: Alana Parkinson on 06-18-2023 Epithelial cells.squamous LM Ql (Urine sed) 3-4 [HPF] 0-2 [facility] Thyrotropin [Units/volume] i n Serum or PlasmaOrdered By: Alana Parkinson on 06-18-2023 TSH Qn 1.62 m[IU]/L Normal 0.45-5.33 [facility] Comment on above: Result Comment: PERF ORMED BY: [facility] [address] [place] [id number] PATHOLOGIST PAD EXTRACTION TENDER BRODY GARZA M.D. Performed By: #### A DDONUAPLUS, CMP, TSH3, A1C WTH eA, URMACRERAT, CUU, LIPID, CBC ####[place] [id number] [place] [address] [facility] Triglyceride [Mass/volume] i n Serum or PlasmaOrdered By: Alana Parkinson on 06-18-2023 Triglyceride [Mass/Vol] 143 mg/dL 0-149 [facility] Comment on above: TRIG ATP III CLASSIF ICATIONTRIG less than 150 mg/dL NormalTRIG 150-199 mg/dL Borderline highTRIG 200-500 mg/dL High TRIG greater than 500 mg/dL Very highStandard traceable to the Center for Disease Conrtrol and Prevention (CDC) test method. Urea nitrogen [Mass/volume] in Serum or PlasmaOrdered By: Alana Parkinson on 06-18-2023 Urea nitrogen [Mass/Vol] 14 mg/dL Normal 7-25 [facility] Comment on above: Performed By: #### A DDONUAPLUS, CMP, TSH3, A1C WTH eA, URMACRERAT, CUU, LIPID, CBC ####[place] [id number] [place] [address] [facility] Urine Cultureon 06-18-2023 Bacteria identified Cx Nom (U) ORGANISM: Strep. agalactiae Grp B (O:B) [place] Count 25,000 PERFORMED BY: [facility] [address] [place] [address] PATHOLOGIST PAD EXTRACTION TENDER BRODY GARZA M.D. Normal [facility] Comment on above: Performed By: #### A DDONUAPLUS, CMP, TSH3, A1C WTH eA, URMACRERAT, CUU, LIPID, CBC ####[facility] [id number] [place] [address] [facility] Urine bacteria detection by automated methodOrdered By: Alana Parkinson on 06-18-2023 Bacteria Auto Ql (U) 1+ None Seen [facility] Urine clarity by refractomet ry automatedOrdered By: Alana Parkinson on 06-18-2023 Clarity Refractometry automated (U) Clear Clear [facility] Urine culture routineOrdered By: Alana Parkinson on 06-18-2023 Bacteria identified Cx Nom (U) Strep. agalactiae Grp B [facility] Urine glucose measurement by automated test strip (mass/volume)Ordered By: Alana Parkinson on 06-18-2023 Glucose Auto test strip (U) [Mass/Vol] >=1000 mg/dL Normal [facility] Urine hemoglobin detection b y automated test stripOrdered By: Alana Parkinson on 06-18-2023 Hemoglobin Auto test strip Ql (U) Negative Negative [facility] Urine leukocyte esterase det ection by automated test stripOrdered By: Alana Parkinson on 06-18-2023 Leukocyte esterase Auto test strip Ql (U) 2+ Negative [facility] Urine microalbumin/creatinin e mass ratioOrdered By: Alana Parkinson on 06-18-2023 Albumin/Creatinine DL <= 20 mg/L (U) [Mass ratio] 38.0 mg/g 0.0-30.0 [facility] Comment on above: 30-300 mg/g indicate s an increased risk for diabetic nephropathy. Greater than 300 mg/g is consistent with clinical nephropathy. (Am. J. Kidney Disease 1995, 25:107) Urine pH measurement by auto mated test stripOrdered By: Alana Parkinson on 06-18-2023 pH (U) 6.0 [pH] Normal 5.0-9.0 [facility] Comment on above: Order Comment: Name Collection Type:: Clean-Voided Midstream Performed By: #### A DDONUAPLUS, CMP, TSH3, A1C WTH eA, URMACRERAT, CUU, LIPID, CBC ####[facility] [id number] [place] [address] [facility] Urobilinogen Auto test strip (U) [Mass/Vol]Ordered By: Alana Parkinson on 06-18-2023 Urobilinogen (U) [Mass/Vol] Normal mg/dL Normal [facility] Alanine aminotransferase [En zymatic activity/volume] in Serum or PlasmaOrdered By: [facility] on 01-16-2023 ALT [Catalytic activity/Vol] 20 U/L 7-52 [facility] Albumin [Mass/volume] in Ser um or Plasma by Bromocresol green (BCG) dye binding methoOrdered By: [facility] on 01-16-2023 Albumin BCG dye [Mass/Vol] 4.1 g/dL 3.5-5.7 [facility] Alkaline phosphatase [Enzyma tic activity/volume] in Serum or PlasmaOrdered By: [facility] on 01-16-2023 ALP [Catalytic activity/Vol] 110 U/L 34-104 [facility] Aspartate aminotransferase [ Enzymatic activity/volume] in Serum or PlasmaOrdered By: [facility] on 01-16-2023 AST [Catalytic activity/Vol] 14 U/L 13-39 [facility] Bilirubin.total [Mass/volume ] in Serum or PlasmaOrdered By: [facility] on 01-16-2023 Bilirubin [Mass/Vol] 0.4 mg/dL 0.3-1.0 [facility] Calcium [Mass/volume] in Ser um or PlasmaOrdered By: [facility] on 01-16-2023 Calcium [Mass/Vol] 9.4 mg/dL 8.6-10.3 [facility] Carbon dioxide, total [Moles /volume] in Serum or PlasmaOrdered By: [facility] on 01-16-2023 CO2 [Moles/Vol] 31.5 mmol/L 21.0-31.0 [facility] Chloride [Moles/volume] in S atul or PlasmaOrdered By: [facility] on 01-16-2023 Chloride [Moles/Vol] 104 mmol/L 98-107 [facility] Cholesterol [Mass/volume] in Serum or PlasmaOrdered By: [facility] on 01-16-2023 Cholesterol [Mass/Vol] 228 mg/dL 140-200 [facility] Comment on above: Chol less than 200 m g/dl low riskChol 201-239 mg/dl borderline riskChol 240 mg/dl and greater high risk Cholesterol in LDL Calc [Mas s/Vol]Ordered By: [facility] on 01-16-2023 Cholesterol in LDL [Mass/Vol] 148 mg/dL 0-100 [facility] Comment on above: LDL ATP III CLASSIFI CATIONLDL less than 100 mg/dL OptimalLDL 100-129 mg/dL Near or above optimalLDL 130-159 mg/dL Borderline highLDL 160-189 mg/dL HighLDL greater than 189 mg/dL Very high Cholesterol in VLDL Calc [Ma ss/Vol]Ordered By: [facility] on 01-16-2023 Cholesterol in VLDL [Mass/Vol] 33 mg/dL [facility] Creatinine [Mass/volume] in Serum or PlasmaOrdered By: [facility] on 01-16-2023 Creatinine [Mass/Vol] 0.61 mg/dL 0.60-1.[address] [facility] Erythrocyte distribution wid th Auto (RBC) [Ratio]Ordered By: [facility] on 01-16-2023 Erythrocyte distribution width (RBC) [Ratio] 13.5 % 11.9-15.3 [facility] Glucose [Mass/volume] in Ser um or PlasmaOrdered By: [facility] on 01-16-2023 Glucose [Mass/Vol] 150 mg/dL 70-100 [facility] Comment on above: ADA recommended refe rence rangeRandom Glucose Reference Range is dependent on time and content of last meal. Glucose of more than 200 mg/dL in a nonstressed, ambulatory subject supports the diagnosis of Diabetes Mellitus. Glucose mean value [Mass/vol ume] in Blood Estimated from glycated hemoglobinOrdered By: [facility] on 01-16-2023 Average glucose Estimated from glycated hemoglobin (Bld) [Mass/Vol] 324 mg/dL [facility] Hematocrit Auto (Bld) [Volum e fraction]Ordered By: [facility] on 01-16-2023 Hematocrit (Bld) [Volume fraction] 43.4 % 34.0-46.4 [facility] Hemoglobin [Mass/volume] in BloodOrdered By: [facility] on 01-16-2023 Hemoglobin (Bld) [Mass/Vol] 14.6 g/dL 11.8-15.4 [facility] Laboratory - Hematology and Cell countsOrdered By: [facility] on 01-16-2023 HbA1c (Bld) [Mass fraction] 12.9 % 4.3-5.6 [facility] Comment on above: Increased risk for d iabetes: 5.7 - 6.4diabetes: >6.4glycemic control for adults with diabetes: <7.0 Leukocytes [#/volume] correc adalid for nucleated erythrocytes in Blood by Automated counOrdered By: [facility] on 01-16-2023 WBC corrected for nucl RBC Auto (Bld) [#/Vol] 6.4 10*3/uL 3.8-11.6 [facility] MCH Auto (RBC) [Entitic mass ]Ordered By: [facility] on 01-16-2023 MCH (RBC) [Entitic mass] 30.4 pg 24.7-34.3 [facility] MCHC Auto (RBC) [Mass/Vol]Or dered By: [facility] on 01-16-2023 MCHC (RBC) [Mass/Vol] 33.7 g/dL 32.0-35.[address] [facility] MCV Auto (RBC) [Entitic vol] Ordered By: [facility] on 01-16-2023 MCV (RBC) [Entitic vol] 90.0 fL 80-100 [facility] No Panel InformationOrdered By: [facility] on 01-16-2023 Estimated GFR (CKD-EPI) > 60.0 mL/Min [facility] Creatinine Clearance (Chem N/A [facility] Platelet mean volume Auto (B ld) [Entitic vol]Ordered By: [facility] on 01-16-2023 Platelet mean volume (Bld) [Entitic vol] 9.4 fL 6.3-10.7 [facility] Platelets Auto (Bld) [#/Vol] Ordered By: [facility] on 01-16-2023 Platelets (Bld) [#/Vol] 170 10*3/uL 150-450 [facility] Potassium [Moles/volume] in Serum or PlasmaOrdered By: [facility] on 01-16-2023 Potassium [Moles/Vol] 3.9 mmol/L 3.5-5.[address] [facility] Protein [Mass/volume] in Ser um or PlasmaOrdered By: OUTREACH [facility] on 01-16-2023 Protein [Mass/Vol] 6.1 g/dL 6.4-8.9 [facility] RBC Auto (Bld) [#/Vol]Ordere d By: [facility] on 01-16-2023 RBC (Bld) [#/Vol] 4.82 10*6/uL 3.60-5.00 [facility] Serum or plasma anion gap de terminationOrdered By: OUTREACH [facility] on 01-16-2023 Anion gap [Moles/Vol] 10.4 mmol/L 6.0-15.0 [facility] Serum or plasma high density lipoprotein (HDL) cholesterol measurementOrdered By: OUTREACH [facility] on 01-16-2023 Cholesterol in HDL [Mass/Vol] 47 mg/dL 23- [facility] Comment on above: HDL CHOL ATP-III CLA SSIFICATION Cardiovascular RiskHDL > or equal to 60 mg/dL LOWHDL < 40 mg/dL HIGH Serum or plasma total choles terol/high density lipoprotein (HDL) cholesterol mass ratOrdered By: OUTREACH [facility] on 01-16-2023 Cholesterol.total/Chol esterol in HDL [Mass ratio] 4.9 {ratio} <5.0 [facility] Sodium [Moles/volume] in Ser um or PlasmaOrdered By: OUTREACH [facility] on 01-16-2023 Sodium [Moles/Vol] 142 mmol/L 136-145 [facility] Triglyceride [Mass/volume] i n Serum or PlasmaOrdered By: [facility] on 01-16-2023 Triglyceride [Mass/Vol] 166 mg/dL 0-149 [facility] Comment on above: TRIG ATP III CLASSIF ICATIONTRIG less than 150 mg/dL NormalTRIG 150-199 mg/dL Borderline highTRIG 200-500 mg/dL High TRIG greater than 500 mg/dL Very highStandard traceable to the Center for Disease Conrtrol and Prevention (CDC) test method. Urea nitrogen [Mass/volume] in Serum or PlasmaOrdered By: [facility] on 01-16-2023 Urea nitrogen [Mass/Vol] 13 mg/dL 7-25 [facility] Alanine aminotransferase [En zymatic activity/volume] in Serum or PlasmaOrdered By: Jenna Jimenez on 10-20-2022 ALT [Catalytic activity/Vol] 19 U/L 7-52 [facility] Albumin [Mass/volume] in Ser um or PlasmaOrdered By: Jenna Jimenez on 10-20-2022 Albumin [Mass/Vol] 3.4 g/dL 2.9-4.4 [facility] Albumin [Mass/volume] in Ser um or Plasma by Bromocresol green (BCG) dye binding methoOrdered By: Jenna Jimenez on 10-20-2022 Albumin BCG dye [Mass/Vol] 4.1 g/dL 3.5-5.7 [facility] Alkaline phosphatase [Enzyma tic activity/volume] in Serum or PlasmaOrdered By: Jenna Jimenez on 10-20-2022 ALP [Catalytic activity/Vol] 97 U/L 34-104 [facility] Aspartate aminotransferase [ Enzymatic activity/volume] in Serum or PlasmaOrdered By: Jenna Jimenez on 10-20-2022 AST [Catalytic activity/Vol] 14 U/L 13-39 [facility] Basophils Auto (Bld) [#/Vol] Ordered By: Jenna Jimenez on 10-20-2022 Basophils (Bld) [#/Vol] 0.0 10*3/uL 0.0-0.2 [facility] Basophils/100 WBC Auto (Bld) Ordered By: Jenna Jimenez on 10-20-2022 Basophils/100 WBC (Bld) 0.3 % . [facility] Bilirubin.total [Mass/volume ] in Serum or PlasmaOrdered By: Jenna Jimenez on 10-20-2022 Bilirubin [Mass/Vol] 0.7 mg/dL 0.3-1.0 [facility] Calcium [Mass/volume] in Ser um or PlasmaOrdered By: Jenna Jimenez on 10-20-2022 Calcium [Mass/Vol] 9.1 mg/dL 8.6-10.3 [facility] Carbon dioxide, total [Moles /volume] in Serum or PlasmaOrdered By: Jenna Jimenez on 10-20-2022 CO2 [Moles/Vol] 29.9 mmol/L 21.0-31.0 [facility] Chloride [Moles/volume] in S atul or PlasmaOrdered By: Jenna Jimenez on 10-20-2022 Chloride [Moles/Vol] 101 mmol/L 98-107 [facility] Creatinine [Mass/volume] in Serum or PlasmaOrdered By: Jenna Jimenez on 10-20-2022 Creatinine [Mass/Vol] 0.70 mg/dL 0.60-1.[address] [facility] Eosinophils Auto (Bld) [#/Vo l]Ordered By: Jenna Jimenez on 10-20-2022 Eosinophils (Bld) [#/Vol] 0.3 10*3/uL 0.0-0.45 [facility] Eosinophils/100 WBC Auto (Bl d)Ordered By: Jnena Jimenez on 10-20-2022 Eosinophils/100 WBC (Bld) 4.1 % . [facility] Erythrocyte distribution wid th Auto (RBC) [Ratio]Ordered By: Jenna Jimenez on 10-20-2022 Erythrocyte distribution width (RBC) [Ratio] 13.4 % 11.9-15.3 [facility] Erythrocyte sedimentation ra te by Photometric methodOrdered By: Jenna Jimenez on 10-20-2022 ESR Photometric method (Bld) [Velocity] 25 mm/hr 0-29 [facility] Globulin Calc (S) [Mass/Vol] Ordered By: Jenna Jimenez on 10-20-2022 Globulin (S) [Mass/Vol] 2.1 g/dL [facility] Glucose [Mass/volume] in Ser um or PlasmaOrdered By: Jenna Jimenez on 10-20-2022 Glucose [Mass/Vol] 267 mg/dL 74-109 [facility] Comment on above: ADA recommended refe [...] from glycated hemoglobin (Bld) [Mass/Vol] 298 mg/dL [facility] Hematocrit Auto (Bld) [Volum e fraction]Ordered By: Jenna Jimenez on 10-20-2022 Hematocrit (Bld) [Volume fraction] 42.3 % 34.0-46.4 [facility] Hemoglobin A1c percentageOrd ered By: Jenna Jimenez on 10-20-2022 HbA1c (Bld) [Mass fraction] 12.0 % 4.3-5.6 [facility] Comment on above: Increased risk for d iabetes: 5.7 - 6.4diabetes: >6.4glycemic control for adults with diabetes: <7.0 Hemoglobin [Mass/volume] in BloodOrdered By: Jenna Jimenez on 10-20-2022 Hemoglobin (Bld) [Mass/Vol] 14.2 g/dL 11.8-15.4 [facility] IgA [Mass/volume] in Serum o r PlasmaOrdered By: Jenna Jimenez on 10-20-2022 IgA [Mass/Vol] 231 mg/dL 87-352 [facility] IgG [Mass/volume] in Serum o r PlasmaOrdered By: Jenna Jimenez on 10-20-2022 IgG [Mass/Vol] 562 mg/dL 586-1602 [facility] IgM [Mass/volume] in Serum o r PlasmaOrdered By: Jenna Jimenez on 10-20-2022 IgM [Mass/Vol] 60 mg/dL 26-217 [facility] Comment on above: Performed at: [place] [id number] Director: Mau Reyna PhD, Phone: [phone] Laboratory - Chemistry and C hemistry - challengeOrdered By: Jenna Jimenez on 10-20-2022 GFR/1.73 sq M.predicted MDRD (S/P/Bld) [Vol rate/Area] mL/min/{1.73_m2} [facility] Leukocytes [#/volume] correc adalid for nucleated erythrocytes in Blood by Automated counOrdered By: Jenna Jimenez on 10-20-2022 WBC corrected for nucl RBC Auto (Bld) [#/Vol] 7.8 10*3/uL 3.8-11.6 [facility] Lymphocytes Auto (Bld) [#/Vo l]Ordered By: Jenna Jimenez on 10-20-2022 Lymphocytes (Bld) [#/Vol] 1.6 10*3/uL 1.00-4.8 [facility] Lymphocytes/100 WBC Auto (Bl d)Ordered By: Jenna Jimenez on 10-20-2022 Lymphocytes/100 WBC (Bld) 21.1 % . [facility] MCH Auto (RBC) [Entitic mass ]Ordered By: Jenna Jimenez on 10-20-2022 MCH (RBC) [Entitic mass] 29.9 pg 24.7-34.3 [facility] MCHC Auto (RBC) [Mass/Vol]Or dered By: Jenna Jimenez on 10-20-2022 MCHC (RBC) [Mass/Vol] 33.5 g/dL 32.0-35.0 [facility] MCV Auto (RBC) [Entitic vol] Ordered By: Jenna Jimenez on 10-20-2022 MCV (RBC) [Entitic vol] 89.3 fL 80-100 [facility] Monocytes Auto (Bld) [#/Vol] Ordered By: Jenna Jimenez on 10-20-2022 Monocytes (Bld) [#/Vol] 0.4 10*3/uL 0.0-0.8 [facility] Monocytes/100 WBC Auto (Bld) Ordered By: Jenna Jimenez on 10-20-2022 Monocytes/100 WBC (Bld) 5.8 % . [facility] Neutrophils Auto (Bld) [#/Vo l]Ordered By: Jenna Jimenez on 10-20-2022 Neutrophils (Bld) [#/Vol] 5.3 10*3/uL 1.8-7.7 [facility] Neutrophils/100 WBC Auto (Bl d)Ordered By: Jenna Jimenez on 10-20-2022 Neutrophils/100 WBC (Bld) 68.7 % . [facility] No Panel InformationOrdered By: Jenna Jimenez on 10-20-2022 Pharmacy Creatinine Clearance (Chem N/A [facility] Protein Electrophoresis M-Harnider Not observed g/dL Not Observed [facility] Protein Electrophoresis Note See comment . [facility] Comment on above: Protein electrophore sis scan will follow via computer,mail, or oil sales and service rep delivery.Performed at: [address] [id number] Director: Mau Reyna PhD, Phone: [phone] Serum Immunofixation See comment . [facility] Comment on above: No monoclonality det ected. Nucleated erythrocytes [Pres ence] in Blood by Automated countOrdered By: Jenna Jimenez on 10-20-2022 Nucleated RBC Auto Ql (Bld) 0.1 /100{WBC} 0-0.5 [facility] Platelet mean volume Auto (B ld) [Entitic vol]Ordered By: Jenna Jimenez on 10-20-2022 Platelet mean volume (Bld) [Entitic vol] 8.8 fL 6.3-10.7 [facility] Platelets Auto (Bld) [#/Vol] Ordered By: Jenna Jimenez on 10-20-2022 Platelets (Bld) [#/Vol] 180 10*3/uL 150-450 [facility] Potassium [Moles/volume] in Serum or PlasmaOrdered By: Jenna Jimenez on 10-20-2022 Potassium [Moles/Vol] 4.4 mmol/L 3.5-5.[address] [facility] Protein [Mass/volume] in Ser um or PlasmaOrdered By: Jenna Jimenez on 10-20-2022 Protein [Mass/Vol] 6.2 g/dL 6.0-8.5 [facility] RBC Auto (Bld) [#/Vol]Ordere d By: Jenna Jimenez on 10-20-2022 RBC (Bld) [#/Vol] 4.74 10*6/uL 3.60-5.00 [facility] Serum globulin measurement ( mass/volume)Ordered By: Jenna Jimenez on 10-20-2022 Globulin (S) [Mass/Vol] 2.8 g/dL 2.2-3.9 [facility] Serum or plasma albumin/glob ulin mass ratioOrdered By: Jenna Jimenez on 10-20-2022 Albumin/Globulin [Mass ratio] 2.0 {ratio} [facility] Albumin/Globulin [Mass ratio] 1.2 {ratio} 0.7-1.7 [facility] Serum or plasma alpha 1 glob ulin measurement by electrophoresis (mass/volume)Ordered By: Jenna Jimenez on 10-20-2022 Alpha 1 globulin Elph [Mass/Vol] 0.2 g/dL 0.0-0.4 [facility] Serum or plasma alpha 2 glob ulin measurement by electrophoresis (mass/volume)Ordered By: Jenna Jimenez on 10-20-2022 Alpha 2 globulin Elph [Mass/Vol] 0.9 g/dL 0.4-1.0 [facility] Serum or plasma anion gap de terminationOrdered By: Jenna Jimenez on 10-20-2022 Anion gap [Moles/Vol] 12.5 mmol/L 6.0-15.0 [facility] Serum or plasma beta globuli n measurement by electrophoresis (mass/volume)Ordered By: Jenna Jimenez on 10-20-2022 Beta globulin Elph [Mass/Vol] 1.0 g/dL 0.7-1.3 [facility] Serum or plasma free cefurox jose measurement (mass/volume)Ordered By: Jenna Jimenez on 10-20-2022 Cefuroxime free [Mass/Vol] Negative Negative [facility] Comment on above: Performed at: [employer] [place], [place] [id number] Director: Mau Reyna PhD, Phone: [phone] Serum or plasma gamma globul in measurement by electrophoresis (mass/volume)Ordered By: Jenna Jimenez on 10-20-2022 Gamma globulin Elph [Mass/Vol] 0.6 g/dL 0.4-1.8 [facility] Serum or plasma rheumatoid f actor measurement (units/volume)Ordered By: Jenna Jimenez on 10-20-2022 Rheumatoid factor Qn 10.9 [IU]/mL <14.0 [facility] Comment on above: Performed at: [employer] [place], [place] [id number] Director: Mau Reyna PhD, Phone: [phone] Sodium [Moles/volume] in Ser um or PlasmaOrdered By: Jenna Jimenez on 10-20-2022 Sodium [Moles/Vol] 139 mmol/L 136-145 [facility] Thyrotropin [Units/volume] i n Serum or PlasmaOrdered By: Jenna Jimenez on 10-20-2022 TSH Qn 1.43 m[IU]/L 0.45-5.33 [facility] Urea nitrogen [Mass/volume] in Serum or PlasmaOrdered By: Jenna Jimenez on 10-20-2022 Urea nitrogen [Mass/Vol] 15 mg/dL 7-25 [facility] Vitamin B12 ser/plasOrdered By: Jenna Tony on 10-20-2022 Cobalamin (Vitamin B12) [Mass/Vol] 232 pg/mL 180-914 [facility] WBC Auto (Bld) [#/Vol]Ordere d By: Jenna Jimenez on 10-20-2022 WBC (Bld) [#/Vol] 7.8 10*3/uL 3.8-11.6 [facility] FFD mammogram Breast - bilat eral Screeningon 08-21-2022 MM screening mammo BI w/CAD [facility] [employer] Other MM screening mammo BI w/CAD [facility] [employer] [facility] [employer] Other MM screening mammo BI w/CAD [address] [place] [address] [employer] [facility] [employer] Other MM screening mammo BI w/[place] [address] [employer] Other MM screening mammo BI w/CAD Mammography Report [employer] Other MM screening mammo BI w/CAD Signed [employer] Other MM screening mammo BI w/CAD Patient: Chela Padilla MR#: [id number] [employer] Other MM screening mammo BI w/CAD 06 [employer] Other MM screening mammo BI w/CAD : 1955 Acct:[id number] [employer] Other MM screening mammo BI w/CAD Age/Sex: 67 / F ADM Date: 08/21/22 [employer] Other MM screening mammo BI w/CAD [facility]: [facility]: [facility] [employer] Other MM screening mammo BI w/CAD Attending Dr: Alana Parkinson DO [employer] Other MM screening mammo BI w/CAD Copies to: Alana Parkinson, [employer] Other MM screening mammo BI w/CAD Ordering Provider: Alana Parkinson DO [employer] Other MM screening mammo BI w/CAD Date of Service: 08/21/22 [employer] Other MM screening mammo BI w/CAD MM/MM screening mammo BI w/CAD: SCREENING [employer] Other MM screening mammo BI w/CAD CLINICAL DATA: Screening for malignancy. [employer] Other MM screening mammo BI w/CAD BILATERAL SCREENING MAMMOGRAMS - FULL FIELD DIGITAL WITH TOMOSYNTHESIS AND CAD [employer] Other MM screening mammo BI w/CAD Tomosynthesis craniocaudal and mediolateral oblique views of both breasts were obtained using low- [employer] Other MM screening mammo BI w/CAD dose digital technique. Comparison is made to prior studies from 03/21/2019, 07/23/2017, 07/10/2016, [employer] Other MM screening mammo BI w/CAD and 06/21/2015. This examination was reviewed with the aid of CAD. [employer] Other MM screening mammo BI w/CAD The breast parenchyma has been largely replaced by fat. Benign-appearing lymph nodes are [employer] Other MM screening mammo BI w/CAD redemonstrated along the chest wall bilaterally. There are punctate benign-appearing calcifications [employer] Other MM screening mammo BI w/CAD bilaterally. There are no dominant masses, typically malignant calcifications or architectural [employer] Other MM screening mammo BI w/CAD distortion. There has been no significant interval change. [employer] Other MM screening mammo BI w/CAD MM/MM screening mammo BI w/CAD [employer] Other MM screening mammo BI w/CAD IMPRESSION: [employer] Other MM screening mammo BI w/CAD NO MAMMOGRAPHIC EVIDENCE OF MALIGNANCY. [employer] Other MM screening mammo BI w/CAD ROUTINE FOLLOW-UP IS RECOMMENDED IN ONE YEAR. [employer] Other MM screening mammo BI w/CAD RESULT CODE: 2 [employer] Other MM screening mammo BI w/CAD Benign Findings(s) [employer] Other MM screening mammo BI w/CAD DENSITY CODE: 1 (<25% glandular) [employer] Other MM screening mammo BI w/CAD FOLLOW UP: 1YR [employer] Other MM screening mammo BI w/CAD The false-negative rate of mammography is approximately 10-percent. [employer] Other MM screening mammo BI w/CAD Management of a palpable abnormality must be based on clinical grounds. [employer] Other MM screening mammo BI w/CAD Patient was entered into a reminder system with a target due date for the next mammogram. [employer] Other MM screening mammo BI w/CAD Impression dictated by: Ankush Roberts M.D.08/21/2022 12:03 PM [employer] Other MM screening mammo BI w/CAD Dictation Location: [facility] [employer] Other MM screening mammo BI w/CAD Transcribed By: YUNG 08/21/22 1203 [employer] Other MM screening mammo BI w/CAD Dictated By: Ankush Roberts II, MD 08/21/22 115 [employer] [facility] [employer] Other MM screening mammo BI w/CAD Signed By: [employer] Other MM screening mammo BI w/CAD 08/21/22 1207 [employer] [facility] [employer] Other Albumin [Mass/volume] in Ser um or PlasmaOrdered By: [facility] on 07-04-2022 Albumin [Mass/Vol] 3.5 g/dL 3.2-5.5 [facility] Cholesterol [Mass/volume] in Serum or PlasmaOrdered By: [facility] on 07-04-2022 Cholesterol [Mass/Vol] 241 mg/dL 140-200 [facility] Comment on above: Chol less than 200 m g/dl low riskChol 201-239 mg/dl borderline riskChol 240 mg/dl and greater high risk Cholesterol in LDL Calc [Mas s/Vol]Ordered By: [facility] on 07-04-2022 Cholesterol in LDL [Mass/Vol] 158 mg/dL 0-100 [facility] Comment on above: LDL ATP III CLASSIFI CATIONLDL less than 100 mg/dL OptimalLDL 100-129 mg/dL Near or above optimalLDL 130-159 mg/dL Borderline highLDL 160-189 mg/dL HighLDL greater than 189 mg/dL Very high Cholesterol in VLDL Calc [Ma ss/Vol]Ordered By: [facility] on 07-04-2022 Cholesterol in VLDL [Mass/Vol] 30 mg/dL [facility] Creatinine and Glomerular fi ltration rate.predicted panel (S/P/Bld)Ordered By: [facility] on 07-04-2022 Creatinine [Mass/Vol] 0.59 mg/dL 0.44-1.[address] [facility] Erythrocyte distribution wid th Auto (RBC) [Ratio]Ordered By: [facility] on 07-04-2022 Erythrocyte distribution width (RBC) [Ratio] 13.3 % 11.9-15.3 [facility] Estimated glomerular filtrat ion rate (GFR) non- AmericanOrdered By: [facility] on 07-04-2022 GFR/1.73 sq M.predicted among non-blacks MDRD (S/P/Bld) [Vol rate/Area] > 60 mL/Min [facility] Glucose mean value [Mass/vol ume] in Blood Estimated from glycated hemoglobinOrdered By: [facility] on 07-04-2022 Average glucose Estimated from glycated hemoglobin (Bld) [Mass/Vol] 283 mg/dL [facility] Hematocrit Auto (Bld) [Volum e fraction]Ordered By: [facility] on 07-04-2022 Hematocrit (Bld) [Volume fraction] 43.4 % 34.0-46.4 [facility] Hemoglobin [Mass/volume] in BloodOrdered By: [facility] on 07-04-2022 Hemoglobin (Bld) [Mass/Vol] 14.2 g/dL 11.8-15.4 [facility] Laboratory - Hematology and Cell countsOrdered By: [facility] on 07-04-2022 HbA1c (Bld) [Mass fraction] 11.5 % 4.3-5.6 [facility] Comment on above: Increased risk for d iabetes: 5.7 - 6.4diabetes: >6.4glycemic control for adults with diabetes: <7.0 Leukocytes [#/volume] correc adalid for nucleated erythrocytes in Blood by Automated counOrdered By: [facility] on 07-04-2022 WBC corrected for nucl RBC Auto (Bld) [#/Vol] 6.4 10*3/uL 3.8-11.6 [facility] MCH Auto (RBC) [Entitic mass ]Ordered By: OUTREACH [facility] on 07-04-2022 MCH (RBC) [Entitic mass] 29.7 pg 24.7-34.3 [facility] MCHC Auto (RBC) [Mass/Vol]Or dered By: OUTREACH [facility] on 07-04-2022 MCHC (RBC) [Mass/Vol] 32.6 g/dL 32.0-35.[address] [facility] MCV Auto (RBC) [Entitic vol] Ordered By: OUTREACH [facility] on 07-04-2022 MCV (RBC) [Entitic vol] 90.9 fL 80-100 [facility] No Panel InformationOrdered By: OUTREACH [facility] on 07-04-2022 Estimated GFR () > 60 mL/Min [facility] Comment on above: GFR estimated refere nce range: According to KDOQI guidelines, <60 ml/min/1.73m2 is sufficient to diagnose a patient with chronic kidney disease. Pharmacy Creatinine Clearance (Chem N/A [facility] Triglycerides Reflex 152 mg/dL 35-149 [facility] Comment on above: TRIG ATP III CLASSIF ICATIONTRIG less than 150 mg/dL NormalTRIG 150-199 mg/dL Borderline highTRIG 200-500 mg/dL High TRIG greater than 500 mg/dL Very highStandard traceable to the Center for Disease Conrtrol and Prevention (CDC) test method. Platelet mean volume Auto (B ld) [Entitic vol]Ordered By: [facility] on 07-04-2022 Platelet mean volume (Bld) [Entitic vol] 9.3 fL 6.3-10.7 [facility] Platelets Auto (Bld) [#/Vol] Ordered By: [facility] on 07-04-2022 Platelets (Bld) [#/Vol] 179 10*3/uL 150-450 [facility] Protein [Mass/volume] in Ser um or PlasmaOrdered By: [facility] on 07-04-2022 Protein [Mass/Vol] 5.8 g/dL 6.1-7.9 [facility] RBC Auto (Bld) [#/Vol]Ordere d By: [facility] on 07-04-2022 RBC (Bld) [#/Vol] 4.78 10*6/uL 3.60-5.00 [facility] Serum or plasma alanine tyler otransferase measurement without P-5'-P (enzymatic activiOrdered By: OUTREACH [facility] on 07-04-2022 ALT No additional P-5'-P [Catalytic activity/Vol] 20 U/L 10-60 [facility] Serum or plasma alkaline hector sphatase measurement (enzymatic activity/volume)Ordered By: [facility] on 07-04-2022 ALP [Catalytic activity/Vol] 84 U/L 32-92 [facility] Serum or plasma anion gap de terminationOrdered By: [facility] on 07-04-2022 Anion gap [Moles/Vol] 11.2 mmol/L 6.0-15.0 [facility] Serum or plasma aspartate am inotransferase measurement (enzymatic activity/volume)Ordered By: [facility] on 07-04-2022 AST [Catalytic activity/Vol] 14 U/L 10-42 [facility] Serum or plasma calcium zainab urement (mass/volume)Ordered By: [facility] on 07-04-2022 Calcium [Mass/Vol] 9.2 mg/dL 8.2-10.2 [facility] Serum or plasma chloride abbi surement (moles/volume)Ordered By: [facility] on 07-04-2022 Chloride [Moles/Vol] 102 mmol/L 95-114 [facility] Serum or plasma glucose zainab urement (mass/volume)Ordered By: [facility] on 07-04-2022 Glucose [Mass/Vol] 207 mg/dL 70-100 [facility] Comment on above: ADA recommended refe rence rangeRandom Glucose Reference Range is dependent on time and content of last meal. Glucose of more than 200 mg/dL in a nonstressed, ambulatory subject supports the diagnosis of Diabetes Mellitus. Serum or plasma high density lipoprotein (HDL) cholesterol measurementOrdered By: [facility] on 07-04-2022 Cholesterol in HDL [Mass/Vol] 53 mg/dL 35-85 [facility] Comment on above: HDL CHOL ATP-III CLA SSIFICATION Cardiovascular RiskHDL > or equal to 60 mg/dL LOWHDL < 40 mg/dL HIGH Serum or plasma potassium me asurement (moles/volume)Ordered By: [facility] on 07-04-2022 Potassium [Moles/Vol] 4.2 mmol/L 3.5-5.[address] [facility] Serum or plasma sodium measu rement (moles/volume)Ordered By: [facility] on 07-04-2022 Sodium [Moles/Vol] 138 mmol/L 136-146 [facility] Serum or plasma total biliru bin measurement (mass/volume)Ordered By: [facility] on 07-04-2022 Bilirubin [Mass/Vol] 0.6 mg/dL 0.3-1.2 [facility] Serum or plasma total carbon dioxide measurement (moles/volume)Ordered By: [facility] on 07-04-2022 CO2 [Moles/Vol] 29.0 mmol/L 22.0-30.0 [facility] Serum or plasma total choles terol/high density lipoprotein (HDL) cholesterol mass ratOrdered By: OUTREACH [facility] on 07-04-2022 Cholesterol.total/Chol esterol in HDL [Mass ratio] 4.5 {ratio} <5.0 [facility] Serum or plasma urea nitroge n measurement (mass/volume)Ordered By: [facility] on 07-04-2022 Urea nitrogen [Mass/Vol] 13 mg/dL 04-24 [facility] Vital Signs Date Time Vital Sign Value Performing Clinician Facility 07-12-2024 13:23-0500 Body height 162.6 cm Evelina Chan MD Work Phone: [facility] 07-12-2024 13:23-0500 Body mass index (BMI) [Ratio] 32.79 kg/m2 Evelina Chan MD Work Phone: [facility] 07-12-2024 13:23-0500 Body weight 86.64 kg Evelina Chan MD Work Phone: [facility] 07-12-2024 13:23-0500 Diastolic blood pressure 68 mm[Hg] Evelina Chan MD Work Phone: [facility] 07-12-2024 13:23-0500 Heart rate 98 /min Evelina Chan MD Work Phone: [facility] 07-12-2024 13:23-0500 Respiratory rate 18 /min Evelina Chan MD Work Phone: [facility] 07-12-2024 13:23-0500 Systolic blood pressure 132 mm[Hg] Evelina Chan MD Work Phone: [facility] 12-10-2023 10:52-0400 Body height 157.48 cm DO Alana Parkinson Work Phone: [facility] 12-10-2023 10:52-0400 Body mass index (BMI) [Ratio] 33.6 kg/m2 DO Alana Parkinson Work Phone: [facility] 12-10-2023 10:52-0400 Body temperature 97.2 [degF] DO Alnaa Parkinson Work Phone: [facility] 12-10-2023 10:52-0400 Body weight 83.46 kg DO Alana Parkinson Work Phone: [facility] 12-10-2023 10:52-0400 Diastolic blood pressure 78 mm[Hg] DO Alana Parkinson Work Phone: [facility] 12-10-2023 10:52-0400 Systolic blood pressure 132 mm[Hg] DO Alana Parkinson Work Phone: [facility] 07-27-2023 14:17-0500 Diastolic blood pressure 70 mm[Hg] DO Alana Parkinson Work Phone: [facility] 07-27-2023 14:17-0500 Heart rate 73 /min DO Alana Parkinson Work Phone: [facility] 07-27-2023 14:17-0500 Respiratory rate 20 /min DO Alana Parkinson Work Phone: [facility] 07-27-2023 14:17-0500 SaO2% (BldA) [Mass fraction] 97 % DO Alana Parkinson Work Phone: [facility] 07-27-2023 14:17-0500 Systolic blood pressure 146 mm[Hg] DO Alana Parkinson Work Phone: [facility] 07-27-2023 10:06-0500 Body height 157.48 cm DO Alana Parkinson Work Phone: [facility] 07-27-2023 10:06-0500 Body temperature 98.2 [degF] DO Alana Parkinson Work Phone: [facility] 07-27-2023 10:06-0500 Body weight 82.6 kg DO Alana Parkinson Work Phone: [facility] 01-20-2023 14:40-0400 Body height 157.48 cm Alana Parkinson Other [employer] Other 01-20-2023 14:40-0400 Body mass index (BMI) [Ratio] 33.65 kg/m2 Alana Parkinson Other [employer] Other 01-20-2023 14:40-0400 Body temperature 98.3 [degF] Alana Parkinson Other [employer] Other 01-20-2023 14:40-0400 Body weight 83.46 kg Alana Parkinson Other [employer] Other 01-20-2023 14:40-0400 Diastolic blood pressure 84 mm[Hg] Alana Parkinson Other [employer] Other 01-20-2023 14:40-0400 Respiratory rate 18 /min Alana Parkinson Other [employer] Other 01-20-2023 14:40-0400 SaO2% (BldA) [Mass fraction] 97 % Alana Parkinson Other [employer] Other 01-20-2023 14:40-0400 Systolic blood pressure 136 mm[Hg] Alana Parkinson Other [employer] Other 07-17-2022 13:30-0500 Body height 157.48 cm Alana Parkinson Other [employer] Other 07-17-2022 13:30-0500 Body mass index (BMI) [Ratio] 33.83 kg/m2 Alana Parkinson Other [employer] Other 07-17-2022 13:30-0500 Body temperature 96.8 [degF] Alana Parkinson Other [employer] Other 07-17-2022 13:30-0500 Body weight 83.92 kg Alana Parkinson Other [employer] Other 07-17-2022 13:30-0500 Diastolic blood pressure 88 mm[Hg] Alana Parkinson Other [employer] Other 07-17-2022 13:30-0500 Respiratory rate 18 /min Alana Parkinson Other [employer] Other 07-17-2022 13:30-0500 SaO2% (BldA) [Mass fraction] 98 % Alana Muellerariella Other [employer] Other 07-17-2022 13:30-0500 Systolic blood pressure 138 mm[Hg] Alana Parkinson Other [employer] Other 06-17-2022 15:00-0500 Body height 157.48 cm Noé Cageisle II Other [employer] Other 06-17-2022 15:00-0500 Body mass index (BMI) [Ratio] 33.47 kg/m2 Noé Grimes II Other [employer] Other 06-17-2022 15:00-0500 Body weight 83.01 kg Noé Grimes II Other [employer] Other 05-29-2022 13:28-0400 Body height 157.48 cm DO Alana Parkinson Work Phone: [facility] 05-29-2022 13:28-0400 Body temperature 97.7 [degF] DO Alana Parkinson Work Phone: [facility] 05-29-2022 13:28-0400 Body weight 83.5 kg DO Alana Parkinson Work Phone: [facility] 05-29-2022 13:28-0400 Diastolic blood pressure 78 mm[Hg] DO Alana Parkinson Work Phone: [facility] 05-29-2022 13:28-0400 Heart rate 111 /min DO Alana Parkinson Work Phone: [facility] 05-29-2022 13:28-0400 Respiratory rate 20 /min DO Alana Parkinson Work Phone: [facility] 05-29-2022 13:28-0400 SaO2% (BldA) [Mass fraction] 96 % DO Alana Parkinson Work Phone: [facility] 05-29-2022 13:0400 Systolic blood pressure 131 mm[Hg] DO Alana Parkinson Work Phone: [facility] 05-27-2022 12:26-0400 Body height 157.48 cm DO Alana Parkinson Work Phone: [facility] 05-27-2022 12:26-0400 Body temperature 98.2 [degF] DO Alana Parkinson Work Phone: [facility] 05-27-2022 [id number] Body weight 83.05 kg DO Alana Parkinson Work Phone: [facility] 05-27-2022 12:26-0400 Diastolic blood pressure 95 mm[Hg] DO Alana Parkinson Work Phone: [facility] 05-27-2022 12:26-0400 Heart rate 95 /min DO Alana Parkinson Work Phone: [facility] 05-27-2022 12:26-0400 Respiratory rate 18 /min DO Alana Parkinson Work Phone: [facility] 05-27-2022 12:26-0400 SaO2% (BldA) [Mass fraction] 95 % DO Alana Parkinson Work Phone: [facility] 05-27-2022 12:26-0400 Systolic blood pressure 155 mm[Hg] DO Alana Parkinson Work Phone: [facility] 01-27-2022 10:50-0400 Body height 157.48 cm Alana Parkinson Other [employer] Other 01-27-2022 10:50-0400 Body mass index (BMI) [Ratio] 34.02 kg/m2 Alana Parkinson Other [employer] Other 01-27-2022 10:50-0400 Body temperature 97.3 [degF] Alana Parkinson Other [employer] Other 01-27-2022 10:50-0400 Body weight 84.37 kg Alana Parkinson Other [employer] Other 01-27-2022 10:50-0400 Diastolic blood pressure 94 mm[Hg] Alana Parkinson Other [employer] Other 01-27-2022 10:50-0400 Respiratory rate 18 /min Alana Parkinson Other [employer] Other 01-27-2022 10:50-0400 SaO2% (BldA) [Mass fraction] 97 % Alana Parkinson Other [employer] Other 01-27-2022 10:50-0400 Systolic blood pressure 154 mm[Hg] Alana Parkinson Other [employer] Other 06-16-2021 10:10-0500 Body height 157.48 cm Alana Parkinson Other [employer] Other 06-16-2021 10:10-0500 Body mass index (BMI) [Ratio] 33.28 kg/m2 Alana Parkinson Other [employer] Other 06-16-2021 10:10-0500 Body temperature 97.1 [degF] Alana Muellerariella Other [employer] Other 06-16-2021 10:10-0500 Body weight 82.56 kg Alana Muellerariella Other [employer] Other 06-16-2021 10:10-0500 Diastolic blood pressure 88 mm[Hg] Alana Parkinson Other [employer] Other 06-16-2021 10:10-0500 Respiratory rate 18 /min Alana Muellerariella Other [employer] Other 06-16-2021 10:10-0500 SaO2% (BldA) [Mass fraction] 97 % Alana Muellerariella Other [employer] Other 06-16-2021 10:10-0500 Systolic blood pressure 138 mm[Hg] Alana Parkinson Other [employer] Other Encounters Encounter Date Encounter Type Care Provider Facility Start: 07-12-2024 End: 07-12-2024 Michelle flowsheet Evelina Chan MD Work Phone: [facility] Start: 07-12-2024 End: 07-12-2024 [email or web address] flowsheet Evelina Chan MD Work Phone: [facility] Start: 07-12-2024 End: 07-12-2024 Office outpatient visit 25 minutes Evelina Chan MD Work Phone: [facility] Comment on above: Type 2 diabetes ligia itus with hyperglycemia, with long-term current use of insulin (CMS/HCC) (Primary Dx); 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 (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/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); Vitamin D [...] Start: 03-20-2024 End: 03-20-2024 ambulatory Hector Wall Facility:[facility] Start: 03-20-2024 End: 03-20-2024 Discharged Recurring PHYSICIAN NO [facility]Infusion Therapy - O/P Work Phone: Start: 2024 End: 04-11-2024 External Result Encounter Hector Wall DO Work Phone: [facility] External Department Unsolicited Start: 2024 End: 04-11-2024 External Result Encounter Hector Wall DO Work Phone: [facility] External Department Unsolicited Start: 2024 End: 2024 Departed Referred PHYSICIAN NO [facility] [place] Work Phone: Start: 2024 End: 2024 ambulatory PHYSICIAN NO [facility] Work Phone: Start: 03-07-2024 End: 03-07-2024 ambulatory HECTOR WALL Not Available Start: 03-05-2024 End: 03-05-2024 ambulatory JUAN PABLO RUEDA Not Available Start: 03-02-2024 End: 03-02-2024 ambulatory JESS MARSHS Not Available Start: 03-01-2024 ambulatory [facility] Work Phone: Start: 03-01-2024 Non-patient / Non-visit [facility] Phys[facility] Work Phone: Start: 02-29-2024 End: 02-29-2024 ambulatory JESSDIONNA MARSHS Not Available Start: 02-28-2024 End: 02-28-2024 ambulatory JESS MARSHS Not Available Start: 02-28-2024 End: 02-28-2024 ambulatory TABITHA THORNTON Not Available Start: 12-10-2023 End: 12-10-2023 ambulatory DO Alana Parkinson Work Phone: [facility] Work Phone: Start: 12-10-2023 End: 12-10-2023 Patient encounter procedure DO Alana Parkinson Work Phone: [facility] Physician [facility] [place] Work Phone: Start: 11-22-2023 End: 11-22-2023 Patient encounter procedure DO Alana Parkinson Work Phone: [facility]-Ultrasound [place] Work Phone: Start: 11-22-2023 End: 11-22-2023 ambulatory DO Alana Parkinson Work Phone: [facility] Work Phone: Start: 11-16-2023 End: 11-16-2023 Patient encounter procedure DO Alana aPrkinson Work Phone: [facility]-XRay [place] Work Phone: Start: 11-16-2023 End: 11-16-2023 ambulatory DO Alana Parkinson Work Phone: [facility] Work Phone: Start: 10-26-2023 End: 10-26-2023 ambulatory BRIGIDO MAN Not Available Start: 08-31-2023 End: 08-31-2023 Patient encounter procedure DO Alana Parkinson Work Phone: [facility] Work Phone: Start: 08-31-2023 End: 08-31-2023 ambulatory DO Alana Parkinson Work Phone: [facility] Work Phone: Start: 08-03-2023 End: 08-03-2023 ambulatory Alana Parkinson Other [employer] Other Start: 08-03-2023 Telephone encounter Alana Muellerariella [facility] [place] Start: 07-27-2023 End: 07-27-2023 Emergency department patient visit DO Alana Parkinson Work Phone: [facility]-Emergency Room Work Phone: Start: 06-18-2023 End: 06-18-2023 Patient encounter procedure DO Alana Parkinson Work Phone: [facility]-Lab [facility] [place] Work Phone: Start: 06-18-2023 End: 06-18-2023 ambulatory DO Alana Parkinson Work Phone: [facility] Work Phone: Start: 06-16-2023 End: 06-16-2023 ambulatory Alana Parkinson Other [employer] Other Start: 06-16-2023 Telephone encounter Alana Muellerairella [facility] [place] Start: 06-15-2023 End: 06-15-2023 ambulatory Alana Parkinson Other [employer] Other Start: 06-15-2023 Telephone encounter Alana Parkinson [facility] [place] Start: 01-25-2023 End: 01-25-2023 ambulatory Alana Parkinson Other [employer] Other Start: 01-25-2023 Telephone encounter Alana Parkinson [facility] [place] Start: 01-20-2023 End: 01-20-2023 ambulatory Alana Parkinson Other [employer] Other Start: 01-20-2023 Office outpatient vi sit 25 minutes Alana Parkinson [facility] [place] Start: 01-16-2023 End: 01-16-2023 ambulatory DO Alana Parkinson Work Phone: [facility] Work Phone: Start: 01-16-2023 End: 01-16-2023 Departed Referred DO Alana Parkinson Work Phone: [facility]-Community Outreach Work Phone: Start: 10-20-2022 End: 10-20-2022 Patient encounter procedure DO Alana Parkinson Work Phone: [facility]Lab [place] Work Phone: Start: 08-21-2022 End: 08-21-2022 ambulatory DO Alana Parkinson Work Phone: [facility] Work Phone: Start: 08-21-2022 End: 08-21-2022 Patient encounter procedure DO Alana Parkinson Work Phone: [facility] Work Phone: Start: 08-07-2022 End: 08-07-2022 ambulatory Alana Parkinson Other [employer] Other Start: 08-07-2022 Telephone encounter Alana Parkinson [facility] [place] Start: 07-17-2022 End: 07-17-2022 ambulatory Alana Parkinson Other [employer] Other Start: 07-17-2022 Office outpatient vi sit 25 minutes Alana Parkinson [facility] [place] Start: 07-17-2022 Telephone encounter Alana Parkinson [facility] [place] Start: 07-07-2022 End: 07-07-2022 ambulatory Noé Ko II Other [employer] Other Start: 07-07-2022 Telephone encounter Noé Ko II [facility] Start: 07-04-2022 End: 07-04-2022 ambulatory DO Alana Parkinson Work Phone: [facility] Work Phone: Start: 07-04-2022 End: 07-04-2022 Departed Referred DO Alana Parkinson Work Phone: [facility] Start: 07-01-2022 End: 07-01-2022 ambulatory DO Alana Parkinson Work Phone: [facility] Work Phone: Start: 07-01-2022 End: 07-01-2022 Patient encounter procedure DO Alana Parkinson Work Phone: [facility] Ctr-MRI [address] Start: 06-18-2022 End: 06-18-2022 ambulatory Alana Parkinson Other [employer] Other Start: 06-18-2022 Telephone encounter Alana Parkinson [facility] [place] Start: 06-17-2022 [facility] visit new patient Noé henriquez II [facility] Start: 06-17-2022 Telephone encounter Alana Parkinson [facility] [place] Start: 06-17-2022 End: 06-17-2022 ambulatory DO Alana Parkinson Work Phone: [facility] Work Phone: Start: 06-17-2022 End: 06-17-2022 Patient encounter procedure DO Alana Parkinson Work Phone: [facility] Start: 06-03-2022 End: 06-03-2022 ambulatory Alana Parkinson Other [employer] Other Start: 06-03-2022 Telephone encounter Alana Parkinson [facility] [place] Start: 06-02-2022 End: 06-02-2022 ambulatory Alana Parkinson Other [employer] Other Start: 06-02-2022 Telephone encounter Alana Parkinson [facility] [place] Start: 06-01-2022 End: 06-01-2022 Patient encounter procedure DO Alana Parkinson Work Phone: [facility]-Ultrasound [place] Start: 06-01-2022 End: 06-01-2022 ambulatory DO Alana Parkinson Work Phone: [employer] Other Start: 06-01-2022 Telephone encounter Alana Parkinson [facility] [place] Start: 05-29-2022 End: 05-29-2022 Emergency department patient visit DO Alana Parkinson Work Phone: [facility]-Emergency Room Start: 05-27-2022 End: 05-27-2022 Emergency department patient visit DO Alana Parkinson Work Phone: [facility]-Emergency Room Start: 01-27-2022 End: 01-27-2022 ambulatory Alana Parkinson Other [employer] Other Start: 01-27-2022 Office outpatient vi sit 25 minutes Alana Parkinson [facility] [place] Start: 08-18-2021 End: 08-18-2021 ambulatory Alana Parkinson Other [employer] Other Start: 08-18-2021 Telephone encounter Alana Muellerariella [facility] [place] Start: 08-13-2021 End: 08-13-2021 ambulatory Alana Parkinson Other [employer] Other Start: 08-13-2021 Telephone encounter Alana Parkinson [facility] [place] Start: 06-16-2021 End: 06-16-2021 ambulatory Alana Parkinson Other [employer] Other Start: 06-16-2021 Office outpatient vi sit 25 minutes Alana Parkinson [facility] Procedures Date Procedure Procedure Detail Performing Clinician Start: 07-12-2024 Gluc bld gluc mntr d ev cleared fda spec home use Evelina Chan MD Work Phone: Start: 2024 PATHOLOGY REQUEST FO R LAB ADRIAN Hector Wall DO Work Phone: Start: 11-22-2023 [...] procedure 11/08/2024 1:30 PM EDT Office Visit [facility] [address] [place] [address] Evelina Chan MD [address] [place] [id number] [facility] Start: 10-26-2024 End: 10-26-2024 Patient encounter procedure 10/26/2024 10:45 AM EDT Office Visit [facility] [address] [place] [phone] Brigido Man MD [address] [place] [address] [facility] Start: 08-31-2024 Screening for malign ant neoplasm of breast Mammogram [facility] Start: 07-12-2024 End: 07-12-2024 Patient encounter procedure 07/12/2024 1:30 PM EST Office Visit [facility] [address] [place] [address] Evelina Chan MD [address] [place] [address] Type 2 diabetes mellitus with hyperglycemia, with long-term current use of insulin ([facility]) [facility] Comment on above: Type 2 diabetes ligia itus with hyperglycemia, with long-term current use of insulin ([facility]) Start: 06-28-2024 End: 06-28-2024 Patient encounter procedure 06/28/2024 10:20 AM EST Office Visit [facility] [address] [place] [phone] Evelina Chan MD [address] [place] [address] [facility] Start: 04-12-2024 End: 04-12-2024 Patient encounter procedure 04/12/2024 10:30 AM EDT Office Visit [facility] [address] [facility] [address] [place] [address] Hector Wall, [address] [facility] [address] [place] [address] [facility] Start: 04-02-2024 Influenza vaccination Influenza Vacc ine (#1) [facility] Start: 03-01-2024 Patient referral [facility] Work Phone: Start: 12-10-2023 Patient referral [facility] Work Phone: Start: 06-01-2022 Duplex scan of lower limb veins US venous duplex LE [facility] Start: 06-01-2022 US Lower extremity v ein - left [facility] Start: 2019 Pneumococcal Vaccine : 65+ Years (1 of 1 - PCV) Pneumococcal Vaccine: 65+ Years (1 of 1 - PCV) [facility] Start: 1955 Screening for malign ant neoplasm of colon [facility] Bacteria identified in Urine by Culture [facility] Comprehensive metabo lic 2000 panel - Serum or Plasma [facility] Glucose measurement estimated from glycated hemoglobin [facility] Work Phone: Hemoglobin A1c measurement [facility] Work Phone: Patient Education [facility] Work Phone: Patient referral [facility] Work Phone: US Lower extremity v ein - left [facility] Immunizations Immunization Date Immunization Notes Care Provider Fa cility 05-29-2021 COVID-19 Vaccine Moderna - Documentation Purposes Only Alana Parkinson Other [facility] 11-08-2020 COVID-19 Vaccine Moderna - Documentation Purposes Only Alana Parkinson Other [facility] 10-11-2020 COVID-19 Vaccine Moderna - Documentation Purposes Only Alana Parkinson Other [facility] NEGATED: Highlighted row has not occurred!06-16-2021 influenza, seasonal, injectable Patient Objection Alana Parkinson Other [employer] Other Payers Date Payer Category Payer Medicare (Managed Care) [employer] [id number] 2023 Unknown [employer] D [facility] Use[employer]ogether [id number] 2023-Present [address] [place]G [id number] 2023 Medicare [id number] 2023 Self-pay [id number] 2021 Private Health Insurance [id number] [id number] 1954 Unknown [id number] 2.16.840.1.309577.3.579.2. 1259 1954 Unknown [id number] 2.16.840.1.110314.3.579.2. 1258 1954 Unknown [id number] 2.840.1.461231.3.579.2. 1258 1954 Unknown [id number] 2.16.840.1.558550.3.579.2. 1258 1954 Unknown [id number] 2.840.1.259461.3.579.2. 1258 1954 Unknown [id number] 2.0.1.890622.3.579.2. 1258 1954 Unknown [id number] 2.0.1.762042.3.579.2. 1258 1954 Unknown [id number] 2.0.1.030669.3.579.2. 1258 1954 Unknown [id number] 2.0.1.557674.3.579.2. 1258 1954 Unknown [id number] 2.0.1.555790.3.579.2. 1258 1954 Unknown [id number] 2.0.1.199677.3.579.2. 1259 Medicare [id number] 2.0.1.380568.19 Unknown [id number] 2.0.1.762814.19 Unknown Regular Insurance [id number] Unknown Plato [id number] Unknown [id number] 2.840.1.355573.3.579.2. 531 Unknown [id number] 2.840.1.186086.3.579.2. 531 Unknown [id number] 2.16840.1.049395.3.579.2. 531 Unknown [id number] 2.840.1.873575.3.579.2. 531 Unknown [id number] 2.16.840.1.939162.3.579.2. 531 Unknown [id number] 2.16.840.1.328473.3.579.2. 531 Unknown [id number] 2.16.840.1.828119.3.579.2. 531 Social History Date Type Detail Facility Unknown if ever smoked [facility] [employer] Other Start: 10-26-2023 End: 03-07-2024 Sex Assigned At [facility] [employer] Other Start: 05-27-2022 End: 05-29-2022 Tobacco smoking status IAIS Never smoked tobacco (finding) [facility] Start: 1955 Sex Assigned At Female F [facility] Start: 07-27-2023 End: 12-10-2023 Tobacco smoking status IAIS Smoker (finding) [facility] Start: 03-07-2024 Tobacco smoking stat [facility] Smokes tobacco daily [facility] [...] MG tablet Every 24 hours Continuous Glucose Mid Level Net Developer (FreeStyle [place] 2 [place]) device USE DIRECTED. Continuous Glucose Sensor (FreeStyle [...] Medical History: Diagnosis Date BMI 33.0-33.9,adult Diabetes ([facility]) High cholesterol ([facility]) Hypertension ([facility]) care home (current) use of insulin ([facility]) Mixed hyperlipidemia (CMS/HCC) Obesity, unspecified Osteoarthritis Osteopenia Type 2 diabetes mellitus with hyperglycemia ([facility]) Vitamin D deficiency, unspecified Past Surgical History: [...] hyperglycemia, with long-term current use of insulin ([facility]) - POCT glucose manually resulted - POCT [...] 45 mg once a day, prescription sent. 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 documented in this encounter [facility] 03-21-2024 History of Presen t [...] follow-ups on file. documented in this encounter [facility] 03-01-2024 Hospital Discharg e instructions Ambulatory OrdersReferral to General Surgery Time Frame: 03/01/24, Location: None Selected [facility] Work Phone: 12-10-2023 Evaluation note Authored December 10, 2023 12:15 pm The above note written by __ _Sebastián Judge____ acting as human recorder, note dictated by Dr. Mendez .I performed the above HPI, ROS, and Examination. I formulated and dictated the treatment plan and was present for entire encounter. Alana Parkinson D.O. [facility] Work Phone: [phone] 155-302911-15-2023 Evaluation note* Encounter Date Diagnosis Assessment Notes Treatment Notes Treatment Clinical Notes Jun, Diabetes type 2, uncontrolled (ICD-10 - E11.65) [employer] Other 11-14-2023 Evaluation note* Encounter Date Diagnosis Assessment Notes Treatment Notes Treatment Clinical Notes Jun, Diabetes type 2, uncontrolled (ICD-10 - E11.65) Jun, Hyperlipidemia (ICD- 10 - E78.5) Jun, Weight loss (ICD-10 - R63.4) Jun, Other shelter (current) 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 (ICD-10 - Z79.899) Jun, Thrombocytopenia (ICD-10 - D69.6) Jun, Nocturia (ICD-10 - R35.1) [facility] Other 06-21-2023 Evaluation note* Encounter Date Diagnosis [...] errands run. Her is now in a half-way but she is not sure how long [...] to use the kit. She voices understanding. [employer] Other 12-30-2022 NoteHISTORY: Bone density screening. COMPARISON: [...] and signed by Corby Bueno on 07/31/2022 1312[facility]12-16-[facility]22 Evaluation note* Encounter Date Diagnosis Assessment Notes Treatment Notes Treatment Clinical Notes Jul, Enlarged lymph nodes in armpit (ICD-10 - R59.0) [employer] Other 12-16-2022 Evaluation note* Encounter Date Diagnosis [...] and not her low back. Jul, Other shelter (current) 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 (ICD-10 - Z79.899) Jul, [...] has gained two pounds since last seen. [facility] Other 11-16-2022 Evaluation note* Encounter Date Diagnosis [...] her into see one of our neurosurgeons. [facility] Other 10-31-2022 Evaluation note* Encounter Date Diagnosis Assessment Notes Treatment Notes Treatment Clinical Notes May, Leg pain (ICD-10 - M79.606) left leg May, Family history of DVT (ICD-10 - Z82.49) [facility] Other 06-28-2022 Evaluation note* Encounter Date Diagnosis [...] has a will and a power of civil attorney and thinks she has a Healthcare power of civil attorney. I did recommend that she provide the office with a copy of this. She should discuss her wishes with her and family. [employer] Other 01-12-2022 Evaluation note* Encounter Date Diagnosis Assessment Notes Treatment Notes Treatment Clinical Notes Aug, Hypertension (ICD-10 - I10) Aug, Hyperlipidemia (ICD-10 - E78.5) Aug, Diabetes type 2, uncontrolled (ICD-10 - E11.65) [facility] Other 11-15-2021 Evaluation note* Encounter Date Diagnosis [...] above medication daily as directed. Jun, Other shelter (current) 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 (ICD-10 - Z79.899) Jun, [...] that we will continue to monitor closely. [employer] Other 09-16-2019 History general Narrative - Reported* [...] Jacobs arth roscopy 04/19/2012 Surgical History [facility] Hospitalization History appendicitis Hospitalization History child x3 Hospitalization History child x 3 [facility] [employer] Other evaluation noteNo [facility] [employer] Other evaluation noteNo assessment information available [facility] Work Phone: evaluypgur note* Diagnosis Onset Date Resolution Status Abdominal pain acute Constipation acute Diarrhea acute Fatty liver acute Hepatic hemangioma acute HTN (hypertension) acute Hyperlipidemia acute Nicotine dependence acute Osteopenia acute Other shelter (current) 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 acute Tinnitus acute Uncontrolled type 2 diabetes mellitus acute [facility] Work Phone: evalufiaew note* Diagnosis Type 2 diabetes mellitus with hyperglycemia, with long-term current use of insulin ([facility])- Primary care home (current) use of insulin ([facility]) Vitamin D deficiency, unspecified Mixed hyperlipidemia ([facility]) Mixed hyperlipidemia Class 1 obesity due to excess calories with serious comorbidity and body mass index (BMI) of 32.0 to 32.9 in adult Primary hypertension ([facility]) Unspecified essential hypertension documented in this encounter [...] No follow-ups on file. [facility] Additional Instructions Take the antibiotic doxycycline twice a day for 10 days take with food 1 hydrocodone every 6 hours for severe pain You may still take plain [id number] Tylenol and or ibuprofen for less severe pain You may take a shower but do not let the water run directly on the abscess site Change the dressing as needed but try to leave the packing in place Return to the ER in 2 days for packing removal recheck Return sooner if worsening redness swelling pain fever chills or any other [facility] [place] Work Phone: Hospital Discharge instructions Additional Instructions Apply warm compresses to the abscess left buttock several times a day Take antibiotic and pain medications as prescribed Have your vascular study completed as needed we discussed Return here if any problems persist worsening fever, chills, nausea, vomiting chest pain, shortness of breath or any other [facility] [place] Work Phone: Hospital Discharge instructions Additional Instructions Follow-up with your primary care doctor Return to ED for worsening symptoms or [facility] [place] Work Phone: Hospital Discharge instructionsAmbulatory Orders* Referral to Audiology Time Frame: 12/10/23, Location: None Selected * Referral to Endocrinology Time Frame: 12/10/23, Location: None Selected [facility] Work Phone: Reason for visit [facility] Community Outreach [employer] Other Reqesn for visit [facility] outreach [email or web address] [employer] Other Reason for Referral Reason appt pt needs cons ult to discuss uncontrolled Diabetes Diagnosis 1 Diabetes type 2, unc ontrolled (E11.65) Referral Organization [facility] [place] Referring Provider First Name Alana Referring Provider Last Name Gwendolyn Referring Provider Specialty Family Prac fabio Referred Organization [facility] Referred Provider Tabitha Sloan Referred Address ,[place], [place],[address] Referred Provider Specialty Family Medic ine Referral Priority Routine General Notes Lorena Miller 06/16/2021 09:47:09 AM > referral sent p2p with office note and last two community outreach labs. pt informed she will be contacted to schedule this appt. Reason appt consult for e eliud and treatment of lt lower leg pain/difficulty walking Diagnosis 1 Leg pain, left (M79. 605) Referral Organization [facility] [place] Referring Provider First Name Alana Referring Provider Last Name Gwendolyn Referring Provider Specialty Family Prac fabio Referred Organization [facility] Referred Provider Yonatan Ocasio Referred Address [address] [facility],[address] Referred Provider Specialty Orthopedic S urgery Referral Priority Urgent General Notes Lorena Miller 06/03/2022 10:26:56 AM > referral sent p2p. pt understands she will be contacted to schedule this appt. Reason appt consult to aristeo duran diabetes and osteopenia treatment Diagnosis 1 Diabetes type 2, unc ontrolled (E11.65) Diagnosis 2 Osteopenia (M85.80) Referral Organization [facility] [place] Referring Provider First Name Alana Referring Provider Last Name Gwendolyn Referring Provider Specialty Family Prac fabio Referred Organization [employer] Referred Provider Evelina Chan Referred Address [address] [facility] [address],[place], [place],[address] Referred Provider Specialty Internal Med icine Referral [...] HTN (hypertension) Hyperlipidemia Nicotine dependence Osteopenia 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 Tinnitus Uncontrolled type 2 diabetes mellitus Chief Complaint review labs Reason for Visit Abdominal pain Constipation Diarrhea Fatty liver Hepatic hemangioma HTN (hypertension) Hyperlipidemia Nicotine dependence Osteopenia Other shelter (current) 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 Tinnitus Uncontrolled type 2 diabetes mellitus Chief Complaint review labs abcess of right abdomen skin Reason for Visit Abdominal pain Constipation Diarrhea Fatty liver Hepatic hemangioma HTN (hypertension) Hyperlipidemia Nicotine dependence Osteopenia Other shelter (current) 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 Tinnitus Uncontrolled type 2 [...] DO Primary Care Provider Active Noa Waters CFA- Emergency Provider Active Team Status: Inactive Member [...] December 10, 2023 End: December 10, 2023 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 Relationship Specialty Start Date End Date Alana Parkinson MD [address] [place] [address] PCP - General Family Medicine 10/26/23 Tabitha Thornton AUD [address] [place] [address] Audiology 02/28/24 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 Relationship Specialty Start Date End Date Alana Parkinson MD [address] [place] [address] PCP - General Family Medicine 10/26/23 Tabitha Thornton AUD [address] [place] [address] Audiology 02/28/24 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 Relationship Specialty Start Date End Date Alana Parkinson MD [address] [place] [address] PCP - General Family [facility] 10/26/23 Tabitha Thornton AUD [address] [place] [address] Audiology 02/28/24 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 Relationship Specialty Start Date End Date Alana Parkinson MD [address] [place] [address] PCP - General Family [facility] 10/26/23 Tabitha Thornton AUD [address] [place] [address] Audiology 02/28/24 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 Relationship Specialty Start Date End Date Alana Parkinson MD [address] [place] [address] PCP - General [facility] 10/26/23 Tabitha Thornton AUD [address] [place] [address] Audiology 02/28/24 Goals (unrecognized section and content) Goals may be documented in a n alternate section INFORMATION SOURCE (unrecogn ized section and content) DATE CREATED AUTHOR 07/31/2022 [facility] dical Specialist DATE CREATED AUTHOR AUTHOR'S ORGANIZ ATION 03/21/2024 [facility] DATE CREATED AUTHOR AUTHOR'S ORGANIZ ATION 07/15/2024 [facility] dical Specialists EPIC FOR RECORDS PERTAINING TO [...] BE BASED ON THE PRIMARY CLINICAL RECORDS. [facility]. provides no warranty or guarantee of the accuracy or completeness of information in this document.
[2024-09-29 15:21] VITALS: BP 138/83; PULSE 95; TEMP 36.9; O2SAT 95; BMI 33.1
[2024-09-29 16:34] VITALS: BP 140/83; PULSE 100; O2SAT 95
[2024-09-29] MEDS: 0.9 % SODIUM CHLORIDE 1,000 ML 1000 ML IV (17:19)
[2024-09-29 17:26] LABS: Basophils Absolute Auto 0.1 10^3/uL (0.0-0.1); Basophils Percent Auto 0.6 % (0.2-2.0); Eosinophils Absolute Auto 0.1 10^3/uL (0.0-0.7); Eosinophils Percent Auto 0.9 % (0.9-7.0); Hematocrit 36.9 % (36.0-48.0); Hemoglobin 12.1 g/dL (12.0-16.0); Immature Granulocytes Abs Auto 0.04 10^3/uL (0.00-0.03); Immature Granulocytes Pct Auto 0.4 % (0.0-0.5); Lymphocytes Percent Auto 8.9 % (20.5-60.0); Mean Corpuscular HGB Conc 32.8 g/dL (29.9-35.2); Mean Corpuscular Hemoglobin 29.7 pg (26.7-34.0); Mean Corpuscular Volume 90.7 fL (81.0-99.0); Mean Platelet Volume 11.3 fL (9.5-13.5); Monocytes Absolute Auto 0.7 10^3/uL (0.3-0.8); Monocytes Percent Auto 6.5 % (1.7-12.0); Neutrophils Absolute Auto 9.3 10^3/uL (1.4-6.5); Neutrophils Percent Auto 82.7 % (43.0-75.0); Platelet Count 225 10^3/uL (150-450); Red Blood Count 4.07 10^6/uL (4.20-5.40); Red Cell Distribution Width 11.9 % (11.0-15.0); White Blood Count 11.2 10^3/uL (4.0-11.0)
[2024-09-29] MEDS: VANCOMYCIN HCL 1,250 MG in 0.9 % SODIUM CHLORIDE 500 ML 250 MG IV (17:28)
[2024-09-29 17:47] LABS: Alanine Aminotransferase 18 U/L (14-59); Albumin Globulin Ratio 0.6; Albumin Level 2.5 g/dL (3.4-5.0); Alkaline Phosphatase 120 U/L (46-116); Anion Gap 11.7; Aspartate Amino Transferase 13 U/L (15-37); BUN Creatinine Ratio 20.8; Bilirubin Total 0.4 mg/dL (0.2-1.0); Calcium 9.4 mg/dL (8.5-10.1); Chloride 93 mmol/L (98-107); Estimated GFR (African America >60 (>=60 mL/min/1.73m^2); Estimated GFR (Non-African Ame 54 (>=60 mL/min/1.73m^2); Globulin 4.1 g/dL; Potassium 4.7 mmol/L (3.5-5.1); Sodium 128 mmol/L (136-145); Total Protein 6.6 g/dL (6.4-8.2)
[2024-09-29 17:48] LABS: Lactate/Lactic Acid 1.8 mmol/L (0.4-2.0)
[2024-09-29 17:53] LABS: Glucose 569 mg/dL (74-106)
--- NOTE | 2024-09-29 17:59 | ED_ITS ---
Documented by User: Keyanna Denny 09/29/24 20:23 HPI HPI - General Adult General Chief complaint: Skin/Abscess/Foreign Body Stated complaint: WOUND ON FOOT, HER 2 DAYS AGO Time Seen by Provider: 09/29/24 16:24 Source: patient Mode of arrival: Wheelchair History of Present Illness HPI narrative: 69-year-old female returns emergency room chief complaint of right buttock pain. Patient was seen here 2 days ago and diagnosed with cellulitis of the right buttock. Patient returns today as she has had increased worsening pain and swelling to the area. She states the area was marked by her physician in the emergency room was told to come here if the redness past the marking. And has past the marked she came in today. She states it has began to drain over the last 24 to 48 hours. She denies any nausea vomiting fevers or chills. She is a type II diabetic. She states did not take her insulin today. Taking doxycycline and Keflex prior to arrival. Related Data Home Medications ?Medication ?Instructions ?Recorded ?Confirmed atorvastatin 20 mg tablet 20 mg PO DAILY 09/29/24 09/29/24 insulin aspart U-100 100 unit/mL 8 unit subcut QAM 09/29/24 09/29/24 (3 mL) subcutaneous pen (Novolog FlexPen U-100 Insulin aspart) insulin detemir U-100 100 unit/mL 60 unit subcut .QHS 09/29/24 09/29/24 (3 mL) subcutaneous pen (Levemir FlexTouch U-100 Insulin) lisinopril 10 mg tablet 10 mg PO DAILY 09/29/24 09/29/24 pioglitazone 45 mg tablet 45 mg PO DAILY 09/29/24 09/29/24 Previous Rx's ?Medication ?Instructions ?Recorded cephalexin 500 mg capsule 500 mg PO Q8H 7 days #21 caps 09/26/24 doxycycline hyclate 100 mg capsule 100 mg PO BID 7 days #14 caps 09/26/24 oxycodone-acetaminophen 5 mg-325 1 tab PO TID PRN pain 3 days #9 09/26/24 mg tablet (Percocet) tabs Allergies Allergy/AdvReac Type Severity Reaction Status Date / Time Penicillins AdvReac Unknown Rash Verified 03/21/24 17:05 Sulfa (Sulfonamide AdvReac Unknown Rash Verified 03/21/24 17:05 Antibiotics) Opioid HPI Opioid Management Most Recent Opioid Data: No Data to Display Review of Systems ROS Narrative All Systems are negative except as noted/marked.All systems reviewed and otherwise negative [facility] Medical History (Updated 09/29/24 @ 20:30 by Keyanna Denny) MRSA (methicillin resistant Staphylococcus aureus) ?A49.02 - Methicillin resistant Staphylococcus aureus infection, unspecified site (ICD-10) Social History Little interest or pleasure in doing things: not at all Feeling down, depressed, or hopeless: not at all Exam Narrative Exam Narrative: Nurses note and vital signs reviewed and patient is not hypoxic. General: The patient appears well and in no apparent distress. Patient is resting comfortably on cart. Skin: Warm, dry, no pallor noted. 5x7cm on the right buttock purulent drainage isexpressed Head: Normocephalic, atraumatic Eye: Normal conjunctiva, no drainage, EOMI. PERRL Ears, Nose, Mouth, and Throat: oral mucosa is moist. Nares patent. Mouth without vesicles. Ear canals patent. Tm's without Erythema Cardiovascular: Regular Rate and Rhythm Respiratory: Patient is in no distress, no accessory muscle use, lungs are clear to auscultation, no wheezing, rales or rhonchi Back: non-tender, no CVA tenderness bilaterally to percussion. GI: Normal bowel sounds, no tenderness to palpation, no masses appreciated. No rebound, guarding, or rigidity noted. Musculoskeletal: The patient has no evidence of calf tenderness, no pitting edema, symmetrical pulses noted bilaterally Neurological: A&O x4, normal speech Psychiatric: Cooperative Constitutional Vital Signs, click to edit/add: Last Vital Signs Temp 98.5 F 09/29/24 15:21 Pulse 100 H 09/29/24 16:34 Resp 20 09/29/24 16:34 BP 140/83 09/29/24 16:34 Pulse Ox 95 09/29/24 16:34 O2 Del Method Room Air 09/29/24 16:34 Course Vital Signs Vital signs: Vital Signs Temperature 98.5 F 09/29/24 15:21 Pulse Rate 95 H 09/29/24 15:21 Respiratory Rate 18 09/29/24 15:21 Blood Pressure 138/83 09/29/24 15:21 Pulse Oximetry 95 09/29/24 15:21 Oxygen Delivery Method Room Air 09/29/24 15:21 Temperature 98.5 F 09/29/24 15:21 Pulse Rate 100 H 09/29/24 16:34 Respiratory Rate 20 09/29/24 16:34 Blood Pressure 140/83 09/29/24 16:34 Pulse Oximetry 95 09/29/24 16:34 Oxygen Delivery Method Room Air 09/29/24 16:34 Medical Decision Making Differential Diagnosis Differential Diagnosis: abscess , cellulitis Medical Records Medical records reviewed: Yes I reviewed the patient's medical records Medical records narrative: 69-year-old female returns emergency room chief complaint of right buttock pain. Patient was seen here 2 days ago and diagnosed with cellulitis of the right buttock. Patient returns today as she has had increased worsening pain and swelling to the area. She states the area was marked by her physician in the emergency room was told to come here if the redness past the marking. And has past the marked she came in today. She states it has began to drain over the last 24 to 48 hours. She denies any nausea vomiting fevers or chills. She is a type II diabetic. She states did not take her insulin today. Taking doxycycline and Keflex prior to arrival. upon arrival to the ed, established blood work was drawn. CBC shows a mildly elevated white blood cell count of 11.2 a low sodium of 128 chloride of 93 and glucose of 569. Patient states she had not taken her insulin today was given 12 units of insulin here in the emergency room. IV antibiotics were started as patient had cultures obtained on the from this wound is positive for Staphylococcus hominis. Patient tolerated IV antibiotics well. Educated with a liter of fluids here in the emergency room due to her low sodium and high glucose. Lactic. The right buttock was anesthetized by myself with 3 cc of 1% lidocaine solution and a small incision with 11 blade was noted for copious amount of purulent, serosanguineous fluid. Patient tolerated procedure well. Area was then dressed by nursing staff. Due to patient's return to the emergency room after going home from first visit we opted to have the patient admitted for observation. I did speak to hospitalist regarding this patient's care. She will be admitted for cellulitis and right buttock abscess. Lab Data Lab results reviewed: Yes I reviewed the patient's lab results Labs: Lab Results 09/29/24 09/29/24 09/29/24 Range/Units 17:06 18:20 20:00 WBC 11.2 H (4.0-11.0) 10^3/uL RBC 4.07 L (4.20-5.40) 10^6/uL Hgb 12.1 (12.0-16.0) g/dL Hct 36.9 (36.0-48.0) % MCV 90.7 (81.0-99.0) fL MCH 29.7 (26.7-34.0) pg MCHC 32.8 (29.9-35.2) g/dL RDW 11.9 (11.0-15.0) % Plt Count 225 (150-450) 10^3/uL MPV 11.3 (9.5-13.5) fL Neut % (Auto) 82.7 H (43.0-75.0) % Lymph % (Auto) 8.9 L (20.5-60.0) % Latimer % (Auto) 6.5 (1.7-12.0) % Eos % (Auto) 0.9 (0.9-7.0) % Baso % (Auto) 0.6 (0.2-2.0) % Neut # (Auto) 9.3 H (1.4-6.5) 10^3/uL Lymph # (Auto) 1.0 L (1.2-3.8) 10^3/uL Latimer # (Auto) 0.7 (0.3-0.8) 10^3/uL Eos # (Auto) 0.1 (0.0-0.7) 10^3/uL Baso # (Auto) 0.1 (0.0-0.1) 10^3/uL Abs Immat Gran (auto) 0.04 H (0.00-0.03) 10^3/uL Imm/Tot Granulo (auto) 0.4 (0.0-0.5) % VBG pH 7.398 (7.330-7.430) VBG pCO2 41.0 (40.0-52.0) mmHg Sodium 128 L (136-145) mmol/L Potassium 4.7 (3.5-5.1) mmol/L Chloride 93 L (98-107) mmol/L Carbon Dioxide 28.0 (21.0-32.0) mmol/L Anion Gap 11.7 BUN 21.0 H (7.0-18.0) mg/dL Creatinine 1.01 (0.55-1.02) mg/dL Est GFR ( Amer) >60 (>=60 mL/min/1.73m^2) Est GFR (Non-Af Amer) 54 L (>=60 mL/min/1.73m^2) BUN/Creatinine Ratio 20.8 Glucose 569 H* (74-106) mg/dL Lactate 1.8 (0.4-2.0) mmol/L Calcium 9.4 (8.5-10.1) mg/dL Total Bilirubin 0.4 (0.2-1.0) mg/dL AST 13 L (15-37) U/L ALT 18 (14-59) U/L Alkaline Phosphatase 120 H (46-116) U/L Total Protein 6.6 (6.4-8.2) g/dL Albumin 2.5 L (3.4-5.0) g/dL Globulin 4.1 g/dL Albumin/Globulin Ratio 0.6 Acetone, Qual Negative (NEGATIVE) POC Glucose 459 H (74-106) mg/dL Imaging Data CT scan - abdomen: Radiologist's impression: CT scan of the abdomen pelvis read by radiology as right gluteal soft tissue swelling, no drainable fluid collection, hepatic Steatosis Discharge Plan Discharge Chief Complaint: Skin/Abscess/Foreign Body Clinical Impression: Abscess of skin or subcutaneous tissue, Acute hyponatremia Cellulitis Qualifiers: Site of cellulitis: buttock Qualified Code(s): L03.317 - Cellulitis of buttock Patient Disposition: Admitted as Observation Time of Disposition Decision: 19:33 Condition: Good Documented by User: Eddie Chaney MD 09/29/24 20:46 HPI HPI - General Adult General Chief complaint: Skin/Abscess/Foreign Body Stated complaint: WOUND ON FOOT, HER 2 DAYS AGO Time Seen by Provider: 09/29/24 16:24 Related Data Home Medications ?Medication ?Instructions ?Recorded ?Confirmed atorvastatin 20 mg tablet 20 mg PO DAILY 09/29/24 09/29/24 insulin aspart U-100 100 unit/mL 8 unit subcut QAM 09/29/24 09/29/24 (3 mL) subcutaneous pen (Novolog FlexPen U-100 Insulin aspart) insulin detemir U-100 100 unit/mL 60 unit subcut .QHS 09/29/24 09/29/24 (3 mL) subcutaneous pen (Levemir FlexTouch U-100 Insulin) lisinopril 10 mg tablet 10 mg PO DAILY 09/29/24 09/29/24 pioglitazone 45 mg tablet 45 mg PO DAILY 09/29/24 09/29/24 Previous Rx's ?Medication ?Instructions ?Recorded cephalexin 500 mg capsule 500 mg PO Q8H 7 days #21 caps 09/26/24 doxycycline hyclate 100 mg capsule 100 mg PO BID 7 days #14 caps 09/26/24 oxycodone-acetaminophen 5 mg-325 1 tab PO TID PRN pain 3 days #9 09/26/24 mg tablet (Percocet) tabs Allergies Allergy/AdvReac Type Severity Reaction Status Date / Time Penicillins AdvReac Unknown Rash Verified 03/21/24 17:05 Sulfa (Sulfonamide AdvReac Unknown Rash Verified 03/21/24 17:05 Antibiotics) Opioid HPI Opioid Management Most Recent Opioid Data: No Data to Display [facility] Medical History (Updated 09/29/24 @ 20:30 by Keyanna Denny) MRSA (methicillin resistant Staphylococcus aureus) ?A49.02 - Methicillin resistant Staphylococcus aureus infection, unspecified site (ICD-10) Social History Little interest or pleasure in doing things: not at all Feeling down, depressed, or hopeless: not at all Exam Constitutional Vital Signs, click to edit/add: Last Vital Signs Temp 98.5 F 09/29/24 15:21 Pulse 100 H 09/29/24 16:34 Resp 20 09/29/24 16:34 BP 140/83 09/29/24 16:34 Pulse Ox 95 09/29/24 16:34 O2 Del Method Room Air 09/29/24 16:34 Course Vital Signs Vital signs: Vital Signs Temperature 98.5 F 09/29/24 15:21 Pulse Rate 95 H 09/29/24 15:21 Respiratory Rate 18 09/29/24 15:21 Blood Pressure 138/83 09/29/24 15:21 Pulse Oximetry 95 09/29/24 15:21 Oxygen Delivery Method Room Air 09/29/24 15:21 Temperature 98.5 F 09/29/24 15:21 Pulse Rate 100 H 09/29/24 16:34 Respiratory Rate 20 09/29/24 16:34 Blood Pressure 140/83 09/29/24 16:34 Pulse Oximetry 95 09/29/24 16:34 Oxygen Delivery Method Room Air 09/29/24 16:34 Medical Decision Making Medical Records Medical records narrative: 69-year-old female returns emergency room chief complaint of right buttock pain. Patient was seen here 2 days ago and diagnosed with cellulitis of the right buttock. Patient returns today as she has had increased worsening pain and swelling to the area. She states the area was marked by her physician in the emergency room was told to come here if the redness past the marking. And has past the marked she came in today. She states it has began to drain over the last 24 to 48 hours. She denies any nausea vomiting fevers or chills. She is a type II diabetic. She states did not take her insulin today. Taking doxycycline and Keflex prior to arrival. upon arrival to the ed, established blood work was drawn. CBC shows a mildly elevated white blood cell count of 11.2 a low sodium of 128 chloride of 93 and glucose of 569. Patient states she had not taken her insulin today was given 12 units of insulin here in the emergency room. IV antibiotics were started as patient had cultures obtained on the from this wound is positive for Staphylococcus hominis. Patient tolerated IV antibiotics well. Educated with a liter of fluids here in the emergency room due to her low sodium and high glucose. Lactic. The right buttock was anesthetized by myself with 3 cc of 1% lidocaine solution and a small incision with 11 blade was noted for copious amount of purulent, serosanguineous fluid. Patient tolerated procedure well. Area was then dressed by nursing staff. Due to patient's return to the emergency room after going home from first visit we opted to have the patient admitted for observation. I did speak to hospitalist regarding this patient's care. She will be admitted for cellulitis and right buttock abscess. I, Dr Chaney, have reviewed the above progress note and course of action in the ER; agree with the above. I have personally seen and evaluated this patient, gone over history and physical, and discussed disposition and treatment plan with the patient. Lab Data Labs: Lab Results 09/29/24 09/29/24 09/29/24 Range/Units 17:06 18:20 20:00 WBC 11.2 H (4.0-11.0) 10^3/uL RBC 4.07 L (4.20-5.40) 10^6/uL Hgb 12.1 (12.0-16.0) g/dL Hct 36.9 (36.0-48.0) % MCV 90.7 (81.0-99.0) fL MCH 29.7 (26.7-34.0) pg MCHC 32.8 (29.9-35.2) g/dL RDW 11.9 (11.0-15.0) % Plt Count 225 (150-450) 10^3/uL MPV 11.3 (9.5-13.5) fL Neut % (Auto) 82.7 H (43.0-75.0) % Lymph % (Auto) 8.9 L (20.5-60.0) % Latimer % (Auto) 6.5 (1.7-12.0) % Eos % (Auto) 0.9 (0.9-7.0) % Baso % (Auto) 0.6 (0.2-2.0) % Neut # (Auto) 9.3 H (1.4-6.5) 10^3/uL Lymph # (Auto) 1.0 L (1.2-3.8) 10^3/uL Latimer # (Auto) 0.7 (0.3-0.8) 10^3/uL Eos # (Auto) 0.1 (0.0-0.7) 10^3/uL Baso # (Auto) 0.1 (0.0-0.1) 10^3/uL Abs Immat Gran (auto) 0.04 H (0.00-0.03) 10^3/uL Imm/Tot Granulo (auto) 0.4 (0.0-0.5) % VBG pH 7.398 (7.330-7.430) VBG pCO2 41.0 (40.0-52.0) mmHg Sodium 128 L (136-145) mmol/L Potassium 4.7 (3.5-5.1) mmol/L Chloride 93 L (98-107) mmol/L Carbon Dioxide 28.0 (21.0-32.0) mmol/L Anion Gap 11.7 BUN 21.0 H (7.0-18.0) mg/dL Creatinine 1.01 (0.55-1.02) mg/dL Est GFR ( Amer) >60 (>=60 mL/min/1.73m^2) Est GFR (Non-Af Amer) 54 L (>=60 mL/min/1.73m^2) BUN/Creatinine Ratio 20.8 Glucose 569 H* (74-106) mg/dL Lactate 1.8 (0.4-2.0) mmol/L Calcium 9.4 (8.5-10.1) mg/dL Total Bilirubin 0.4 (0.2-1.0) mg/dL AST 13 L (15-37) U/L ALT 18 (14-59) U/L Alkaline Phosphatase 120 H (46-116) U/L Total Protein 6.6 (6.4-8.2) g/dL Albumin 2.5 L (3.4-5.0) g/dL Globulin 4.1 g/dL Albumin/Globulin Ratio 0.6 Acetone, Qual Negative (NEGATIVE) POC Glucose 459 H (74-106) mg/dL Discharge Plan Discharge Chief Complaint: Skin/Abscess/Foreign Body Clinical Impression: Abscess of skin or subcutaneous tissue, Acute hyponatremia Cellulitis Qualifiers: Site of cellulitis: buttock Qualified Code(s): L03.317 - Cellulitis of buttock Patient Disposition: Admitted as Observation Time of Disposition Decision: 19:33 Condition: Good
[2024-09-29 18:17] LABS: Acetone NEGATIVE (NEGATIVE)
[2024-09-29 18:46] LABS: pH VBG 7.398 (7.330-7.430)
[2024-09-29] MEDS: INSULIN NPH 70-30 100UNIT/ML VIAL (10ML) 12 UNIT SUBQ ×2 (19:09→22:15)
[2024-09-29] MEDS: ONDANSETRON PF 4 MG/2 ML VIAL IV (19:21)
[2024-09-29] MEDS: HYDROMORPHONE HCL 0.5 MG/0.5 ML SYRINGE IV (19:22)
[2024-09-29] MEDS: LIDOCAINE HCL 1% 100 MG/10 ML MDV INJ (19:38)
[2024-09-29 20:01] LABS: Glucometer 459 mg/dL (74-106)
--- OUTSIDE RECORDS SUMMARY | 2024-09-29 21:02 | XMS_ITS | CCD ---
Author Organization [facility] Care Team Providers Care Account Representative Name Role Phone Alana Parkinson Unavailable DO Alana Parkinson Primary Care Provider [facility] Emergency Provider LORENZO Palacios Emergency Provider [phone] DO Alana Parkinson Attending Provider Noé Ko II Unavailable DO Alana Parkinson Primary Care Provider [facility] [place] [facility] Emergency Provider [phone] LORENZO Palacios Emergency Provider DO Alana aPrkinson Attending Provider MD Noé Ko II Attending Provider Community, Outreach Attending Provider DO Alana Parkinson Primary Care Provider [phone] STEFANIE Jimenez Attending Provider Community, Outreach Attending Provider [phone] DO Alana Parkinson Primary Care Provider DO Alana Parkinson Attending Provider [phone] DO Jarrett Dang Emergency Provider MD Brigido Man Attending Provider DO Alana Parkinson Primary Care Provider [phone] MD Brigido Man Attending Provider [phone] DO Alana Parkinson Attending Provider DO Alana [...] Provider DO Alana Parkinson Primary Care Provider [phone] Alana Parkinson MD Primary Care Provider Tabitha [...] Facility (19 sources) Penicillin Drug Allergy Unknown [employer] Other (19 sources) Sulfonamides (Antibiotic) Propensity to adverse reactions Unknown [employer] Other (20 sources) Penicillins; Translations: [Penicillins] Allergy to substance 2 [facility] (18 sources) Sulfonamides (Antibiotic); Translations: [Sulfa (Sulfonamide Antibiotics)] Allergy to substance 2 Rash [facility] (8 sources) Sulfanilamide Allergy to substance 4 [...] Once a day Dec, Active Continuous Glucose Non Destructive Testing Engineer (FreeStyle D[place] 2 [place]) device (3 sources) Start: 03-29-2024 Continuous Glucose Non Destructive Testing Engineer (FreeStyle Desean 2 [place]) device USE DIRECTED. 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 Scanned copy available in EMR. PATHOLOGY SKIN BX SPECIMEN [facility] No Panel InformationOrdered By: Hector Wall on 2024 Miscellaneous Pathology Test See comment [facility] Comment on above: See report. Scanned copy available in EMR. Pathology Request for Lab Co rpon 2024 Pathology Request for Lab Adrian Normal [facility] Comment on above: Order Comment: PATHO LOGY SKIN BX SPECIMEN Result Comment: See report. Scanned copy available in EMR. PERFORMED BY: [place] [address] PATHOLOGIST CONTACT LENS LATHE OPERATOR BRODY GARZA M.D. Performed By: #### P ATH TO [facility] ####[facility] [id number] US renal BIon 11-22-2023 US renal BI [facility] [address] [place] [address] Ultrasound Report Signed Patient: Chela Padilla MR#: [id number] 06 : 1955 Acct:[id number] Age/Sex: 68 / F ADM Date: 11/22/23 Loc: UL Room: Type: [facility] Attending Dr: Alana Parkinson DO Ordering Provider: Alana Parkinson DO Date of Service: 11/22/23 US/US abdomen limited: R10.9 - Unspecified abdominal pain ([id number]) US/US renal BI: R10.9 - Unspecified abdominal [...] Cici Andrade M.D.11/22/2023 10:52 AM Dictation Location: [place] [address] Tech: Rosalina Tom Transcribed By: YUNG 11/22/23 1052 Dictated By: Cici Andrade MD 11/22/23 1035 Signed By: 11/22/23 1052 Normal [facility] A1C with Estimated Average G gaudenciochristopher 11-16-2023 Glucose [Mass/Vol] 335 mg/dL Normal [facility] Comment on above: Result Comment: PERF ORMED BY: [facility] [address] [place] [address] PATHOLOGIST CONTACT LENS LATHE OPERATOR BRODY GARZA M.D. Performed By: #### C BC, LIPID, A1C WTH eA, CMP #### [facility] [address] [place] [address] [place] Alanine aminotransferase [En zymatic activity/volume] in Serum or PlasmaOrdered By: Alana Parkinson on 11-16-2023 ALT [Catalytic activity/Vol] 18 U/L Normal 7-52 [facility] Comment on above: Performed By: #### C BC, LIPID, A1C WTH eA, CMP #### [facility] [address] [place] [address] [place] Albumin [Mass/volume] in Ser um or Plasma by Bromocresol green (BCG) dye binding methoOrdered By: Alana Parkinson on 11-16-2023 Albumin BCG dye [Mass/Vol] 3.8 g/dL 3.5-5.7 [facility] Alkaline phosphatase [Enzyma tic activity/volume] in Serum or PlasmaOrdered By: Alana Parkinson on 11-16-2023 ALP [Catalytic activity/Vol] 92 U/L Normal 34-104 [facility] Comment on above: Performed By: #### C BC, LIPID, A1C WT eA, CMP #### [place] [address] [place] Aspartate aminotransferase [ Enzymatic activity/volume] in Serum or PlasmaOrdered By: Alana Parkinson on 11-16-2023 AST [Catalytic activity/Vol] 14 U/L Normal 13-39 [facility] Comment on above: Performed By: #### C BC, LIPID, A1C WT eA, CMP #### [facility] [address] [place] [address] [place] Automated basophil %Ordered By: Alana Parkinson on 11-16-2023 Basophils/100 WBC (Bld) 0.9 % Normal . [facility] Comment on above: Performed By: #### C BC, LIPID, A1C WTH eA, CMP #### [place] [address] [place] Automated basophil countOrde red By: Alana Parkinson on 11-16-2023 Basophils (Bld) [#/Vol] 0.1 10*3/uL Normal 0.0-0.2 [facility] Comment on above: Result Comment: PERF ORMED BY: [place] [address] PATHOLOGIST CONTACT LENS LATHE OPERATOR BRODY GARZA M.D. Performed By: #### C BC, LIPID, A1C WTH eA, CMP #### [address] Automated blood monocyte cou ntOrdered By: Alana Parkinson on 11-16-2023 Monocytes (Bld) [#/Vol] 0.4 10*3/uL Normal 0.0-0.8 [facility] Comment on above: Performed By: #### C BC, LIPID, A1C WTH eA, CMP #### [address] Automated eosinophil %Ordere d By: Alana Parkinson on 11-16-2023 Eosinophils/100 WBC (Bld) 5.2 % Normal . [facility] Comment on above: Performed By: #### C BC, LIPID, A1C WTH eA, CMP #### [address] Automated eosinophil countOr dered By: Alana Parkinson on 11-16-2023 Eosinophils (Bld) [#/Vol] 0.3 10*3/uL Normal 0.0-0.45 [facility] Comment on above: Performed By: #### C BC, LIPID, A1C WTH eA, CMP #### [address] Automated monocyte %Ordered By: Alana Parkinson on 11-16-2023 Monocytes/100 WBC (Bld) 5.9 % Normal . [facility] Comment on above: Performed By: #### C BC, LIPID, A1C WTH eA, CMP #### [address] Automated neutrophil %Ordere d By: Alana Parkinson on 11-16-2023 Neutrophils/100 WBC (Bld) 60.1 % Normal . [facility] Comment on above: Performed By: #### C BC, LIPID, A1C WTH eA, CMP #### [address] Bilirubin.total [Mass/volume ] in Serum or PlasmaOrdered By: Alana Parkinson on 11-16-2023 Bilirubin [Mass/Vol] 0.4 mg/dL Normal 0.3-1.0 [facility] Comment on above: Performed By: #### C BC, LIPID, A1C WTH eA, CMP #### [facility] [address] [place] [address] [place] Calcium [Mass/volume] in Ser um or PlasmaOrdered By: Alana Parkinson on 11-16-2023 Calcium [Mass/Vol] 9.3 mg/dL Normal 8.6-10.3 [facility] Comment on above: Performed By: #### C BC, LIPID, A1C WTH eA, CMP #### [facility] [address] Carbon dioxide, total [Moles /volume] in Serum or PlasmaOrdered By: Alana Parkinson on 11-16-2023 CO2 [Moles/Vol] 32.4 mmol/L High 21.0-31.0 [facility] Comment on above: Performed By: #### C BC, LIPID, A1C WTH eA, CMP #### [facility] [address] [place] [address] [place] Chloride [Moles/volume] in S atul or PlasmaOrdered By: Alana Parkinson on 11-16-2023 Chloride [Moles/Vol] 104 mmol/L Normal 98-107 [facility] Comment on above: Performed By: #### C BC, LIPID, A1C WTH eA, CMP #### [facility] [address] [place] [address] [place] Cholesterol [Mass/volume] in Serum or PlasmaOrdered By: Alana Parkinson on 11-16-2023 Cholesterol [Mass/Vol] 232 mg/dL High 140-200 [facility] Comment on above: Chol less than 200 m g/dl low riskChol 201-239 mg/dl borderline riskChol 240 mg/dl and greater high risk Result Comment: Chol less than 200 mg/dl low risk Chol 201-239 mg/dl borderline risk Chol 240 mg/dl and greater high risk Performed By: #### C BC, LIPID, A1C WTH eA, CMP #### [facility] [address] Cholesterol in LDL Calc [Mas s/Vol]Ordered By: Alana Parkinson on 11-16-2023 Cholesterol in LDL [Mass/Vol] 152 mg/dL 0-100 [facility] Comment on above: LDL ATP III CLASSIFI CATIONLDL less than 100 mg/dL OptimalLDL 100-129 mg/dL Near or above optimalLDL 130-159 mg/dL Borderline highLDL 160-189 mg/dL HighLDL greater than 189 mg/dL Very high Cholesterol in VLDL Calc [Ma ss/Vol]Ordered By: Alana Parkinson on 11-16-2023 Cholesterol in VLDL [Mass/Vol] 31 mg/dL [facility] Complete Blood Count Auto Di ffon 11-16-2023 Mean Corpuscular HGB Conc 33.2 g/dL Normal 32.0-35.0 [facility] Comment on above: Performed By: #### C BC, LIPID, A1C WT Candy, CMP #### [address] NRBC% 0.1 /100{WBC} Normal 0-0.5 [facility] Comment on above: Performed By: #### C BC, LIPID, A1C WT Candy, CMP #### [facility] [address] Comprehensive Metabolic Pane shalini 11-16-2023 Albumin [Mass/Vol] 3.8 g/dL Normal 3.5-5.7 [facility] Comment on above: Performed By: #### C BC, LIPID, A1C WT Candy, CMP #### [place] [address] [place] GFR/1.73 sq M.predicted MDRD (S/P/Bld) [Vol rate/Area] mL/min/{1.73_m2} Normal [facility] Comment on above: Performed By: #### C BC, LIPID, A1C WTH Candy, CMP #### [address] Creatinine [Mass/volume] in Serum or PlasmaOrdered By: Alana Parkinson on 11-16-2023 Creatinine [Mass/Vol] 0.58 mg/dL Low 0.60-1.20 [facility] Comment on above: Performed By: #### C BC, LIPID, A1C WT eA, CMP #### [facility] [address] Erythrocyte distribution wid th [Ratio] by Automated countOrdered By: Alana Parkinson on 11-16-2023 Erythrocyte distribution width (RBC) [Ratio] 13.6 % Normal 11.9-15.3 [facility] Comment on above: Performed By: #### C BC, LIPID, A1C WT eA, CMP #### [facility] [address] Erythrocytes [#/volume] in B lood by Automated countOrdered By: Alana Parkinson on 11-16-2023 RBC (Bld) [#/Vol] 4.72 10*6/uL Normal 3.60-5.00 [facility] Comment on above: Performed By: #### C BC, LIPID, A1C WT Candy, CMP #### [facility] [address] Glucose [Mass/volume] in Ser um or PlasmaOrdered By: Alana Parkinson on 11-16-2023 Glucose [Mass/Vol] 185 mg/dL High 70-100 [facility] Comment on above: ADA recommended refe rence rangeRandom Glucose Reference Range is dependent on time and content of last meal. Glucose of more than 200 mg/dL in a nonstressed, ambulatory subject supports the diagnosis of Diabetes Mellitus. Result Comment: [place] om Glucose Reference Range is dependent on time and content of last meal. Glucose of more than 200 mg/dL in a nonstressed, ambulatory subject supports the diagnosis of Diabetes Mellitus. ADA recommended reference range Performed By: #### C BC, LIPID, A1C WT eA, CMP #### [facility] [address] Glucose mean value [Mass/vol ume] in Blood Estimated from glycated hemoglobinOrdered By: Alana Parkinson on 11-16-2023 Average glucose Estimated from glycated hemoglobin (Bld) [Mass/Vol] 335 mg/dL [facility] Hematocrit [Volume Fraction] of Blood by Automated countOrdered By: Alana Parkinson on 11-16-2023 Hematocrit (Bld) [Volume fraction] 42.5 % Normal 34.0-46.4 [facility] Comment on above: Performed By: #### C BC, LIPID, A1C WTH eA, CMP #### [address] Hemoglobin A1c percentageOrd ered By: Alana Parkinson on 11-16-2023 HbA1c (Bld) [Mass fraction] 13.3 % High 4.3-5.6 [facility] Comment on above: Increased risk for d iabetes: 5.7 - 6.4diabetes: >6.4glycemic control for adults with diabetes: <7.0 Result Comment: Incr eased risk for diabetes: 5.7 - 6.4 diabetes: >6.4 glycemic control for adults with diabetes: <7.0 Performed By: #### C BC, LIPID, A1C WTH eA, CMP #### [address] Hemoglobin [Mass/volume] in BloodOrdered By: Alana Parkinson on 11-16-2023 Hemoglobin (Bld) [Mass/Vol] 14.1 g/dL Normal 11.8-15.4 [facility] Comment on above: Performed By: #### C BC, LIPID, A1C WTH eA, CMP #### [address] Leukocytes [#/volume] correc adalid for nucleated erythrocytes in Blood by Automated counOrdered By: Alana Parkinson on 11-16-2023 WBC corrected for nucl RBC Auto (Bld) [#/Vol] 6.6 10*3/uL 3.8-11.6 [facility] Leukocytes [#/volume] in Blo od by Automated countOrdered By: Alana Parkinson on 11-16-2023 WBC (Bld) [#/Vol] 6.6 10*3/uL Normal 3.8-11.6 [facility] Comment on above: Performed By: #### C BC, LIPID, A1C WTH eA, CMP #### [address] [place] [address] [place] Lipid Panelon 11-16-2023 LDL Cholesterol,Calculated 152 mg/dL High 0-100 [facility] Comment on above: Result Comment: LDL ATP III CLASSIFICATION LDL less than 100 mg/dL Optimal LDL 100-129 mg/dL Near or above optimal LDL 130-159 mg/dL Borderline high LDL 160-189 mg/dL High LDL greater than 189 mg/dL Very high Performed By: #### C BC, LIPID, A1C WTH eA, CMP #### [address] Triglyceride w/Reflex 155 mg/dL High 0-149 [facility] Comment on above: Result Comment: TRIG ATP III CLASSIFICATION TRIG less than 150 mg/dL Normal TRIG 150-199 mg/dL Borderline high TRIG 200-500 mg/dL High TRIG greater than 500 mg/dL Very high Standard traceable to the Center for Disease Conrtrol and Prevention (CDC) test method. Performed By: #### C BC, LIPID, A1C WTH eA, CMP #### [address] VLDL CHOLESTEROL 31 mg/dL Normal [facility] Comment on above: Performed By: #### C BC, LIPID, A1C WTH eA, CMP #### [address] Lymphocytes [#/volume] in Bl ood by Automated countOrdered By: Alana Parkinson on 11-16-2023 Lymphocytes (Bld) [#/Vol] 1.8 10*3/uL Normal 1.00-4.8 [facility] Comment on above: Performed By: #### C BC, LIPID, A1C WTH eA, CMP #### [place] [address] [place] Lymphocytes/100 leukocytes i n Blood by Automated countOrdered By: Alana Parkinson on 11-16-2023 Lymphocytes/100 WBC (Bld) 27.9 % Normal . [facility] Comment on above: Performed By: #### C BC, LIPID, A1C WTH eA, CMP #### [place] [address] [place] MCH [Entitic mass] by Automa adalid countOrdered By: Alana Parkinson on 11-16-2023 MCH (RBC) [Entitic mass] 29.8 pg Normal 24.7-34.3 [facility] Comment on above: Performed By: #### C BC, LIPID, A1C WT eA, CMP #### [address] MCHC Auto (RBC) [Mass/Vol]Or dered By: Alana Parkinson on 11-16-2023 MCHC (RBC) [Mass/Vol] 33.2 g/dL 32.0-35.0 [facility] MCV [Entitic volume] by Auto mated countOrdered By: Alana Parkinson on 11-16-2023 MCV (RBC) [Entitic vol] 90.0 fL Normal 80-100 [facility] Comment on above: Performed By: #### C BC, LIPID, A1C [facility] eA, CMP #### [address] Neutrophils [#/volume] in Bl ood by Automated countOrdered By: Alana Parkinson on 11-16-2023 Neutrophils (Bld) [#/Vol] 4.0 10*3/uL Normal 1.8-7.7 [facility] Comment on above: Performed By: #### C BC, LIPID, A1C [facility] eA, CMP #### [address] No Panel InformationOrdered By: Alana Parkinson on 11-16-2023 Estimated GFR (CKD-EPI) > 60.0 mL/Min [facility] Creatinine Clearance (Chem N/A [facility] Nucleated erythrocytes [Pres ence] in Blood by Automated countOrdered By: Alana Parkinson on 11-16-2023 Nucleated RBC Auto Ql (Bld) 0.1 /100{WBC} 0-0.5 [facility] Platelet mean volume [Entiti c volume] in Blood by Automated countOrdered By: Alana Parkinson on 11-16-2023 Platelet mean volume (Bld) [Entitic vol] 9.3 fL Normal 6.3-10.7 [facility] Comment on above: Performed By: #### C BC, LIPID, A1C WTH eA, CMP #### [address] Platelets [#/volume] in Bloo d by Automated countOrdered By: Alana Parkinson on 11-16-2023 Platelets (Bld) [#/Vol] 187 10*3/uL Normal 150-450 [facility] Comment on above: Performed By: #### C BC, LIPID, A1C WTH eA, CMP #### [address] Potassium [Moles/volume] in Serum or PlasmaOrdered By: Alana Parkinson on 11-16-2023 Potassium [Moles/Vol] 4.2 mmol/L Normal 3.5-5.1 [facility] Comment on above: Performed By: #### C BC, LIPID, A1C WTH eA, CMP #### [address] Protein [Mass/volume] in Ser um or PlasmaOrdered By: Alana Parkinson on 11-16-2023 Protein [Mass/Vol] 6.0 g/dL Low 6.4-8.9 [facility] Comment on above: Performed By: #### C BC, LIPID, A1C WTH eA, CMP #### [address] Serum globulin measurement b y calculation (mass/volume)Ordered By: Alana Parkinson on 11-16-2023 Globulin (S) [Mass/Vol] 2.2 g/dL [facility] Comment on above: Performed By: #### C BC, LIPID, A1C WTH eA, CMP #### [address] Serum or plasma albumin/glob ulin mass ratioOrdered By: Alana Parkinson on 11-16-2023 Albumin/Globulin [Mass ratio] 1.7 {ratio} [facility] Comment on above: Performed By: #### C BC, LIPID, A1C WTH eA, CMP #### [address] Serum or plasma anion gap de terminationOrdered By: Alana Parkinson on 11-16-2023 Anion gap [Moles/Vol] 6.8 mmol/L Normal 6.0-15.0 [facility] Comment on above: Performed By: #### C BC, LIPID, A1C WTH eA, CMP #### [address] Serum or plasma high density lipoprotein (HDL) cholesterol measurementOrdered By: Alana Parkinson on 11-16-2023 Cholesterol in HDL [Mass/Vol] 49 mg/dL Normal 23-92 [facility] Comment on above: HDL CHOL ATP-III CLA SSIFICATION Cardiovascular RiskHDL > or equal to 60 mg/dL LOWHDL < 40 mg/dL HIGH Result Comment: HDL CHOL ATP-III CLASSIFICATION Cardiovascular Risk HDL > or equal to 60 mg/dL LOW HDL < 40 mg/dL HIGH Performed By: #### C BC, LIPID, A1C WTH eA, CMP #### [address] Serum or plasma total choles terol/high density lipoprotein (HDL) cholesterol mass ratOrdered By: Alana Parkinson on 11-16-2023 Cholesterol.total/Chol esterol in HDL [Mass ratio] 4.7 {ratio} Normal <5.0 [facility] Comment on above: Result Comment: PERF ORMED BY: [place] [address] PATHOLOGIST CONTACT LENS LATHE OPERATOR BRODY GARZA M.D. Performed By: #### C BC, LIPID, A1C WTH eA, CMP #### [address] Sodium [Moles/volume] in Ser um or PlasmaOrdered By: Alana Parkinson on 11-16-2023 Sodium [Moles/Vol] 139 mmol/L Normal 136-145 [facility] Comment on above: Performed By: #### C BC, LIPID, A1C WTH eA, CMP #### [address] Triglyceride [Mass/volume] i n Serum or PlasmaOrdered By: Alana Parkinson on 04-16-2024 Triglyceride [Mass/Vol] 155 mg/dL 0-149 [facility] Comment on above: TRIG ATP III CLASSIF ICATIONTRIG less than 150 mg/dL NormalTRIG 150-199 mg/dL Borderline highTRIG 200-500 mg/dL High TRIG greater than 500 mg/dL Very highStandard traceable to the Center for Disease Conrtrol and Prevention (CDC) test method. Urea nitrogen [Mass/volume] in Serum or PlasmaOrdered By: Alana Parkinson on 11-16-2023 Urea nitrogen [Mass/Vol] 13 mg/dL Normal 7-25 [facility] Comment on above: Performed By: #### C BC, LIPID, A1C WTH eA, CMP #### [facility] [address] XR KUBon 11-16-2023 XR KUB [facility] [address] [place] [address] XRay Report Signed Patient: Chela Padilla MR#: [id number] [birth year] : 1955 Acct:[id number] Age/Sex: 68 / F ADM Date: 11/16/23 Loc: XD Room: Type: [facility] Attending Dr: Alana Parkinson DO Copies [...] Cici Andrade M.D.11/16/2023 2:06 PM Dictation Location: [place] [address] Transcribed By: YUNG 11/16/23 1406 Dictated By: Cici Andrade MD 11/16/23 1403 Signed By: 11/16/23 1406 Normal [facility] MM screening mammo BI w/CADo n 08-31-2023 MM screening mammo BI w/CAD [facility] [address] [place], [place] [id number] Mammography Report Signed Patient: Chela Padilla MR#: [id number] [birth year] : 1955 Acct:[id number] Age/Sex: 68 / F ADM Date: 08/31/23 Loc: [place] Room: Type: [facility] Attending Dr: Brigido Man MD Copies [...] Cici Andrade M.D.08/31/2023 2:14 PM Dictation Location: [facility] Transcribed By: YUNG 08/31/23 1414 Dictated By: Cici Andarde MD 08/31/23 1410 Signed By: 08/31/23 1414 Normal [facility] Activated partial thrombopla stin time (aPTT) in platelet poor plasma by coagulation aOrdered By: Jarrett Dang on 07-27-2023 aPTT Coag (PPP) [Time] 26.5 s 25.1-36.5 [facility] Comment on above: A hematocrit value g reater than 55% may lead to inaccurate results in coagulation testing. Patients having hematocrit values >55% require a special collection tube for coagulation studies. Please contact the laboratory at [phone] for redraw instructions. Alanine aminotransferase [En zymatic activity/volume] in Serum or PlasmaOrdered By: Jarrett Dang on 07-27-2023 ALT [Catalytic activity/Vol] 19 U/L Normal 7-52 [facility] Comment on above: Performed By: #### B TRANSPORTATION LEAD, DDIMER, HS TROP, BMP, PT, PTT, CBC, HEPATIC, CK #### [facility] [address] [place] [address] [place] Albumin [Mass/volume] in Ser um or Plasma by Bromocresol green (BCG) dye binding methoOrdered By: Jarrett Dang on 07-27-2023 Albumin BCG dye [Mass/Vol] 3.9 g/dL 3.5-5.7 [facility] Alkaline phosphatase [Enzyma tic activity/volume] in Serum or PlasmaOrdered By: Jarrett Dang on 07-27-2023 ALP [Catalytic activity/Vol] 98 U/L Normal 34-104 [facility] Comment on above: Performed By: #### B TRANSPORTATION LEAD, DDIMER, HS TROP, BMP, PT, PTT, CBC, HEPATIC, CK #### [facility] [address] [place] [id number] [place] Aspartate aminotransferase [ Enzymatic activity/volume] in Serum or PlasmaOrdered By: Jarrett Dang on 07-27-2023 AST [Catalytic activity/Vol] 13 U/L Normal 13-39 [facility] Comment on above: Performed By: #### B TRANSPORTATION LEAD, DDIMER, HS TROP, BMP, PT, PTT, CBC, HEPATIC, CK #### [facility] [address] [place] [address] [place] Automated basophil %Ordered By: Jarrett Dang on 07-27-2023 Basophils/100 WBC (Bld) 1.2 % Normal . [facility] Comment on above: Performed By: #### B TRANSPORTATION LEAD, DDIMER, HS TROP, BMP, PT, PTT, CBC, HEPATIC, CK #### [address] Automated basophil countOrde red By: Jarrett Dang on 07-27-2023 Basophils (Bld) [#/Vol] 0.1 10*3/uL Normal 0.0-0.2 [facility] Comment on above: Result Comment: PERF ORMED BY: [place] [address] PATHOLOGIST CONTACT LENS LATHE OPERATOR BRODY GARZA M.D. Performed By: #### B TRANSPORTATION LEAD, DDIMER, HS TROP, BMP, PT, PTT, CBC, HEPATIC, CK #### [address] Automated blood monocyte cou ntOrdered By: Jarrett Dang on 07-27-2023 Monocytes (Bld) [#/Vol] 0.4 10*3/uL Normal 0.0-0.8 [facility] Comment on above: Performed By: #### B TRANSPORTATION LEAD, DDIMER, HS TROP, BMP, PT, PTT, CBC, HEPATIC, CK #### [address] Automated eosinophil %Ordere d By: Jarrett Dang on 07-27-2023 Eosinophils/100 WBC (Bld) 2.3 % Normal . [facility] Comment on above: Performed By: #### B TRANSPORTATION LEAD, DDIMER, HS TROP, BMP, PT, PTT, CBC, HEPATIC, CK #### [address] Automated eosinophil countOr dered By: Jarrett Dang on 07-27-2023 Eosinophils (Bld) [#/Vol] 0.2 10*3/uL Normal 0.0-0.45 [facility] Comment on above: Performed By: #### B TRANSPORTATION LEAD, DDIMER, HS TROP, BMP, PT, PTT, CBC, HEPATIC, CK #### [facility] [address] Automated monocyte %Ordered By: Jarrett Dang on 07-27-2023 Monocytes/100 WBC (Bld) 5.5 % Normal . [facility] Comment on above: Performed By: #### B TRANSPORTATION LEAD, DDIMER, HS TROP, BMP, PT, PTT, CBC, HEPATIC, CK #### [facility] [address] Automated neutrophil %Ordere d By: Jarrett Dang on 07-27-2023 Neutrophils/100 WBC (Bld) 77.1 % Normal . [facility] Comment on above: Performed By: #### B TRANSPORTATION LEAD, DDIMER, HS TROP, BMP, PT, PTT, CBC, HEPATIC, CK #### [address] BNP ser/plasOrdered By: Dia Dang on 07-27-2023 Natriuretic peptide B (Bld) [Mass/Vol] 129.0 pg/mL High 5-100 [facility] Comment on above: Result Comment: PERF ORMED BY: [place] [address] PATHOLOGIST CONTACT LENS LATHE OPERATOR BRODY GARZA M.D. Performed By: #### B TRANSPORTATION LEAD, DDIMER, HS TROP, BMP, PT, PTT, CBC, HEPATIC, CK ####[address] Basic Metabolic Panelon 12-2 Creatinine Clr Calc Pharmacy 66.11 Normal [facility] Comment on above: Result Comment: PERF ORMED BY: [place] [address] PATHOLOGIST CONTACT LENS LATHE OPERATOR BRODY GARZA M.D. Performed By: #### B TRANSPORTATION LEAD, DDIMER, HS TROP, BMP, PT, PTT, CBC, HEPATIC, CK ####[facility] GFR/1.73 sq M.predicted MDRD (S/P/Bld) [Vol rate/Area] mL/min/{1.73_m2} Normal [facility] Comment on above: Performed By: #### B TRANSPORTATION LEAD, DDIMER, HS TROP, BMP, PT, PTT, CBC, HEPATIC, CK ####[facility] [id number] Bilirubin.direct [Mass/volum e] in Serum or PlasmaOrdered By: Jrarett Dang on 07-27-2023 Bilirubin.direct [Mass/Vol] 0.00 mg/dL 0.03-0.18 [facility] Comment on above: If the DBIL is less than 0.1, IBIL is not able to becalculated. Bilirubin.total [Mass/volume ] in Serum or PlasmaOrdered By: Jarrett Dang on 07-27-2023 Bilirubin [Mass/Vol] 0.5 mg/dL Normal 0.3-1.0 [facility] Comment on above: Performed By: #### B TRANSPORTATION LEAD, DDIMER, HS TROP, BMP, PT, PTT, CBC, HEPATIC, CK #### [facility] [address] COVID CepheidOrdered By: Melissa Dang on 07-27-2023 SARS-CoV-2 (COVID-19) Ab IA Ql Negative Negative [facility] Comment on above: This is a duplicate Cepheid Xpert Xpress CoV-2/Flu/RSV Plus RNA by RT-PCR result to be used for statistical tracking purpose only. SARS-CoV-2 (COVID-19) RNA LATANYA+probe Ql (Unsp spec) [facility] COVID-19 / Flu A/B / RSV PCR [...] or Cepheid Disclaimer revoked sooner. PERFORMED BY: [place] [address] PATHOLOGIST CONTACT LENS LATHE OPERATOR BRODY GARZA M.D. Normal [facility] Comment on above: Performed By: #### C OVID19 FLU RSV, CEPHEID NEG ####[facility] [id number] [place] [id number] [facility] CT chest w christopher 07-27-2023 CT chest w [facility] [address] [place] [id number] Scan Report Signed Patient: Chela Padilla MR#: [id number] 06 : 1955 Acct:[id number] Age/Sex: 68 / F ADM Date: 07/27/23 Loc: ER Room: Type: [facility] ER Attending Dr: Copies to: Jarrett Dang DO Ordering Provider: Jarrett Dang DO Date of Service: 07/27/23 CT/CT chest w con: back pain ([id number]) CT/CT abdomen pelvis w con: back pain [...] Cici Andrade M.D.07/27/2023 1:30 PM Dictation Location: [place] [address] Transcribed By: [facility] 07/27/23 1330 Dictated By: Cici Andrade MD 07/27/23 1318 Signed By: 07/27/23 1330 Normal [facility] Calcium [Mass/volume] in Ser um or PlasmaOrdered By: Jarrett Dang on 07-27-2023 Calcium [Mass/Vol] 9.1 mg/dL Normal 8.6-10.3 [facility] Comment on above: Performed By: #### B TRANSPORTATION LEAD, DDIMER, HS TROP, BMP, PT, PTT, CBC, HEPATIC, CK ####[facility] [id number] [place] [id number] [facility] Carbon dioxide, total [Moles /volume] in Serum or PlasmaOrdered By: Jarrett Dang on 07-27-2023 CO2 [Moles/Vol] 27.6 mmol/L Normal 21.0-31.0 [facility] Comment on above: Performed By: #### B TRANSPORTATION LEAD, DDIMER, HS TROP, BMP, PT, PTT, CBC, HEPATIC, CK ####[facility] [id number] [place] [address] [facility] Cepheid COVID PCR Negativeon 07-27-2023 SARS-CoV-2 (COVID-19) RNA LATANYA+probe Ql (Unsp spec) Negative Normal Negative [facility] Comment on above: Result Comment: This is a duplicate Cepheid Xpert Xpress CoV-2/Flu/RSV Plus RNA by RT-PCR result to be used for statistical tracking purpose only. PERFORMED BY: [facility] [address] [place] [address] PATHOLOGIST CONTACT LENS LATHE OPERATOR BRODY GARZA M.D. Performed By: #### C OVID19 FLU RSV, CEPHEID NEG ####[address] Chloride [Moles/volume] in S atul or PlasmaOrdered By: Jarrett Dang on 07-27-2023 Chloride [Moles/Vol] 104 mmol/L Normal 98-107 [facility] Comment on above: Performed By: #### B TRANSPORTATION LEAD, DDIMER, HS TROP, BMP, PT, PTT, CBC, HEPATIC, CK ####[place] [id number] Complete Blood Count Auto Di ffon 07-27-2023 Mean Corpuscular HGB Conc 34.1 g/dL Normal 32.0-35.0 [facility] Comment on above: Performed By: #### B TRANSPORTATION LEAD, DDIMER, HS TROP, BMP, PT, PTT, CBC, HEPATIC, CK #### [address] Monocytes/100 WBC (Bld) 18.82 % Normal 0.00-20.00 [facility] Comment on above: Performed By: #### B TRANSPORTATION LEAD, DDIMER, HS TROP, BMP, PT, PTT, CBC, HEPATIC, CK #### [facility] [address] NRBC% 0.1 /100{WBC} Normal 0-0.5 [facility] Comment on above: Performed By: #### B TRANSPORTATION LEAD, DDIMER, HS TROP, BMP, PT, PTT, CBC, HEPATIC, CK #### [facility] [address] [place] [address] [place] Creatine kinase [Enzymatic a ctivity/volume] in Serum or PlasmaOrdered By: Jarrett Dang on 07-27-2023 CK [Catalytic activity/Vol] 100 U/L Normal 30-223 [facility] Comment on above: Performed By: #### B TRANSPORTATION LEAD, DDIMER, HS TROP, BMP, PT, PTT, CBC, HEPATIC, CK ####[address] [place] [address] [facility] Creatinine [Mass/volume] in Serum or PlasmaOrdered By: Jarrett Dang on 07-27-2023 Creatinine [Mass/Vol] 0.65 mg/dL Normal 0.60-1.20 [facility] Comment on above: Performed By: #### B TRANSPORTATION LEAD, DDIMER, HS TROP, BMP, PT, PTT, CBC, HEPATIC, CK ####[place] [address] [place] [address] [facility] D-Dimer High Sensitivityon 1 09-27-2022 D-Dimer High Sensitivity < 200 Normal 0-243 [facility] Comment on above: Result Comment: [...] coagulation studies. Please contact the laboratory at [phone] for redraw instructions. PERFORMED BY: [place] [address] PATHOLOGIST CONTACT LENS LATHE OPERATOR BRODY GARZA M.D. Performed By: #### B TRANSPORTATION LEAD, DDIMER, HS TROP, BMP, PT, PTT, CBC, HEPATIC, CK ####[place] [address] [place] [address] [facility] ECG 12 lead ECGon 07-27-2023 ECG 12 lead ECG [facility] [address] [place], [place] [id number] Electrocardiograph Report Signed Patient: Chela Padilla MR#: [id number] 06 : 1955 Acct:[id number] Age/Sex: 68 / F ADM Date: 07/27/23 Loc: ER Room: Type: [facility] ER Attending Dr: Ordering Provider: Jarrett Dang [...] Anterior leads Confirmed by Jarrett Dang DO ([id number]) on 07/27/2023 1:55:56 PM Referred By: Electronically Signed By:Jarrett Dang DO Transcribed By: MUS Signed By Jarrett Dang DO 3 1356 Normal [facility] Erythrocyte distribution wid th [Ratio] by Automated countOrdered By: Jarrett Dang on 07-27-2023 Erythrocyte distribution width (RBC) [Ratio] 13.3 % Normal 11.9-15.3 [facility] Comment on above: Performed By: #### B TRANSPORTATION LEAD, DDIMER, HS TROP, BMP, PT, PTT, CBC, HEPATIC, CK #### [facility] [address] Erythrocytes [#/volume] in B lood by Automated countOrdered By: Jarrett Dang on 07-27-2023 RBC (Bld) [#/Vol] 4.66 10*6/uL Normal 3.60-5.00 [facility] Comment on above: Performed By: #### B TRANSPORTATION LEAD, DDIMER, HS TROP, BMP, PT, PTT, CBC, HEPATIC, CK #### [facility] [address] Fibrin D-dimer [Presence] in Platelet poor plasma by Latex agglutinationOrdered By: Jarrett Dang on 07-27-2023 Fibrin D-dimer LA Ql (PPP) < 200 ng/mL 0-243 [facility] Comment on above: The reference range for [...] coagulation studies. Please contact the laboratory at [phone] for redraw instructions. Glucose [Mass/volume] in Ser um or PlasmaOrdered By: Jarrett Dang on 07-27-2023 Glucose [Mass/Vol] 297 mg/dL High 70-100 [facility] Comment on above: ADA recommended refe rence rangeRandom Glucose Reference Range is dependent on time and content of last meal. Glucose of more than 200 mg/dL in a nonstressed, ambulatory subject supports the diagnosis of Diabetes Mellitus. Result Comment: [place] om Glucose Reference Range is dependent on time and content of last meal. Glucose of more than 200 mg/dL in a nonstressed, ambulatory subject supports the diagnosis of Diabetes Mellitus. ADA recommended reference range Performed By: #### B TRANSPORTATION LEAD, DDIMER, HS TROP, BMP, PT, PTT, CBC, HEPATIC, CK ####[facility] [id number] Hematocrit [Volume Fraction] of Blood by Automated countOrdered By: Jarrett Dang on 07-27-2023 Hematocrit (Bld) [Volume fraction] 41.9 % Normal 34.0-46.4 [facility] Comment on above: Performed By: #### B TRANSPORTATION LEAD, DDIMER, HS TROP, BMP, PT, PTT, CBC, HEPATIC, CK #### [facility] [address] Hemoglobin [Mass/volume] in BloodOrdered By: Jarrett Dang on 07-27-2023 Hemoglobin (Bld) [Mass/Vol] 14.3 g/dL Normal 11.8-15.4 [facility] Comment on above: Performed By: #### B TRANSPORTATION LEAD, DDIMER, HS TROP, BMP, PT, PTT, CBC, HEPATIC, CK #### [facility] [address] Hepatic Panelon 07-27-2023 Albumin [Mass/Vol] 3.9 g/dL Normal 3.5-5.7 [facility] Comment on above: Performed By: #### B TRANSPORTATION LEAD, DDIMER, HS TROP, BMP, PT, PTT, CBC, HEPATIC, CK #### [facility] [address] Bilirubin,Indirect 0.5 mg/dL Normal [facility] Comment on above: Performed By: #### B TRANSPORTATION LEAD, DDIMER, HS TROP, BMP, PT, PTT, CBC, HEPATIC, CK #### [facility] [address] Bilirubin.indirect [Mass/Vol] 0.00 mg/dL Low 0.03-0.18 [facility] Comment on above: Result Comment: If t he DBIL is less than 0.1, IBIL is not able to be calculated. Performed By: #### B TRANSPORTATION LEAD, DDIMER, HS TROP, BMP, PT, PTT, CBC, HEPATIC, CK #### [facility] [address] INR in Platelet poor plasma by Coagulation assayOrdered By: Jarrett Dang on 07-27-2023 INR Coag (PPP) [Relative time] 0.9 {INR} Normal [facility] Comment on above: INR Therapeutic Rang e [...] 3 - 4.5 Performed By: #### B TRANSPORTATION LEAD, DDIMER, HS TROP, BMP, PT, PTT, CBC, HEPATIC, CK ####[facility] [id number] Leukocytes [#/volume] correc adalid for nucleated erythrocytes in Blood by Automated counOrdered By: Jarrett Dang on 07-27-2023 WBC corrected for nucl RBC Auto (Bld) [#/Vol] 7.7 10*3/uL 3.8-11.6 [facility] Leukocytes [#/volume] in Blo od by Automated countOrdered By: Jarrett Dang on 07-27-2023 WBC (Bld) [#/Vol] 7.7 10*3/uL Normal 3.8-11.6 [facility] Comment on above: Performed By: #### B TRANSPORTATION LEAD, DDIMER, HS TROP, BMP, PT, PTT, CBC, HEPATIC, CK #### [facility] [address] Lymphocytes [#/volume] in Bl ood by Automated countOrdered By: Jarrett Dang on 07-27-2023 Lymphocytes (Bld) [#/Vol] 1.1 10*3/uL Normal 1.00-4.8 [facility] Comment on above: Performed By: #### B TRANSPORTATION LEAD, DDIMER, HS TROP, BMP, PT, PTT, CBC, HEPATIC, CK #### [facility] [address] [place] [address] [place] Lymphocytes/100 leukocytes i n Blood by Automated countOrdered By: Jarrett Dang on 07-27-2023 Lymphocytes/100 WBC (Bld) 13.9 % Normal . [facility] Comment on above: Performed By: #### B TRANSPORTATION LEAD, DDIMER, HS TROP, BMP, PT, PTT, CBC, HEPATIC, CK #### [facility] [address] [place] [address] [place] MCH [Entitic mass] by Automa adalid countOrdered By: Jarrett Dang on 07-27-2023 MCH (RBC) [Entitic mass] 30.6 pg Normal 24.7-34.3 [facility] Comment on above: Performed By: #### B TRANSPORTATION LEAD, DDIMER, HS TROP, BMP, PT, PTT, CBC, HEPATIC, CK #### [facility] [address] MCHC Auto (RBC) [Mass/Vol]Or dered By: Jarrett Dang on 07-27-2023 MCHC (RBC) [Mass/Vol] 34.1 g/dL 32.0-35.0 [facility] MCV [Entitic volume] by Auto mated countOrdered By: Jarrett Dang on 07-27-2023 MCV (RBC) [Entitic vol] 89.9 fL Normal 80-100 [facility] Comment on above: Performed By: #### B TRANSPORTATION LEAD, DDIMER, HS TROP, BMP, PT, PTT, CBC, HEPATIC, CK #### [facility] [address] Monocyte distribution width [Entitic volume] in Blood by AutomatedOrdered By: Jarrett Dang on 07-27-2023 Monocyte distribution width Auto (Bld) [Entitic vol] 18.82 % 0.00-20.00 [facility] Neutrophils [#/volume] in Bl ood by Automated countOrdered By: Jarrett Dang on 07-27-2023 Neutrophils (Bld) [#/Vol] 5.9 10*3/uL Normal 1.8-7.7 [facility] Comment on above: Performed By: #### B TRANSPORTATION LEAD, DDIMER, HS TROP, BMP, PT, PTT, CBC, HEPATIC, CK #### [facility] [address] No Panel InformationOrdered By: Jarrett Dang on 07-27-2023 Estimated GFR (CKD-EPI) > 60.0 mL/Min [facility] Creatinine Clearance (Chem 66.11 [facility] Nucleated erythrocytes [Pres ence] in Blood by Automated countOrdered By: Jarrett Dang on 07-27-2023 Nucleated RBC Auto Ql (Bld) 0.1 /100{WBC} 0-0.5 [facility] Partial Thromboplastin Timeo n 07-27-2023 aPTT Coag (Bld) [Time] 26.5 s Normal 25.1-36.5 [facility] Comment on above: Result Comment: A he matocrit value greater than 55% may lead to inaccurate results in coagulation testing. Patients having hematocrit values >55% require a special collection tube for coagulation studies. Please contact the laboratory at [phone] for redraw instructions. Performed By: #### B TRANSPORTATION LEAD, DDIMER, HS TROP, BMP, PT, PTT, CBC, HEPATIC, CK ####[facility] [id number] [place] [address] [place] Platelet mean volume [Entiti c volume] in Blood by Automated countOrdered By: Jarrett Dang on 07-27-2023 Platelet mean volume (Bld) [Entitic vol] 9.0 fL Normal 6.3-10.7 [facility] Comment on above: Performed By: #### B TRANSPORTATION LEAD, DDIMER, HS TROP, BMP, PT, PTT, CBC, HEPATIC, CK #### [facility] [address] [place] [address] [place] Platelets [#/volume] in Bloo d by Automated countOrdered By: Jarrett Dang on 07-27-2023 Platelets (Bld) [#/Vol] 167 10*3/uL Normal 150-450 [facility] Comment on above: Performed By: #### B TRANSPORTATION LEAD, DDIMER, HS TROP, BMP, PT, PTT, CBC, HEPATIC, CK #### [facility] [address] [place] [id number] [place] Potassium [Moles/volume] in Serum or PlasmaOrdered By: Jarrett Dang on 07-27-2023 Potassium [Moles/Vol] 4.0 mmol/L Normal 3.5-5.1 [facility] Comment on above: Performed By: #### B TRANSPORTATION LEAD, DDIMER, HS TROP, BMP, PT, PTT, CBC, HEPATIC, CK ####[facility] [id number] [place] [id number] [place] Protein [Mass/volume] in Ser um or PlasmaOrdered By: Jarrett Dang on 07-27-2023 Protein [Mass/Vol] 6.4 g/dL Normal 6.4-8.9 [facility] Comment on above: Performed By: #### B TRANSPORTATION LEAD, DDIMER, HS TROP, BMP, PT, PTT, CBC, HEPATIC, CK #### [facility] [address] Prothrombin time (PT)Ordered By: Jarrett Dang on 07-27-2023 PT Coag (PPP) [Time] 10.5 s Normal 9.0-12.9 [facility] Comment on above: A hematocrit value g reater than 55% may lead to inaccurate results in coagulation testing. Patients having hematocrit values >55% require a special collection tube for coagulation studies. Please contact the laboratory at [phone] for redraw instructions. Result Comment: A he matocrit value greater than 55% may lead to inaccurate results in coagulation testing. Patients having hematocrit values >55% require a special collection tube for coagulation studies. Please contact the laboratory at [phone] for redraw instructions. Performed By: #### B TRANSPORTATION LEAD, DDIMER, HS TROP, BMP, PT, PTT, CBC, HEPATIC, CK ####[facility] Serum globulin measurement b y calculation (mass/volume)Ordered By: Jarrett Dang on 07-27-2023 Globulin (S) [Mass/Vol] 2.5 g/dL [facility] Comment on above: Performed By: #### B TRANSPORTATION LEAD, DDIMER, HS TROP, BMP, PT, PTT, CBC, HEPATIC, CK #### [facility] [address] Serum or plasma albumin/glob ulin mass ratioOrdered By: Jarrett Dang on 07-27-2023 Albumin/Globulin [Mass ratio] 1.6 {ratio} [facility] Comment on above: Performed By: #### B TRANSPORTATION LEAD, DDIMER, HS TROP, BMP, PT, PTT, CBC, HEPATIC, CK #### [facility] [address] Serum or plasma anion gap de terminationOrdered By: Jarrett Dang on 07-27-2023 Anion gap [Moles/Vol] 10.4 mmol/L Normal 6.0-15.0 [facility] Comment on above: Performed By: #### B TRANSPORTATION LEAD, DDIMER, HS TROP, BMP, PT, PTT, CBC, HEPATIC, CK ####[place] [address] [place] [id number] [facility] Serum or plasma non-glucuron idated bilirubin measurement (mass/volume)Ordered By: Jarrett Dang on 07-27-2023 Bilirubin.indirect [Mass/Vol] 0.5 mg/dL [facility] Sodium [Moles/volume] in Ser um or PlasmaOrdered By: Jarrett Dang on 07-27-2023 Sodium [Moles/Vol] 138 mmol/L Normal 136-145 [facility] Comment on above: Performed By: #### B TRANSPORTATION LEAD, DDIMER, HS TROP, BMP, PT, PTT, CBC, HEPATIC, CK ####[place] [address] [place] [id number] [facility] Troponin I High Sensitivityo n 07-27-2023 Troponin I High Sensitivity 4.4 pg/mL Normal 0.0-15.0 [facility] Comment on above: Result Comment: PERF ORMED BY: [facility] [address] [place] [id number] PATHOLOGIST CONTACT LENS LATHE OPERATOR BRODY GARZA M.D. Performed By: #### B TRANSPORTATION LEAD, DDIMER, HS TROP, BMP, PT, PTT, CBC, HEPATIC, CK ####[place] [id number] [facility] Troponin I.cardiac [Mass/vol ume] in Serum or Plasma by Detection limit <= 0.01 ng/Ordered By: Jarrett Dang on 07-27-2023 Troponin I.cardiac DL <= 0.01 ng/mL [Mass/Vol] 4.4 pg/mL 0.0-15.0 [facility] Urea nitrogen [Mass/volume] in Serum or PlasmaOrdered By: Jarrett Dang on 07-27-2023 Urea nitrogen [Mass/Vol] 13 mg/dL Normal 7-25 [facility] Comment on above: Performed By: #### B TRANSPORTATION LEAD, DDIMER, HS TROP, BMP, PT, PTT, CBC, HEPATIC, CK ####[facility] XR chest 1V portableon 07-27 XR chest 1V portable [facility] [address] [place] [address] XRay Report Signed Patient: Chela Padilla MR#: [id number] 06 : 1955 Acct:[id number] Age/Sex: 68 / F ADM Date: 07/27/23 Loc: ER Room: Type: [facility] ER Attending Dr: Copies to: Jarrett Dang [...] Maxwell Jr., D.O.07/27/2023 10:57 AM Dictation Location: [place] [address] Transcribed By: YUNG 07/27/23 105 Dictated By: Moo Maxwell Jr, DO 07/27/23 105 Signed By: 07/27/23 105 Normal [facility] Alanine aminotransferase [En zymatic activity/volume] in Serum or PlasmaOrdered By: Alana Parkinson on 06-18-2023 ALT [Catalytic activity/Vol] 18 U/L Normal [facility] Comment on above: Performed By: #### A DDONUAPLUS, CMP, TSH3, A1C WTH eA, URMACRERAT, CUU, LIPID, CBC ####[facility] [id number] Albumin [Mass/volume] in Ser um or Plasma by Bromocresol green (BCG) dye binding methoOrdered By: Alana Parkinson on 06-18-2023 Albumin BCG dye [Mass/Vol] 3.8 g/dL 3.5-5.7 [facility] Alkaline phosphatase [Enzyma tic activity/volume] in Serum or PlasmaOrdered By: Alana Parkinson on 06-18-2023 ALP [Catalytic activity/Vol] 115 U/L High 34-104 [facility] Comment on above: Performed By: #### A DDONUAPLUS, CMP, TSH3, A1C WTH eA, URMACRERAT, CUU, LIPID, CBC ####[address] Aspartate aminotransferase [ Enzymatic activity/volume] in Serum or PlasmaOrdered By: Alana Parkinson on 06-18-2023 AST [Catalytic activity/Vol] 11 U/L Low 13-39 [facility] Comment on above: Performed By: #### A DDONUAPLUS, CMP, TSH3, A1C WTH eA, URMACRERAT, CUU, LIPID, CBC ####[address] Automated basophil %Ordered By: Alana Parkinson on 06-18-2023 Basophils/100 WBC (Bld) 1.3 % Normal . [facility] Comment on above: Performed By: #### A DDONUAPLUS, CMP, TSH3, A1C WTH eA, URMACRERAT, CUU, LIPID, CBC ####[address] Automated basophil countOrde red By: Alana Parkinson on 06-18-2023 Basophils (Bld) [#/Vol] 0.1 10*3/uL Normal 0.0-0.2 [facility] Comment on above: Result Comment: PERF ORMED BY: [facility] [address] [place] [address] PATHOLOGIST CONTACT LENS LATHE OPERATOR BRODY GARZA M.D. Performed By: #### A DDONUAPLUS, CMP, TSH3, A1C WTH eA, URMACRERAT, CUU, LIPID, CBC ####[place] [id number] [facility] Automated blood monocyte cou ntOrdered By: Alana Parkinson on 06-18-2023 Monocytes (Bld) [#/Vol] 0.4 10*3/uL Normal 0.0-0.8 [facility] Comment on above: Performed By: #### A DDONUAPLUS, CMP, TSH3, A1C WTH eA, URMACRERAT, CUU, LIPID, CBC ####[place] [id number] Automated eosinophil %Ordere d By: Alana Parkinson on 06-18-2023 Eosinophils/100 WBC (Bld) 4.5 % Normal . [facility] Comment on above: Performed By: #### A DDONUAPLUS, CMP, TSH3, A1C WTH eA, URMACRERAT, CUU, LIPID, CBC ####[address] Automated eosinophil countOr dered By: Alana Parkinson on 06-18-2023 Eosinophils (Bld) [#/Vol] 0.3 10*3/uL Normal 0.0-0.45 [facility] Comment on above: Performed By: #### A DDONUAPLUS, CMP, TSH3, A1C WTH eA, URMACRERAT, CUU, LIPID, CBC ####[address] Automated erythrocytes count in urine sediment (number/area)Ordered By: Alana Parkinson on 06-18-2023 RBC Auto (Urine sed) [#/Area] 0-1 [HPF] 0-4 [facility] Automated leukocytes count i n urine sediment (number/area)Ordered By: Alana Parkinson on 06-18-2023 WBC Auto (Urine sed) [#/Area] 20-49 [HPF] 0-4 [facility] Automated monocyte %Ordered By: Alana Parkinson on 06-18-2023 Monocytes/100 WBC (Bld) 5.8 % Normal . [facility] Comment on above: Performed By: #### A DDONUAPLUS, CMP, TSH3, A1C WTH eA, URMACRERAT, CUU, LIPID, CBC ####[address] Automated neutrophil %Ordere d By: Alana Parkinson on 06-18-2023 Neutrophils/100 WBC (Bld) 61.4 % Normal . [facility] Comment on above: Performed By: #### A DDONUAPLUS, CMP, TSH3, A1C WTH eA, URMACRERAT, CUU, LIPID, CBC ####[address] [place] [address] [facility] Automated urine color determ inationOrdered By: Alana Parkinson on 06-18-2023 Color (U) Yellow Normal Yellow [facility] Comment on above: Order Comment: Name Collection Type:: Clean-Voided Midstream Performed By: #### A DDONUAPLUS, CMP, TSH3, A1C WTH eA, URMACRERAT, CUU, LIPID, CBC ####[id number] [place] [id number] [facility] Bilirubin Test strip Ql (U)O rdered By: Alana Parkinson on 06-18-2023 Bilirubin Ql (U) Negative Negative [facility] Bilirubin.total [Mass/volume ] in Serum or PlasmaOrdered By: Alana Parkinson on 06-18-2023 Bilirubin [Mass/Vol] 0.5 mg/dL Normal 0.3-1.0 [facility] Comment on above: Performed By: #### A DDONUAPLUS, CMP, TSH3, A1C WTH eA, URMACRERAT, CUU, LIPID, CBC ####[place] [id number] [facility] Calcium [Mass/volume] in Ser um or PlasmaOrdered By: Alana Parkinson on 06-18-2023 Calcium [Mass/Vol] 9.1 mg/dL Normal 8.6-10.3 [facility] Comment on above: Performed By: #### A DDONUAPLUS, CMP, TSH3, A1C WTH eA, URMACRERAT, CUU, LIPID, CBC ####[address] [place] [address] [facility] Carbon dioxide, total [Moles /volume] in Serum or PlasmaOrdered By: Alana Parkinson on 06-18-2023 CO2 [Moles/Vol] 30.4 mmol/L Normal 21.0-31.0 [facility] Comment on above: Performed By: #### A DDONUAPLUS, CMP, TSH3, A1C WTH eA, URMACRERAT, CUU, LIPID, CBC ####[facility] [id number] [place] [address] [place] Chloride [Moles/volume] in S atul or PlasmaOrdered By: Alana Parkinson on 06-18-2023 Chloride [Moles/Vol] 102 mmol/L Normal 98-107 [facility] Comment on above: Performed By: #### A DDONUAPLUS, CMP, TSH3, A1C WTH eA, URMACRERAT, CUU, LIPID, CBC ####[facility] [id number] [place] [id number] [facility] Cholesterol [Mass/volume] in Serum or PlasmaOrdered By: Alana Parkinson on 06-18-2023 Cholesterol [Mass/Vol] 210 mg/dL High 140-200 [facility] Comment on above: Chol less than 200 m g/dl low riskChol 201-239 mg/dl borderline riskChol 240 mg/dl and greater high risk Result Comment: Chol less than 200 mg/dl low risk Chol 201-239 mg/dl borderline risk Chol 240 mg/dl and greater high risk Performed By: #### A DDONUAPLUS, CMP, TSH3, A1C WTH eA, URMACRERAT, CUU, LIPID, CBC ####[facility] [id number] [place] [id number] [facility] Cholesterol in LDL Calc [Mas s/Vol]Ordered By: Alana Parkinson on 06-18-2023 Cholesterol in LDL [Mass/Vol] 135 mg/dL 0-100 [facility] Comment on above: LDL ATP III CLASSIFI CATIONLDL less than 100 mg/dL OptimalLDL 100-129 mg/dL Near or above optimalLDL 130-159 mg/dL Borderline highLDL 160-189 mg/dL HighLDL greater than 189 mg/dL Very high Cholesterol in VLDL Calc [Ma ss/Vol]Ordered By: Alana Parkinson on 06-18-2023 Cholesterol in VLDL [Mass/Vol] 28 mg/dL [facility] Complete Blood Count Auto Di ffon 06-18-2023 Mean Corpuscular HGB Conc 33.1 g/dL Normal 32.0-35.0 [facility] Comment on above: Performed By: #### A DDONUAPLUS, CMP, TSH3, A1C WTH eA, URMACRERAT, CUU, LIPID, CBC ####[address] [place] [address] [facility] NRBC% 0.1 /100{WBC} Normal 0-0.5 [facility] Comment on above: Performed By: #### A DDONUAPLUS, CMP, TSH3, A1C WTH eA, URMACRERAT, CUU, LIPID, CBC ####[address] [place] [id number] [facility] Comprehensive Metabolic Pane shalini 06-18-2023 Albumin [Mass/Vol] 3.8 g/dL Normal 3.5-5.7 [facility] Comment on above: Performed By: #### A DDONUAPLUS, CMP, TSH3, A1C WTH eA, URMACRERAT, CUU, LIPID, CBC ####[place] [id number] [facility] GFR/1.73 sq M.predicted MDRD (S/P/Bld) [Vol rate/Area] mL/min/{1.73_m2} Normal [facility] Comment on above: Performed By: #### A DDONUAPLUS, CMP, TSH3, A1C WTH eA, URMACRERAT, CUU, LIPID, CBC ####[place] [id number] [facility] Creatinine [Mass/volume] in Serum or PlasmaOrdered By: Alana Parkinson on 06-18-2023 Creatinine [Mass/Vol] 0.68 mg/dL Normal 0.60-1.20 [facility] Comment on above: Performed By: #### A DDONUAPLUS, CMP, TSH3, A1C WTH eA, URMACRERAT, CUU, LIPID, CBC ####[address] [address] [facility] Creatinine [Mass/volume] in UrineOrdered By: Alana Parkinson on 06-18-2023 Creatinine (U) [Mass/Vol] 59.0 mg/dL 11.0-20.0 [facility] Dipstick and Microscopicon 1 08-18-2022 Appearance (U) Clear Normal Clear [facility] Comment on above: Order Comment: Name Collection Type:: Clean-Voided Midstream Performed By: #### A DDONUAPLUS, CMP, TSH3, A1C WTH eA, URMACRERAT, CUU, LIPID, CBC ####[place] [id number] [facility] Bacteria,Urine 1+ High None Seen [facility] Comment on above: Order Comment: Name Collection Type:: Clean-Voided Midstream Performed By: #### A DDONUAPLUS, CMP, TSH3, A1C WTH eA, URMACRERAT, CUU, LIPID, CBC ####[address] Bilirubin,Urine Negative Normal Negative [facility] Comment on above: Order Comment: Name Collection Type:: Clean-Voided Midstream Performed By: #### A DDONUAPLUS, CMP, TSH3, A1C WTH eA, URMACRERAT, CUU, LIPID, CBC ####[address] [address] [facility] Glucose Ql (U) >=1000 High Normal [facility] Comment on above: Order Comment: Name Collection Type:: Clean-Voided Midstream Performed By: #### A DDONUAPLUS, CMP, TSH3, A1C WTH eA, URMACRERAT, CUU, LIPID, CBC ####[address] [address] [facility] Hyaline Casts,Urine 0-8 Normal 0-8 [facility] Comment on above: Order Comment: Name Collection Type:: Clean-Voided Midstream Result Comment: PERF ORMED BY: [facility] [address] [place] [id number] PATHOLOGIST CONTACT LENS LATHE OPERATOR BRODY GARZA M.D. Performed By: #### A DDONUAPLUS, CMP, TSH3, A1C WTH eA, URMACRERAT, CUU, LIPID, CBC ####[address] Ketones Ql (U) Negative Normal Negative [facility] Comment on above: Order Comment: Name Collection Type:: Clean-Voided Midstream Performed By: #### A DDONUAPLUS, CMP, TSH3, A1C WTH eA, URMACRERAT, CUU, LIPID, CBC ####[place] [id number] [facility] Leukocyte esterase Test strip Ql (U) 2+ High Negative [facility] Comment on above: Order Comment: Name Collection Type:: Clean-Voided Midstream Performed By: #### A DDONUAPLUS, CMP, TSH3, A1C WTH eA, URMACRERAT, CUU, LIPID, CBC ####[address] Nitrite,Urine Negative Normal Negative [facility] Comment on above: Order Comment: Name Collection Type:: Clean-Voided Midstream Performed By: #### A DDONUAPLUS, CMP, TSH3, A1C WTH eA, URMACRERAT, CUU, LIPID, CBC ####[place] [id number] [facility] Occult Blood,Urine Negative Normal Negative [facility] Comment on above: Order Comment: Name Collection Type:: Clean-Voided Midstream Result Comment: PERF ORMED BY: [facility] [address] [place] [address] PATHOLOGIST CONTACT LENS LATHE OPERATOR BRODY GARZA M.D. Performed By: #### A DDONUAPLUS, CMP, TSH3, A1C WTH eA, URMACRERAT, CUU, LIPID, CBC ####[address] Protein,Urine Negative Normal Negative [facility] Comment on above: Order Comment: Name Collection Type:: Clean-Voided Midstream Performed By: #### A DDONUAPLUS, CMP, TSH3, A1C WTH eA, URMACRERAT, CUU, LIPID, CBC ####[address] RBC LM.HPF (Urine sed) [#/Area] 0 /[HPF] Normal 0-4 [facility] Comment on above: Order Comment: Name Collection Type:: Clean-Voided Midstream Performed By: #### A DDONUAPLUS, CMP, TSH3, A1C WTH eA, URMACRERAT, CUU, LIPID, CBC ####[address] Specificy [place],Urine 1.031 High 1.001-1.03 0 [facility] Comment on above: Order Comment: Name Collection Type:: Clean-Voided Midstream Performed By: #### A DDONUAPLUS, CMP, TSH3, A1C WTH eA, URMACRERAT, CUU, LIPID, CBC ####[address] Squamous Epithelial Cell,Urine 3-4 High 0-2 [facility] Comment on above: Order Comment: Name Collection Type:: Clean-Voided Midstream Performed By: #### A DDONUAPLUS, CMP, TSH3, A1C WTH eA, URMACRERAT, CUU, LIPID, CBC ####[address] Urobilinogen,Urine Normal Normal Normal [facility] Comment on above: Order Comment: Name Collection Type:: Clean-Voided Midstream Performed By: #### A DDONUAPLUS, CMP, TSH3, A1C WTH eA, URMACRERAT, CUU, LIPID, CBC ####[address] WBC,Urine 20-49 High 0-4 [facility] Comment on above: Order Comment: Name Collection Type:: Clean-Voided Midstream Performed By: #### A DDONUAPLUS, CMP, TSH3, A1C WTH eA, URMACRERAT, CUU, LIPID, CBC ####[address] [address] [facility] Erythrocyte distribution wid th [Ratio] by Automated countOrdered By: Alana Parkinson on 06-18-2023 Erythrocyte distribution width (RBC) [Ratio] 13.1 % Normal 11.9-15.3 [facility] Comment on above: Performed By: #### A DDONUAPLUS, CMP, TSH3, A1C WTH eA, URMACRERAT, CUU, LIPID, CBC ####[facility] [place] [id number] [facility] Erythrocytes [#/volume] in B lood by Automated countOrdered By: Alana Parkinson on 06-18-2023 RBC (Bld) [#/Vol] 4.69 10*6/uL Normal 3.60-5.00 [facility] Comment on above: Performed By: #### A DDONUAPLUS, CMP, TSH3, A1C WTH eA, URMACRERAT, CUU, LIPID, CBC ####[id number] [place] [id number] [facility] Glucose [Mass/volume] in Ser um or PlasmaOrdered By: Alana Parkinson on 06-18-2023 Glucose [Mass/Vol] 329 mg/dL Normal [facility] Comment on above: ADA recommended refe rence rangeRandom Glucose Reference Range is dependent on time and content of last meal. Glucose of more than 200 mg/dL in a nonstressed, ambulatory subject supports the diagnosis of Diabetes Mellitus. Result Comment: [place] om Glucose Reference Range is dependent on time and content of last meal. Glucose of more than 200 mg/dL in a nonstressed, ambulatory subject supports the diagnosis of Diabetes Mellitus. ADA recommended reference range Performed By: #### A DDONUAPLUS, CMP, TSH3, A1C WTH eA, URMACRERAT, CUU, LIPID, CBC ####[facility] [place] [id number] [facility] Result Comment: PERF ORMED BY: [facility] [address] [place] [id number] PATHOLOGIST CONTACT LENS LATHE OPERATOR BRODY GARZA M.D. Glucose mean value [Mass/vol ume] in Blood Estimated from glycated hemoglobinOrdered By: Alana Parkinson on 06-18-2023 Average glucose Estimated from glycated hemoglobin (Bld) [Mass/Vol] 329 mg/dL [facility] Hematocrit [Volume Fraction] of Blood by Automated countOrdered By: Alana Parkinson on 06-18-2023 Hematocrit (Bld) [Volume fraction] 42.6 % Normal 34.0-46.4 [facility] Comment on above: Performed By: #### A DDONUAPLUS, CMP, TSH3, A1C WTH eA, URMACRERAT, CUU, LIPID, CBC ####[address] Hemoglobin A1c percentageOrd ered By: Alana Parkinson on 06-18-2023 HbA1c (Bld) [Mass fraction] 13.1 % High 4.3-5.6 [facility] Comment on above: Increased risk for d iabetes: 5.7 - 6.4diabetes: >6.4glycemic control for adults with diabetes: <7.0 Result Comment: Incr eased risk for diabetes: 5.7 - 6.4 diabetes: >6.4 glycemic control for adults with diabetes: <7.0 Performed By: #### A DDONUAPLUS, CMP, TSH3, A1C WTH eA, URMACRERAT, CUU, LIPID, CBC ####[address] Hemoglobin [Mass/volume] in BloodOrdered By: Alana Parkinson on 06-18-2023 Hemoglobin (Bld) [Mass/Vol] 14.1 g/dL Normal 11.8-15.4 [facility] Comment on above: Performed By: #### A DDONUAPLUS, CMP, TSH3, A1C WTH eA, URMACRERAT, CUU, LIPID, CBC ####[address] Ketones Auto test strip (U) [Mass/Vol]Ordered By: Alana Parkinson on 06-18-2023 Ketones (U) [Mass/Vol] Negative Negative [facility] - UrinalysisOrder ed By: Alana Parkinson on 06-18-2023 Hyaline casts LM Ql (Urine sed) 0-8 [LPF] 0-8 [facility] Leukocytes [#/volume] correc adalid for nucleated erythrocytes in Blood by Automated counOrdered By: Alana Parkinson on 06-18-2023 WBC corrected for nucl RBC Auto (Bld) [#/Vol] 6.7 10*3/uL 3.8-11.6 [facility] Leukocytes [#/volume] in Blo od by Automated countOrdered By: Alana Parkinson on 06-18-2023 WBC (Bld) [#/Vol] 6.7 10*3/uL Normal 3.8-11.6 [facility] Comment on above: Performed By: #### A DDONUAPLUS, CMP, TSH3, A1C WTH eA, URMACRERAT, CUU, LIPID, CBC ####[facility] [id number] Lipid Panelon 06-18-2023 LDL Cholesterol,Calculated 135 mg/dL High 0-100 [facility] Comment on above: Result Comment: LDL ATP III CLASSIFICATION LDL less than 100 mg/dL Optimal LDL 100-129 mg/dL Near or above optimal LDL 130-159 mg/dL Borderline high LDL 160-189 mg/dL High LDL greater than 189 mg/dL Very high Performed By: #### A DDONUAPLUS, CMP, TSH3, A1C WTH eA, URMACRERAT, CUU, LIPID, CBC ####[facility] Triglyceride w/Reflex 143 mg/dL Normal 0-149 [facility] Comment on above: Result Comment: TRIG ATP III CLASSIFICATION TRIG less than 150 mg/dL Normal TRIG 150-199 mg/dL Borderline high TRIG 200-500 mg/dL High TRIG greater than 500 mg/dL Very high Standard traceable to the Center for Disease Conrtrol and Prevention (CDC) test method. Performed By: #### A DDONUAPLUS, CMP, TSH3, A1C WTH eA, URMACRERAT, CUU, LIPID, CBC ####[facility] VLDL CHOLESTEROL 28 mg/dL Normal [facility] Comment on above: Performed By: #### A DDONUAPLUS, CMP, TSH3, A1C WTH eA, URMACRERAT, CUU, LIPID, CBC ####[address] Lymphocytes [#/volume] in Bl ood by Automated countOrdered By: Alana Parkinson on 06-18-2023 Lymphocytes (Bld) [#/Vol] 1.8 10*3/uL Normal 1.00-4.8 [facility] Comment on above: Performed By: #### A DDONUAPLUS, CMP, TSH3, A1C WTH eA, URMACRERAT, CUU, LIPID, CBC ####[address] Lymphocytes/100 leukocytes i n Blood by Automated countOrdered By: Alana Parkinson on 06-18-2023 Lymphocytes/100 WBC (Bld) 27.0 % Normal . [facility] Comment on above: Performed By: #### A DDONUAPLUS, CMP, TSH3, A1C WTH eA, URMACRERAT, CUU, LIPID, CBC ####[address] MCH [Entitic mass] by Automa adalid countOrdered By: Alana Parkinson on 06-18-2023 MCH (RBC) [Entitic mass] 30.0 pg Normal 24.7-34.3 [facility] Comment on above: Performed By: #### A DDONUAPLUS, CMP, TSH3, A1C WTH eA, URMACRERAT, CUU, LIPID, CBC ####[place] [id number] [facility] MCHC Auto (RBC) [Mass/Vol]Or dered By: Alana Parkinson on 06-18-2023 MCHC (RBC) [Mass/Vol] 33.1 g/dL 32.0-35.0 [facility] MCV [Entitic volume] by Auto mated countOrdered By: Alana Parkinson on 06-18-2023 MCV (RBC) [Entitic vol] 90.7 fL Normal 80-100 [facility] Comment on above: Performed By: #### A DDONUAPLUS, CMP, TSH3, A1C WTH eA, URMACRERAT, CUU, LIPID, CBC ####[address] [place] [id number] [facility] MicroAlb Creat Ratio,Uon Creatinine, Urine (Random) 59.0 mg/dL High 11.0-20.0 [facility] Comment on above: Performed By: #### A DDONUAPLUS, CMP, TSH3, A1C WTH eA, URMACRERAT, CUU, LIPID, CBC ####[address] [place] [place] [id number] [facility] Microalbumin/Creatinin e Ratio 38.0 mg/g High 0.0-30.0 [facility] Comment on above: Result Comment: 30-3 00 mg/g indicates an increased risk for diabetic nephropathy. Greater than 300 mg/g is consistent with clinical nephropathy. (Am. J. Kidney Disease 1995, 25:107) PERFORMED BY: [facility] [address] [place] [address] PATHOLOGIST CONTACT LENS LATHE OPERATOR BRODY GARZA M.D. Performed By: #### A DDONUAPLUS, CMP, TSH3, A1C WTH eA, URMACRERAT, CUU, LIPID, CBC ####[place] [place] [place] [id number] [facility] Microalbumin [Mass/volume] i n UrineOrdered By: Alana Parkinson on 06-18-2023 Albumin DL <= 20 mg/L (U) [Mass/Vol] 2.3 mg/dL High 0.0-1.8 [facility] Comment on above: Performed By: #### A DDONUAPLUS, CMP, TSH3, A1C WTH eA, URMACRERAT, CUU, LIPID, CBC ####[address] Neutrophils [#/volume] in Bl ood by Automated countOrdered By: Alana Parkinson on 06-18-2023 Neutrophils (Bld) [#/Vol] 4.1 10*3/uL Normal 1.8-7.7 [facility] Comment on above: Performed By: #### A DDONUAPLUS, CMP, TSH3, A1C WTH eA, URMACRERAT, CUU, LIPID, CBC ####[place] [id number] Nitrite Test strip Ql (U)Ord ered By: Alana Parkinson on 06-18-2023 Nitrite Ql (U) Negative Negative [facility] No Panel InformationOrdered By: Alana Parkinson on 06-18-2023 Estimated GFR (CKD-EPI) > 60.0 mL/Min [facility] Creatinine Clearance (Chem N/A [facility] Nucleated erythrocytes [Pres ence] in Blood by Automated countOrdered By: Alana Parkinson on 06-18-2023 Nucleated RBC Auto Ql (Bld) 0.1 /100{WBC} 0-0.5 [facility] Platelet mean volume [Entiti c volume] in Blood by Automated countOrdered By: Alana Parkinson on 06-18-2023 Platelet mean volume (Bld) [Entitic vol] 9.5 fL Normal 6.3-10.7 [facility] Comment on above: Performed By: #### A DDONUAPLUS, CMP, TSH3, A1C WTH eA, URMACRERAT, CUU, LIPID, CBC ####[place] [id number] Platelets [#/volume] in Bloo d by Automated countOrdered By: Alana Parkinson on 06-18-2023 Platelets (Bld) [#/Vol] 178 10*3/uL Normal 150-450 [facility] Comment on above: Performed By: #### A DDONUAPLUS, CMP, TSH3, A1C WTH eA, URMACRERAT, CUU, LIPID, CBC ####[place] [address] [place] [id number] [place] Potassium [Moles/volume] in Serum or PlasmaOrdered By: Alana Parkinson on 06-18-2023 Potassium [Moles/Vol] 4.3 mmol/L Normal 3.5-5.1 [facility] Comment on above: Performed By: #### A DDONUAPLUS, CMP, TSH3, A1C WTH eA, URMACRERAT, CUU, LIPID, CBC ####[place] [id number] Protein Auto test strip (U) [Mass/Vol]Ordered By: Alana Parkinson on 06-18-2023 Protein (U) [Mass/Vol] Negative Negative [facility] Protein [Mass/volume] in Ser um or PlasmaOrdered By: Alana Parkinson on 06-18-2023 Protein [Mass/Vol] 5.9 g/dL Low 6.4-8.9 [facility] Comment on above: Performed By: #### A DDONUAPLUS, CMP, TSH3, A1C WTH eA, URMACRERAT, CUU, LIPID, CBC ####[address] Serum globulin measurement b y calculation (mass/volume)Ordered By: Alana Parkinson on 06-18-2023 Globulin (S) [Mass/Vol] 2.1 g/dL Normal [facility] Comment on above: Performed By: #### A DDONUAPLUS, CMP, TSH3, A1C WTH eA, URMACRERAT, CUU, LIPID, CBC ####[address] Serum or plasma albumin/glob ulin mass ratioOrdered By: Alana Parkinson on 06-18-2023 Albumin/Globulin [Mass ratio] 1.8 {ratio} [facility] Comment on above: Performed By: #### A DDONUAPLUS, CMP, TSH3, A1C WTH eA, URMACRERAT, CUU, LIPID, CBC ####[address] Serum or plasma anion gap de terminationOrdered By: Alana Parkinson on 06-18-2023 Anion gap [Moles/Vol] 10.9 mmol/L Normal 6.0-15.0 [facility] Comment on above: Performed By: #### A DDONUAPLUS, CMP, TSH3, A1C WTH eA, URMACRERAT, CUU, LIPID, CBC ####[facility] [id number] Serum or plasma high density lipoprotein (HDL) cholesterol measurementOrdered By: Alana Parkinson on 06-18-2023 Cholesterol in HDL [Mass/Vol] 46 mg/dL Normal 23-92 [facility] Comment on above: HDL CHOL ATP-III CLA SSIFICATION Cardiovascular RiskHDL > or equal to 60 mg/dL LOWHDL < 40 mg/dL HIGH Result Comment: HDL CHOL ATP-III CLASSIFICATION Cardiovascular Risk HDL > or equal to 60 mg/dL LOW HDL < 40 mg/dL HIGH Performed By: #### A DDONUAPLUS, CMP, TSH3, A1C WTH eA, URMACRERAT, CUU, LIPID, CBC ####[facility] [id number] Serum or plasma total choles terol/high density lipoprotein (HDL) cholesterol mass ratOrdered By: Alana Parkinson on 06-18-2023 Cholesterol.total/Chol esterol in HDL [Mass ratio] 4.6 {ratio} Normal <5.0 [facility] Comment on above: Performed By: #### A DDONUAPLUS, CMP, TSH3, A1C WTH eA, URMACRERAT, CUU, LIPID, CBC ####[facility] [id number] Sodium [Moles/volume] in Ser um or PlasmaOrdered By: Alana Parkinson on 06-18-2023 Sodium [Moles/Vol] 139 mmol/L Normal 136-145 [facility] Comment on above: Performed By: #### A DDONUAPLUS, CMP, TSH3, A1C WTH eA, URMACRERAT, CUU, LIPID, CBC ####[facility] [id number] Specific gravity Auto test s trip (U) [Rel density]Ordered By: Alana Parkinson on 06-18-2023 Specific gravity (U) [Rel density] 1.031 1.001-1.03 0 [facility] Squamous epithelial cells de tection in urine sediment by light microscopyOrdered By: Alana Parkinson on 06-18-2023 Epithelial cells.squamous LM Ql (Urine sed) 3-4 [HPF] 0-2 [facility] Thyrotropin [Units/volume] i n Serum or PlasmaOrdered By: Alana Parkinson on 06-18-2023 TSH Qn 1.62 m[IU]/L Normal 0.45-5.33 [facility] Comment on above: Result Comment: PERF ORMED BY: [facility] [address] [place] [id number] PATHOLOGIST CONTACT LENS LATHE OPERATOR BRODY GARZA M.D. Performed By: #### A DDONUAPLUS, CMP, TSH3, A1C WTH eA, URMACRERAT, CUU, LIPID, CBC ####[place] [address] [place] [address] [facility] Triglyceride [Mass/volume] i n Serum or PlasmaOrdered By: Alana Parkinson on 06-18-2023 Triglyceride [Mass/Vol] 143 mg/dL 0-149 [facility] Comment on above: TRIG ATP III CLASSIF ICATIONTRIG less than 150 mg/dL NormalTRIG 150-199 mg/dL Borderline highTRIG 200-500 mg/dL High TRIG greater than 500 mg/dL Very highStandard traceable to the Center for Disease Conrtrol and Prevention (CDC) test method. Urea nitrogen [Mass/volume] in Serum or PlasmaOrdered By: Alana Parkinson on 06-18-2023 Urea nitrogen [Mass/Vol] 14 mg/dL Normal 7-25 [facility] Comment on above: Performed By: #### A DDONUAPLUS, CMP, TSH3, A1C WTH eA, URMACRERAT, CUU, LIPID, CBC ####[place] [place] [address] [facility] Urine Cultureon 06-18-2023 Bacteria identified Cx Nom (U) ORGANISM: Strep. agalactiae Grp B (O:B) [place] Count 25,000 PERFORMED BY: [facility] [address] [place] [address] PATHOLOGIST CONTACT LENS LATHE OPERATOR BRODY GARZA M.D. Normal [facility] Comment on above: Performed By: #### A DDONUAPLUS, CMP, TSH3, A1C WTH eA, URMACRERAT, CUU, LIPID, CBC ####[facility] [id number] [place] [address] [facility] Urine bacteria detection by automated methodOrdered By: Alana Parkinson on 06-18-2023 Bacteria Auto Ql (U) 1+ None Seen [facility] Urine clarity by refractomet ry automatedOrdered By: Alana Parkinson on 06-18-2023 Clarity Refractometry automated (U) Clear Clear [facility] Urine culture routineOrdered By: Alana Parkinson on 06-18-2023 Bacteria identified Cx Nom (U) Strep. agalactiae Grp B [facility] Urine glucose measurement by automated test strip (mass/volume)Ordered By: Alana Parkinson on 06-18-2023 Glucose Auto test strip (U) [Mass/Vol] >=1000 mg/dL Normal [facility] Urine hemoglobin detection b y automated test stripOrdered By: Alana Parkinson on 06-18-2023 Hemoglobin Auto test strip Ql (U) Negative Negative [facility] Urine leukocyte esterase det ection by automated test stripOrdered By: Alana Parkinson on 06-18-2023 Leukocyte esterase Auto test strip Ql (U) 2+ Negative [facility] Urine microalbumin/creatinin e mass ratioOrdered By: Alana Parkinson on 06-18-2023 Albumin/Creatinine DL <= 20 mg/L (U) [Mass ratio] 38.0 mg/g 0.0-30.0 [facility] Comment on above: 30-300 mg/g indicate s an increased risk for diabetic nephropathy. Greater than 300 mg/g is consistent with clinical nephropathy. (Am. J. Kidney Disease 1995, 25:107) Urine pH measurement by auto mated test stripOrdered By: Alana Parkinson on 06-18-2023 pH (U) 6.0 [pH] Normal 5.0-9.0 [facility] Comment on above: Order Comment: Name Collection Type:: Clean-Voided Midstream Performed By: #### A DDONUAPLUS, CMP, TSH3, A1C WTH eA, URMACRERAT, CUU, LIPID, CBC ####[facility] [id number] [place] [address] [facility] Urobilinogen Auto test strip (U) [Mass/Vol]Ordered By: Alana Parkinson on 06-18-2023 Urobilinogen (U) [Mass/Vol] Normal mg/dL Normal [facility] Alanine aminotransferase [En zymatic activity/volume] in Serum or PlasmaOrdered By: [facility] on 01-16-2023 ALT [Catalytic activity/Vol] 20 U/L 7-52 [facility] Albumin [Mass/volume] in Ser um or Plasma by Bromocresol green (BCG) dye binding methoOrdered By: [facility] on 01-16-2023 Albumin BCG dye [Mass/Vol] 4.1 g/dL 3.5-5.7 [facility] Alkaline phosphatase [Enzyma tic activity/volume] in Serum or PlasmaOrdered By: [facility] on 01-16-2023 ALP [Catalytic activity/Vol] 110 U/L 34-104 [facility] Aspartate aminotransferase [ Enzymatic activity/volume] in Serum or PlasmaOrdered By: [facility] on 01-16-2023 AST [Catalytic activity/Vol] 14 U/L 13-39 [facility] Bilirubin.total [Mass/volume ] in Serum or PlasmaOrdered By: [facility] on 01-16-2023 Bilirubin [Mass/Vol] 0.4 mg/dL 0.3-1.0 [facility] Calcium [Mass/volume] in Ser um or PlasmaOrdered By: [facility] on 01-16-2023 Calcium [Mass/Vol] 9.4 mg/dL 8.6-10.3 [facility] Carbon dioxide, total [Moles /volume] in Serum or PlasmaOrdered By: [facility] on 01-16-2023 CO2 [Moles/Vol] 31.5 mmol/L 21.0-31.0 [facility] Chloride [Moles/volume] in S atul or PlasmaOrdered By: [facility] on 01-16-2023 Chloride [Moles/Vol] 104 mmol/L 98-107 [facility] Cholesterol [Mass/volume] in Serum or PlasmaOrdered By: [facility] on 01-16-2023 Cholesterol [Mass/Vol] 228 mg/dL 140-200 [facility] Comment on above: Chol less than 200 m g/dl low riskChol 201-239 mg/dl borderline riskChol 240 mg/dl and greater high risk Cholesterol in LDL Calc [Mas s/Vol]Ordered By: [facility] on 01-16-2023 Cholesterol in LDL [Mass/Vol] 148 mg/dL 0-100 [facility] Comment on above: LDL ATP III CLASSIFI CATIONLDL less than 100 mg/dL OptimalLDL 100-129 mg/dL Near or above optimalLDL 130-159 mg/dL Borderline highLDL 160-189 mg/dL HighLDL greater than 189 mg/dL Very high Cholesterol in VLDL Calc [Ma ss/Vol]Ordered By: [facility] on 01-16-2023 Cholesterol in VLDL [Mass/Vol] 33 mg/dL [facility] Creatinine [Mass/volume] in Serum or PlasmaOrdered By: [facility] on 01-16-2023 Creatinine [Mass/Vol] 0.61 mg/dL 0.60-1.20 [facility] Erythrocyte distribution wid th Auto (RBC) [Ratio]Ordered By: [facility] on 01-16-2023 Erythrocyte distribution width (RBC) [Ratio] 13.5 % 11.9-15.3 [facility] Glucose [Mass/volume] in Ser um or PlasmaOrdered By: [facility] on 01-16-2023 Glucose [Mass/Vol] 150 mg/dL 70-100 [facility] Comment on above: ADA recommended refe rence rangeRandom Glucose Reference Range is dependent on time and content of last meal. Glucose of more than 200 mg/dL in a nonstressed, ambulatory subject supports the diagnosis of Diabetes Mellitus. Glucose mean value [Mass/vol ume] in Blood Estimated from glycated hemoglobinOrdered By: [facility] on 01-16-2023 Average glucose Estimated from glycated hemoglobin (Bld) [Mass/Vol] 324 mg/dL [facility] Hematocrit Auto (Bld) [Volum e fraction]Ordered By: [facility] on 01-16-2023 Hematocrit (Bld) [Volume fraction] 43.4 % 34.0-46.4 [facility] Hemoglobin [Mass/volume] in BloodOrdered By: [facility] on 01-16-2023 Hemoglobin (Bld) [Mass/Vol] 14.6 g/dL 11.8-15.4 [facility] Laboratory - Hematology and Cell countsOrdered By: [facility] on 01-16-2023 HbA1c (Bld) [Mass fraction] 12.9 % 4.3-5.6 [facility] Comment on above: Increased risk for d iabetes: 5.7 - 6.4diabetes: >6.4glycemic control for adults with diabetes: <7.0 Leukocytes [#/volume] correc adalid for nucleated erythrocytes in Blood by Automated counOrdered By: [facility] on 01-16-2023 WBC corrected for nucl RBC Auto (Bld) [#/Vol] 6.4 10*3/uL 3.8-11.6 [facility] MCH Auto (RBC) [Entitic mass ]Ordered By: [facility] on 01-16-2023 MCH (RBC) [Entitic mass] 30.4 pg 24.7-34.3 [facility] MCHC Auto (RBC) [Mass/Vol]Or dered By: [facility] on 01-16-2023 MCHC (RBC) [Mass/Vol] 33.7 g/dL 32.0-35.0 [facility] MCV Auto (RBC) [Entitic vol] Ordered By: [facility] on 01-16-2023 MCV (RBC) [Entitic vol] 90.0 fL 80-100 [facility] No Panel InformationOrdered By: [facility] on 01-16-2023 Estimated GFR (CKD-EPI) > 60.0 mL/Min [facility] Creatinine Clearance (Chem N/A [facility] Platelet mean volume Auto (B ld) [Entitic vol]Ordered By: [facility] on 01-16-2023 Platelet mean volume (Bld) [Entitic vol] 9.4 fL 6.3-10.7 [facility] Platelets Auto (Bld) [#/Vol] Ordered By: [facility] on 01-16-2023 Platelets (Bld) [#/Vol] 170 10*3/uL 150-450 [facility] Potassium [Moles/volume] in Serum or PlasmaOrdered By: [facility] on 01-16-2023 Potassium [Moles/Vol] 3.9 mmol/L 3.5-5.1 [facility] Protein [Mass/volume] in Ser um or PlasmaOrdered By: [facility]RE[facility] on 01-16-2023 Protein [Mass/Vol] 6.1 g/dL 6.4-8.9 [facility] RBC Auto (Bld) [#/Vol]Ordere d By: [facility] on 01-16-2023 RBC (Bld) [#/Vol] 4.82 10*6/uL 3.60-5.00 [facility] Serum or plasma anion gap de terminationOrdered By: OUTREACH [facility] on 01-16-2023 Anion gap [Moles/Vol] 10.4 mmol/L 6.0-15.0 [facility] Serum or plasma high density lipoprotein (HDL) cholesterol measurementOrdered By: OUTREACH [facility] on 01-16-2023 Cholesterol in HDL [Mass/Vol] 47 mg/dL 23- [facility] Comment on above: HDL CHOL ATP-III CLA SSIFICATION Cardiovascular RiskHDL > or equal to 60 mg/dL LOWHDL < 40 mg/dL HIGH Serum or plasma total choles terol/high density lipoprotein (HDL) cholesterol mass ratOrdered By: OUTRE[facility] on 01-16-2023 Cholesterol.total/Chol esterol in HDL [Mass ratio] 4.9 {ratio} <5.0 [facility] Sodium [Moles/volume] in Ser um or PlasmaOrdered By: OUTREACH [facility] on 01-16-2023 Sodium [Moles/Vol] 142 mmol/L 136-145 [facility] Triglyceride [Mass/volume] i n Serum or PlasmaOrdered By: [facility] on 01-16-2023 Triglyceride [Mass/Vol] 166 mg/dL 0-149 [facility] Comment on above: TRIG ATP III CLASSIF ICATIONTRIG less than 150 mg/dL NormalTRIG 150-199 mg/dL Borderline highTRIG 200-500 mg/dL High TRIG greater than 500 mg/dL Very highStandard traceable to the Center for Disease Conrtrol and Prevention (CDC) test method. Urea nitrogen [Mass/volume] in Serum or PlasmaOrdered By: [facility] on 01-16-2023 Urea nitrogen [Mass/Vol] 13 mg/dL 7-25 [facility] Alanine aminotransferase [En zymatic activity/volume] in Serum or PlasmaOrdered By: Jenna Jimenez on 10-20-2022 ALT [Catalytic activity/Vol] 19 U/L 7-52 [facility] Albumin [Mass/volume] in Ser um or PlasmaOrdered By: Jenna Jimenez on 10-20-2022 Albumin [Mass/Vol] 3.4 g/dL 2.9-4.4 [facility] Albumin [Mass/volume] in Ser um or Plasma by Bromocresol green (BCG) dye binding methoOrdered By: Jenna Jimenez on 10-20-2022 Albumin BCG dye [Mass/Vol] 4.1 g/dL 3.5-5.7 [facility] Alkaline phosphatase [Enzyma tic activity/volume] in Serum or PlasmaOrdered By: Jenna Jimenez on 10-20-2022 ALP [Catalytic activity/Vol] 97 U/L 34-104 [facility] Aspartate aminotransferase [ Enzymatic activity/volume] in Serum or PlasmaOrdered By: Jenna Jimenez on 10-20-2022 AST [Catalytic activity/Vol] 14 U/L 13-39 [facility] Basophils Auto (Bld) [#/Vol] Ordered By: Jenna Jimenez on 10-20-2022 Basophils (Bld) [#/Vol] 0.0 10*3/uL 0.0-0.2 [facility] Basophils/100 WBC Auto (Bld) Ordered By: Jenna Jimenez on 10-20-2022 Basophils/100 WBC (Bld) 0.3 % . [facility] Bilirubin.total [Mass/volume ] in Serum or PlasmaOrdered By: Jenna Jimenez on 10-20-2022 Bilirubin [Mass/Vol] 0.7 mg/dL 0.3-1.0 [facility] Calcium [Mass/volume] in Ser um or PlasmaOrdered By: Jenna Jimenez on 10-20-2022 Calcium [Mass/Vol] 9.1 mg/dL 8.6-10.3 [facility] Carbon dioxide, total [Moles /volume] in Serum or PlasmaOrdered By: Jenna Jimenez on 10-20-2022 CO2 [Moles/Vol] 29.9 mmol/L 21.0-31.0 [facility] Chloride [Moles/volume] in S atul or PlasmaOrdered By: Jenna Jimenez on 10-20-2022 Chloride [Moles/Vol] 101 mmol/L 98-107 [facility] Creatinine [Mass/volume] in Serum or PlasmaOrdered By: Jenna Jimenez on 10-20-2022 Creatinine [Mass/Vol] 0.70 mg/dL 0.60-1.20 [facility] Eosinophils Auto (Bld) [#/Vo l]Ordered By: Jenna Jimenez on 10-20-2022 Eosinophils (Bld) [#/Vol] 0.3 10*3/uL 0.0-0.45 [facility] Eosinophils/100 WBC Auto (Bl d)Ordered By: Jenna Jimenez on 10-20-2022 Eosinophils/100 WBC (Bld) 4.1 % . [facility] Erythrocyte distribution wid th Auto (RBC) [Ratio]Ordered By: Jenna Jimenez on 10-20-2022 Erythrocyte distribution width (RBC) [Ratio] 13.4 % 11.9-15.3 [facility] Erythrocyte sedimentation ra te by Photometric methodOrdered By: Jenna Jimenez on 10-20-2022 ESR Photometric method (Bld) [Velocity] 25 mm/hr 0-29 [facility] Globulin Calc (S) [Mass/Vol] Ordered By: Jenna Jimenez on 10-20-2022 Globulin (S) [Mass/Vol] 2.1 g/dL [facility] Glucose [Mass/volume] in Ser um or PlasmaOrdered By: Jenna Jimenez on 10-20-2022 Glucose [Mass/Vol] 267 mg/dL 74-109 [facility] Comment on above: ADA recommended refe rence rangeRandom Glucose Reference Range is dependent on time and content of last meal. Glucose of more than 200 mg/dL in a nonstressed, ambulatory subject supports the diagnosis of Diabetes Mellitus. Glucose mean value [Mass/vol ume] in Blood Estimated from glycated hemoglobinOrdered By: Jenna Jimenez on 10-20-2022 Average glucose Estimated from glycated hemoglobin (Bld) [Mass/Vol] 298 mg/dL [facility] Hematocrit Auto (Bld) [Volum e fraction]Ordered By: Jenna Jimenez on 10-20-2022 Hematocrit (Bld) [Volume fraction] 42.3 % 34.0-46.4 [facility] Hemoglobin A1c percentageOrd ered By: Jenna Jimenez on 10-20-2022 HbA1c (Bld) [Mass fraction] 12.0 % 4.3-5.6 [facility] Comment on above: Increased risk for d iabetes: 5.7 - 6.4diabetes: >6.4glycemic control for adults with diabetes: <7.0 Hemoglobin [Mass/volume] in BloodOrdered By: Jenna Jimenez on 10-20-2022 Hemoglobin (Bld) [Mass/Vol] 14.2 g/dL 11.8-15.4 [facility] IgA [Mass/volume] in Serum o r PlasmaOrdered By: Jenna Jimenez on 10-20-2022 IgA [Mass/Vol] 231 mg/dL 87-352 [facility] IgG [Mass/volume] in Serum o r PlasmaOrdered By: Jenna Jimenez on 10-20-2022 IgG [Mass/Vol] 562 mg/dL 586-1602 [facility] IgM [Mass/volume] in Serum o r PlasmaOrdered By: Jenna Jimenez on 10-20-2022 IgM [Mass/Vol] 60 mg/dL 26-217 [facility] Comment on above: Performed at: [place] [id number] Director: Mau Reyna PhD, Phone: [phone] Laboratory - Chemistry and C hemistry - challengeOrdered By: Jenna Jimenez on 10-20-2022 GFR/1.73 sq M.predicted MDRD (S/P/Bld) [Vol rate/Area] mL/min/{1.73_m2} [facility] Leukocytes [#/volume] correc adalid for nucleated erythrocytes in Blood by Automated counOrdered By: Jenna Jimenez on 10-20-2022 WBC corrected for nucl RBC Auto (Bld) [#/Vol] 7.8 10*3/uL 3.8-11.6 [facility] Lymphocytes Auto (Bld) [#/Vo l]Ordered By: Jenna Jimenez on 10-20-2022 Lymphocytes (Bld) [#/Vol] 1.6 10*3/uL 1.00-4.8 [facility] Lymphocytes/100 WBC Auto (Bl d)Ordered By: Jenna Jimenez on 10-20-2022 Lymphocytes/100 WBC (Bld) 21.1 % . [facility] MCH Auto (RBC) [Entitic mass ]Ordered By: Jenna Jimenez on 10-20-2022 MCH (RBC) [Entitic mass] 29.9 pg 24.7-34.3 [facility] MCHC Auto (RBC) [Mass/Vol]Or dered By: Jenna Jimenez on 10-20-2022 MCHC (RBC) [Mass/Vol] 33.5 g/dL 32.0-35.0 [facility] MCV Auto (RBC) [Entitic vol] Ordered By: Jenna Jimenez on 10-20-2022 MCV (RBC) [Entitic vol] 89.3 fL 80-100 [facility] Monocytes Auto (Bld) [#/Vol] Ordered By: Jenna Jimenez on 10-20-2022 Monocytes (Bld) [#/Vol] 0.4 10*3/uL 0.0-0.8 [facility] Monocytes/100 WBC Auto (Bld) Ordered By: Jenna Jimenez on 10-20-2022 Monocytes/100 WBC (Bld) 5.8 % . [facility] Neutrophils Auto (Bld) [#/Vo l]Ordered By: Jenna Jimenez on 10-20-2022 Neutrophils (Bld) [#/Vol] 5.3 10*3/uL 1.8-7.7 [facility] Neutrophils/100 WBC Auto (Bl d)Ordered By: Jenna Jimenez on 10-20-2022 Neutrophils/100 WBC (Bld) 68.7 % . [facility] No Panel InformationOrdered By: Jenna Jimenez on 10-20-2022 Pharmacy Creatinine Clearance (Chem N/A [facility] Protein Electrophoresis M-Harinder Not observed g/dL Not Observed [facility] Protein Electrophoresis Note See comment . [facility] Comment on above: Protein electrophore sis scan will follow via computer,mail, or footwear sales leader delivery.Performed at: [address] [id number] Director: Mau Reyna PhD, Phone: [phone] Serum Immunofixation See comment . [facility] Comment on above: No monoclonality det ected. Nucleated erythrocytes [Pres ence] in Blood by Automated countOrdered By: Jenna Jimenez on 10-20-2022 Nucleated RBC Auto Ql (Bld) 0.1 /100{WBC} 0-0.5 [facility] Platelet mean volume Auto (B ld) [Entitic vol]Ordered By: Jenna Jimenez on 10-20-2022 Platelet mean volume (Bld) [Entitic vol] 8.8 fL 6.3-10.7 [facility] Platelets Auto (Bld) [#/Vol] Ordered By: Jenna Jimenez on 10-20-2022 Platelets (Bld) [#/Vol] 180 10*3/uL 150-450 [facility] Potassium [Moles/volume] in Serum or PlasmaOrdered By: Jenna Jimenez on 10-20-2022 Potassium [Moles/Vol] 4.4 mmol/L 3.5-5.1 [facility] Protein [Mass/volume] in Ser um or PlasmaOrdered By: Jenna Jimenez on 10-20-2022 Protein [Mass/Vol] 6.2 g/dL 6.0-8.5 [facility] RBC Auto (Bld) [#/Vol]Ordere d By: Jenna Jimenez on 10-20-2022 RBC (Bld) [#/Vol] 4.74 10*6/uL 3.60-5.00 [facility] Serum globulin measurement ( mass/volume)Ordered By: Jenna Jimenez on 10-20-2022 Globulin (S) [Mass/Vol] 2.8 g/dL 2.2-3.9 [facility] Serum or plasma albumin/glob ulin mass ratioOrdered By: Jenna Jimenez on 10-20-2022 Albumin/Globulin [Mass ratio] 2.0 {ratio} [facility] Albumin/Globulin [Mass ratio] 1.2 {ratio} 0.7-1.7 [facility] Serum or plasma alpha 1 glob ulin measurement by electrophoresis (mass/volume)Ordered By: Jenna Jimenez on 10-20-2022 Alpha 1 globulin Elph [Mass/Vol] 0.2 g/dL 0.0-0.4 [facility] Serum or plasma alpha 2 glob ulin measurement by electrophoresis (mass/volume)Ordered By: Jenna Jimenez on 10-20-2022 Alpha 2 globulin Elph [Mass/Vol] 0.9 g/dL 0.4-1.0 [facility] Serum or plasma anion gap de terminationOrdered By: Jenna Jimenez on 10-20-2022 Anion gap [Moles/Vol] 12.5 mmol/L 6.0-15.0 [facility] Serum or plasma beta globuli n measurement by electrophoresis (mass/volume)Ordered By: Jenna Jimenez on 10-20-2022 Beta globulin Elph [Mass/Vol] 1.0 g/dL 0.7-1.3 [facility] Serum or plasma free cefurox jose measurement (mass/volume)Ordered By: Jenna Jimenez on 10-20-2022 Cefuroxime free [Mass/Vol] Negative Negative [facility] Comment on above: Performed at: [employer] [place], [place] [id number] Director: Mau Reyna PhD, Phone: [phone] Serum or plasma gamma globul in measurement by electrophoresis (mass/volume)Ordered By: Jenna Jimenez on 10-20-2022 Gamma globulin Elph [Mass/Vol] 0.6 g/dL 0.4-1.8 [facility] Serum or plasma rheumatoid f actor measurement (units/volume)Ordered By: Jenna Jimenez on 10-20-2022 Rheumatoid factor Qn 10.9 [IU]/mL <14.0 [facility] Comment on above: Performed at: [place], [place] [id number] Director: Mau Reyna PhD, Phone: [phone] Sodium [Moles/volume] in Ser um or PlasmaOrdered By: Jenna Jimenez on 10-20-2022 Sodium [Moles/Vol] 139 mmol/L 136-145 [facility] Thyrotropin [Units/volume] i n Serum or PlasmaOrdered By: Jenna Jimenez on 10-20-2022 TSH Qn 1.43 m[IU]/L 0.45-5.33 [facility] Urea nitrogen [Mass/volume] in Serum or PlasmaOrdered By: Jenna Jimenez on 10-20-2022 Urea nitrogen [Mass/Vol] 15 mg/dL 7-25 [facility] Vitamin B12 ser/plasOrdered By: Jenna Tony on 10-20-2022 Cobalamin (Vitamin B12) [Mass/Vol] 232 pg/mL 180-914 [facility] WBC Auto (Bld) [#/Vol]Ordere d By: Jenna Jimenez on 10-20-2022 WBC (Bld) [#/Vol] 7.8 10*3/uL 3.8-11.6 [facility] FFD mammogram Breast - bilat eral Screeningon 08-21-2022 MM screening mammo BI w/CAD [facility] [employer] Other MM screening mammo BI w/CAD [facility] [employer] [facility] [employer] Other MM screening mammo BI w/CAD [address] [place] [address] [facility] [employer] [facility] [employer] Other MM screening mammo BI w/[place] [address] [employer] Other MM screening mammo BI w/CAD Mammography Report [employer] Other MM screening mammo BI w/CAD Signed [employer] Other MM screening mammo BI w/CAD Patient: Chela Padilla MR#: [id number] [employer] Other MM screening mammo BI w/CAD 06 [employer] Other MM screening mammo BI w/CAD : 1955 Acct:[id number] [employer] Other MM screening mammo BI w/CAD Age/Sex: 67 / F ADM Date: 08/21/22 [employer] Other MM screening mammo BI w/CAD Loc: [place] Room: Type: [facility] [employer] Other MM screening mammo BI w/CAD Attending Dr: Alana Parkinson DO [employer] Other MM screening mammo BI w/CAD Copies to: Alana Parkinson, [employer] Other MM screening mammo BI w/CAD Ordering Provider: Alana Parkinson DO [employer] Other MM screening mammo BI w/CAD Date of Service: 08/21/22 [employer] Other MM screening mammo BI w/CAD MM/MM screening mammo BI w/CAD: SCREENING [employer] Other MM screening mammo BI w/CAD CLINICAL DATA: Screening for malignancy. [employer] Other MM screening mammo BI w/CAD BILATERAL SCREENING MAMMOGRAMS - FULL FIELD DIGITAL WITH TOMOSYNTHESIS AND CAD [employer] Other MM screening mammo BI w/CAD Tomosynthesis craniocaudal and mediolateral oblique views of both breasts were obtained using low- [employer] Other MM screening mammo BI w/CAD dose digital technique. Comparison is made to prior studies from 03/21/2019, 07/23/2017, 07/10/2016, [employer] Other MM screening mammo BI w/CAD and 06/21/2015. This examination was reviewed with the aid of CAD. [employer] Other MM screening mammo BI w/CAD The breast parenchyma has been largely replaced by fat. Benign-appearing lymph nodes are [employer] Other MM screening mammo BI w/CAD redemonstrated along the chest wall bilaterally. There are punctate benign-appearing calcifications [employer] Other MM screening mammo BI w/CAD bilaterally. There are no dominant masses, typically malignant calcifications or architectural [employer] Other MM screening mammo BI w/CAD distortion. There has been no significant interval change. [employer] Other MM screening mammo BI w/CAD MM/MM screening mammo BI w/CAD [employer] Other MM screening mammo BI w/CAD IMPRESSION: [employer] Other MM screening mammo BI w/CAD NO MAMMOGRAPHIC EVIDENCE OF MALIGNANCY. [employer] Other MM screening mammo BI w/CAD ROUTINE FOLLOW-UP IS RECOMMENDED IN ONE YEAR. [employer] Other MM screening mammo BI w/CAD RESULT CODE: 2 [employer] Other MM screening mammo BI w/CAD Benign Findings(s) [employer] Other MM screening mammo BI w/CAD DENSITY CODE: 1 (<25% glandular) [employer] Other MM screening mammo BI w/CAD FOLLOW UP: 1YR [employer] Other MM screening mammo BI w/CAD The false-negative rate of mammography is approximately 10-percent. [employer] Other MM screening mammo BI w/CAD Management of a palpable abnormality must be based on clinical grounds. [employer] Other MM screening mammo BI w/CAD Patient was entered into a reminder system with a target due date for the next mammogram. [employer] Other MM screening mammo BI w/CAD Impression dictated by: Ankush Roberts M.D.08/21/2022 12:03 PM [employer] Other MM screening mammo BI w/CAD Dictation Location: [facility] [employer] Other MM screening mammo BI w/CAD Transcribed By: YUNG 08/21/22 1203 [employer] Other MM screening mammo BI w/CAD Dictated By: Ankush Roberts II, MD 08/21/22 1159 [facility] [employer] [facility] [employer] Other MM screening mammo BI w/CAD Signed By: [employer] Other MM screening mammo BI w/CAD 08/21/22 1205 [facility] [employer] [facility] [employer] Other Albumin [Mass/volume] in Ser um or PlasmaOrdered By: [facility] on 07-04-2022 Albumin [Mass/Vol] 3.5 g/dL 3.2-5.5 [facility] Cholesterol [Mass/volume] in Serum or PlasmaOrdered By: [facility] on 07-04-2022 Cholesterol [Mass/Vol] 241 mg/dL 140-200 [facility] Comment on above: Chol less than 200 m g/dl low riskChol 201-239 mg/dl borderline riskChol 240 mg/dl and greater high risk Cholesterol in LDL Calc [Mas s/Vol]Ordered By: [facility] on 07-04-2022 Cholesterol in LDL [Mass/Vol] 158 mg/dL 0-100 [facility] Comment on above: LDL ATP III CLASSIFI CATIONLDL less than 100 mg/dL OptimalLDL 100-129 mg/dL Near or above optimalLDL 130-159 mg/dL Borderline highLDL 160-189 mg/dL HighLDL greater than 189 mg/dL Very high Cholesterol in VLDL Calc [Ma ss/Vol]Ordered By: [facility] on 07-04-2022 Cholesterol in VLDL [Mass/Vol] 30 mg/dL [facility] Creatinine and Glomerular fi ltration rate.predicted panel (S/P/Bld)Ordered By: [facility] on 07-04-2022 Creatinine [Mass/Vol] 0.59 mg/dL 0.44-1.03 [facility] Erythrocyte distribution wid th Auto (RBC) [Ratio]Ordered By: [facility] on 07-04-2022 Erythrocyte distribution width (RBC) [Ratio] 13.3 % 11.9-15.3 [facility] Estimated glomerular filtrat ion rate (GFR) non- AmericanOrdered By: [facility] on 07-04-2022 GFR/1.73 sq M.predicted among non-blacks MDRD (S/P/Bld) [Vol rate/Area] > 60 mL/Min [facility] Glucose mean value [Mass/vol ume] in Blood Estimated from glycated hemoglobinOrdered By: [facility] on 07-04-2022 Average glucose Estimated from glycated hemoglobin (Bld) [Mass/Vol] 283 mg/dL [facility] [facility] Hematocrit Auto (Bld) [Volum e fraction]Ordered By: [facility] on 07-04-2022 Hematocrit (Bld) [Volume fraction] 43.4 % 34.0-46.4 [facility] Hemoglobin [Mass/volume] in BloodOrdered By: [facility] on 07-04-2022 Hemoglobin (Bld) [Mass/Vol] 14.2 g/dL 11.8-15.4 [facility] Laboratory - Hematology and Cell countsOrdered By: [facility] on 07-04-2022 HbA1c (Bld) [Mass fraction] 11.5 % 4.3-5.6 [facility] Comment on above: Increased risk for d iabetes: 5.7 - 6.4diabetes: >6.4glycemic control for adults with diabetes: <7.0 Leukocytes [#/volume] correc adalid for nucleated erythrocytes in Blood by Automated counOrdered By: [facility] on 07-04-2022 WBC corrected for nucl RBC Auto (Bld) [#/Vol] 6.4 10*3/uL 3.8-11.6 [facility] MCH Auto (RBC) [Entitic mass ]Ordered By: [facility] on 07-04-2022 MCH (RBC) [Entitic mass] 29.7 pg 24.7-34.3 [facility] MCHC Auto (RBC) [Mass/Vol]Or dered By: [facility] on 07-04-2022 MCHC (RBC) [Mass/Vol] 32.6 g/dL 32.0-35.0 [facility] MCV Auto (RBC) [Entitic vol] Ordered By: [facility] on 07-04-2022 MCV (RBC) [Entitic vol] 90.9 fL 80-100 [facility] No Panel InformationOrdered By: [facility] on 07-04-2022 Estimated GFR () > 60 mL/Min [facility] Comment on above: GFR estimated refere nce range: According to KDOQI guidelines, <60 ml/min/1.73m2 is sufficient to diagnose a patient with chronic kidney disease. Pharmacy Creatinine Clearance (Chem N/A [facility] Triglycerides Reflex 152 mg/dL 35-149 [facility] Comment on above: TRIG ATP III CLASSIF ICATIONTRIG less than 150 mg/dL NormalTRIG 150-199 mg/dL Borderline highTRIG 200-500 mg/dL High TRIG greater than 500 mg/dL Very highStandard traceable to the Center for Disease Conrtrol and Prevention (CDC) test method. Platelet mean volume Auto (B ld) [Entitic vol]Ordered By: [facility] on 07-04-2022 Platelet mean volume (Bld) [Entitic vol] 9.3 fL 6.3-10.7 [facility] Platelets Auto (Bld) [#/Vol] Ordered By: [facility] on 07-04-2022 Platelets (Bld) [#/Vol] 179 10*3/uL 150-450 [facility] Protein [Mass/volume] in Ser um or PlasmaOrdered By: [facility] on 07-04-2022 Protein [Mass/Vol] 5.8 g/dL 6.1-7.9 [facility] RBC Auto (Bld) [#/Vol]Ordere d By: [facility] on 07-04-2022 RBC (Bld) [#/Vol] 4.78 10*6/uL 3.60-5.00 [facility] Serum or plasma alanine tyler otransferase measurement without P-5'-P (enzymatic activiOrdered By: [facility] on 07-04-2022 ALT No additional P-5'-P [Catalytic activity/Vol] 20 U/L 10-60 [facility] Serum or plasma alkaline hector sphatase measurement (enzymatic activity/volume)Ordered By: [facility] on 07-04-2022 ALP [Catalytic activity/Vol] 84 U/L 32-92 [facility] Serum or plasma anion gap de terminationOrdered By: [facility] on 07-04-2022 Anion gap [Moles/Vol] 11.2 mmol/L 6.0-15.0 [facility] Serum or plasma aspartate am inotransferase measurement (enzymatic activity/volume)Ordered By: [facility] on 07-04-2022 AST [Catalytic activity/Vol] 14 U/L 10-42 [facility] Serum or plasma calcium zainab urement (mass/volume)Ordered By: [facility] on 07-04-2022 Calcium [Mass/Vol] 9.2 mg/dL 8.2-10.2 [facility] Serum or plasma chloride abbi surement (moles/volume)Ordered By: [facility] on 07-04-2022 Chloride [Moles/Vol] 102 mmol/L 95-114 [facility] Serum or plasma glucose zainab urement (mass/volume)Ordered By: [facility] on 07-04-2022 Glucose [Mass/Vol] 207 mg/dL 70-100 [facility] Comment on above: ADA recommended refe rence rangeRandom Glucose Reference Range is dependent on time and content of last meal. Glucose of more than 200 mg/dL in a nonstressed, ambulatory subject supports the diagnosis of Diabetes Mellitus. Serum or plasma high density lipoprotein (HDL) cholesterol measurementOrdered By: [facility] on 07-04-2022 Cholesterol in HDL [Mass/Vol] 53 mg/dL 35-85 [facility] Comment on above: HDL CHOL ATP-III CLA SSIFICATION Cardiovascular RiskHDL > or equal to 60 mg/dL LOWHDL < 40 mg/dL HIGH Serum or plasma potassium me asurement (moles/volume)Ordered By: [facility] on 07-04-2022 Potassium [Moles/Vol] 4.2 mmol/L 3.5-5.1 [facility] Serum or plasma sodium measu rement (moles/volume)Ordered By: [facility] on 07-04-2022 Sodium [Moles/Vol] 138 mmol/L 136-146 [facility] Serum or plasma total biliru bin measurement (mass/volume)Ordered By: [facility] on 07-04-2022 Bilirubin [Mass/Vol] 0.6 mg/dL 0.3-1.2 [facility] Serum or plasma total carbon dioxide measurement (moles/volume)Ordered By: [facility] on 07-04-2022 CO2 [Moles/Vol] 29.0 mmol/L 22.0-30.0 [facility] Serum or plasma total choles terol/high density lipoprotein (HDL) cholesterol mass ratOrdered By: [facility] on 07-04-2022 Cholesterol.total/Chol esterol in HDL [Mass ratio] 4.5 {ratio} <5.0 [facility] Serum or plasma urea nitroge n measurement (mass/volume)Ordered By: [facility] on 07-04-2022 Urea nitrogen [Mass/Vol] 13 mg/dL 04-24 [facility] Vital Signs Date Time Vital Sign Value Performing Clinician Facility 07-12-2024 13:23-0500 Body height 162.6 cm Evelina Chan MD Work Phone: [facility] 07-12-2024 13:23-0500 Body mass index (BMI) [Ratio] 32.79 kg/m2 Evelina Chan MD Work Phone: [facility] 07-12-2024 13:23-0500 Body weight 86.64 kg Evelina Chan MD Work Phone: [facility] 07-12-2024 13:23-0500 Diastolic blood pressure 68 mm[Hg] Evelina Chan MD Work Phone: [facility] 07-12-2024 13:23-0500 Heart rate 98 /min Evelina Chan MD Work Phone: [facility] 07-12-2024 13:23-0500 Respiratory rate 18 /min Evelina Chan MD Work Phone: [facility] 07-12-2024 13:23-0500 Systolic blood pressure 132 mm[Hg] Evelina Chan MD Work Phone: [facility] 12-10-2023 10:52-0400 Body height 157.48 cm DO Alana Parkinson Work Phone: [facility] 12-10-2023 10:52-0400 Body mass index (BMI) [Ratio] 33.6 kg/m2 DO Alana Parkinson Work Phone: [facility] 12-10-2023 10:52-0400 Body temperature 97.2 [degF] DO Alana Parkinson Work Phone: [facility] 12-10-2023 10:52-0400 Body weight 83.46 kg DO Alana Parkinson Work Phone: [facility] 12-10-2023 10:52-0400 Diastolic blood pressure 78 mm[Hg] DO Alana Parkinson Work Phone: [facility] 12-10-2023 10:52-0400 Systolic blood pressure 132 mm[Hg] DO Alana Parkinson Work Phone: [facility] 07-27-2023 14:17-0500 Diastolic blood pressure 70 mm[Hg] DO Alana Parkinson Work Phone: [facility] 07-27-2023 14:17-0500 Heart rate 73 /min DO Alana Parkinson Work Phone: [facility] 07-27-2023 14:17-0500 Respiratory rate 20 /min DO Alana Parkinson Work Phone: [facility] 07-27-2023 14:17-0500 SaO2% (BldA) [Mass fraction] 97 % DO Alana Parkinson Work Phone: [facility] 07-27-2023 14:17-0500 Systolic blood pressure 146 mm[Hg] DO Alana Parkinson Work Phone: [facility] 07-27-2023 10:06-0500 Body height 157.48 cm DO Alana Parkinson Work Phone: [facility] 07-27-2023 10:06-0500 Body temperature 98.2 [degF] DO Alana Parkinson Work Phone: [facility] 07-27-2023 10:06-0500 Body weight 82.6 kg DO Alana Parkinson Work Phone: [facility] 01-20-2023 14:40-0400 Body height 157.48 cm Alana Parkinson Other [employer] Other 01-20-2023 14:40-0400 Body mass index (BMI) [Ratio] 33.65 kg/m2 Alana Parkinson Other [employer] Other 01-20-2023 14:40-0400 Body temperature 98.3 [degF] Alana Parkinson Other [employer] Other 01-20-2023 14:40-0400 Body weight 83.46 kg Alana Parkinson Other [employer] Other 01-20-2023 14:40-0400 Diastolic blood pressure 84 mm[Hg] Alana Parkinson Other [employer] Other 01-20-2023 14:40-0400 Respiratory rate 18 /min Alana Parkinson Other [employer] Other 01-20-2023 14:40-0400 SaO2% (BldA) [Mass fraction] 97 % Alana Parkinson Other [employer] Other 01-20-2023 14:40-0400 Systolic blood pressure 136 mm[Hg] Alana Parkinson Other [employer] Other 07-17-2022 13:30-0500 Body height 157.48 cm Alana Parkinson Other [employer] Other 07-17-2022 13:30-0500 Body mass index (BMI) [Ratio] 33.83 kg/m2 Alana Parkinson Other [employer] Other 07-17-2022 13:30-0500 Body temperature 96.8 [degF] Alana Parkinson Other [employer] Other 07-17-2022 13:30-0500 Body weight 83.92 kg Alana Parkinson Other [employer] Other 07-17-2022 13:30-0500 Diastolic blood pressure 88 mm[Hg] Alana Parkinson Other [employer] Other 07-17-2022 13:30-0500 Respiratory rate 18 /min Alana Parkinson Other [employer] Other 07-17-2022 13:30-0500 SaO2% (BldA) [Mass fraction] 98 % Alana Muellerariella Other [employer] Other 07-17-2022 13:30-0500 Systolic blood pressure 138 mm[Hg] Alana Parkinson Other [employer] Other 06-17-2022 15:00-0500 Body height 157.48 cm Noé Cageisle II Other [employer] Other 06-17-2022 15:00-0500 Body mass index (BMI) [Ratio] 33.47 kg/m2 Noé [place] II Other [employer] Other 06-17-2022 15:00-0500 Body weight 83.01 kg Noé [place] II Other [employer] Other 05-29-2022 13:28-0400 Body height 157.48 cm DO Alana Parkinson Work Phone: [facility] 05-29-2022 13:28-0400 Body temperature 97.7 [degF] DO Alana Parkinson Work Phone: [facility] 05-29-2022 13:28-0400 Body weight 83.5 kg DO Alana Parkinson Work Phone: [facility] 05-29-2022 13:28-0400 Diastolic blood pressure 78 mm[Hg] DO Alana Parkinson Work Phone: [facility] 05-29-2022 13:28-0400 Heart rate 111 /min DO Alana Parkinson Work Phone: [facility] 05-29-2022 13:28-0400 Respiratory rate 20 /min DO Alana Parkinson Work Phone: [facility] 05-29-2022 13:28-0400 SaO2% (BldA) [Mass fraction] 96 % DO Alana Parkinson Work Phone: [facility] 05-29-2022 13:0400 Systolic blood pressure 131 mm[Hg] DO Alana Parkinson Work Phone: [facility] 05-27-2022 12:26-0400 Body height 157.48 cm DO Alana Parkinson Work Phone: [facility] 05-27-2022 12:26-0400 Body temperature 98.2 [degF] DO Alana Parkinson Work Phone: [facility] 05-27-2022 12:260400 Body weight 83.05 kg DO Alana Parkinson Work Phone: [facility] 05-27-2022 12:26-0400 Diastolic blood pressure 95 mm[Hg] DO Alana Parkinson Work Phone: [facility] 05-27-2022 12:26-0400 Heart rate 95 /min DO Alana Parkinson Work Phone: [facility] 05-27-2022 12:26-0400 Respiratory rate 18 /min DO Alana Parkinson Work Phone: [facility] 05-27-2022 12:26-0400 SaO2% (BldA) [Mass fraction] 95 % DO Alana Parkinson Work Phone: [facility] 05-27-2022 12:26-0400 Systolic blood pressure 155 mm[Hg] DO Alana Parkinson Work Phone: [facility] 01-27-2022 10:50-0400 Body height 157.48 cm Alana Parkinson Other [employer] Other 01-27-2022 10:50-0400 Body mass index (BMI) [Ratio] 34.02 kg/m2 Alana Parkinson Other [employer] Other 01-27-2022 10:50-0400 Body temperature 97.3 [degF] Alana Parkinson Other [employer] Other 01-27-2022 10:50-0400 Body weight 84.37 kg Alana Parkinson Other [employer] Other 01-27-2022 10:50-0400 Diastolic blood pressure 94 mm[Hg] Alana Parkinson Other [employer] Other 01-27-2022 10:50-0400 Respiratory rate 18 /min Alana Parkinson Other [employer] Other 01-27-2022 10:50-0400 SaO2% (BldA) [Mass fraction] 97 % Alana Parkinson Other [employer] Other 01-27-2022 10:50-0400 Systolic blood pressure 154 mm[Hg] Alana Parkinson Other [employer] Other 06-16-2021 10:10-0500 Body height 157.48 cm Alana Parkinson Other [employer] Other 06-16-2021 10:10-0500 Body mass index (BMI) [Ratio] 33.28 kg/m2 Alana Parkinson Other [employer] Other 06-16-2021 10:10-0500 Body temperature 97.1 [degF] Alana Muellerariella Other [employer] Other 06-16-2021 10:10-0500 Body weight 82.56 kg Alana Muellerariella Other [employer] Other 06-16-2021 10:10-0500 Diastolic blood pressure 88 mm[Hg] Alana Parkinson Other [employer] Other 06-16-2021 10:10-0500 Respiratory rate 18 /min Alana Muellerariella Other [employer] Other 06-16-2021 10:10-0500 SaO2% (BldA) [Mass fraction] 97 % Alana Muellerariella Other [employer] Other 06-16-2021 10:10-0500 Systolic blood pressure 138 mm[Hg] Alana Parkinson Other [employer] Other Encounters Encounter Date Encounter Type Care Provider Facility Start: 07-12-2024 End: 07-12-2024 Michelle flowsheet Evelina Chan MD Work Phone: [facility] Start: 07-12-2024 End: 07-12-2024 [id number] flowsheet Evelina Chan MD Work Phone: [facility] Start: 07-12-2024 End: 07-12-2024 Office outpatient visit 25 minutes Evelina Chan MD Work Phone: [facility] Comment on above: Type 2 diabetes ligia itus with hyperglycemia, with long-term current use of insulin (CMS/HCC) (Primary Dx); 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 (CMS/HCC); Vitamin D [...] Start: 03-20-2024 End: 03-20-2024 ambulatory Hector Wall Facility:[facility] Start: 03-20-2024 End: 03-20-2024 Discharged Recurring PHYSICIAN NO [facility] Work Phone: Start: 2024 End: 04-11-2024 External Result Encounter Hector Wall DO Work Phone: [facility] External Department Unsolicited Start: 2024 End: 04-11-2024 External Result Encounter Hector Wall DO Work Phone: [facility] External Department Unsolicited Start: 2024 End: 2024 Departed Referred PHYSICIAN NO [facility] [place] Work Phone: Start: 2024 End: 2024 ambulatory PHYSICIAN NO [facility] Work Phone: Start: 03-07-2024 End: 03-07-2024 ambulatory HECTOR WALL Not Available Start: 03-05-2024 End: 03-05-2024 ambulatory JUAN PABLO RUEDA Not Available Start: 03-02-2024 End: 03-02-2024 ambulatory JESS MARSHS Not Available Start: 03-01-2024 ambulatory [facility] Work Phone: Start: 03-01-2024 Non-patient / Non-visit [facility] [place] [facility] Work Phone: Start: 02-29-2024 End: 02-29-2024 ambulatory JESSDIONNA MARSHS Not Available Start: 02-28-2024 End: 02-28-2024 ambulatory JESS MARSHS Not Available Start: 02-28-2024 End: 02-28-2024 ambulatory TAIBTHA THORNTON Not Available Start: 12-10-2023 End: 12-10-2023 ambulatory DO Alana Parkinson Work Phone: [facility] Work Phone: Start: 12-10-2023 End: 12-10-2023 Patient encounter procedure DO Alana Parkinson Work Phone: [facility] [place] Work Phone: Start: 11-22-2023 End: 11-22-2023 Patient encounter procedure DO Alana Parkinson Work Phone: [facility] [place] Work Phone: Start: 11-22-2023 End: 11-22-2023 ambulatory DO Alana Parkinson Work Phone: [facility] Work Phone: Start: 11-16-2023 End: 11-16-2023 Patient encounter procedure DO Alana Parkinson Work Phone: [facility] [place] Work Phone: Start: 11-16-2023 End: 11-16-2023 ambulatory DO Alana Parkinson Work Phone: [facility] Work Phone: Start: 10-26-2023 End: 10-26-2023 ambulatory BRIGIDO MAN Not Available Start: 08-31-2023 End: 08-31-2023 Patient encounter procedure DO Alana Parkinson Work Phone: [facility] Work Phone: Start: 08-31-2023 End: 08-31-2023 ambulatory DO Alana Parkinson Work Phone: [facility] Work Phone: Start: 08-03-2023 End: 08-03-2023 ambulatory Alana Parkinson Other [employer] Other Start: 08-03-2023 Telephone encounter Alana Muellerariella [facility] [place] Start: 07-27-2023 End: 07-27-2023 Emergency department patient visit DO Alana Parkinson Work Phone: [facility] Work Phone: Start: 06-18-2023 End: 06-18-2023 Patient encounter procedure DO Alana Parkinson Work Phone: [facility] [place] Work Phone: Start: 06-18-2023 End: 06-18-2023 ambulatory DO Alana Parkinson Work Phone: [facility] Work Phone: Start: 06-16-2023 End: 06-16-2023 ambulatory Alana Parkinson Other [employer] Other Start: 06-16-2023 Telephone encounter Alana Muellerariella [facility] [place] Start: 06-15-2023 End: 06-15-2023 ambulatory Alana Parkinson Other [employer] Other Start: 06-15-2023 Telephone encounter Alana Parkinson [facility] [place] Start: 01-25-2023 End: 01-25-2023 ambulatory Alana Parkinson Other [employer] Other Start: 01-25-2023 Telephone encounter Alana Parkinson [facility] [place] Start: 01-20-2023 End: 01-20-2023 ambulatory Alana Parkinson Other [employer] Other Start: 01-20-2023 Office outpatient vi sit 25 minutes Alana Parkinson [facility] [place] Start: 01-16-2023 End: 01-16-2023 ambulatory DO Alana Parkinson Work Phone: [facility] Work Phone: Start: 01-16-2023 End: 01-16-2023 Departed Referred DO Alana Parkinson Work Phone: [facility] Work Phone: Start: 10-20-2022 End: 10-20-2022 Patient encounter procedure DO Alana Parkinson Work Phone: [facility] [place] Work Phone: Start: 08-21-2022 End: 08-21-2022 ambulatory DO Alana Parkinson Work Phone: [facility] Work Phone: Start: 08-21-2022 End: 08-21-2022 Patient encounter procedure DO Alana Parkinson Work Phone: [facility] Work Phone: Start: 08-07-2022 End: 08-07-2022 ambulatory Alana Parkinson Other [employer] Other Start: 08-07-2022 Telephone encounter Alana Parkinson [facility] [place] Start: 07-17-2022 End: 07-17-2022 ambulatory Alana Parkinson Other [employer] Other Start: 07-17-2022 Office outpatient vi sit 25 minutes Alana Parkinson [facility] Family [facility] [place] Start: 07-17-2022 Telephone encounter Alana Parkinson [facility] [place] Start: 07-07-2022 End: 07-07-2022 ambulatory Noé Ko II Other [employer] Other Start: 07-07-2022 Telephone encounter Noé Ko II [facility] Start: 07-04-2022 End: 07-04-2022 ambulatory DO Alana Parkinson Work Phone: [facility] Work Phone: Start: 07-04-2022 End: 07-04-2022 Departed Referred DO Alana Parkinson Work Phone: [facility] Start: 07-01-2022 End: 07-01-2022 ambulatory DO Alana Parkinson Work Phone: [facility] Work Phone: Start: 07-01-2022 End: 07-01-2022 Patient encounter procedure DO Alana Parkinson Work Phone: [facility] [address] Start: 06-18-2022 End: 06-18-2022 ambulatory Alana Parkinson Other [employer] Other Start: 06-18-2022 Telephone encounter Alana Parkinson [facility] [place] Start: 06-17-2022 FQHC visit new patient Noé henriquez II [facility] Start: 06-17-2022 Telephone encounter Alana Parkinson [facility] [place] Start: 06-17-2022 End: 06-17-2022 ambulatory DO Alana Parkinson Work Phone: [facility] Work Phone: Start: 06-17-2022 End: 06-17-2022 Patient encounter procedure DO Alana Parkinson Work Phone: [facility] Start: 06-03-2022 End: 06-03-2022 ambulatory Alana Parkinson Other [employer] Other Start: 06-03-2022 Telephone encounter Alana Parkinson [facility] [place] Start: 06-02-2022 End: 06-02-2022 ambulatory Alana Parkinson Other [employer] Other Start: 06-02-2022 Telephone encounter Alana Parkinson [facility] [place] Start: 06-01-2022 End: 06-01-2022 Patient encounter procedure DO Alaan Parkinson Work Phone: [facility] [place] Start: 06-01-2022 End: 06-01-2022 ambulatory DO Alana Parkinson Work Phone: [employer] Other Start: 06-01-2022 Telephone encounter Alana Parkinson [facility] [place] Start: 05-29-2022 End: 05-29-2022 Emergency department patient visit DO Alana Parkinson Work Phone: [facility] Start: 05-27-2022 End: 05-27-2022 Emergency department patient visit DO Alana Parkinson Work Phone: [facility] Start: 01-27-2022 End: 01-27-2022 ambulatory Alana Parkinson Other [employer] Other Start: 01-27-2022 Office outpatient vi sit 25 minutes Alana Parkinson [facility] [place] Start: 08-18-2021 End: 08-18-2021 ambulatory Alana Parkinson Other [employer] Other Start: 08-18-2021 Telephone encounter Alana Muellerariella [facility] [place] Start: 08-13-2021 End: 08-13-2021 ambulatory Alana Parkinson Other [employer] Other Start: 08-13-2021 Telephone encounter Alana Parkinson [facility] [place] Start: 06-16-2021 End: 06-16-2021 ambulatory Alana Parkinson Other [employer] Other Start: 06-16-2021 Office outpatient vi sit 25 minutes Alana Parkinson [facility] Procedures Date Procedure Procedure Detail Performing Clinician [...] procedure 11/08/2024 1:30 PM EDT Office Visit [facility] [address] [place] [id number] Evelina Chan MD [address] [place] [id number] [facility] Start: 10-26-2024 End: 10-26-2024 Patient encounter procedure 10/26/2024 10:45 AM EDT Office Visit [facility] [address] [place] [id number] Brigido Man MD [address] [place] [address] [facility] Start: 08-31-2024 Screening for malign ant neoplasm of breast Mammogram [facility] Start: 07-12-2024 End: 07-12-2024 Patient encounter procedure 07/12/2024 1:30 PM EST Office Visit [facility] [address] [place] [address] Evelina Chan MD [address] [place] [address] Type 2 diabetes mellitus with hyperglycemia, with long-term current use of insulin ([facility]) [facility] Comment on above: Type 2 diabetes ligia itus with hyperglycemia, with long-term current use of insulin ([facility]) Start: 06-28-2024 End: 06-28-2024 Patient encounter procedure 06/28/2024 10:20 AM EST Office Visit [facility] [address] [place] [id number] Evelina Chan MD [address] [place] [address] [facility] Start: 04-12-2024 End: 04-12-2024 Patient encounter procedure 04/12/2024 10:30 AM EDT Office Visit [facility] [address] [facility] [address] [place] [address] Hector Wall, [address] [facility] [address] [place] [address] [facility] [facility] Start: 04-02-2024 Influenza vaccination Influenza Vacc ine (#1) [facility] Start: 03-01-2024 Patient referral [facility] Work Phone: Start: 12-10-2023 Patient referral [facility] Work Phone: Start: 06-01-2022 Duplex scan of lower limb veins US venous duplex LE [facility] Start: 06-01-2022 US Lower extremity v ein - left [facility] Start: 2019 Pneumococcal Vaccine : 65+ Years (1 of 1 - PCV) Pneumococcal Vaccine: 65+ Years (1 of 1 - PCV) [facility] Start: 1955 Screening for malign ant neoplasm of colon [facility] Bacteria identified in Urine by Culture [facility] Comprehensive metabo lic 2000 panel - Serum or Plasma [facility] Glucose measurement estimated from glycated hemoglobin [facility] Work Phone: Hemoglobin A1c measurement [facility] Work Phone: Patient Education [facility] Work Phone: Patient referral [facility] Work Phone: US Lower extremity v ein - left [facility] Immunizations Immunization Date Immunization Notes Care Provider Fa cility 05-29-2021 COVID-19 Vaccine Moderna - Documentation Purposes Only Alana Parkinson Other [facility] 11-08-2020 COVID-19 Vaccine Moderna - Documentation Purposes Only Alana Parkinson Other [facility] 10-11-2020 COVID-19 Vaccine Moderna - Documentation Purposes Only Alana Parkinson Other [facility] NEGATED: Highlighted row has not occurred!06-16-2021 influenza, seasonal, injectable Patient Objection Alana Parkinson Other [employer] Other Payers Date Payer Category Payer Medicare (Managed Care) [employer] [id number] 2023 Unknown [employer] D [facility] [employer] [id number] 2023-Present [address] [place]ACOBNATALYA XIONG [id number] 2023 Medicare [id number] 2023 Self-pay [id number] 2021 Private Health Insurance [id number] [id number] 1954 Unknown [id number] 2.16.840.1.946878.3.579.2. 1259 1954 Unknown [id number] 2.16.840.1.754363.3.579.2. 1258 1954 Unknown [id number] 2.840.1.070672.3.579.2. 1258 1954 Unknown [id number] 2.16.840.1.870761.3.579.2. 1258 1954 Unknown [id number] 2.840.1.141218.3.579.2. 1258 1954 Unknown [id number] 2.0.1.449702.3.579.2. 1258 1954 Unknown [id number] 2.0.1.338880.3.579.2. 1258 1954 Unknown [id number] 2.0.1.768462.3.579.2. 1258 1954 Unknown [id number] 2.0.1.559659.3.579.2. 1258 1954 Unknown [id number] 2.0.1.182287.3.579.2. 1258 1954 Unknown [id number] 2.0.1.897813.3.579.2. 1259 Medicare [id number] 2.0.1.020964.19 Unknown [id number] 2.0.1.898289.19 Unknown Regular Insurance [id number] Unknown [place] [id number] Unknown [id number] 2.840.1.762619.3.579.2. 531 Unknown [id number] 2.840.1.709202.3.579.2. 531 Unknown [id number] 2.16840.1.970064.3.579.2. 531 Unknown [id number] 2.840.1.058027.3.579.2. 531 Unknown [id number] 2.16.840.1.017177.3.579.2. 531 Unknown [id number] 2.16.840.1.308148.3.579.2. 531 Unknown [id number] 2.16.840.1.471411.3.579.2. 531 Social History Date Type Detail Facility Unknown if ever smoked [facility] [employer] Other Start: 10-26-2023 End: 03-07-2024 Sex Assigned At [facility] [employer] Other Start: 05-27-2022 End: 05-29-2022 Tobacco smoking status ILIS Never smoked tobacco (finding) [facility] Start: 1955 Sex Assigned At Female [facility] Start: 07-27-2023 End: 12-10-2023 Tobacco smoking status ILIS Smoker (finding) [facility] Start: 03-07-2024 Tobacco smoking stat [facility] Smokes tobacco daily [facility] [...] MG tablet Every 24 hours Continuous Glucose Non Destructive Testing Engineer (FreeStyle Desean 2 Felton) device USE DIRECTED. Continuous Glucose Sensor (FreeStyle [...] Medical History: Diagnosis Date BMI 33.0-33.9,adult Diabetes ([facility]) High cholesterol ([facility]) Hypertension ([facility]) group home (current) use of insulin ([facility]) Mixed hyperlipidemia (CMS/HCC) Obesity, unspecified Osteoarthritis Osteopenia Type 2 diabetes mellitus with hyperglycemia ([facility]) Vitamin D deficiency, unspecified Past Surgical [...] hyperglycemia, with long-term current use of insulin ([facility]) - POCT glucose manually resulted - [...] 45 mg once a day, prescription sent. 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 documented in this encounter [facility] 03-21-2024 History of Presen t illness Narrative [...] follow-ups on file. documented in this encounter [facility] 03-01-2024 Hospital Discharg e instructions Ambulatory OrdersReferral to General Surgery Time Frame: 03/01/24, Location: None Selected [facility] Work Phone: 12-10-2023 Evaluation note Authored December 10, 2023 12:15 pm The above note written by __ _Sebastián Judge____ acting as human recorder, note dictated by Dr. Mendez .I performed the above HPI, ROS, and Examination. I formulated and dictated the treatment plan and was present for entire encounter. Alana Parkinson D.O. [facility] Work Phone: [phone]) 813-657711-15-2023 Evaluation note* Encounter Date Diagnosis Assessment Notes Treatment Notes Treatment Clinical Notes Jun, Diabetes type 2, uncontrolled (ICD-10 - E11.65) [employer] Other 11-14-2023 Evaluation note* Encounter Date Diagnosis Assessment Notes Treatment Notes Treatment Clinical Notes Jun, Diabetes type 2, uncontrolled (ICD-10 - E11.65) Jun, Hyperlipidemia (ICD- 10 - E78.5) Jun, Weight loss (ICD-10 - R63.4) Jun, Other prison (current) 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 (ICD-10 - Z79.899) Jun, Thrombocytopenia (ICD-10 - D69.6) Jun, Nocturia (ICD-10 - R35.1) [employer] Other 06-21-2023 Evaluation note* Encounter Date Diagnosis [...] errands run. Her is now in a [place] but she is not sure how long [...] to use the kit. She voices understanding. [employer] Other 12-30-2022 NoteHISTORY: Bone density screening. COMPARISON: [...] and signed by Corby Bueno on 07/31/2022 1312[facility]12-16-2022 Evaluation note* Encounter Date Diagnosis Assessment Notes Treatment Notes Treatment Clinical Notes Jul, Enlarged lymph nodes in armpit (ICD-10 - R59.0) [employer] Other 12-16-2022 Evaluation note* Encounter Date Diagnosis [...] and not her low back. Jul, Other prison (current) 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 (ICD-10 - Z79.899) Jul, [...] has gained two pounds since last seen. [employer] Other 11-16-2022 Evaluation note* Encounter Date Diagnosis [...] her into see one of our neurosurgeons. [employer] Other 10-31-2022 Evaluation note* Encounter Date Diagnosis Assessment Notes Treatment Notes Treatment Clinical Notes May, Leg pain (ICD-10 - M79.606) left leg May, Family history of DVT (ICD-10 - Z82.49) [employer] Other 06-28-2022 Evaluation note* Encounter Date Diagnosis [...] has a will and a power of tax associate attorney and thinks she has a Healthcare power of tax associate attorney. I did recommend that she provide the office with a copy of this. She should discuss her wishes with her and family. [employer] Other 01-12-2022 Evaluation note* Encounter Date Diagnosis Assessment Notes Treatment Notes Treatment Clinical Notes Aug, Hypertension (ICD-10 - I10) Aug, Hyperlipidemia (ICD-10 - E78.5) Aug, Diabetes type 2, uncontrolled (ICD-10 - E11.65) [employer] Other 11-15-2021 Evaluation note* Encounter Date Diagnosis [...] above medication daily as directed. Jun, Other prison (current) 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 (ICD-10 - Z79.899) Jun, [...] that we will continue to monitor closely. [employer] Other 09-16-2019 History general Narrative - Reported* [...] roscopy 04/19/2012 Surgical History mammogram -[facility] 17 Hospitalization History appendicitis Hospitalization History child x3 Hospitalization History child x 3 [facility] [employer] Other evaluation noteNo [facility] [employer] Other evaluation noteNo assessment information available [facility] Work Phone: evaluxblkk note* Diagnosis Onset Date Resolution Status Abdominal pain acute Constipation acute Diarrhea acute Fatty liver acute Hepatic hemangioma acute HTN (hypertension) acute Hyperlipidemia acute Nicotine dependence acute Osteopenia acute Other prison (current) 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 acute Tinnitus acute Uncontrolled type 2 diabetes mellitus acute [facility] Work Phone: [email or web address] note* Diagnosis Type 2 diabetes mellitus with hyperglycemia, with long-term current use of insulin ([facility])- Primary group home (current) use of insulin ([facility]) Vitamin D deficiency, unspecified Mixed hyperlipidemia ([facility]) Mixed hyperlipidemia Class 1 obesity due to excess calories with serious comorbidity and body mass index (BMI) of 32.0 to 32.9 in adult Primary hypertension ([facility]) Unspecified essential hypertension documented in this [...] No follow-ups on file. [facility] Additional Instructions Take the antibiotic doxycycline twice a day for 10 days take with food 1 hydrocodone every 6 hours for severe pain You may still take plain [id number] Tylenol and or ibuprofen for less severe pain You may take a shower but do not let the water run directly on the abscess site Change the dressing as needed but try to leave the packing in place Return to the ER in 2 days for packing removal recheck Return sooner if worsening redness swelling pain fever chills or any other [facility] Work Phone: Hospital Discharge instructions Additional Instructions Apply warm compresses to the abscess left buttock several times a day Take antibiotic and pain medications as prescribed Have your vascular study completed as needed we discussed Return here if any problems persist worsening fever, chills, nausea, vomiting chest pain, shortness of breath or any other [facility] Work Phone: Hospital Discharge instructions Additional Instructions Follow-up with your primary care doctor Return to ED for worsening symptoms or concerns[facility] Work Phone: Hospital Discharge instructionsAmbulatory Orders* Referral to Audiology Time Frame: 12/10/23, Location: None Selected * Referral to Endocrinology Time Frame: 12/10/23, Location: None Selected [facility] Work Phone: Reason for visit [facility] Community Outreach [employer] Other Restci for visit [facility] [employer] Other Reason for Referral Reason appt pt needs cons ult to discuss uncontrolled Diabetes Diagnosis 1 Diabetes type 2, unc ontrolled (E11.65) Referral Organization [facility] Referring Provider First Name Alana Referring Provider Last Name Gwendolyn Referring Provider Specialty Family Prac fabio Referred Organization [facility] Referred Provider Tabitha Sloan Referred Address ,[place], [place],[address] Referred Provider Specialty Family Medic ine Referral Priority Routine General Notes Lorena Miller 06/16/2021 09:47:09 AM > referral sent p2p with office note and last two community outreach labs. pt informed she will be contacted to schedule this appt. Reason appt consult for e eliud and treatment of lt lower leg pain/difficulty walking Diagnosis 1 Leg pain, left (M79. 605) Referral Organization [facility] Referring Provider First Name Alana Referring Provider Last Name Gwendolyn Referring Provider Specialty Family Prac fabio Referred Organization [facility] Referred Provider Yonatan Ocasio Referred Address [address] [facility],[place],[address] Referred Provider Specialty Orthopedic S urgery Referral Priority Urgent General Notes Lorena Miller 06/03/2022 10:26:56 AM > referral sent p2p. pt understands she will be contacted to schedule this appt. Reason appt consult to aristeo duran diabetes and osteopenia treatment Diagnosis 1 Diabetes type 2, unc ontrolled (E11.65) Diagnosis 2 Osteopenia (M85.80) Referral Organization [facility] Referring Provider First Name Alana Referring Provider Last Name Gwendolyn Referring Provider Specialty Family Prac fabio Referred Organization [employer] Referred Provider Evelina Chan Referred Address [address] [facility] [address],[place], [place],[address] Referred Provider Specialty Internal Med icine Referral [...] HTN (hypertension) Hyperlipidemia Nicotine dependence Osteopenia 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 continuous 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 Tinnitus Uncontrolled type 2 diabetes mellitus Chief Complaint review labs Reason for Visit Abdominal pain Constipation Diarrhea Fatty liver Hepatic hemangioma HTN (hypertension) Hyperlipidemia Nicotine dependence Osteopenia Other prison (current) 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 Tinnitus Uncontrolled type 2 diabetes mellitus Chief Complaint review labs abcess of right abdomen skin Reason for Visit Abdominal pain Constipation Diarrhea Fatty liver Hepatic hemangioma HTN (hypertension) Hyperlipidemia Nicotine dependence Osteopenia Other prison (current) 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 Tinnitus Uncontrolled type 2 [...] DO Primary Care Provider Active Noa Waters SHOP COOPER- Emergency Provider Active Team Status: Inactive Member Role Status Cristopher Parkinson DO Primary Care Provider Active Gloria Palacios APRN Emergency Provider Active Team Status: Inactive Member Role Status Cristopher Parkinson DO Primary Care Provider Active Noé oK II, MD Attending Provider Active Team Status: [...] December 10, 2023 End: December 10, 2023 Account Representative Relationship Specialty Start Date End Date Alana Parkinson MD [address] [place] [address] PCP - General Family Medicine 10/26/23 Tabitha Thornton AUD [address] [place] [address] Audiology 02/28/24 Account Representative Relationship Specialty Start Date End Date Alana Parkinson MD [address] [place] [address] PCP - General Family Medicine 10/26/23 Tabitha Thornton AUD [address] [place] [address] Audiology 02/28/24 Account Representative Relationship Specialty Start Date End Date Alana Parkinson MD [address] [place] [address] PCP - General Family [facility] 10/26/23 Tabitha Thornton AUD [address] [place] [address] Audiology 02/28/24 Account Representative Relationship Specialty Start Date End Date Alana Parkinson MD [address] [place] [address] PCP - General Family [facility] 10/26/23 Tabitha Thornton AUD [address] [place] [address] Audiology 02/28/24 Account Representative Relationship Specialty Start Date End Date Alana Parkinson MD [address] [place] [address] PCP - General [facility] 10/26/23 Tabitha Thornton AUD [address] [place] [address] Audiology 02/28/24 Goals (unrecognized section and content) Goals may be documented in a n alternate section INFORMATION SOURCE (unrecogn ized section and content) DATE CREATED AUTHOR 07/31/2022 [facility] DATE CREATED AUTHOR AUTHOR'S ORGANIZ ATION 03/21/2024 [facility] DATE CREATED AUTHOR AUTHOR'S ORGANIZ ATION 07/15/2024 [facility] EPIC FOR RECORDS PERTAINING [...] BE BASED ON THE PRIMARY CLINICAL RECORDS. [facility]. provides no warranty or guarantee of the accuracy or completeness of information in this document.
[2024-09-29 21:12] VITALS: BP 159/79; PULSE 100; TEMP 37.2; O2SAT 94; BMI 33.7
[2024-09-29 22:19] LABS: Glucometer 338 mg/dL (74-106)
[2024-09-29] MEDS: HYDROCODONE/ACET 5-325 MG TABLET 2 TAB PO (23:16)
[2024-09-29 23:20] VITALS: BP 111/68; PULSE 91; TEMP 36.7; O2SAT 91
[2024-09-30] VITALS (10 sets, daily range): BP systolic 111–139; BP diastolic 64–69; PULSE 71–99; TEMP 36.7–36.8; O2SAT 92–97
[2024-09-30] MEDS: HYDROMORPHONE HCL 1 MG/ML CARTRIDGE 0.5 MG IVP (03:48)
[2024-09-30 06:03] LABS: Basophils Absolute Auto 0.1 10^3/uL (0.0-0.1); Basophils Percent Auto 0.9 % (0.2-2.0); Eosinophils Absolute Auto 0.3 10^3/uL (0.0-0.7); Eosinophils Percent Auto 3.3 % (0.9-7.0); Hematocrit 32.8 % (36.0-48.0); Hemoglobin 10.7 g/dL (12.0-16.0); Immature Granulocytes Abs Auto 0.05 10^3/uL (0.00-0.03); Immature Granulocytes Pct Auto 0.6 % (0.0-0.5); Lymphocytes Absolute Auto 1.3 10^3/uL (1.2-3.8); Lymphocytes Percent Auto 16.1 % (20.5-60.0); Mean Corpuscular HGB Conc 32.6 g/dL (29.9-35.2); Mean Corpuscular Hemoglobin 29.6 pg (26.7-34.0); Mean Corpuscular Volume 90.9 fL (81.0-99.0); Mean Platelet Volume 10.9 fL (9.5-13.5); Monocytes Absolute Auto 0.8 10^3/uL (0.3-0.8); Monocytes Percent Auto 9.9 % (1.7-12.0); Neutrophils Absolute Auto 5.5 10^3/uL (1.4-6.5); Neutrophils Percent Auto 69.2 % (43.0-75.0); Platelet Count 163 10^3/uL (150-450); Red Blood Count 3.61 10^6/uL (4.20-5.40); Red Cell Distribution Width 11.9 % (11.0-15.0); White Blood Count 7.9 10^3/uL (4.0-11.0)
[2024-09-30 06:24] LABS: Alanine Aminotransferase 11 U/L (14-59); Albumin Globulin Ratio 0.5; Albumin Level 1.9 g/dL (3.4-5.0); Alkaline Phosphatase 94 U/L (46-116); Anion Gap 13.4; Aspartate Amino Transferase 15 U/L (15-37); BUN Creatinine Ratio 22.5; Bilirubin Total 0.3 mg/dL (0.2-1.0); Calcium 8.9 mg/dL (8.5-10.1); Carbon Dioxide 24.7 mmol/L (21.0-32.0); Chloride 102 mmol/L (98-107); Estimated GFR (African America >60 (>=60 mL/min/1.73m^2); Estimated GFR (Non-African Ame >60 (>=60 mL/min/1.73m^2); Globulin 3.6 g/dL; Glucose 221 mg/dL (74-106); Magnesium 1.7 mg/dL (1.8-2.4); Potassium 4.1 mmol/L (3.5-5.1); Sodium 136 mmol/L (136-145); Total Protein 5.5 g/dL (6.4-8.2)
[2024-09-30 07:43] LABS: Glucometer 234 mg/dL (74-106)
[2024-09-30] MEDS: VANCOMYCIN HCL 1,000 MG in 0.9 % SODIUM CHLORIDE 250 ML 250 MG IV ×2 (08:18→20:31)
[2024-09-30] MEDS: ENOXAPARIN SODIUM 40 MG/0.4 ML SYRINGE SUBQ (08:18)
[2024-09-30] MEDS: LISINOPRIL 10 MG TABLET PO (08:19)
[2024-09-30] MEDS: OXYCODONE HCL/ACETAMINOPHEN 5MG/325MG 2 TAB PO ×2 (08:19→13:58)
[2024-09-30] MEDS: INSULIN ASPART 300 UNIT/3 ML PEN SUBQ ×4 (08:19→21:43)
[2024-09-30] MEDS: ATORVASTATIN CALCIUM 20 MG TABLET PO (08:19)
[2024-09-30] MEDS: PIOGLITAZONE 15 MG TABLET 45 MG PO (08:28)
[2024-09-30] MEDS: 0.9 % SODIUM CHLORIDE 250 ML 10 ML IV (08:35)
[2024-09-30] MEDS: ENSURE HP 237 ML LIQUID PO ×2 (09:19→20:30)
[2024-09-30] MEDS: PROSTAT 15 GM PROTEIN/100 CAL 30 ML LIQUID PACKET PO ×2 (09:19→20:30)
[2024-09-30] MEDS: JUVEN PACKET 1 PACKET PO ×2 (09:19→20:30)
[2024-09-30] MEDS: MAGNESIUM OXIDE 400 MG TABLET PO ×2 (09:19→20:30)
[2024-09-30] MEDS: CEFTAZIDIME 2,000 MG in 0.9 % SODIUM CHLORIDE 100 ML 200 MG IV ×2 (09:24→17:18)
[2024-09-30] MEDS: LEVOFLOXACIN IN DEXTROSE 5 % 750 MG/150 ML PREMIX 100 MG IV (10:49)
--- NOTE | 2024-09-30 10:52 | P.HP_ITS ---
HPI H&P: HPI History of Present Illness Chief complaint: WOUND FOOT, HERE 2 DAYS AGO, HYPONATREMIA, GLUTEAL Narrative: Patient was seen in the emergency room about 3 days prior to admission, given oral antibiotics Keflex and doxycycline, patient increasing pain and swelling and difficulty ambulating secondary to those, worse on the day of admission, she presented emergency room and found to have a large gluteal abscess which was drained in the emergency room, appears cultures were obtained Patient up in the medical surgical floor, resting comfortably in bed, has pain with any movement but overall the pressure is certainly better than it was when she came in Opioid HPI Opioid Management Most Recent Pain and Opioid Data: Last Pain Scale 6 09/30/24 10:08 09/30/24 Last Pain Assessment 09/30/24 10:54 Last MAR Pain Assessment 09/30/24 10:08 Last ORT Total Score 0 09/29/24 21:12 09/29/24 Last ORT Risk Category Low Risk 09/29/24 21:12 09/29/24 Review of Systems ROS Status of ROS 10 or more systems reviewed and unremark able except as noted in history and below PFSH PFSH Medical History (Updated 09/29/24 @ 23:38 by Chani Loera, KARSTEN) Diabetes type 2 ?E11.9 - Type 2 diabetes mellitus without complications (ICD-10) HTN (hypertension) ?I10 - Essential (primary) hypertension (ICD-10) MRSA (methicillin resistant Staphylococcus aureus) ?A49.02 - Methicillin resistant Staphylococcus aureus infection, unspecified site (ICD-10) Surgical History (Updated 09/29/24 @ 23:38 by Chani Loera, RN) History of appendectomy ?Z90.49 - Acquired absence of other specified parts of digestive tract (ICD- 10) Family History (Updated 09/29/24 @ 21:10 by Chani Loera, RN) Other Family history of CHF (congestive heart failure) Family history of cancer Family history of diabetes mellitus Family history of myocardial infarction Family history of stroke Social History (Updated 09/29/24 @ 21:12 by Chani Loera, RN) Within the past year, how often did you have a drink containing alcohol: never Score interpretation: A score less than 3 is consistent with normal alcohol consumption. Smoking status: Current every day smoker Non-prescribed substance use: denies use Highest level of school completed/degree received: high school graduate Are you now , , , , never or living with a partner: In a typical week, how many times do you talk on the telephone with family, friends, or neighbors: 3 or more times per week How often do you get together with friends or relatives: 3 or more times per week Little interest or pleasure in doing things: not at all Feeling down, depressed, or hopeless: not at all Meds Home Medications and Allergies Home Medications ?Medication ?Instructions ?Recorded ?Confirmed ?Type cephalexin 500 mg capsule 500 mg PO Q8H 7 days #21 caps 09/26/24 09/29/24 Rx doxycycline hyclate 100 mg capsule 100 mg PO BID 7 days #14 caps 09/26/24 09/29/24 Rx oxycodone-acetaminophen 5 mg-325 1 tab PO TID PRN pain 3 days #9 09/26/24 09/29/24 Rx mg tablet (Percocet) tabs atorvastatin 20 mg tablet 20 mg PO DAILY 09/29/24 09/29/24 History insulin aspart U-100 100 unit/mL 8 unit subcut QAM 09/29/24 09/29/24 History (3 mL) subcutaneous pen (Novolog FlexPen U-100 Insulin aspart) insulin detemir U-100 100 unit/mL 60 unit subcut .QHS 09/29/24 09/29/24 History (3 mL) subcutaneous pen (Levemir FlexTouch U-100 Insulin) lisinopril 10 mg tablet 10 mg PO DAILY 09/29/24 09/29/24 History pioglitazone 45 mg tablet 45 mg PO DAILY 09/29/24 09/29/24 History Allergies Allergy/AdvReac Type Severity Reaction Status Date / Time Penicillins AdvReac Unknown Rash Verified 03/21/24 17:05 Sulfa (Sulfonamide AdvReac Unknown Rash Verified 03/21/24 17:05 Antibiotics) Exam Constitutional Vital Signs, click to edit/add: Last Vital Signs Temp 98.3 F 09/30/24 07:47 Pulse 87 09/30/24 08:00 Resp 18 09/30/24 07:47 BP 139/67 09/30/24 07:47 Pulse Ox 93 L 09/30/24 07:47 O2 Del Method Room Air 09/30/24 07:47 Documenting provider has reviewed patient's vital signs: yes Common normals: no apparent distress Chest Common normals: inspection of chest normal Respiratory Common normals: normal respiratory effort and no retractions Cardio Common normals: regular rate and regular rhythm GI Common normals: Normal to inspection, nondistended, normoactive bowel sounds present and soft to palpation Back & Pelvis Common normals: no CVA tenderness Other: R buttocks with erythema and copious drainage, some erythema outside the line of demarcation Results Labs Labs: Short CBC 09/29/24 09/30/24 Range/Units 17:06 05:55 WBC 11.2 H 7.9 (4.0-11.0) 10^3/uL Hgb 12.1 10.7 L (12.0-16.0) g/dL Hct 36.9 32.8 L (36.0-48.0) % Plt Count 225 163 (150-450) 10^3/uL BMP 09/29/24 09/30/24 17:06 05:55 Sodium 128 L 136 Potassium 4.7 4.1 Chloride 93 L 102 Carbon Dioxide 28.0 24.7 BUN 21.0 H 16.0 Creatinine 1.01 0.71 Glucose 569 H* 221 H Calcium 9.4 8.9 Liver Function 09/29/24 09/30/24 Range/Units 17:06 05:55 Total Bilirubin 0.4 0.3 (0.2-1.0) mg/dL AST 13 L 15 (15-37) U/L ALT 18 11 L (14-59) U/L Alkaline Phosphatase 120 H 94 (46-116) U/L Albumin 2.5 L 1.9 L (3.4-5.0) g/dL ABG ABG results: 09/29/24 18:20 VBG pH 7.398 VBG pCO2 41.0 Assessment and Plan Assessment and Plan (1) Cellulitis: Qualifiers: Site of cellulitis: buttock Qualified Code(s): L03.317 - Cellulitis of buttock (2) Back pain: (3) Abscess of skin or subcutaneous tissue: (4) Acute hyponatremia: (5) Diabetes type 2: (6) HTN (hypertension): Plan Admission findings: Leukocytosis, hyponatremia, sinus tachycardia, severely elevated hyperglycemia, severe protein calorie malnutrition positive blood culture from the previous emergency room visit, elevated BUN consistent with dehydration, and hypomagnesemia secondary to right gluteal abscess leading to sepsis Right gluteal abscess leading to gkomxv-xyvsx-hahfsvid antibiotics, the erythema is outside the initial line of demarcation so we will add Zosyn to the vancomycin, blood cultures pending, repeat blood cultures for fever spikes Severely poorly controlled diabetes mellitus sugar over 500-insulin sliding scale and improve diet, patient had sweet tea prior to presentation Hyponatremia secondary to the hyperglycemia-improved Elevated BUN consistent with dehydration-IV fluids-improved Hypomagnesemia-supplement Hypercholesterolemia continue with home medications Admission status: Patient failed outpatient treatment now with positive blood culture, secondary to right gluteal abscess, medically necessary treatment will span 2 midnights. Inpatient status
[2024-09-30 11:42] LABS: Glucometer 268 mg/dL (74-106)
[2024-09-30 17:25] LABS: Glucometer 287 mg/dL (74-106)
[2024-09-30 20:39] LABS: Glucometer 336 mg/dL (74-106)
[2024-09-30] MEDS: INSULIN GLARGINE 300 UNIT/3 ML INSULN.PEN 60 UNIT SQ (21:44)
[2024-10-01] VITALS (8 sets, daily range): BP systolic 126–161; BP diastolic 70–85; PULSE 80–93; TEMP 36.6–36.8; O2SAT 93–97
[2024-10-01] MEDS: CEFTAZIDIME 2,000 MG in 0.9 % SODIUM CHLORIDE 100 ML 200 MG IV ×3 (02:53→17:09)
[2024-10-01 06:23] LABS: Basophils Percent Auto 0.6 % (0.2-2.0); Eosinophils Absolute Auto 0.2 10^3/uL (0.0-0.7); Eosinophils Percent Auto 3.1 % (0.9-7.0); Hematocrit 32.7 % (36.0-48.0); Hemoglobin 10.6 g/dL (12.0-16.0); Immature Granulocytes Abs Auto 0.07 10^3/uL (0.00-0.03); Lymphocytes Absolute Auto 1.2 10^3/uL (1.2-3.8); Lymphocytes Percent Auto 18.1 % (20.5-60.0); Mean Corpuscular HGB Conc 32.4 g/dL (29.9-35.2); Mean Corpuscular Hemoglobin 29.4 pg (26.7-34.0); Mean Corpuscular Volume 90.8 fL (81.0-99.0); Mean Platelet Volume 11.2 fL (9.5-13.5); Monocytes Absolute Auto 0.5 10^3/uL (0.3-0.8); Monocytes Percent Auto 7.3 % (1.7-12.0); Neutrophils Absolute Auto 4.7 10^3/uL (1.4-6.5); Neutrophils Percent Auto 69.9 % (43.0-75.0); Platelet Count 205 10^3/uL (150-450); White Blood Count 6.7 10^3/uL (4.0-11.0)
[2024-10-01 06:39] LABS: BUN Creatinine Ratio 30.8; Calcium 9.5 mg/dL (8.5-10.1); Carbon Dioxide 27.7 mmol/L (21.0-32.0); Chloride 102 mmol/L (98-107); Estimated GFR (African America >60 (>=60 mL/min/1.73m^2); Estimated GFR (Non-African Ame >60 (>=60 mL/min/1.73m^2); Glucose 316 mg/dL (74-106); Potassium 4.7 mmol/L (3.5-5.1); Sodium 136 mmol/L (136-145)
[2024-10-01 06:40] LABS: Magnesium 1.6 mg/dL (1.8-2.4)
[2024-10-01 08:43] LABS: Glucometer 291 mg/dL (74-106)
[2024-10-01] MEDS: INSULIN ASPART 300 UNIT/3 ML PEN SUBQ ×4 (08:43→21:21)
[2024-10-01] MEDS: OXYCODONE HCL/ACETAMINOPHEN 5MG/325MG 1 TAB PO (09:30)
[2024-10-01] MEDS: LISINOPRIL 10 MG TABLET PO (09:32)
[2024-10-01] MEDS: MAGNESIUM OXIDE 400 MG TABLET PO ×3 (09:32→21:26)
[2024-10-01] MEDS: JUVEN PACKET 1 PACKET PO ×2 (09:32→21:18)
[2024-10-01] MEDS: PROSTAT 15 GM PROTEIN/100 CAL 30 ML LIQUID PACKET PO ×2 (09:32→21:18)
[2024-10-01] MEDS: POLYETHYLENE GLYCOL 3350 17 GM POWDER PACKET PO (09:32)
[2024-10-01] MEDS: ENOXAPARIN SODIUM 40 MG/0.4 ML SYRINGE SUBQ (09:32)
[2024-10-01] MEDS: ATORVASTATIN CALCIUM 20 MG TABLET PO (09:32)
[2024-10-01] MEDS: ENSURE HP 237 ML LIQUID PO ×2 (09:32→21:19)
[2024-10-01] MEDS: PIOGLITAZONE 15 MG TABLET 45 MG PO (09:45)
[2024-10-01] MEDS: VANCOMYCIN HCL 1,000 MG in 0.9 % SODIUM CHLORIDE 250 ML 250 MG IV (09:48)
--- NOTE | 2024-10-01 10:07 | P.PN_ITS ---
Exam Constitutional Vital Signs, click to edit/add: Last Vital Signs Temp 98.1 F 10/01/24 08:48 Pulse 87 10/01/24 08:48 Resp 16 10/01/24 08:48 BP 146/85 H 10/01/24 08:48 Pulse Ox 93 L 10/01/24 08:48 O2 Del Method Room Air 10/01/24 08:48 Progress Note: Objective Labs Labs: Short CBC 10/01/24 Range/Units 06:02 WBC 6.7 (4.0-11.0) 10^3/uL Hgb 10.6 L (12.0-16.0) g/dL Hct 32.7 L (36.0-48.0) % Plt Count 205 (150-450) 10^3/uL BMP 10/01/24 06:02 Sodium 136 Potassium 4.7 Chloride 102 Carbon Dioxide 27.7 BUN 24.0 H Creatinine 0.78 Glucose 316 H Calcium 9.5 Progress Note: A&P Assessment and Plan (1) Cellulitis: Qualifiers: Site of cellulitis: buttock Qualified Code(s): L03.317 - Cellulitis of buttock (2) Back pain: (3) Abscess of skin or subcutaneous tissue: (4) Acute hyponatremia: (5) Diabetes type 2: (6) HTN (hypertension): Plan Admission findings: Leukocytosis, hyponatremia, sinus tachycardia, severely elevated hyperglycemia, severe protein calorie malnutrition positive blood culture from the previous emergency room visit, elevated BUN consistent with dehydration, and hypomagnesemia secondary to right gluteal abscess leading to sepsis Right gluteal abscess leading to [id number] antibiotics, The erythema that was outside the line of demarcation is now inside the line - maintain current IV AB - blood and wound cx pending, initial blood cx from 3 days prioor to admission + for staph hominis Severely poorly controlled diabetes mellitus sugar over 500-insulin sliding scale and improve diet, better today Hyponatremia secondary to the hyperglycemia-improved to normal Elevated BUN consistent with dehydration-IV fluids-improved Hypomagnesemia-supplement - Iron deficiency anemia-monitor daily-Down somewhat today Hypercholesterolemia continue with home medications Admission status: Patient failed outpatient treatment now with positive blood culture, secondary to right gluteal abscess and worse on day 2 pof admission, medically necessary treatment will span 2 midnights. Inpatient status ?
[2024-10-01 11:50] LABS: Glucometer 233 mg/dL (74-106)
[2024-10-01 16:20] LABS: Glucometer 178 mg/dL (74-106)
[2024-10-01] MEDS: 0.9 % SODIUM CHLORIDE 250 ML 10 ML IV (17:09)
[2024-10-01] MEDS: OXYCODONE HCL/ACETAMINOPHEN 5MG/325MG 2 TAB PO (18:32)
[2024-10-01 19:30] LABS: Glucometer 272 mg/dL (74-106)
[2024-10-01] MEDS: INSULIN GLARGINE 300 UNIT/3 ML INSULN.PEN 60 UNIT SQ (21:22)
[2024-10-01] MEDS: VANCOMYCIN HCL 1,000 MG in 0.9 % SODIUM CHLORIDE 250 ML 200 MG IV (21:26)
[2024-10-02] VITALS (8 sets, daily range): BP systolic 118–162; BP diastolic 68–84; PULSE 80–99; TEMP 36.7–36.9; O2SAT 94–97
[2024-10-02] MEDS: CEFTAZIDIME 2,000 MG in 0.9 % SODIUM CHLORIDE 100 ML 200 MG IV ×2 (02:14→13:51)
[2024-10-02] MEDS: MAGNESIUM OXIDE 400 MG TABLET PO ×3 (05:15→21:19)
[2024-10-02 06:40] LABS: Basophils Absolute Auto 0.1 10^3/uL (0.0-0.1); Basophils Percent Auto 1.2 % (0.2-2.0); Eosinophils Absolute Auto 0.2 10^3/uL (0.0-0.7); Eosinophils Percent Auto 3.7 % (0.9-7.0); Hematocrit 34.3 % (36.0-48.0); Hemoglobin 11.3 g/dL (12.0-16.0); Immature Granulocytes Abs Auto 0.12 10^3/uL (0.00-0.03); Immature Granulocytes Pct Auto 1.8 % (0.0-0.5); Lymphocytes Absolute Auto 1.3 10^3/uL (1.2-3.8); Lymphocytes Percent Auto 19.4 % (20.5-60.0); Mean Corpuscular HGB Conc 32.9 g/dL (29.9-35.2); Mean Corpuscular Hemoglobin 30.1 pg (26.7-34.0); Mean Corpuscular Volume 91.5 fL (81.0-99.0); Mean Platelet Volume 10.8 fL (9.5-13.5); Monocytes Absolute Auto 0.6 10^3/uL (0.3-0.8); Monocytes Percent Auto 8.5 % (1.7-12.0); Neutrophils Absolute Auto 4.2 10^3/uL (1.4-6.5); Neutrophils Percent Auto 65.4 % (43.0-75.0); Platelet Count 253 10^3/uL (150-450); Red Blood Count 3.75 10^6/uL (4.20-5.40); Red Cell Distribution Width 12.2 % (11.0-15.0); White Blood Count 6.5 10^3/uL (4.0-11.0)
--- OUTSIDE RECORDS SUMMARY | 2024-10-02 06:48 | XMS_ITS | CCD ---
Author Organization [facility] Care Team Providers Care Social Work Professor Name Role Phone Alana Parkinson Unavailable DO Alana Parkinson Primary Care Provider [facility] [place] Emergency Provider [phone] LORENZO Palacios Emergency Provider DO Alana Parkinson Attending Provider [phone] Noé Ko II Unavailable DO Alana Parkinson Primary Care Provider [phone] [facility] [place] [facility] Emergency Provider [phone] LORENZO Palacios Emergency Provider [phone] DO Alana Parkinson Attending Provider [phone] MD Noé Ko II Attending Provider [phone] Community, Outreach Attending Provider [phone] DO Alana Parkinson Primary Care Provider STEFANIE Jimenez Attending Provider [phone] Community, Outreach Attending Provider DO Alana Parkinson Primary Care Provider [phone] DO Alana Parkinson Attending Provider [phone] DO Jarrett Dang Emergency Provider [phone] MD Brigido Man Attending Provider DO Alana Parkinson Primary Care Provider MD [...] Wall Referring Unavailable Alana Parkinson Attending Unavailable Gwendolny, Alana Admitting Unavailable Gwendolyn, Alana Primary Care [...] Provider Alana Parkinson MD Primary Care Provider [phone] Tabitha New Unavailable BRIGIDO MAN Attending Unavailable [...] Facility (19 sources) Penicillin Drug Allergy Unknown [employer] Other (19 sources) Sulfonamides (Antibiotic) Propensity to adverse reactions Unknown [employer] Other (20 sources) Penicillins; Translations: [Penicillins] Allergy to substance 2 [facility] (18 sources) Sulfonamides (Antibiotic); Translations: [Sulfa (Sulfonamide Antibiotics)] Allergy to substance 2 Rash [facility] (8 sources) Sulfanilamide Allergy to substance [...] Once a day Dec, Active Continuous Glucose Material Dispatcher ([employer]Style [place]) device (3 sources) Start: 03-29-2024 Continuous Glucose 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 03/29/2024 Active Continuous Glucose [...] 25 mg by mouth Daily Active [employer] [place] Glucometer (14 sources) Start: 05-22-2014 [employer] [place] Glucometer test kit daily as directed Dx: Insulin Dependent Diabetes May, Active [employer] [place] - (4 sources) Start: 01-20-2023 [employer] [place] - as directed E11.65 for 30 days [...] current use of 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; Translations: [Other fci (current) 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] 12-10-2023 Episodic Other aftercare (5 sources) Long-term current use of insulin; Translations: [retirement (current) use of insulin] Onset: 4 07-12-2024 [...] 03-07-2024 Episodic Other aftercare (7 sources) Other floor broker (current) 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; Translations: [Long-term (current) use [...] on 07-12-2024 Glucose Blood, POC 219 mg/dL [facility] - Hematology and Cell countson 07-12-2024 HbA1c (Bld) [Mass fraction] 11.8 % [facility] No Panel InformationOrdered By: Chela Jean on 07-12-2024 [facility] PATHOLOGY REQUEST FOR LAB CO RPon 03-15-2024 PATHOLOGY REQUEST FOR LAB ADRIAN [facility] Comment on above: See report. Scanned copy available in EMR. PATHOLOGY SKIN BX SPECIMEN [facility] No Panel InformationOrdered By: Hector Wall on 2024 Miscellaneous Pathology Test See comment [facility] Comment on above: See report. Scanned copy available in EMR. Pathology Request for Lab Co rpon 2024 Pathology Request for Lab Adrian Normal [facility] Comment on above: Order Comment: PATHO LOGY SKIN BX SPECIMEN Result Comment: See report. Scanned copy available in EMR. PERFORMED BY: [place] [address] PATHOLOGIST TELLERS SUPERVISOR BRODY GARZA M.D. Performed By: #### P ATH TO [facility] ####[facility] [address] US renal BIon 11-22-2023 US renal BI [facility] [place] [address] [place] [address] Ultrasound Report Signed Patient: Chela Padilla MR#: [id number] 06 : 1955 Acct:[id number] Age/Sex: 68 / F ADM Date: 11/22/23 Loc: UL Room: Type: [facility] Attending Dr: Alana Parkinson DO Ordering Provider: Alana Parkinson DO Date of Service: 11/22/23 US/US abdomen limited: R10.9 - Unspecified abdominal pain ([id number]) US/US renal BI: R10.9 - Unspecified abdominal [...] Cici Andrade M.D.11/22/2023 10:52 AM Dictation Location: [place] [address] Tech: Rosalina Tom Transcribed By: YUNG 11/22/23 1052 Dictated By: Cici Andrade MD 11/22/23 1035 Signed By: 11/22/23 1052 Normal [facility] A1C with Estimated Average G gaudenciochristopher 11-16-2023 Glucose [Mass/Vol] 335 mg/dL Normal [facility] Comment on above: Result Comment: PERF ORMED BY: [facility] [address] [place] [address] PATHOLOGIST TELLERS SUPERVISOR BRODY GARZA M.D. Performed By: #### C BC, LIPID, A1C WTH eA, CMP #### [facility] [address] [place] [address] [place] Alanine aminotransferase [En zymatic activity/volume] in Serum or PlasmaOrdered By: Alana Parkinson on 11-16-2023 ALT [Catalytic activity/Vol] 18 U/L Normal 7-52 [facility] Comment on above: Performed By: #### C BC, LIPID, A1C WTH eA, CMP #### [facility] [address] [place] [address] [place] Albumin [Mass/volume] in Ser um or Plasma by Bromocresol green (BCG) dye binding methoOrdered By: Alana Parkinson on 11-16-2023 Albumin BCG dye [Mass/Vol] 3.8 g/dL 3.5-5.7 [facility] Alkaline phosphatase [Enzyma tic activity/volume] in Serum or PlasmaOrdered By: Alana Parkinson on 11-16-2023 ALP [Catalytic activity/Vol] 92 U/L Normal 34-104 [facility] Comment on above: Performed By: #### C BC, LIPID, A1C WT eA, CMP #### [place] [address] [place] Aspartate aminotransferase [ Enzymatic activity/volume] in Serum or PlasmaOrdered By: Alana Parkinson on 11-16-2023 AST [Catalytic activity/Vol] 14 U/L Normal 13-39 [facility] Comment on above: Performed By: #### C BC, LIPID, A1C WT eA, CMP #### [facility] [address] [place] [address] [place] Automated basophil %Ordered By: Alana Parkinson on 11-16-2023 Basophils/100 WBC (Bld) 0.9 % Normal . [facility] Comment on above: Performed By: #### C BC, LIPID, A1C WTH eA, CMP #### [place] [address] [place] Automated basophil countOrde red By: Alana Parkinson on 11-16-2023 Basophils (Bld) [#/Vol] 0.1 10*3/uL Normal 0.0-0.2 [facility] Comment on above: Result Comment: PERF ORMED BY: [place] [address] PATHOLOGIST TELLERS SUPERVISOR BRODY GARZA M.D. Performed By: #### C BC, LIPID, A1C WTH eA, CMP #### [address] Automated blood monocyte cou ntOrdered By: Alana Parkinson on 11-16-2023 Monocytes (Bld) [#/Vol] 0.4 10*3/uL Normal 0.0-0.8 [facility] Comment on above: Performed By: #### C BC, LIPID, A1C WTH eA, CMP #### [address] Automated eosinophil %Ordere d By: Alana Parkinson on 11-16-2023 Eosinophils/100 WBC (Bld) 5.2 % Normal . [facility] Comment on above: Performed By: #### C BC, LIPID, A1C WTH eA, CMP #### [address] Automated eosinophil countOr dered By: Alana Parkinson on 11-16-2023 Eosinophils (Bld) [#/Vol] 0.3 10*3/uL Normal 0.0-0.45 [facility] Comment on above: Performed By: #### C BC, LIPID, A1C WTH eA, CMP #### [address] Automated monocyte %Ordered By: Alana Parkinson on 11-16-2023 Monocytes/100 WBC (Bld) 5.9 % Normal . [facility] Comment on above: Performed By: #### C BC, LIPID, A1C WTH eA, CMP #### [address] Automated neutrophil %Ordere d By: Alana Parkinson on 11-16-2023 Neutrophils/100 WBC (Bld) 60.1 % Normal . [facility] Comment on above: Performed By: #### C BC, LIPID, A1C WTH eA, CMP #### [address] Bilirubin.total [Mass/volume ] in Serum or PlasmaOrdered By: Alana Parkinson on 11-16-2023 Bilirubin [Mass/Vol] 0.4 mg/dL Normal 0.3-1.0 [facility] Comment on above: Performed By: #### C BC, LIPID, A1C WTH eA, CMP #### [facility] [address] [place] [address] [place] Calcium [Mass/volume] in Ser um or PlasmaOrdered By: Alana Parkinson on 11-16-2023 Calcium [Mass/Vol] 9.3 mg/dL Normal 8.6-10.3 [facility] Comment on above: Performed By: #### C BC, LIPID, A1C WTH eA, CMP #### [facility] [address] Carbon dioxide, total [Moles /volume] in Serum or PlasmaOrdered By: Alana Parkinson on 11-16-2023 CO2 [Moles/Vol] 32.4 mmol/L High 21.0-31.0 [facility] Comment on above: Performed By: #### C BC, LIPID, A1C WTH eA, CMP #### [facility] [address] [place] [address] [place] Chloride [Moles/volume] in S atul or PlasmaOrdered By: lAana Parkinson on 11-16-2023 Chloride [Moles/Vol] 104 mmol/L Normal 98-107 [facility] Comment on above: Performed By: #### C BC, LIPID, A1C WTH eA, CMP #### [facility] [address] [place] [address] [place] Cholesterol [Mass/volume] in Serum or PlasmaOrdered By: Alana Parkinson on 11-16-2023 Cholesterol [Mass/Vol] 232 mg/dL High 140-200 [facility] Comment on above: Chol less than 200 m g/dl low riskChol 201-239 mg/dl borderline riskChol 240 mg/dl and greater high risk Result Comment: Chol less than 200 mg/dl low risk Chol 201-239 mg/dl borderline risk Chol 240 mg/dl and greater high risk Performed By: #### C BC, LIPID, A1C WTH eA, CMP #### [facility] [address] Cholesterol in LDL Calc [Mas s/Vol]Ordered By: Alana Parkinson on 11-16-2023 Cholesterol in LDL [Mass/Vol] 152 mg/dL 0-100 [facility] Comment on above: LDL ATP III CLASSIFI CATIONLDL less than 100 mg/dL OptimalLDL 100-129 mg/dL Near or above optimalLDL 130-159 mg/dL Borderline highLDL 160-189 mg/dL HighLDL greater than 189 mg/dL Very high Cholesterol in VLDL Calc [Ma ss/Vol]Ordered By: Alana Parkinson on 11-16-2023 Cholesterol in VLDL [Mass/Vol] 31 mg/dL [facility] Complete Blood Count Auto Di ffon 11-16-2023 Mean Corpuscular HGB Conc 33.2 g/dL Normal 32.0-35.0 [facility] Comment on above: Performed By: #### C BC, LIPID, A1C WT Candy, CMP #### [address] NRBC% 0.1 /100{WBC} Normal 0-0.5 [facility] Comment on above: Performed By: #### C BC, LIPID, A1C WT Candy, CMP #### [facility] [address] Comprehensive Metabolic Pane shalini 11-16-2023 Albumin [Mass/Vol] 3.8 g/dL Normal 3.5-5.7 [facility] Comment on above: Performed By: #### C BC, LIPID, A1C WT Candy, CMP #### [place] [address] [place] GFR/1.73 sq M.predicted MDRD (S/P/Bld) [Vol rate/Area] mL/min/{1.73_m2} Normal [facility] Comment on above: Performed By: #### C BC, LIPID, A1C WTH Candy, CMP #### [address] Creatinine [Mass/volume] in Serum or PlasmaOrdered By: Alana Parkinson on 11-16-2023 Creatinine [Mass/Vol] 0.58 mg/dL Low 0.60-1.20 [facility] Comment on above: Performed By: #### C BC, LIPID, A1C WT eA, CMP #### [facility] [address] Erythrocyte distribution wid th [Ratio] by Automated countOrdered By: Alana Parkinson on 11-16-2023 Erythrocyte distribution width (RBC) [Ratio] 13.6 % Normal 11.9-15.3 [facility] Comment on above: Performed By: #### C BC, LIPID, A1C WT eA, CMP #### [facility] [address] Erythrocytes [#/volume] in B lood by Automated countOrdered By: Alana Parkinson on 11-16-2023 RBC (Bld) [#/Vol] 4.72 10*6/uL Normal 3.60-5.00 [facility] Comment on above: Performed By: #### C BC, LIPID, A1C WT Candy, CMP #### [facility] [address] Glucose [Mass/volume] in Ser um or PlasmaOrdered By: Alana Parkinson on 11-16-2023 Glucose [Mass/Vol] 185 mg/dL High 70-100 [facility] Comment on above: ADA recommended refe rence rangeRandom Glucose Reference Range is dependent on time and content of last meal. Glucose of more than 200 mg/dL in a nonstressed, ambulatory subject supports the diagnosis of Diabetes Mellitus. Result Comment: [place] Glucose Reference Range is dependent on time and content of last meal. Glucose of more than 200 mg/dL in a nonstressed, ambulatory subject supports the diagnosis of Diabetes Mellitus. ADA recommended reference range Performed By: #### C BC, LIPID, A1C WT eA, CMP #### [facility] [address] Glucose mean value [Mass/vol ume] in Blood Estimated from glycated hemoglobinOrdered By: Alana Parkinson on 11-16-2023 Average glucose Estimated from glycated hemoglobin (Bld) [Mass/Vol] 335 mg/dL [facility] Hematocrit [Volume Fraction] of Blood by Automated countOrdered By: Alana Parkinson on 11-16-2023 Hematocrit (Bld) [Volume fraction] 42.5 % Normal 34.0-46.4 [facility] Comment on above: Performed By: #### C BC, LIPID, A1C WTH eA, CMP #### [address] Hemoglobin A1c percentageOrd ered By: Alana Parkinson on 11-16-2023 HbA1c (Bld) [Mass fraction] 13.3 % High 4.3-5.6 [facility] Comment on above: Increased risk for d iabetes: 5.7 - 6.4diabetes: >6.4glycemic control for adults with diabetes: <7.0 Result Comment: Incr eased risk for diabetes: 5.7 - 6.4 diabetes: >6.4 glycemic control for adults with diabetes: <7.0 Performed By: #### C BC, LIPID, A1C WTH eA, CMP #### [address] Hemoglobin [Mass/volume] in BloodOrdered By: Alana Parkinson on 11-16-2023 Hemoglobin (Bld) [Mass/Vol] 14.1 g/dL Normal 11.8-15.4 [facility] Comment on above: Performed By: #### C BC, LIPID, A1C WTH eA, CMP #### [address] Leukocytes [#/volume] correc adalid for nucleated erythrocytes in Blood by Automated counOrdered By: Alana Parkinson on 11-16-2023 WBC corrected for nucl RBC Auto (Bld) [#/Vol] 6.6 10*3/uL 3.8-11.6 [facility] Leukocytes [#/volume] in Blo od by Automated countOrdered By: Alana Parkinson on 11-16-2023 WBC (Bld) [#/Vol] 6.6 10*3/uL Normal 3.8-11.6 [facility] Comment on above: Performed By: #### C BC, LIPID, A1C WTH eA, CMP #### [address] [place] [address] [place] Lipid Panelon 11-16-2023 LDL Cholesterol,Calculated 152 mg/dL High 0-100 [facility] Comment on above: Result Comment: LDL ATP III CLASSIFICATION LDL less than 100 mg/dL Optimal LDL 100-129 mg/dL Near or above optimal LDL 130-159 mg/dL Borderline high LDL 160-189 mg/dL High LDL greater than 189 mg/dL Very high Performed By: #### C BC, LIPID, A1C WTH eA, CMP #### [address] Triglyceride w/Reflex 155 mg/dL High 0-149 [facility] Comment on above: Result Comment: TRIG ATP III CLASSIFICATION TRIG less than 150 mg/dL Normal TRIG 150-199 mg/dL Borderline high TRIG 200-500 mg/dL High TRIG greater than 500 mg/dL Very high Standard traceable to the Center for Disease Conrtrol and Prevention (CDC) test method. Performed By: #### C BC, LIPID, A1C WTH eA, CMP #### [address] VLDL CHOLESTEROL 31 mg/dL Normal [facility] Comment on above: Performed By: #### C BC, LIPID, A1C WTH eA, CMP #### [address] Lymphocytes [#/volume] in Bl ood by Automated countOrdered By: Alana Parkinson on 11-16-2023 Lymphocytes (Bld) [#/Vol] 1.8 10*3/uL Normal 1.00-4.8 [facility] Comment on above: Performed By: #### C BC, LIPID, A1C WTH eA, CMP #### [place] [address] [place] Lymphocytes/100 leukocytes i n Blood by Automated countOrdered By: Alana Parkinson on 11-16-2023 Lymphocytes/100 WBC (Bld) 27.9 % Normal . [facility] Comment on above: Performed By: #### C BC, LIPID, A1C WTH eA, CMP #### [place] [address] [place] MCH [Entitic mass] by Automa adalid countOrdered By: Alana Parkinson on 11-16-2023 MCH (RBC) [Entitic mass] 29.8 pg Normal 24.7-34.3 [facility] Comment on above: Performed By: #### C BC, LIPID, A1C WT eA, CMP #### [address] MCHC Auto (RBC) [Mass/Vol]Or dered By: Alana Parkinson on 11-16-2023 MCHC (RBC) [Mass/Vol] 33.2 g/dL 32.0-35.0 [facility] MCV [Entitic volume] by Auto mated countOrdered By: Alana Parkinson on 11-16-2023 MCV (RBC) [Entitic vol] 90.0 fL Normal 80-100 [facility] Comment on above: Performed By: #### C BC, LIPID, A1C [facility] eA, CMP #### [address] Neutrophils [#/volume] in Bl ood by Automated countOrdered By: Alana Parkinson on 11-16-2023 Neutrophils (Bld) [#/Vol] 4.0 10*3/uL Normal 1.8-7.7 [facility] Comment on above: Performed By: #### C BC, LIPID, A1C [facility] eA, CMP #### [address] No Panel InformationOrdered By: Alana Parkinson on 11-16-2023 Estimated GFR (CKD-EPI) > 60.0 mL/Min [facility] Creatinine Clearance (Chem N/A [facility] Nucleated erythrocytes [Pres ence] in Blood by Automated countOrdered By: Alana Parkinson on 11-16-2023 Nucleated RBC Auto Ql (Bld) 0.1 /100{WBC} 0-0.5 [facility] Platelet mean volume [Entiti c volume] in Blood by Automated countOrdered By: Alana Parkinson on 11-16-2023 Platelet mean volume (Bld) [Entitic vol] 9.3 fL Normal 6.3-10.7 [facility] Comment on above: Performed By: #### C BC, LIPID, A1C WTH eA, CMP #### [address] Platelets [#/volume] in Bloo d by Automated countOrdered By: Alana Parkinson on 11-16-2023 Platelets (Bld) [#/Vol] 187 10*3/uL Normal 150-450 [facility] Comment on above: Performed By: #### C BC, LIPID, A1C WTH eA, CMP #### [address] Potassium [Moles/volume] in Serum or PlasmaOrdered By: Alana Parkinson on 11-16-2023 Potassium [Moles/Vol] 4.2 mmol/L Normal 3.5-5.1 [facility] Comment on above: Performed By: #### C BC, LIPID, A1C WTH eA, CMP #### [address] Protein [Mass/volume] in Ser um or PlasmaOrdered By: Alana Parkinson on 11-16-2023 Protein [Mass/Vol] 6.0 g/dL Low 6.4-8.9 [facility] Comment on above: Performed By: #### C BC, LIPID, A1C WTH eA, CMP #### [address] Serum globulin measurement b y calculation (mass/volume)Ordered By: Alana Parkinson on 11-16-2023 Globulin (S) [Mass/Vol] 2.2 g/dL [facility] Comment on above: Performed By: #### C BC, LIPID, A1C WTH eA, CMP #### [address] Serum or plasma albumin/glob ulin mass ratioOrdered By: Alana Parkinson on 11-16-2023 Albumin/Globulin [Mass ratio] 1.7 {ratio} [facility] Comment on above: Performed By: #### C BC, LIPID, A1C WTH eA, CMP #### [address] Serum or plasma anion gap de terminationOrdered By: Alana Parkinson on 11-16-2023 Anion gap [Moles/Vol] 6.8 mmol/L Normal 6.0-15.0 [facility] Comment on above: Performed By: #### C BC, LIPID, A1C WTH eA, CMP #### [address] Serum or plasma high density lipoprotein (HDL) cholesterol measurementOrdered By: Alana Parkinson on 11-16-2023 Cholesterol in HDL [Mass/Vol] 49 mg/dL Normal 23-92 [facility] Comment on above: HDL CHOL ATP-III CLA SSIFICATION Cardiovascular RiskHDL > or equal to 60 mg/dL LOWHDL < 40 mg/dL HIGH Result Comment: HDL CHOL ATP-III CLASSIFICATION Cardiovascular Risk HDL > or equal to 60 mg/dL LOW HDL < 40 mg/dL HIGH Performed By: #### C BC, LIPID, A1C WTH eA, CMP #### [address] Serum or plasma total choles terol/high density lipoprotein (HDL) cholesterol mass ratOrdered By: Alana Parkinson on 11-16-2023 Cholesterol.total/Chol esterol in HDL [Mass ratio] 4.7 {ratio} Normal <5.0 [facility] Comment on above: Result Comment: PERF ORMED BY: [place] [address] PATHOLOGIST TELLERS SUPERVISOR BRODY GARZA M.D. Performed By: #### C BC, LIPID, A1C WTH eA, CMP #### [address] Sodium [Moles/volume] in Ser um or PlasmaOrdered By: Alana Parkinson on 11-16-2023 Sodium [Moles/Vol] 139 mmol/L Normal 136-145 [facility] Comment on above: Performed By: #### C BC, LIPID, A1C WTH eA, CMP #### [address] Triglyceride [Mass/volume] i n Serum or PlasmaOrdered By: Alana Parkinson on 04-16-2024 Triglyceride [Mass/Vol] 155 mg/dL 0-149 [facility] Comment on above: TRIG ATP III CLASSIF ICATIONTRIG less than 150 mg/dL NormalTRIG 150-199 mg/dL Borderline highTRIG 200-500 mg/dL High TRIG greater than 500 mg/dL Very highStandard traceable to the Center for Disease Conrtrol and Prevention (CDC) test method. Urea nitrogen [Mass/volume] in Serum or PlasmaOrdered By: Alana Parkinson on 11-16-2023 Urea nitrogen [Mass/Vol] 13 mg/dL Normal 7-25 [facility] Comment on above: Performed By: #### C BC, LIPID, A1C WTH eA, CMP #### [facility] [address] XR KUBon 11-16-2023 XR KUB [facility] [place] [address] [place] [address] XRay Report Signed Patient: Chela Padilla MR#: [id number] [birth year] : 1955 Acct:[id number] Age/Sex: 68 / F ADM Date: 11/16/23 Loc: XD Room: Type: [facility] Attending Dr: Alana Parkinson DO Copies [...] Cici Andrade M.D.11/16/2023 2:06 PM Dictation Location: [place] [address] Transcribed By: YUNG 11/16/23 1406 Dictated By: Cici Andrade MD 11/16/23 1403 Signed By: 11/16/23 1406 Normal [facility] MM screening mammo BI w/CADo n 08-31-2023 MM screening mammo BI w/CAD [facility] [place] [address] [place], [place] [id number] Mammography Report Signed Patient: hCela Padilla MR#: [id number] [birth year] : 1955 Acct:[id number] Age/Sex: 68 / F ADM Date: 08/31/23 Loc: AL Room: Type: [facility] Attending Dr: Brigido Man MD Copies [...] Cici Andrade M.D.08/31/2023 2:14 PM Dictation Location: [facility] Transcribed By: YUNG 08/31/23 1414 Dictated By: Cici Andrade MD 08/31/23 1410 Signed By: 08/31/23 1414 Normal [facility] Activated partial thrombopla stin time (aPTT) in platelet poor plasma by coagulation aOrdered By: Jarrett Dang on 07-27-2023 aPTT Coag (PPP) [Time] 26.5 s 25.1-36.5 [facility] Comment on above: A hematocrit value g reater than 55% may lead to inaccurate results in coagulation testing. Patients having hematocrit values >55% require a special collection tube for coagulation studies. Please contact the laboratory at [phone] for redraw instructions. Alanine aminotransferase [En zymatic activity/volume] in Serum or PlasmaOrdered By: Jarrett Dang on 07-27-2023 ALT [Catalytic activity/Vol] 19 U/L Normal 7-52 [facility] Comment on above: Performed By: #### B SUBSURFACE AUGMENTEE OPERATOR, DDIMER, HS TROP, BMP, PT, PTT, CBC, HEPATIC, CK #### [facility] [address] [place] [address] [place] Albumin [Mass/volume] in Ser um or Plasma by Bromocresol green (BCG) dye binding methoOrdered By: Jarrett Dang on 07-27-2023 Albumin BCG dye [Mass/Vol] 3.9 g/dL 3.5-5.7 [facility] Alkaline phosphatase [Enzyma tic activity/volume] in Serum or PlasmaOrdered By: Jarrett Dang on 07-27-2023 ALP [Catalytic activity/Vol] 98 U/L Normal 34-104 [facility] Comment on above: Performed By: #### B SUBSURFACE AUGMENTEE OPERATOR, DDIMER, HS TROP, BMP, PT, PTT, CBC, HEPATIC, CK #### [facility] [address] [place] [id number] [place] Aspartate aminotransferase [ Enzymatic activity/volume] in Serum or PlasmaOrdered By: Jarrett Dang on 07-27-2023 AST [Catalytic activity/Vol] 13 U/L Normal 13-39 [facility] Comment on above: Performed By: #### B SUBSURFACE AUGMENTEE OPERATOR, DDIMER, HS TROP, BMP, PT, PTT, CBC, HEPATIC, CK #### [facility] [address] [place] [address] [place] Automated basophil %Ordered By: Jarrett Dang on 07-27-2023 Basophils/100 WBC (Bld) 1.2 % Normal . [facility] Comment on above: Performed By: #### B SUBSURFACE AUGMENTEE OPERATOR, DDIMER, HS TROP, BMP, PT, PTT, CBC, HEPATIC, CK #### [address] Automated basophil countOrde red By: Jarrett Dang on 07-27-2023 Basophils (Bld) [#/Vol] 0.1 10*3/uL Normal 0.0-0.2 [facility] Comment on above: Result Comment: PERF ORMED BY: [place] [address] PATHOLOGIST TELLERS SUPERVISOR BRODY GARZA M.D. Performed By: #### B SUBSURFACE AUGMENTEE OPERATOR, DDIMER, HS TROP, BMP, PT, PTT, CBC, HEPATIC, CK #### [address] Automated blood monocyte cou ntOrdered By: Jarrett Dang on 07-27-2023 Monocytes (Bld) [#/Vol] 0.4 10*3/uL Normal 0.0-0.8 [facility] Comment on above: Performed By: #### B SUBSURFACE AUGMENTEE OPERATOR, DDIMER, HS TROP, BMP, PT, PTT, CBC, HEPATIC, CK #### [address] Automated eosinophil %Ordere d By: Jarrett Dang on 07-27-2023 Eosinophils/100 WBC (Bld) 2.3 % Normal . [facility] Comment on above: Performed By: #### B SUBSURFACE AUGMENTEE OPERATOR, DDIMER, HS TROP, BMP, PT, PTT, CBC, HEPATIC, CK #### [address] Automated eosinophil countOr dered By: Jarrett Dang on 07-27-2023 Eosinophils (Bld) [#/Vol] 0.2 10*3/uL Normal 0.0-0.45 [facility] Comment on above: Performed By: #### B SUBSURFACE AUGMENTEE OPERATOR, DDIMER, HS TROP, BMP, PT, PTT, CBC, HEPATIC, CK #### [facility] [address] Automated monocyte %Ordered By: Jarrett Dang on 07-27-2023 Monocytes/100 WBC (Bld) 5.5 % Normal . [facility] Comment on above: Performed By: #### B SUBSURFACE AUGMENTEE OPERATOR, DDIMER, HS TROP, BMP, PT, PTT, CBC, HEPATIC, CK #### [facility] [address] Automated neutrophil %Ordere d By: Jarrett Dang on 07-27-2023 Neutrophils/100 WBC (Bld) 77.1 % Normal . [facility] Comment on above: Performed By: #### B SUBSURFACE AUGMENTEE OPERATOR, DDIMER, HS TROP, BMP, PT, PTT, CBC, HEPATIC, CK #### [address] BNP ser/plasOrdered By: Dia Dang on 07-27-2023 Natriuretic peptide B (Bld) [Mass/Vol] 129.0 pg/mL High 5-100 [facility] Comment on above: Result Comment: PERF ORMED BY: [place] [address] PATHOLOGIST TELLERS SUPERVISOR BRODY GARZA M.D. Performed By: #### B SUBSURFACE AUGMENTEE OPERATOR, DDIMER, HS TROP, BMP, PT, PTT, CBC, HEPATIC, CK ####[address] Basic Metabolic Panelon 12-2 Creatinine Clr Calc Pharmacy 66.11 Normal [facility] Comment on above: Result Comment: PERF ORMED BY: [place] [address] PATHOLOGIST TELLERS SUPERVISOR BRODY GARZA M.D. Performed By: #### B SUBSURFACE AUGMENTEE OPERATOR, DDIMER, HS TROP, BMP, PT, PTT, CBC, HEPATIC, CK ####[facility] GFR/1.73 sq M.predicted MDRD (S/P/Bld) [Vol rate/Area] mL/min/{1.73_m2} Normal [facility] Comment on above: Performed By: #### B SUBSURFACE AUGMENTEE OPERATOR, DDIMER, HS TROP, BMP, PT, PTT, CBC, HEPATIC, CK ####[facility] [id number] Bilirubin.direct [Mass/volum e] in Serum or PlasmaOrdered By: Jarrett Dang on 07-27-2023 Bilirubin.direct [Mass/Vol] 0.00 mg/dL 0.03-0.18 [facility] Comment on above: If the DBIL is less than 0.1, IBIL is not able to becalculated. Bilirubin.total [Mass/volume ] in Serum or PlasmaOrdered By: Jarrett Dang on 07-27-2023 Bilirubin [Mass/Vol] 0.5 mg/dL Normal 0.3-1.0 [facility] Comment on above: Performed By: #### B SUBSURFACE AUGMENTEE OPERATOR, DDIMER, HS TROP, BMP, PT, PTT, CBC, HEPATIC, CK #### [facility] [address] COVID CepheidOrdered By: Melissa Dang on 07-27-2023 SARS-CoV-2 (COVID-19) Ab IA Ql Negative Negative [facility] Comment on above: This is a duplicate Cepheid Xpert Xpress CoV-2/Flu/RSV Plus RNA by RT-PCR result to be used for statistical tracking purpose only. SARS-CoV-2 (COVID-19) RNA LATANYA+probe Ql (Unsp spec) [facility] COVID-19 / Flu A/B / RSV [...] or Cepheid Disclaimer revoked sooner. PERFORMED BY: [place] [address] PATHOLOGIST TELLERS SUPERVISOR BRODY GARZA M.D. Normal [facility] Comment on above: Performed By: #### C OVID19 FLU RSV, CEPHEID NEG ####[facility] [address] [place] [id number] [facility] CT chest w christopher 07-27-2023 CT chest w [facility] [place] [address] [place] [id number] Scan Report Signed Patient: Chela Padilla MR#: [id number] 06 : 1955 Acct:[id number] Age/Sex: 68 / F ADM Date: 07/27/23 Loc: ER Room: Type: [facility] ER Attending Dr: Copies to: Jarrett Dang DO Ordering Provider: Jarrett Dang DO Date of Service: 07/27/23 CT/CT chest w con: back pain ([id number]) CT/CT abdomen pelvis w con: back pain [...] Cici Andrade M.D.07/27/2023 1:30 PM Dictation Location: [place] [address] Transcribed By: [facility] 07/27/23 1330 Dictated By: Cici Andrade MD 07/27/23 1318 Signed By: 07/27/23 1330 Normal [facility] Calcium [Mass/volume] in Ser um or PlasmaOrdered By: Jarrett Dang on 07-27-2023 Calcium [Mass/Vol] 9.1 mg/dL Normal 8.6-10.3 [facility] Comment on above: Performed By: #### B SUBSURFACE AUGMENTEE OPERATOR, DDIMER, HS TROP, BMP, PT, PTT, CBC, HEPATIC, CK ####[facility] [address] [place] [id number] [facility] Carbon dioxide, total [Moles /volume] in Serum or PlasmaOrdered By: Jarrett Dang on 07-27-2023 CO2 [Moles/Vol] 27.6 mmol/L Normal 21.0-31.0 [facility] Comment on above: Performed By: #### B SUBSURFACE AUGMENTEE OPERATOR, DDIMER, HS TROP, BMP, PT, PTT, CBC, HEPATIC, CK ####[facility] [address]tu[address] [place] [address] [facility] Cepheid COVID PCR Negativeon 07-27-2023 SARS-CoV-2 (COVID-19) RNA LATANYA+probe Ql (Unsp spec) Negative Normal Negative [facility] Comment on above: Result Comment: This is a duplicate Cepheid Xpert Xpress CoV-2/Flu/RSV Plus RNA by RT-PCR result to be used for statistical tracking purpose only. PERFORMED BY: [facility] [address] [place] [address] PATHOLOGIST TELLERS SUPERVISOR BRODY GARZA M.D. Performed By: #### C OVID19 FLU RSV, CEPHEID NEG ####[address] Chloride [Moles/volume] in S atul or PlasmaOrdered By: Jarrett Dang on 07-27-2023 Chloride [Moles/Vol] 104 mmol/L Normal 98-107 [facility] Comment on above: Performed By: #### B SUBSURFACE AUGMENTEE OPERATOR, DDIMER, HS TROP, BMP, PT, PTT, CBC, HEPATIC, CK ####[place] [address] [address] Complete Blood Count Auto Di ffon 07-27-2023 Mean Corpuscular HGB Conc 34.1 g/dL Normal 32.0-35.0 [facility] Comment on above: Performed By: #### B SUBSURFACE AUGMENTEE OPERATOR, DDIMER, HS TROP, BMP, PT, PTT, CBC, HEPATIC, CK #### [address] Monocytes/100 WBC (Bld) 18.82 % Normal 0.00-20.00 [facility] Comment on above: Performed By: #### B SUBSURFACE AUGMENTEE OPERATOR, DDIMER, HS TROP, BMP, PT, PTT, CBC, HEPATIC, CK #### [facility] [address] NRBC% 0.1 /100{WBC} Normal 0-0.5 [facility] Comment on above: Performed By: #### B SUBSURFACE AUGMENTEE OPERATOR, DDIMER, HS TROP, BMP, PT, PTT, CBC, HEPATIC, CK #### [facility] [address] [place] [address] [place] Creatine kinase [Enzymatic a ctivity/volume] in Serum or PlasmaOrdered By: Jarrett Dang on 07-27-2023 CK [Catalytic activity/Vol] 100 U/L Normal 30-223 [facility] Comment on above: Performed By: #### B SUBSURFACE AUGMENTEE OPERATOR, DDIMER, HS TROP, BMP, PT, PTT, CBC, HEPATIC, CK ####[address] [place] [address] [facility] Creatinine [Mass/volume] in Serum or PlasmaOrdered By: Jarrett Dang on 07-27-2023 Creatinine [Mass/Vol] 0.65 mg/dL Normal 0.60-1.20 [facility] Comment on above: Performed By: #### B SUBSURFACE AUGMENTEE OPERATOR, DDIMER, HS TROP, BMP, PT, PTT, CBC, HEPATIC, CK ####[place] [address] [place] [address] [facility] D-Dimer High Sensitivityon 1 09-27-2022 D-Dimer High Sensitivity < 200 Normal 0-243 [facility] Comment on above: Result Comment: [...] coagulation studies. Please contact the laboratory at [phone] for redraw instructions. PERFORMED BY: [place] [address] PATHOLOGIST TELLERS SUPERVISOR BRODY GARZA M.D. Performed By: #### B SUBSURFACE AUGMENTEE OPERATOR, DDIMER, HS TROP, BMP, PT, PTT, CBC, HEPATIC, CK ####[place] [address] [place] [address] [facility] ECG 12 lead ECGon 07-27-2023 ECG 12 lead ECG [facility] [place] [address] [place], [place] [id number] Electrocardiograph Report Signed Patient: Chela Padilla MR#: [id number] 06 : 1955 Acct:[id number] Age/Sex: 68 / F ADM Date: 07/27/23 Loc: ER Room: Type: [facility] ER Attending Dr: Ordering Provider: Jarrett Dang [...] Anterior leads Confirmed by Jarrett Dang DO ([id number]) on 07/27/2023 1:55:56 PM Referred By: Electronically Signed By:Jarrett Dang DO Transcribed By: MUS Signed By Jarertt Dang DO 3 1356 Normal [facility] Erythrocyte distribution wid th [Ratio] by Automated countOrdered By: Jarrett Dang on 07-27-2023 Erythrocyte distribution width (RBC) [Ratio] 13.3 % Normal 11.9-15.3 [facility] Comment on above: Performed By: #### B SUBSURFACE AUGMENTEE OPERATOR, DDIMER, HS TROP, BMP, PT, PTT, CBC, HEPATIC, CK #### [facility] [address] Erythrocytes [#/volume] in B lood by Automated countOrdered By: Jarrett Dang on 07-27-2023 RBC (Bld) [#/Vol] 4.66 10*6/uL Normal 3.60-5.00 [facility] Comment on above: Performed By: #### B SUBSURFACE AUGMENTEE OPERATOR, DDIMER, HS TROP, BMP, PT, PTT, CBC, HEPATIC, CK #### [facility] [address] Fibrin D-dimer [Presence] in Platelet poor plasma by Latex agglutinationOrdered By: Jarrett Dang on 07-27-2023 Fibrin D-dimer LA Ql (PPP) < 200 ng/mL 0-243 [facility] Comment on above: The reference range [...] coagulation studies. Please contact the laboratory at [phone] for redraw instructions. Glucose [Mass/volume] in Ser um or PlasmaOrdered By: Jarrett Dang on 07-27-2023 Glucose [Mass/Vol] 297 mg/dL High 70-100 [facility] Comment on above: ADA recommended refe rence rangeRandom Glucose Reference Range is dependent on time and content of last meal. Glucose of more than 200 mg/dL in a nonstressed, ambulatory subject supports the diagnosis of Diabetes Mellitus. Result Comment: [place] om Glucose Reference Range is dependent on time and content of last meal. Glucose of more than 200 mg/dL in a nonstressed, ambulatory subject supports the diagnosis of Diabetes Mellitus. ADA recommended reference range Performed By: #### B SUBSURFACE AUGMENTEE OPERATOR, DDIMER, HS TROP, BMP, PT, PTT, CBC, HEPATIC, CK ####[facility] [id number] Hematocrit [Volume Fraction] of Blood by Automated countOrdered By: Jarrett Dang on 07-27-2023 Hematocrit (Bld) [Volume fraction] 41.9 % Normal 34.0-46.4 [facility] Comment on above: Performed By: #### B SUBSURFACE AUGMENTEE OPERATOR, DDIMER, HS TROP, BMP, PT, PTT, CBC, HEPATIC, CK #### [facility] [address] Hemoglobin [Mass/volume] in BloodOrdered By: Jarrett Dang on 07-27-2023 Hemoglobin (Bld) [Mass/Vol] 14.3 g/dL Normal 11.8-15.4 [facility] Comment on above: Performed By: #### B SUBSURFACE AUGMENTEE OPERATOR, DDIMER, HS TROP, BMP, PT, PTT, CBC, HEPATIC, CK #### [facility] [address] Hepatic Panelon 07-27-2023 Albumin [Mass/Vol] 3.9 g/dL Normal 3.5-5.7 [facility] Comment on above: Performed By: #### B SUBSURFACE AUGMENTEE OPERATOR, DDIMER, HS TROP, BMP, PT, PTT, CBC, HEPATIC, CK #### [facility] [address] Bilirubin,Indirect 0.5 mg/dL Normal [facility] Comment on above: Performed By: #### B SUBSURFACE AUGMENTEE OPERATOR, DDIMER, HS TROP, BMP, PT, PTT, CBC, HEPATIC, CK #### [facility] [address] Bilirubin.indirect [Mass/Vol] 0.00 mg/dL Low 0.03-0.18 [facility] Comment on above: Result Comment: If t he DBIL is less than 0.1, IBIL is not able to be calculated. Performed By: #### B SUBSURFACE AUGMENTEE OPERATOR, DDIMER, HS TROP, BMP, PT, PTT, CBC, HEPATIC, CK #### [facility] [address] INR in Platelet poor plasma by Coagulation assayOrdered By: Jarrett Dang on 07-27-2023 INR Coag (PPP) [Relative time] 0.9 {INR} Normal [facility] Comment on above: INR Therapeutic Rang [...] 3 - 4.5 Performed By: #### B SUBSURFACE AUGMENTEE OPERATOR, DDIMER, HS TROP, BMP, PT, PTT, CBC, HEPATIC, CK ####[facility] [id number] Leukocytes [#/volume] correc adalid for nucleated erythrocytes in Blood by Automated counOrdered By: Jarrett Dang on 07-27-2023 WBC corrected for nucl RBC Auto (Bld) [#/Vol] 7.7 10*3/uL 3.8-11.6 [facility] Leukocytes [#/volume] in Blo od by Automated countOrdered By: Jarrett Dang on 07-27-2023 WBC (Bld) [#/Vol] 7.7 10*3/uL Normal 3.8-11.6 [facility] Comment on above: Performed By: #### B SUBSURFACE AUGMENTEE OPERATOR, DDIMER, HS TROP, BMP, PT, PTT, CBC, HEPATIC, CK #### [facility] [address] Lymphocytes [#/volume] in Bl ood by Automated countOrdered By: Jarrett Dang on 07-27-2023 Lymphocytes (Bld) [#/Vol] 1.1 10*3/uL Normal 1.00-4.8 [facility] Comment on above: Performed By: #### B SUBSURFACE AUGMENTEE OPERATOR, DDIMER, HS TROP, BMP, PT, PTT, CBC, HEPATIC, CK #### [facility] [address] [place] [address] [place] Lymphocytes/100 leukocytes i n Blood by Automated countOrdered By: Jarrett Dang on 07-27-2023 Lymphocytes/100 WBC (Bld) 13.9 % Normal . [facility] Comment on above: Performed By: #### B SUBSURFACE AUGMENTEE OPERATOR, DDIMER, HS TROP, BMP, PT, PTT, CBC, HEPATIC, CK #### [facility] [address] [place] [address] [place] MCH [Entitic mass] by Automa adalid countOrdered By: Jarrett Dang on 07-27-2023 MCH (RBC) [Entitic mass] 30.6 pg Normal 24.7-34.3 [facility] Comment on above: Performed By: #### B SUBSURFACE AUGMENTEE OPERATOR, DDIMER, HS TROP, BMP, PT, PTT, CBC, HEPATIC, CK #### [facility] [address] MCHC Auto (RBC) [Mass/Vol]Or dered By: Jarrett Dang on 07-27-2023 MCHC (RBC) [Mass/Vol] 34.1 g/dL 32.0-35.0 [facility] MCV [Entitic volume] by Auto mated countOrdered By: Jarrett Dang on 07-27-2023 MCV (RBC) [Entitic vol] 89.9 fL Normal 80-100 [facility] Comment on above: Performed By: #### B SUBSURFACE AUGMENTEE OPERATOR, DDIMER, HS TROP, BMP, PT, PTT, CBC, HEPATIC, CK #### [facility] [address] Monocyte distribution width [Entitic volume] in Blood by AutomatedOrdered By: Jarrett Dang on 07-27-2023 Monocyte distribution width Auto (Bld) [Entitic vol] 18.82 % 0.00-20.00 [facility] Neutrophils [#/volume] in Bl ood by Automated countOrdered By: Jarrett Dang on 07-27-2023 Neutrophils (Bld) [#/Vol] 5.9 10*3/uL Normal 1.8-7.7 [facility] Comment on above: Performed By: #### B SUBSURFACE AUGMENTEE OPERATOR, DDIMER, HS TROP, BMP, PT, PTT, CBC, HEPATIC, CK #### [facility] [address] No Panel InformationOrdered By: Jarrett Dang on 07-27-2023 Estimated GFR (CKD-EPI) > 60.0 mL/Min [facility] Creatinine Clearance (Chem 66.11 [facility] Nucleated erythrocytes [Pres ence] in Blood by Automated countOrdered By: Jarrett Dang on 07-27-2023 Nucleated RBC Auto Ql (Bld) 0.1 /100{WBC} 0-0.5 [facility] Partial Thromboplastin Timeo n 07-27-2023 aPTT Coag (Bld) [Time] 26.5 s Normal 25.1-36.5 [facility] Comment on above: Result Comment: A he matocrit value greater than 55% may lead to inaccurate results in coagulation testing. Patients having hematocrit values >55% require a special collection tube for coagulation studies. Please contact the laboratory at [phone] for redraw instructions. Performed By: #### B SUBSURFACE AUGMENTEE OPERATOR, DDIMER, HS TROP, BMP, PT, PTT, CBC, HEPATIC, CK ####[facility] [id number] [place] [address] [place] Platelet mean volume [Entiti c volume] in Blood by Automated countOrdered By: Jarrett Dang on 07-27-2023 Platelet mean volume (Bld) [Entitic vol] 9.0 fL Normal 6.3-10.7 [facility] Comment on above: Performed By: #### B SUBSURFACE AUGMENTEE OPERATOR, DDIMER, HS TROP, BMP, PT, PTT, CBC, HEPATIC, CK #### [facility] [address] [place] [address] [place] Platelets [#/volume] in Bloo d by Automated countOrdered By: Jarrett Dang on 07-27-2023 Platelets (Bld) [#/Vol] 167 10*3/uL Normal 150-450 [facility] Comment on above: Performed By: #### B SUBSURFACE AUGMENTEE OPERATOR, DDIMER, HS TROP, BMP, PT, PTT, CBC, HEPATIC, CK #### [facility] [address] [place] [id number] [place] Potassium [Moles/volume] in Serum or PlasmaOrdered By: Jarrett Dang on 07-27-2023 Potassium [Moles/Vol] 4.0 mmol/L Normal 3.5-5.1 [facility] Comment on above: Performed By: #### B SUBSURFACE AUGMENTEE OPERATOR, DDIMER, HS TROP, BMP, PT, PTT, CBC, HEPATIC, CK ####[facility] [id number] [place] [id number] [place] Protein [Mass/volume] in Ser um or PlasmaOrdered By: Jarrett Dang on 07-27-2023 Protein [Mass/Vol] 6.4 g/dL Normal 6.4-8.9 [facility] Comment on above: Performed By: #### B SUBSURFACE AUGMENTEE OPERATOR, DDIMER, HS TROP, BMP, PT, PTT, CBC, HEPATIC, CK #### [facility] [address] Prothrombin time (PT)Ordered By: Jarrett Dang on 07-27-2023 PT Coag (PPP) [Time] 10.5 s Normal 9.0-12.9 [facility] Comment on above: A hematocrit value g reater than 55% may lead to inaccurate results in coagulation testing. Patients having hematocrit values >55% require a special collection tube for coagulation studies. Please contact the laboratory at [phone] for redraw instructions. Result Comment: A he matocrit value greater than 55% may lead to inaccurate results in coagulation testing. Patients having hematocrit values >55% require a special collection tube for coagulation studies. Please contact the laboratory at [phone] for redraw instructions. Performed By: #### B SUBSURFACE AUGMENTEE OPERATOR, DDIMER, HS TROP, BMP, PT, PTT, CBC, HEPATIC, CK ####[facility] Serum globulin measurement b y calculation (mass/volume)Ordered By: Jarrett Dang on 07-27-2023 Globulin (S) [Mass/Vol] 2.5 g/dL [facility] Comment on above: Performed By: #### B SUBSURFACE AUGMENTEE OPERATOR, DDIMER, HS TROP, BMP, PT, PTT, CBC, HEPATIC, CK #### [facility] [address] Serum or plasma albumin/glob ulin mass ratioOrdered By: Jarrett Dang on 07-27-2023 Albumin/Globulin [Mass ratio] 1.6 {ratio} [facility] Comment on above: Performed By: #### B SUBSURFACE AUGMENTEE OPERATOR, DDIMER, HS TROP, BMP, PT, PTT, CBC, HEPATIC, CK #### [facility] [address] Serum or plasma anion gap de terminationOrdered By: Jarrett Dang on 07-27-2023 Anion gap [Moles/Vol] 10.4 mmol/L Normal 6.0-15.0 [facility] Comment on above: Performed By: #### B SUBSURFACE AUGMENTEE OPERATOR, DDIMER, HS TROP, BMP, PT, PTT, CBC, HEPATIC, CK ####[place] [address] [place] [id number] [facility] Serum or plasma non-glucuron idated bilirubin measurement (mass/volume)Ordered By: Jarrett Dang on 07-27-2023 Bilirubin.indirect [Mass/Vol] 0.5 mg/dL [facility] Sodium [Moles/volume] in Ser um or PlasmaOrdered By: Jarrett Dang on 07-27-2023 Sodium [Moles/Vol] 138 mmol/L Normal 136-145 [facility] Comment on above: Performed By: #### B SUBSURFACE AUGMENTEE OPERATOR, DDIMER, HS TROP, BMP, PT, PTT, CBC, HEPATIC, CK ####[place] [address] [place] [address] [facility] Troponin I High Sensitivityo n 07-27-2023 Troponin I High Sensitivity 4.4 pg/mL Normal 0.0-15.0 [facility] Comment on above: Result Comment: PERF ORMED BY: [facility] [address] [place] [id number] PATHOLOGIST TELLERS SUPERVISOR BRODY GARZA M.D. Performed By: #### B SUBSURFACE AUGMENTEE OPERATOR, DDIMER, HS TROP, BMP, PT, PTT, CBC, HEPATIC, CK ####[place] [id number] [facility] Troponin I.cardiac [Mass/vol ume] in Serum or Plasma by Detection limit <= 0.01 ng/Ordered By: Jarrett Dang on 07-27-2023 Troponin I.cardiac DL <= 0.01 ng/mL [Mass/Vol] 4.4 pg/mL 0.0-15.0 [facility] Urea nitrogen [Mass/volume] in Serum or PlasmaOrdered By: Jarrett Dang on 07-27-2023 Urea nitrogen [Mass/Vol] 13 mg/dL Normal 7-25 [facility] Comment on above: Performed By: #### B SUBSURFACE AUGMENTEE OPERATOR, DDIMER, HS TROP, BMP, PT, PTT, CBC, HEPATIC, CK ####[facility] XR chest 1V portableon 07-27 XR chest 1V portable [facility] [place] [address] [place] [address] XRay Report Signed Patient: Chela Padilla MR#: [id number] 06 : 1955 Acct:[id number] Age/Sex: 68 / F ADM Date: 07/27/23 Loc: ER Room: Type: [facility] ER Attending Dr: Copies to: Jarrett Dang [...] Maxwell Jr., D.O.07/27/2023 10:57 AM Dictation Location: [place] [address] Transcribed By: YUNG 07/27/23 105 Dictated By: Moo Maxwell Jr, DO 07/27/23 105 Signed By: 07/27/23 105 Normal [facility] Alanine aminotransferase [En zymatic activity/volume] in Serum or PlasmaOrdered By: Alana Parkinson on 06-18-2023 ALT [Catalytic activity/Vol] 18 U/L Normal [facility] Comment on above: Performed By: #### A DDONUAPLUS, CMP, TSH3, A1C WTH eA, URMACRERAT, CUU, LIPID, CBC ####[facility] [id number] Albumin [Mass/volume] in Ser um or Plasma by Bromocresol green (BCG) dye binding methoOrdered By: Alana Parkinson on 06-18-2023 Albumin BCG dye [Mass/Vol] 3.8 g/dL 3.5-5.7 [facility] Alkaline phosphatase [Enzyma tic activity/volume] in Serum or PlasmaOrdered By: Alana Parkinson on 06-18-2023 ALP [Catalytic activity/Vol] 115 U/L High 34-104 [facility] Comment on above: Performed By: #### A DDONUAPLUS, CMP, TSH3, A1C WTH eA, URMACRERAT, CUU, LIPID, CBC ####[address] Aspartate aminotransferase [ Enzymatic activity/volume] in Serum or PlasmaOrdered By: Alana Parkinson on 06-18-2023 AST [Catalytic activity/Vol] 11 U/L Low 13-39 [facility] Comment on above: Performed By: #### A DDONUAPLUS, CMP, TSH3, A1C WTH eA, URMACRERAT, CUU, LIPID, CBC ####[address] Automated basophil %Ordered By: Alana Parkinson on 06-18-2023 Basophils/100 WBC (Bld) 1.3 % Normal . [facility] Comment on above: Performed By: #### A DDONUAPLUS, CMP, TSH3, A1C WTH eA, URMACRERAT, CUU, LIPID, CBC ####[address] Automated basophil countOrde red By: Alana Parkinson on 06-18-2023 Basophils (Bld) [#/Vol] 0.1 10*3/uL Normal 0.0-0.2 [facility] Comment on above: Result Comment: PERF ORMED BY: [facility] [address] [place] [address] PATHOLOGIST TELLERS SUPERVISOR BRODY GARZA M.D. Performed By: #### A DDONUAPLUS, CMP, TSH3, A1C WTH eA, URMACRERAT, CUU, LIPID, CBC ####[place] [id number] [facility] Automated blood monocyte cou ntOrdered By: Alana Parkinson on 06-18-2023 Monocytes (Bld) [#/Vol] 0.4 10*3/uL Normal 0.0-0.8 [facility] Comment on above: Performed By: #### A DDONUAPLUS, CMP, TSH3, A1C WTH eA, URMACRERAT, CUU, LIPID, CBC ####[place] [address] Automated eosinophil %Ordere d By: Alana Parkinson on 06-18-2023 Eosinophils/100 WBC (Bld) 4.5 % Normal . [facility] Comment on above: Performed By: #### A DDONUAPLUS, CMP, TSH3, A1C WTH eA, URMACRERAT, CUU, LIPID, CBC ####[address] Automated eosinophil countOr dered By: Alana Parkinson on 06-18-2023 Eosinophils (Bld) [#/Vol] 0.3 10*3/uL Normal 0.0-0.45 [facility] Comment on above: Performed By: #### A DDONUAPLUS, CMP, TSH3, A1C WTH eA, URMACRERAT, CUU, LIPID, CBC ####[address] Automated erythrocytes count in urine sediment (number/area)Ordered By: Alana Parkinson on 06-18-2023 RBC Auto (Urine sed) [#/Area] 0-1 [HPF] 0-4 [facility] Automated leukocytes count i n urine sediment (number/area)Ordered By: Alana Parkinson on 06-18-2023 WBC Auto (Urine sed) [#/Area] 20-49 [HPF] 0-4 [facility] Automated monocyte %Ordered By: Alana Parkinson on 06-18-2023 Monocytes/100 WBC (Bld) 5.8 % Normal . [facility] Comment on above: Performed By: #### A DDONUAPLUS, CMP, TSH3, A1C WTH eA, URMACRERAT, CUU, LIPID, CBC ####[address] Automated neutrophil %Ordere d By: Alana Parkinson on 06-18-2023 Neutrophils/100 WBC (Bld) 61.4 % Normal . [facility] Comment on above: Performed By: #### A DDONUAPLUS, CMP, TSH3, A1C WTH eA, URMACRERAT, CUU, LIPID, CBC ####[place] [address] [place] [address] [facility] Automated urine color determ inationOrdered By: Alana Parkinson on 06-18-2023 Color (U) Yellow Normal Yellow [facility] Comment on above: Order Comment: Name Collection Type:: Clean-Voided Midstream Performed By: #### A DDONUAPLUS, CMP, TSH3, A1C WTH eA, URMACRERAT, CUU, LIPID, CBC ####[place] [address] [place] [id number] [facility] Bilirubin Test strip Ql (U)O rdered By: Alana Parkinson on 06-18-2023 Bilirubin Ql (U) Negative Negative [facility] Bilirubin.total [Mass/volume ] in Serum or PlasmaOrdered By: Alana Parkinson on 06-18-2023 Bilirubin [Mass/Vol] 0.5 mg/dL Normal 0.3-1.0 [facility] Comment on above: Performed By: #### A DDONUAPLUS, CMP, TSH3, A1C WTH eA, URMACRERAT, CUU, LIPID, CBC ####[place] [id number] [facility] Calcium [Mass/volume] in Ser um or PlasmaOrdered By: Alana Parkinson on 06-18-2023 Calcium [Mass/Vol] 9.1 mg/dL Normal 8.6-10.3 [facility] Comment on above: Performed By: #### A DDONUAPLUS, CMP, TSH3, A1C WTH eA, URMACRERAT, CUU, LIPID, CBC ####[place] [address] [place] [address] [facility] Carbon dioxide, total [Moles /volume] in Serum or PlasmaOrdered By: Alana Parkinson on 06-18-2023 CO2 [Moles/Vol] 30.4 mmol/L Normal 21.0-31.0 [facility] Comment on above: Performed By: #### A DDONUAPLUS, CMP, TSH3, A1C WTH eA, URMACRERAT, CUU, LIPID, CBC ####[facility] [address] [place] [address] [place] Chloride [Moles/volume] in S atul or PlasmaOrdered By: Alana Parkinson on 06-18-2023 Chloride [Moles/Vol] 102 mmol/L Normal 98-107 [facility] Comment on above: Performed By: #### A DDONUAPLUS, CMP, TSH3, A1C WTH eA, URMACRERAT, CUU, LIPID, CBC ####[facility] [id number] [place] [id number] [facility] Cholesterol [Mass/volume] in Serum or PlasmaOrdered By: Alana Parkinson on 06-18-2023 Cholesterol [Mass/Vol] 210 mg/dL High 140-200 [facility] Comment on above: Chol less than 200 m g/dl low riskChol 201-239 mg/dl borderline riskChol 240 mg/dl and greater high risk Result Comment: Chol less than 200 mg/dl low risk Chol 201-239 mg/dl borderline risk Chol 240 mg/dl and greater high risk Performed By: #### A DDONUAPLUS, CMP, TSH3, A1C WTH eA, URMACRERAT, CUU, LIPID, CBC ####[facility] [address] [place] [id number] [facility] Cholesterol in LDL Calc [Mas s/Vol]Ordered By: Alana Parkinson on 06-18-2023 Cholesterol in LDL [Mass/Vol] 135 mg/dL 0-100 [facility] Comment on above: LDL ATP III CLASSIFI CATIONLDL less than 100 mg/dL OptimalLDL 100-129 mg/dL Near or above optimalLDL 130-159 mg/dL Borderline highLDL 160-189 mg/dL HighLDL greater than 189 mg/dL Very high Cholesterol in VLDL Calc [Ma ss/Vol]Ordered By: Alana Parkinson on 06-18-2023 Cholesterol in VLDL [Mass/Vol] 28 mg/dL [facility] Complete Blood Count Auto Di ffon 06-18-2023 Mean Corpuscular HGB Conc 33.1 g/dL Normal 32.0-35.0 [facility] Comment on above: Performed By: #### A DDONUAPLUS, CMP, TSH3, A1C WTH eA, URMACRERAT, CUU, LIPID, CBC ####[place] [address] [place] [address] [facility] NRBC% 0.1 /100{WBC} Normal 0-0.5 [facility] Comment on above: Performed By: #### A DDONUAPLUS, CMP, TSH3, A1C WTH eA, URMACRERAT, CUU, LIPID, CBC ####[place] [address] [place] [id number] [facility] Comprehensive Metabolic Pane shalini 06-18-2023 Albumin [Mass/Vol] 3.8 g/dL Normal 3.5-5.7 [facility] Comment on above: Performed By: #### A DDONUAPLUS, CMP, TSH3, A1C WTH eA, URMACRERAT, CUU, LIPID, CBC ####[place] [id number] [facility] GFR/1.73 sq M.predicted MDRD (S/P/Bld) [Vol rate/Area] mL/min/{1.73_m2} Normal [facility] Comment on above: Performed By: #### A DDONUAPLUS, CMP, TSH3, A1C WTH eA, URMACRERAT, CUU, LIPID, CBC ####[place] [id number] [facility] Creatinine [Mass/volume] in Serum or PlasmaOrdered By: Alana Parkinson on 06-18-2023 Creatinine [Mass/Vol] 0.68 mg/dL Normal 0.60-1.20 [facility] Comment on above: Performed By: #### A DDONUAPLUS, CMP, TSH3, A1C WTH eA, URMACRERAT, CUU, LIPID, CBC ####[address] [address] [facility] Creatinine [Mass/volume] in UrineOrdered By: Alana Parkinson on 06-18-2023 Creatinine (U) [Mass/Vol] 59.0 mg/dL 11.0-20.0 [facility] Dipstick and Microscopicon 1 08-18-2022 Appearance (U) Clear Normal Clear [facility] Comment on above: Order Comment: Name Collection Type:: Clean-Voided Midstream Performed By: #### A DDONUAPLUS, CMP, TSH3, A1C WTH eA, URMACRERAT, CUU, LIPID, CBC ####[place] [id number] [facility] Bacteria,Urine 1+ High None Seen [facility] Comment on above: Order Comment: Name Collection Type:: Clean-Voided Midstream Performed By: #### A DDONUAPLUS, CMP, TSH3, A1C WTH eA, URMACRERAT, CUU, LIPID, CBC ####[address] Bilirubin,Urine Negative Normal Negative [facility] Comment on above: Order Comment: Name Collection Type:: Clean-Voided Midstream Performed By: #### A DDONUAPLUS, CMP, TSH3, A1C WTH eA, URMACRERAT, CUU, LIPID, CBC ####[address] [address] [facility] Glucose Ql (U) >=1000 High Normal [facility] Comment on above: Order Comment: Name Collection Type:: Clean-Voided Midstream Performed By: #### A DDONUAPLUS, CMP, TSH3, A1C WTH eA, URMACRERAT, CUU, LIPID, CBC ####[address] [address] [facility] Hyaline Casts,Urine 0-8 Normal 0-8 [facility] Comment on above: Order Comment: Name Collection Type:: Clean-Voided Midstream Result Comment: PERF ORMED BY: [facility] [address] [place] [id number] PATHOLOGIST TELLERS SUPERVISOR BRODY GARZA M.D. Performed By: #### A DDONUAPLUS, CMP, TSH3, A1C WTH eA, URMACRERAT, CUU, LIPID, CBC ####[address] Ketones Ql (U) Negative Normal Negative [facility] Comment on above: Order Comment: Name Collection Type:: Clean-Voided Midstream Performed By: #### A DDONUAPLUS, CMP, TSH3, A1C WTH eA, URMACRERAT, CUU, LIPID, CBC ####[place] [id number] [facility] Leukocyte esterase Test strip Ql (U) 2+ High Negative [facility] Comment on above: Order Comment: Name Collection Type:: Clean-Voided Midstream Performed By: #### A DDONUAPLUS, CMP, TSH3, A1C WTH eA, URMACRERAT, CUU, LIPID, CBC ####[address] Nitrite,Urine Negative Normal Negative [facility] Comment on above: Order Comment: Name Collection Type:: Clean-Voided Midstream Performed By: #### A DDONUAPLUS, CMP, TSH3, A1C WTH eA, URMACRERAT, CUU, LIPID, CBC ####[place] [id number] [facility] Occult Blood,Urine Negative Normal Negative [facility] Comment on above: Order Comment: Name Collection Type:: Clean-Voided Midstream Result Comment: PERF ORMED BY: [facility] [address] [place] [address] PATHOLOGIST TELLERS SUPERVISOR BRODY GARZA M.D. Performed By: #### A DDONUAPLUS, CMP, TSH3, A1C WTH eA, URMACRERAT, CUU, LIPID, CBC ####[address] Protein,Urine Negative Normal Negative [facility] Comment on above: Order Comment: Name Collection Type:: Clean-Voided Midstream Performed By: #### A DDONUAPLUS, CMP, TSH3, A1C WTH eA, URMACRERAT, CUU, LIPID, CBC ####[address] RBC LM.HPF (Urine sed) [#/Area] 0 /[HPF] Normal 0-4 [facility] Comment on above: Order Comment: Name Collection Type:: Clean-Voided Midstream Performed By: #### A DDONUAPLUS, CMP, TSH3, A1C WTH eA, URMACRERAT, CUU, LIPID, CBC ####[address] Specificy [place],Urine 1.031 High 1.001-1.03 0 [facility] Comment on above: Order Comment: Name Collection Type:: Clean-Voided Midstream Performed By: #### A DDONUAPLUS, CMP, TSH3, A1C WTH eA, URMACRERAT, CUU, LIPID, CBC ####[address] Squamous Epithelial Cell,Urine 3-4 High 0-2 [facility] Comment on above: Order Comment: Name Collection Type:: Clean-Voided Midstream Performed By: #### A DDONUAPLUS, CMP, TSH3, A1C WTH eA, URMACRERAT, CUU, LIPID, CBC ####[address] Urobilinogen,Urine Normal Normal Normal [facility] Comment on above: Order Comment: Name Collection Type:: Clean-Voided Midstream Performed By: #### A DDONUAPLUS, CMP, TSH3, A1C WTH eA, URMACRERAT, CUU, LIPID, CBC ####[address] WBC,Urine 20-49 High 0-4 [facility] Comment on above: Order Comment: Name Collection Type:: Clean-Voided Midstream Performed By: #### A DDONUAPLUS, CMP, TSH3, A1C WTH eA, URMACRERAT, CUU, LIPID, CBC ####[address] [address] [facility] Erythrocyte distribution wid th [Ratio] by Automated countOrdered By: Alana Parkinson on 06-18-2023 Erythrocyte distribution width (RBC) [Ratio] 13.1 % Normal 11.9-15.3 [facility] Comment on above: Performed By: #### A DDONUAPLUS, CMP, TSH3, A1C WTH eA, URMACRERAT, CUU, LIPID, CBC ####[facility] [place] [id number] [facility] Erythrocytes [#/volume] in B lood by Automated countOrdered By: Alana Parkinson on 06-18-2023 RBC (Bld) [#/Vol] 4.69 10*6/uL Normal 3.60-5.00 [facility] Comment on above: Performed By: #### A DDONUAPLUS, CMP, TSH3, A1C WTH eA, URMACRERAT, CUU, LIPID, CBC ####[place] [address] [place] [id number] [facility] Glucose [Mass/volume] in Ser um or PlasmaOrdered By: Alana Parkinson on 06-18-2023 Glucose [Mass/Vol] 329 mg/dL Normal [facility] Comment on above: ADA recommended refe rence rangeRandom Glucose Reference Range is dependent on time and content of last meal. Glucose of more than 200 mg/dL in a nonstressed, ambulatory subject supports the diagnosis of Diabetes Mellitus. Result Comment: [place] Glucose Reference Range is dependent on time and content of last meal. Glucose of more than 200 mg/dL in a nonstressed, ambulatory subject supports the diagnosis of Diabetes Mellitus. ADA recommended reference range Performed By: #### A DDONUAPLUS, CMP, TSH3, A1C WTH eA, URMACRERAT, CUU, LIPID, CBC ####[facility] [place] [id number] [facility] Result Comment: PERF ORMED BY: [facility] [address] [place] [place] [id number] PATHOLOGIST TELLERS SUPERVISOR BRODY GARZA M.D. Glucose mean value [Mass/vol ume] in Blood Estimated from glycated hemoglobinOrdered By: Alana Parkinson on 06-18-2023 Average glucose Estimated from glycated hemoglobin (Bld) [Mass/Vol] 329 mg/dL [facility] Hematocrit [Volume Fraction] of Blood by Automated countOrdered By: Alana Parkinson on 06-18-2023 Hematocrit (Bld) [Volume fraction] 42.6 % Normal 34.0-46.4 [facility] Comment on above: Performed By: #### A DDONUAPLUS, CMP, TSH3, A1C WTH eA, URMACRERAT, CUU, LIPID, CBC ####[address] Hemoglobin A1c percentageOrd ered By: Alana Parkinson on 06-18-2023 HbA1c (Bld) [Mass fraction] 13.1 % High 4.3-5.6 [facility] Comment on above: Increased risk for d iabetes: 5.7 - 6.4diabetes: >6.4glycemic control for adults with diabetes: <7.0 Result Comment: Incr eased risk for diabetes: 5.7 - 6.4 diabetes: >6.4 glycemic control for adults with diabetes: <7.0 Performed By: #### A DDONUAPLUS, CMP, TSH3, A1C WTH eA, URMACRERAT, CUU, LIPID, CBC ####[address] Hemoglobin [Mass/volume] in BloodOrdered By: Alana Parkinson on 06-18-2023 Hemoglobin (Bld) [Mass/Vol] 14.1 g/dL Normal 11.8-15.4 [facility] Comment on above: Performed By: #### A DDONUAPLUS, CMP, TSH3, A1C WTH eA, URMACRERAT, CUU, LIPID, CBC ####[address] Ketones Auto test strip (U) [Mass/Vol]Ordered By: Alana Parkinson on 06-18-2023 Ketones (U) [Mass/Vol] Negative Negative [facility] - UrinalysisOrder ed By: Alana Parkinson on 06-18-2023 Hyaline casts LM Ql (Urine sed) 0-8 [LPF] 0-8 [facility] Leukocytes [#/volume] correc adalid for nucleated erythrocytes in Blood by Automated counOrdered By: Alana Parkinson on 06-18-2023 WBC corrected for nucl RBC Auto (Bld) [#/Vol] 6.7 10*3/uL 3.8-11.6 [facility] Leukocytes [#/volume] in Blo od by Automated countOrdered By: Alana Parkinson on 06-18-2023 WBC (Bld) [#/Vol] 6.7 10*3/uL Normal 3.8-11.6 [facility] Comment on above: Performed By: #### A DDONUAPLUS, CMP, TSH3, A1C WTH eA, URMACRERAT, CUU, LIPID, CBC ####[facility] [id number] Lipid Panelon 06-18-2023 LDL Cholesterol,Calculated 135 mg/dL High 0-100 [facility] Comment on above: Result Comment: LDL ATP III CLASSIFICATION LDL less than 100 mg/dL Optimal LDL 100-129 mg/dL Near or above optimal LDL 130-159 mg/dL Borderline high LDL 160-189 mg/dL High LDL greater than 189 mg/dL Very high Performed By: #### A DDONUAPLUS, CMP, TSH3, A1C WTH eA, URMACRERAT, CUU, LIPID, CBC ####[facility] Triglyceride w/Reflex 143 mg/dL Normal 0-149 [facility] Comment on above: Result Comment: TRIG ATP III CLASSIFICATION TRIG less than 150 mg/dL Normal TRIG 150-199 mg/dL Borderline high TRIG 200-500 mg/dL High TRIG greater than 500 mg/dL Very high Standard traceable to the Center for Disease Conrtrol and Prevention (CDC) test method. Performed By: #### A DDONUAPLUS, CMP, TSH3, A1C WTH eA, URMACRERAT, CUU, LIPID, CBC ####[facility] VLDL CHOLESTEROL 28 mg/dL Normal [facility] Comment on above: Performed By: #### A DDONUAPLUS, CMP, TSH3, A1C WTH eA, URMACRERAT, CUU, LIPID, CBC ####[address] Lymphocytes [#/volume] in Bl ood by Automated countOrdered By: Alana Parkinson on 06-18-2023 Lymphocytes (Bld) [#/Vol] 1.8 10*3/uL Normal 1.00-4.8 [facility] Comment on above: Performed By: #### A DDONUAPLUS, CMP, TSH3, A1C WTH eA, URMACRERAT, CUU, LIPID, CBC ####[address] Lymphocytes/100 leukocytes i n Blood by Automated countOrdered By: Alana Parkinson on 06-18-2023 Lymphocytes/100 WBC (Bld) 27.0 % Normal . [facility] Comment on above: Performed By: #### A DDONUAPLUS, CMP, TSH3, A1C WTH eA, URMACRERAT, CUU, LIPID, CBC ####[address] MCH [Entitic mass] by Automa adalid countOrdered By: Alana Parkinson on 06-18-2023 MCH (RBC) [Entitic mass] 30.0 pg Normal 24.7-34.3 [facility] Comment on above: Performed By: #### A DDONUAPLUS, CMP, TSH3, A1C WTH eA, URMACRERAT, CUU, LIPID, CBC ####[place] [id number] [facility] MCHC Auto (RBC) [Mass/Vol]Or dered By: Alana Parkinson on 06-18-2023 MCHC (RBC) [Mass/Vol] 33.1 g/dL 32.0-35.0 [facility] MCV [Entitic volume] by Auto mated countOrdered By: Alana Parkinson on 06-18-2023 MCV (RBC) [Entitic vol] 90.7 fL Normal 80-100 [facility] Comment on above: Performed By: #### A DDONUAPLUS, CMP, TSH3, A1C WTH eA, URMACRERAT, CUU, LIPID, CBC ####[place] [address] [place] [id number] [facility] MicroAlb Creat Ratio,Uon Creatinine, Urine (Random) 59.0 mg/dL High 11.0-20.0 [facility] Comment on above: Performed By: #### A DDONUAPLUS, CMP, TSH3, A1C WTH eA, URMACRERAT, CUU, LIPID, CBC ####[place] [address] [place] [id number] [facility] Microalbumin/Creatinin e Ratio 38.0 mg/g High 0.0-30.0 [facility] Comment on above: Result Comment: 30-3 00 mg/g indicates an increased risk for diabetic nephropathy. Greater than 300 mg/g is consistent with clinical nephropathy. (Am. J. Kidney Disease 1995, 25:107) PERFORMED BY: [facility] [address] [place] [address] PATHOLOGIST TELLERS SUPERVISOR BRODY GARZA M.D. Performed By: #### A DDONUAPLUS, CMP, TSH3, A1C WTH eA, URMACRERAT, CUU, LIPID, CBC ####[place] [address] [place] [id number] [facility] Microalbumin [Mass/volume] i n UrineOrdered By: Alana Parkinson on 06-18-2023 Albumin DL <= 20 mg/L (U) [Mass/Vol] 2.3 mg/dL High 0.0-1.8 [facility] Comment on above: Performed By: #### A DDONUAPLUS, CMP, TSH3, A1C WTH eA, URMACRERAT, CUU, LIPID, CBC ####[address] Neutrophils [#/volume] in Bl ood by Automated countOrdered By: Alana Parkinson on 06-18-2023 Neutrophils (Bld) [#/Vol] 4.1 10*3/uL Normal 1.8-7.7 [facility] Comment on above: Performed By: #### A DDONUAPLUS, CMP, TSH3, A1C WTH eA, URMACRERAT, CUU, LIPID, CBC ####[place] [address] Nitrite Test strip Ql (U)Ord ered By: Alana Parkinson on 06-18-2023 Nitrite Ql (U) Negative Negative [facility] No Panel InformationOrdered By: Alana Parkinson on 06-18-2023 Estimated GFR (CKD-EPI) > 60.0 mL/Min [facility] Creatinine Clearance (Chem N/A [facility] Nucleated erythrocytes [Pres ence] in Blood by Automated countOrdered By: Alana Parkinson on 06-18-2023 Nucleated RBC Auto Ql (Bld) 0.1 /100{WBC} 0-0.5 [facility] Platelet mean volume [Entiti c volume] in Blood by Automated countOrdered By: Alana Parkinson on 06-18-2023 Platelet mean volume (Bld) [Entitic vol] 9.5 fL Normal 6.3-10.7 [facility] Comment on above: Performed By: #### A DDONUAPLUS, CMP, TSH3, A1C WTH eA, URMACRERAT, CUU, LIPID, CBC ####[place] [address] Platelets [#/volume] in Bloo d by Automated countOrdered By: Alana Parkinson on 06-18-2023 Platelets (Bld) [#/Vol] 178 10*3/uL Normal 150-450 [facility] Comment on above: Performed By: #### A DDONUAPLUS, CMP, TSH3, A1C WTH eA, URMACRERAT, CUU, LIPID, CBC ####[place] [address] [place] [id number] [place] Potassium [Moles/volume] in Serum or PlasmaOrdered By: Alana Parkinson on 06-18-2023 Potassium [Moles/Vol] 4.3 mmol/L Normal 3.5-5.1 [facility] Comment on above: Performed By: #### A DDONUAPLUS, CMP, TSH3, A1C WTH eA, URMACRERAT, CUU, LIPID, CBC ####[place] [address] Protein Auto test strip (U) [Mass/Vol]Ordered By: Alana Parkinson on 06-18-2023 Protein (U) [Mass/Vol] Negative Negative [facility] Protein [Mass/volume] in Ser um or PlasmaOrdered By: Alana Parkinson on 06-18-2023 Protein [Mass/Vol] 5.9 g/dL Low 6.4-8.9 [facility] Comment on above: Performed By: #### A DDONUAPLUS, CMP, TSH3, A1C WTH eA, URMACRERAT, CUU, LIPID, CBC ####[address] Serum globulin measurement b y calculation (mass/volume)Ordered By: Alana Parkinson on 06-18-2023 Globulin (S) [Mass/Vol] 2.1 g/dL Normal [facility] Comment on above: Performed By: #### A DDONUAPLUS, CMP, TSH3, A1C WTH eA, URMACRERAT, CUU, LIPID, CBC ####[address] Serum or plasma albumin/glob ulin mass ratioOrdered By: Alana Parkinson on 06-18-2023 Albumin/Globulin [Mass ratio] 1.8 {ratio} [facility] Comment on above: Performed By: #### A DDONUAPLUS, CMP, TSH3, A1C WTH eA, URMACRERAT, CUU, LIPID, CBC ####[address] Serum or plasma anion gap de terminationOrdered By: Alana Parkinson on 06-18-2023 Anion gap [Moles/Vol] 10.9 mmol/L Normal 6.0-15.0 [facility] Comment on above: Performed By: #### A DDONUAPLUS, CMP, TSH3, A1C WTH eA, URMACRERAT, CUU, LIPID, CBC ####[facility] [id number] Serum or plasma high density lipoprotein (HDL) cholesterol measurementOrdered By: Alana Parkinson on 06-18-2023 Cholesterol in HDL [Mass/Vol] 46 mg/dL Normal 23-92 [facility] Comment on above: HDL CHOL ATP-III CLA SSIFICATION Cardiovascular RiskHDL > or equal to 60 mg/dL LOWHDL < 40 mg/dL HIGH Result Comment: HDL CHOL ATP-III CLASSIFICATION Cardiovascular Risk HDL > or equal to 60 mg/dL LOW HDL < 40 mg/dL HIGH Performed By: #### A DDONUAPLUS, CMP, TSH3, A1C WTH eA, URMACRERAT, CUU, LIPID, CBC ####[facility] [id number] Serum or plasma total choles terol/high density lipoprotein (HDL) cholesterol mass ratOrdered By: Alana Parkinson on 06-18-2023 Cholesterol.total/Chol esterol in HDL [Mass ratio] 4.6 {ratio} Normal <5.0 [facility] Comment on above: Performed By: #### A DDONUAPLUS, CMP, TSH3, A1C WTH eA, URMACRERAT, CUU, LIPID, CBC ####[facility] [id number] Sodium [Moles/volume] in Ser um or PlasmaOrdered By: Alana Parkinson on 06-18-2023 Sodium [Moles/Vol] 139 mmol/L Normal 136-145 [facility] Comment on above: Performed By: #### A DDONUAPLUS, CMP, TSH3, A1C WTH eA, URMACRERAT, CUU, LIPID, CBC ####[facility] [id number] Specific gravity Auto test s trip (U) [Rel density]Ordered By: Alana Parkinson on 06-18-2023 Specific gravity (U) [Rel density] 1.031 1.001-1.03 0 [facility] Squamous epithelial cells de tection in urine sediment by light microscopyOrdered By: Alana Parkinson on 06-18-2023 Epithelial cells.squamous LM Ql (Urine sed) 3-4 [HPF] 0-2 [facility] Thyrotropin [Units/volume] i n Serum or PlasmaOrdered By: Alana Parkinson on 06-18-2023 TSH Qn 1.62 m[IU]/L Normal 0.45-5.33 [facility] Comment on above: Result Comment: PERF ORMED BY: [facility] [address] [id number] PATHOLOGIST TELLERS SUPERVISOR BRODY GARZA M.D. Performed By: #### A DDONUAPLUS, CMP, TSH3, A1C WTH eA, URMACRERAT, CUU, LIPID, CBC ####[place] [id number] [place] [address] [facility] Triglyceride [Mass/volume] i n Serum or PlasmaOrdered By: Alana Parkinson on 06-18-2023 Triglyceride [Mass/Vol] 143 mg/dL 0-149 [facility] Comment on above: TRIG ATP III CLASSIF ICATIONTRIG less than 150 mg/dL NormalTRIG 150-199 mg/dL Borderline highTRIG 200-500 mg/dL High TRIG greater than 500 mg/dL Very highStandard traceable to the Center for Disease Conrtrol and Prevention (CDC) test method. Urea nitrogen [Mass/volume] in Serum or PlasmaOrdered By: Alana Parkinson on 06-18-2023 Urea nitrogen [Mass/Vol] 14 mg/dL Normal 7-25 [facility] Comment on above: Performed By: #### A DDONUAPLUS, CMP, TSH3, A1C WTH eA, URMACRERAT, CUU, LIPID, CBC ####[place] [address] [place] [address] [facility] Urine Cultureon 06-18-2023 Bacteria identified Cx Nom (U) ORGANISM: Strep. agalactiae Grp B (O:B) Walters Count 25,000 PERFORMED BY: [facility] [address] [place] [address] PATHOLOGIST TELLERS SUPERVISOR BRODY GARZA M.D. Normal [facility] Comment on above: Performed By: #### A DDONUAPLUS, CMP, TSH3, A1C WTH eA, URMACRERAT, CUU, LIPID, CBC ####[facility] [id number] [place] [address] [facility] Urine bacteria detection by automated methodOrdered By: Alana Parkinson on 06-18-2023 Bacteria Auto Ql (U) 1+ None Seen [facility] Urine clarity by refractomet ry automatedOrdered By: Alana Parkinson on 06-18-2023 Clarity Refractometry automated (U) Clear Clear [facility] Urine culture routineOrdered By: Alana Parkinson on 06-18-2023 Bacteria identified Cx Nom (U) Strep. agalactiae Grp B [facility] Urine glucose measurement by automated test strip (mass/volume)Ordered By: Alana Parkinson on 06-18-2023 Glucose Auto test strip (U) [Mass/Vol] >=1000 mg/dL Normal [facility] Urine hemoglobin detection b y automated test stripOrdered By: Alana Parkinson on 06-18-2023 Hemoglobin Auto test strip Ql (U) Negative Negative [facility] Urine leukocyte esterase det ection by automated test stripOrdered By: Alana Parkinson on 06-18-2023 Leukocyte esterase Auto test strip Ql (U) 2+ Negative [facility] Urine microalbumin/creatinin e mass ratioOrdered By: Alana Parkinson on 06-18-2023 Albumin/Creatinine DL <= 20 mg/L (U) [Mass ratio] 38.0 mg/g 0.0-30.0 [facility] Comment on above: 30-300 mg/g indicate s an increased risk for diabetic nephropathy. Greater than 300 mg/g is consistent with clinical nephropathy. (Am. J. Kidney Disease 1995, 25:107) Urine pH measurement by auto mated test stripOrdered By: Alana Parkinson on 06-18-2023 pH (U) 6.0 [pH] Normal 5.0-9.0 [facility] Comment on above: Order Comment: Name Collection Type:: Clean-Voided Midstream Performed By: #### A DDONUAPLUS, CMP, TSH3, A1C WTH eA, URMACRERAT, CUU, LIPID, CBC ####[facility] [id number] [place] [address] [facility] Urobilinogen Auto test strip (U) [Mass/Vol]Ordered By: Alana Parkinson on 06-18-2023 Urobilinogen (U) [Mass/Vol] Normal mg/dL Normal [facility] Alanine aminotransferase [En zymatic activity/volume] in Serum or PlasmaOrdered By: [facility] on 01-16-2023 ALT [Catalytic activity/Vol] 20 U/L 7-52 [facility] Albumin [Mass/volume] in Ser um or Plasma by Bromocresol green (BCG) dye binding methoOrdered By: [facility] on 01-16-2023 Albumin BCG dye [Mass/Vol] 4.1 g/dL 3.5-5.7 [facility] Alkaline phosphatase [Enzyma tic activity/volume] in Serum or PlasmaOrdered By: [facility] on 01-16-2023 ALP [Catalytic activity/Vol] 110 U/L 34-104 [facility] Aspartate aminotransferase [ Enzymatic activity/volume] in Serum or PlasmaOrdered By: [facility] on 01-16-2023 AST [Catalytic activity/Vol] 14 U/L 13-39 [facility] Bilirubin.total [Mass/volume ] in Serum or PlasmaOrdered By: [facility] on 01-16-2023 Bilirubin [Mass/Vol] 0.4 mg/dL 0.3-1.0 [facility] Calcium [Mass/volume] in Ser um or PlasmaOrdered By: [facility] on 01-16-2023 Calcium [Mass/Vol] 9.4 mg/dL 8.6-10.3 [facility] Carbon dioxide, total [Moles /volume] in Serum or PlasmaOrdered By: [facility] on 01-16-2023 CO2 [Moles/Vol] 31.5 mmol/L 21.0-31.0 [facility] Chloride [Moles/volume] in S atul or PlasmaOrdered By: [facility] on 01-16-2023 Chloride [Moles/Vol] 104 mmol/L 98-107 [facility] Cholesterol [Mass/volume] in Serum or PlasmaOrdered By: [facility] on 01-16-2023 Cholesterol [Mass/Vol] 228 mg/dL 140-200 [facility] Comment on above: Chol less than 200 m g/dl low riskChol 201-239 mg/dl borderline riskChol 240 mg/dl and greater high risk Cholesterol in LDL Calc [Mas s/Vol]Ordered By: [facility] on 01-16-2023 Cholesterol in LDL [Mass/Vol] 148 mg/dL 0-100 [facility] Comment on above: LDL ATP III CLASSIFI CATIONLDL less than 100 mg/dL OptimalLDL 100-129 mg/dL Near or above optimalLDL 130-159 mg/dL Borderline highLDL 160-189 mg/dL HighLDL greater than 189 mg/dL Very high Cholesterol in VLDL Calc [Ma ss/Vol]Ordered By: [facility] on 01-16-2023 Cholesterol in VLDL [Mass/Vol] 33 mg/dL [facility] Creatinine [Mass/volume] in Serum or PlasmaOrdered By: [facility] on 01-16-2023 Creatinine [Mass/Vol] 0.61 mg/dL 0.60-1.20 [facility] Erythrocyte distribution wid th Auto (RBC) [Ratio]Ordered By: [facility] on 01-16-2023 Erythrocyte distribution width (RBC) [Ratio] 13.5 % 11.9-15.3 [facility] Glucose [Mass/volume] in Ser um or PlasmaOrdered By: [facility] on 01-16-2023 Glucose [Mass/Vol] 150 mg/dL 70-100 [facility] Comment on above: ADA recommended refe rence rangeRandom Glucose Reference Range is dependent on time and content of last meal. Glucose of more than 200 mg/dL in a nonstressed, ambulatory subject supports the diagnosis of Diabetes Mellitus. Glucose mean value [Mass/vol ume] in Blood Estimated from glycated hemoglobinOrdered By: [facility] on 01-16-2023 Average glucose Estimated from glycated hemoglobin (Bld) [Mass/Vol] 324 mg/dL [facility] Hematocrit Auto (Bld) [Volum e fraction]Ordered By: [facility] on 01-16-2023 Hematocrit (Bld) [Volume fraction] 43.4 % 34.0-46.4 [facility] Hemoglobin [Mass/volume] in BloodOrdered By: [facility] on 01-16-2023 Hemoglobin (Bld) [Mass/Vol] 14.6 g/dL 11.8-15.4 [facility] Laboratory - Hematology and Cell countsOrdered By: [facility] on 01-16-2023 HbA1c (Bld) [Mass fraction] 12.9 % 4.3-5.6 [facility] Comment on above: Increased risk for d iabetes: 5.7 - 6.4diabetes: >6.4glycemic control for adults with diabetes: <7.0 Leukocytes [#/volume] correc adalid for nucleated erythrocytes in Blood by Automated counOrdered By: [facility] on 01-16-2023 WBC corrected for nucl RBC Auto (Bld) [#/Vol] 6.4 10*3/uL 3.8-11.6 [facility] MCH Auto (RBC) [Entitic mass ]Ordered By: [facility] on 01-16-2023 MCH (RBC) [Entitic mass] 30.4 pg 24.7-34.3 [facility] MCHC Auto (RBC) [Mass/Vol]Or dered By: [facility] on 01-16-2023 MCHC (RBC) [Mass/Vol] 33.7 g/dL 32.0-35.0 [facility] MCV Auto (RBC) [Entitic vol] Ordered By: [facility] on 01-16-2023 MCV (RBC) [Entitic vol] 90.0 fL 80-100 [facility] No Panel InformationOrdered By: [facility] on 01-16-2023 Estimated GFR (CKD-EPI) > 60.0 mL/Min [facility] Pharmacy Creatinine Clearance (Chem N/A [facility] Platelet mean volume Auto (B ld) [Entitic vol]Ordered By: [facility] on 01-16-2023 Platelet mean volume (Bld) [Entitic vol] 9.4 fL 6.3-10.7 [facility] Platelets Auto (Bld) [#/Vol] Ordered By: [facility] on 01-16-2023 Platelets (Bld) [#/Vol] 170 10*3/uL 150-450 [facility] Potassium [Moles/volume] in Serum or PlasmaOrdered By: [facility] on 01-16-2023 Potassium [Moles/Vol] 3.9 mmol/L 3.5-5.1 [facility] Protein [Mass/volume] in Ser um or PlasmaOrdered By: [facility] on 01-16-2023 Protein [Mass/Vol] 6.1 g/dL 6.4-8.9 [facility] RBC Auto (Bld) [#/Vol]Ordere d By: [facility] on 01-16-2023 RBC (Bld) [#/Vol] 4.82 10*6/uL 3.60-5.00 [facility] Serum or plasma anion gap de terminationOrdered By: [facility] on 01-16-2023 Anion gap [Moles/Vol] 10.4 mmol/L 6.0-15.0 [facility] Serum or plasma high density lipoprotein (HDL) cholesterol measurementOrdered By: [facility]ACH [facility] on 01-16-2023 Cholesterol in HDL [Mass/Vol] 47 mg/dL 23- [facility] Comment on above: HDL CHOL ATP-III CLA SSIFICATION Cardiovascular RiskHDL > or equal to 60 mg/dL LOWHDL < 40 mg/dL HIGH Serum or plasma total choles terol/high density lipoprotein (HDL) cholesterol mass ratOrdered By: [facility] on 01-16-2023 Cholesterol.total/Chol esterol in HDL [Mass ratio] 4.9 {ratio} <5.0 [facility] Sodium [Moles/volume] in Ser um or PlasmaOrdered By: [facility] on 01-16-2023 Sodium [Moles/Vol] 142 mmol/L 136-145 [facility] Triglyceride [Mass/volume] i n Serum or PlasmaOrdered By: [facility] on 01-16-2023 Triglyceride [Mass/Vol] 166 mg/dL 0-149 [facility] Comment on above: TRIG ATP III CLASSIF ICATIONTRIG less than 150 mg/dL NormalTRIG 150-199 mg/dL Borderline highTRIG 200-500 mg/dL High TRIG greater than 500 mg/dL Very highStandard traceable to the Center for Disease Conrtrol and Prevention (CDC) test method. Urea nitrogen [Mass/volume] in Serum or PlasmaOrdered By: [facility] on 01-16-2023 Urea nitrogen [Mass/Vol] 13 mg/dL 7-25 [facility] Alanine aminotransferase [En zymatic activity/volume] in Serum or PlasmaOrdered By: Jenna Jimenez on 10-20-2022 ALT [Catalytic activity/Vol] 19 U/L 7-52 [facility] Albumin [Mass/volume] in Ser um or PlasmaOrdered By: Jenna Jimenez on 10-20-2022 Albumin [Mass/Vol] 3.4 g/dL 2.9-4.4 [facility] Albumin [Mass/volume] in Ser um or Plasma by Bromocresol green (BCG) dye binding methoOrdered By: Jenna Jimenez on 10-20-2022 Albumin BCG dye [Mass/Vol] 4.1 g/dL 3.5-5.7 [facility] Alkaline phosphatase [Enzyma tic activity/volume] in Serum or PlasmaOrdered By: Jenna Jimenez on 10-20-2022 ALP [Catalytic activity/Vol] 97 U/L 34-104 [facility] Aspartate aminotransferase [ Enzymatic activity/volume] in Serum or PlasmaOrdered By: Jenna Jimenez on 10-20-2022 AST [Catalytic activity/Vol] 14 U/L 13-39 [facility] Basophils Auto (Bld) [#/Vol] Ordered By: Jenna Jimenez on 10-20-2022 Basophils (Bld) [#/Vol] 0.0 10*3/uL 0.0-0.2 [facility] Basophils/100 WBC Auto (Bld) Ordered By: Jenna Jimenez on 10-20-2022 Basophils/100 WBC (Bld) 0.3 % . [facility] Bilirubin.total [Mass/volume ] in Serum or PlasmaOrdered By: Jenna Jimenez on 10-20-2022 Bilirubin [Mass/Vol] 0.7 mg/dL 0.3-1.0 [facility] Calcium [Mass/volume] in Ser um or PlasmaOrdered By: Jenna Jimenez on 10-20-2022 Calcium [Mass/Vol] 9.1 mg/dL 8.6-10.3 [facility] Carbon dioxide, total [Moles /volume] in Serum or PlasmaOrdered By: Jenna Jimenez on 10-20-2022 CO2 [Moles/Vol] 29.9 mmol/L 21.0-31.0 [facility] Chloride [Moles/volume] in S atul or PlasmaOrdered By: Jenna Jimenez on 10-20-2022 Chloride [Moles/Vol] 101 mmol/L 98-107 [facility] Creatinine [Mass/volume] in Serum or PlasmaOrdered By: Jenna Jimenez on 10-20-2022 Creatinine [Mass/Vol] 0.70 mg/dL 0.60-1.20 [facility] Eosinophils Auto (Bld) [#/Vo l]Ordered By: Jenna Jimenez on 10-20-2022 Eosinophils (Bld) [#/Vol] 0.3 10*3/uL 0.0-0.45 [facility] Eosinophils/100 WBC Auto (Bl d)Ordered By: Jenna Jimenez on 10-20-2022 Eosinophils/100 WBC (Bld) 4.1 % . [facility] Erythrocyte distribution wid th Auto (RBC) [Ratio]Ordered By: Jenna Jimenez on 10-20-2022 Erythrocyte distribution width (RBC) [Ratio] 13.4 % 11.9-15.3 [facility] Erythrocyte sedimentation ra te by Photometric methodOrdered By: Jenna Jimenez on 10-20-2022 ESR Photometric method (Bld) [Velocity] 25 mm/hr 0-29 [facility] Globulin Calc (S) [Mass/Vol] Ordered By: Jenna Jimenez on 10-20-2022 Globulin (S) [Mass/Vol] 2.1 g/dL [facility] Glucose [Mass/volume] in Ser um or PlasmaOrdered By: Jenna Jimenez on 10-20-2022 Glucose [Mass/Vol] 267 mg/dL 74-109 [facility] Comment on above: ADA recommended [...] from glycated hemoglobin (Bld) [Mass/Vol] 298 mg/dL [facility] Hematocrit Auto (Bld) [Volum e fraction]Ordered By: Jenna Jimenez on 10-20-2022 Hematocrit (Bld) [Volume fraction] 42.3 % 34.0-46.4 [facility] Hemoglobin A1c percentageOrd ered By: Jenna Jimenez on 10-20-2022 HbA1c (Bld) [Mass fraction] 12.0 % 4.3-5.6 [facility] Comment on above: Increased risk for d iabetes: 5.7 - 6.4diabetes: >6.4glycemic control for adults with diabetes: <7.0 Hemoglobin [Mass/volume] in BloodOrdered By: Jenna Jimenez on 10-20-2022 Hemoglobin (Bld) [Mass/Vol] 14.2 g/dL 11.8-15.4 [facility] IgA [Mass/volume] in Serum o r PlasmaOrdered By: Jenna Jimenez on 10-20-2022 IgA [Mass/Vol] 231 mg/dL 87-352 [facility] IgG [Mass/volume] in Serum o r PlasmaOrdered By: Jenna Jimenez on 10-20-2022 IgG [Mass/Vol] 562 mg/dL 586-1602 [facility] IgM [Mass/volume] in Serum o r PlasmaOrdered By: Jenna Jimenez on 10-20-2022 IgM [Mass/Vol] 60 mg/dL 26-217 [facility] Comment on above: Performed at: [place] [id number] Director: Mau Reyna PhD, Phone: [phone] Laboratory - Chemistry and C hemistry - challengeOrdered By: Jenna Jimenez on 10-20-2022 GFR/1.73 sq M.predicted MDRD (S/P/Bld) [Vol rate/Area] mL/min/{1.73_m2} [facility] Leukocytes [#/volume] correc adalid for nucleated erythrocytes in Blood by Automated counOrdered By: Jenna Jimenez on 10-20-2022 WBC corrected for nucl RBC Auto (Bld) [#/Vol] 7.8 10*3/uL 3.8-11.6 [facility] Lymphocytes Auto (Bld) [#/Vo l]Ordered By: Jenna Jimenez on 10-20-2022 Lymphocytes (Bld) [#/Vol] 1.6 10*3/uL 1.00-4.8 [facility] Lymphocytes/100 WBC Auto (Bl d)Ordered By: Jenna Jimenez on 10-20-2022 Lymphocytes/100 WBC (Bld) 21.1 % . [facility] MCH Auto (RBC) [Entitic mass ]Ordered By: Jenna Jimenez on 10-20-2022 MCH (RBC) [Entitic mass] 29.9 pg 24.7-34.3 [facility] MCHC Auto (RBC) [Mass/Vol]Or dered By: Jenna Jimenez on 10-20-2022 MCHC (RBC) [Mass/Vol] 33.5 g/dL 32.0-35.0 [facility] MCV Auto (RBC) [Entitic vol] Ordered By: Jenna Jimenez on 10-20-2022 MCV (RBC) [Entitic vol] 89.3 fL 80-100 [facility] Monocytes Auto (Bld) [#/Vol] Ordered By: Jenna Jimenez on 10-20-2022 Monocytes (Bld) [#/Vol] 0.4 10*3/uL 0.0-0.8 [facility] Monocytes/100 WBC Auto (Bld) Ordered By: Jenna Jimenez on 10-20-2022 Monocytes/100 WBC (Bld) 5.8 % . [facility] Neutrophils Auto (Bld) [#/Vo l]Ordered By: Jenna Jimenez on 10-20-2022 Neutrophils (Bld) [#/Vol] 5.3 10*3/uL 1.8-7.7 [facility] Neutrophils/100 WBC Auto (Bl d)Ordered By: Jenna Jimenez on 10-20-2022 Neutrophils/100 WBC (Bld) 68.7 % . [facility] No Panel InformationOrdered By: Jenna Jimenez on 10-20-2022 Pharmacy Creatinine Clearance (Chem N/A [facility] Protein Electrophoresis M-Harinder Not observed g/dL Not Observed [facility] Protein Electrophoresis Note See comment . [facility] Comment on above: Protein electrophore sis scan will follow via computer,mail, or spreading machine operator delivery.Performed at: [address] [id number] Director: Mau Reyna PhD, Phone: [phone] Serum Immunofixation See comment . [facility] Comment on above: No monoclonality det ected. Nucleated erythrocytes [Pres ence] in Blood by Automated countOrdered By: Jenna Jimenez on 10-20-2022 Nucleated RBC Auto Ql (Bld) 0.1 /100{WBC} 0-0.5 [facility] Platelet mean volume Auto (B ld) [Entitic vol]Ordered By: Jenna Jimenez on 10-20-2022 Platelet mean volume (Bld) [Entitic vol] 8.8 fL 6.3-10.7 [facility] Platelets Auto (Bld) [#/Vol] Ordered By: Jenna Jimenez on 10-20-2022 Platelets (Bld) [#/Vol] 180 10*3/uL 150-450 [facility] Potassium [Moles/volume] in Serum or PlasmaOrdered By: Jenna Jimenez on 10-20-2022 Potassium [Moles/Vol] 4.4 mmol/L 3.5-5.1 [facility] Protein [Mass/volume] in Ser um or PlasmaOrdered By: Jenna Jimenez on 10-20-2022 Protein [Mass/Vol] 6.2 g/dL 6.0-8.5 [facility] RBC Auto (Bld) [#/Vol]Ordere d By: Jenna Jimenez on 10-20-2022 RBC (Bld) [#/Vol] 4.74 10*6/uL 3.60-5.00 [facility] Serum globulin measurement ( mass/volume)Ordered By: Jenna Jimenez on 10-20-2022 Globulin (S) [Mass/Vol] 2.8 g/dL 2.2-3.9 [facility] Serum or plasma albumin/glob ulin mass ratioOrdered By: Jenna Jimenez on 10-20-2022 Albumin/Globulin [Mass ratio] 2.0 {ratio} [facility] Albumin/Globulin [Mass ratio] 1.2 {ratio} 0.7-1.7 [facility] Serum or plasma alpha 1 glob ulin measurement by electrophoresis (mass/volume)Ordered By: Jenna Jimenez on 10-20-2022 Alpha 1 globulin Elph [Mass/Vol] 0.2 g/dL 0.0-0.4 [facility] Serum or plasma alpha 2 glob ulin measurement by electrophoresis (mass/volume)Ordered By: Jenna Jimenez on 10-20-2022 Alpha 2 globulin Elph [Mass/Vol] 0.9 g/dL 0.4-1.0 [facility] Serum or plasma anion gap de terminationOrdered By: Jenna Jimenez on 10-20-2022 Anion gap [Moles/Vol] 12.5 mmol/L 6.0-15.0 [facility] Serum or plasma beta globuli n measurement by electrophoresis (mass/volume)Ordered By: Jenna Jimenez on 10-20-2022 Beta globulin Elph [Mass/Vol] 1.0 g/dL 0.7-1.3 [facility] Serum or plasma free cefurox jose measurement (mass/volume)Ordered By: Jenna Jimenez on 10-20-2022 Cefuroxime free [Mass/Vol] Negative Negative [facility] Comment on above: Performed at: [facility] [place], [place] [id number] Director: Mau Reyna PhD, Phone: [phone] Serum or plasma gamma globul in measurement by electrophoresis (mass/volume)Ordered By: Jenna Jimenez on 10-20-2022 Gamma globulin Elph [Mass/Vol] 0.6 g/dL 0.4-1.8 [facility] Serum or plasma rheumatoid f actor measurement (units/volume)Ordered By: Jenna Jimenez on 10-20-2022 Rheumatoid factor Qn 10.9 [IU]/mL <14.0 [facility] Comment on above: Performed at: [employer] [place], [place] [id number] Director: Mau Reyna PhD, Phone: [phone] Sodium [Moles/volume] in Ser um or PlasmaOrdered By: Jenna Jimenez on 10-20-2022 Sodium [Moles/Vol] 139 mmol/L 136-145 [facility] Thyrotropin [Units/volume] i n Serum or PlasmaOrdered By: Jenna Jimenez on 10-20-2022 TSH Qn 1.43 m[IU]/L 0.45-5.33 [facility] Urea nitrogen [Mass/volume] in Serum or PlasmaOrdered By: Jenna Jimenez on 10-20-2022 Urea nitrogen [Mass/Vol] 15 mg/dL 7-25 [facility] Vitamin B12 ser/plasOrdered By: Jenna Tony on 10-20-2022 Cobalamin (Vitamin B12) [Mass/Vol] 232 pg/mL 180-914 [facility] WBC Auto (Bld) [#/Vol]Ordere d By: Jenna Jimenez on 10-20-2022 WBC (Bld) [#/Vol] 7.8 10*3/uL 3.8-11.6 [facility] FFD mammogram Breast - bilat eral Screeningon 08-21-2022 MM screening mammo BI w/CAD [facility] [employer] Other MM screening mammo BI w/CAD [facility] [employer] Other MM screening mammo BI w/CAD [address] [place] [address] [employer] [employer] Other MM screening mammo BI w/[place] [address] [employer] Other MM screening mammo BI w/CAD Mammography Report [employer] Other MM screening mammo BI w/CAD Signed [employer] Other MM screening mammo BI w/CAD Patient: Chela Padilla MR#: [id number] [employer] Other MM screening mammo BI w/CAD 06 [employer] Other MM screening mammo BI w/CAD : 1955 Acct:[id number] [employer] Other MM screening mammo BI w/CAD Age/Sex: 67 / F ADM Date: 08/21/22 [employer] Other MM screening mammo BI w/CAD Loc: [place] Room: Type: [facility] [employer] Other MM screening mammo BI w/CAD Attending Dr: Alana Parkinson DO [employer] Other MM screening mammo BI w/CAD Copies to: Alana Parkinson, [employer] Other MM screening mammo BI w/CAD Ordering Provider: Alana Parkinson DO [employer] Other MM screening mammo BI w/CAD Date of Service: 08/21/22 [employer] Other MM screening mammo BI w/CAD MM/MM screening mammo BI w/CAD: SCREENING [employer] Other MM screening mammo BI w/CAD CLINICAL DATA: Screening for malignancy. [employer] Other MM screening mammo BI w/CAD BILATERAL SCREENING MAMMOGRAMS - FULL FIELD DIGITAL WITH TOMOSYNTHESIS AND CAD [employer] Other MM screening mammo BI w/CAD Tomosynthesis craniocaudal and mediolateral oblique views of both breasts were obtained using low- [employer] Other MM screening mammo BI w/CAD dose digital technique. Comparison is made to prior studies from 03/21/2019, 07/23/2017, 07/10/2016, [employer] Other MM screening mammo BI w/CAD and 06/21/2015. This examination was reviewed with the aid of CAD. [employer] Other MM screening mammo BI w/CAD The breast parenchyma has been largely replaced by fat. Benign-appearing lymph nodes are [employer] Other MM screening mammo BI w/CAD redemonstrated along the chest wall bilaterally. There are punctate benign-appearing calcifications [employer] Other MM screening mammo BI w/CAD bilaterally. There are no dominant masses, typically malignant calcifications or architectural [employer] Other MM screening mammo BI w/CAD distortion. There has been no significant interval change. [employer] Other MM screening mammo BI w/CAD MM/MM screening mammo BI w/CAD [employer] Other MM screening mammo BI w/CAD IMPRESSION: [employer] Other MM screening mammo BI w/CAD NO MAMMOGRAPHIC EVIDENCE OF MALIGNANCY. [employer] Other MM screening mammo BI w/CAD ROUTINE FOLLOW-UP IS RECOMMENDED IN ONE YEAR. [employer] Other MM screening mammo BI w/CAD RESULT CODE: 2 [employer] Other MM screening mammo BI w/CAD Benign Findings(s) [employer] Other MM screening mammo BI w/CAD DENSITY CODE: 1 (<25% glandular) [employer] Other MM screening mammo BI w/CAD FOLLOW UP: 1YR [employer] Other MM screening mammo BI w/CAD The false-negative rate of mammography is approximately 10-percent. [employer] Other MM screening mammo BI w/CAD Management of a palpable abnormality must be based on clinical grounds. [employer] Other MM screening mammo BI w/CAD Patient was entered into a reminder system with a target due date for the next mammogram. [employer] Other MM screening mammo BI w/CAD Impression dictated by: Ankush Roberts M.D.08/21/2022 12:03 PM [employer] Other MM screening mammo BI w/CAD Dictation Location: [facility] [employer] Other MM screening mammo BI w/CAD Transcribed By: YUNG 08/21/22 1203 [employer] Other MM screening mammo BI w/CAD Dictated By: Ankush Roberts II, MD 08/21/22 1152 [employer] [facility] [employer] Other MM screening mammo BI w/CAD Signed By: [employer] Other MM screening mammo BI w/CAD 08/21/22 1200 [employer] [facility] [employer] Other Albumin [Mass/volume] in Ser um or PlasmaOrdered By: [facility] on 07-04-2022 Albumin [Mass/Vol] 3.5 g/dL 3.2-5.5 [facility] Cholesterol [Mass/volume] in Serum or PlasmaOrdered By: [facility] on 07-04-2022 Cholesterol [Mass/Vol] 241 mg/dL 140-200 [facility] Comment on above: Chol less than 200 m g/dl low riskChol 201-239 mg/dl borderline riskChol 240 mg/dl and greater high risk Cholesterol in LDL Calc [Mas s/Vol]Ordered By: [facility] on 07-04-2022 Cholesterol in LDL [Mass/Vol] 158 mg/dL 0-100 [facility] Comment on above: LDL ATP III CLASSIFI CATIONLDL less than 100 mg/dL OptimalLDL 100-129 mg/dL Near or above optimalLDL 130-159 mg/dL Borderline highLDL 160-189 mg/dL HighLDL greater than 189 mg/dL Very high Cholesterol in VLDL Calc [Ma ss/Vol]Ordered By: [facility] on 07-04-2022 Cholesterol in VLDL [Mass/Vol] 30 mg/dL [facility] Creatinine and Glomerular fi ltration rate.predicted panel (S/P/Bld)Ordered By: [facility] on 07-04-2022 Creatinine [Mass/Vol] 0.59 mg/dL 0.44-1.03 [facility] Erythrocyte distribution wid th Auto (RBC) [Ratio]Ordered By: [facility] on 07-04-2022 Erythrocyte distribution width (RBC) [Ratio] 13.3 % 11.9-15.3 [facility] Estimated glomerular filtrat ion rate (GFR) non- AmericanOrdered By: [facility] on 07-04-2022 GFR/1.73 sq M.predicted among non-blacks MDRD (S/P/Bld) [Vol rate/Area] > 60 mL/Min [facility] Glucose mean value [Mass/vol ume] in Blood Estimated from glycated hemoglobinOrdered By: [facility] on 07-04-2022 Average glucose Estimated from glycated hemoglobin (Bld) [Mass/Vol] 283 mg/dL [facility] Hematocrit Auto (Bld) [Volum e fraction]Ordered By: [facility] on 07-04-2022 Hematocrit (Bld) [Volume fraction] 43.4 % 34.0-46.4 [facility] Hemoglobin [Mass/volume] in BloodOrdered By: [facility] on 07-04-2022 Hemoglobin (Bld) [Mass/Vol] 14.2 g/dL 11.8-15.4 [facility] Laboratory - Hematology and Cell countsOrdered By: [facility] on 07-04-2022 HbA1c (Bld) [Mass fraction] 11.5 % 4.3-5.6 [facility] Comment on above: Increased risk for d iabetes: 5.7 - 6.4diabetes: >6.4glycemic control for adults with diabetes: <7.0 Leukocytes [#/volume] correc adalid for nucleated erythrocytes in Blood by Automated counOrdered By: [facility] on 07-04-2022 WBC corrected for nucl RBC Auto (Bld) [#/Vol] 6.4 10*3/uL 3.8-11.6 [facility] MCH Auto (RBC) [Entitic mass ]Ordered By: [facility] on 07-04-2022 MCH (RBC) [Entitic mass] 29.7 pg 24.7-34.3 [facility] MCHC Auto (RBC) [Mass/Vol]Or dered By: [facility] on 07-04-2022 MCHC (RBC) [Mass/Vol] 32.6 g/dL 32.0-35.0 [facility] MCV Auto (RBC) [Entitic vol] Ordered By: [facility] on 07-04-2022 MCV (RBC) [Entitic vol] 90.9 fL 80-100 [facility] No Panel InformationOrdered By: [facility] on 07-04-2022 Estimated GFR () > 60 mL/Min [facility] Comment on above: GFR estimated refere nce range: According to KDOQI guidelines, <60 ml/min/1.73m2 is sufficient to diagnose a patient with chronic kidney disease. Pharmacy Creatinine Clearance (Chem N/A [facility] Triglycerides Reflex 152 mg/dL 35-149 [facility] Comment on above: TRIG ATP III CLASSIF ICATIONTRIG less than 150 mg/dL NormalTRIG 150-199 mg/dL Borderline highTRIG 200-500 mg/dL High TRIG greater than 500 mg/dL Very highStandard traceable to the Center for Disease Conrtrol and Prevention (CDC) test method. Platelet mean volume Auto (B ld) [Entitic vol]Ordered By: [facility] on 07-04-2022 Platelet mean volume (Bld) [Entitic vol] 9.3 fL 6.3-10.7 [facility] Platelets Auto (Bld) [#/Vol] Ordered By: [facility] on 07-04-2022 Platelets (Bld) [#/Vol] 179 10*3/uL 150-450 [facility] Protein [Mass/volume] in Ser um or PlasmaOrdered By: [facility] on 07-04-2022 Protein [Mass/Vol] 5.8 g/dL 6.1-7.9 [facility] RBC Auto (Bld) [#/Vol]Ordere d By: [facility] on 07-04-2022 RBC (Bld) [#/Vol] 4.78 10*6/uL 3.60-5.00 [facility] Serum or plasma alanine tyler otransferase measurement without P-5'-P (enzymatic activiOrdered By: [facility] on 07-04-2022 ALT No additional P-5'-P [Catalytic activity/Vol] 20 U/L 10-60 [facility] Serum or plasma alkaline hector sphatase measurement (enzymatic activity/volume)Ordered By: [facility] on 07-04-2022 ALP [Catalytic activity/Vol] 84 U/L 32-92 [facility] Serum or plasma anion gap de terminationOrdered By: [facility] on 07-04-2022 Anion gap [Moles/Vol] 11.2 mmol/L 6.0-15.0 [facility] Serum or plasma aspartate am inotransferase measurement (enzymatic activity/volume)Ordered By: [facility] on 07-04-2022 AST [Catalytic activity/Vol] 14 U/L 10-42 [facility] Serum or plasma calcium zainab urement (mass/volume)Ordered By: [facility] on 07-04-2022 Calcium [Mass/Vol] 9.2 mg/dL 8.2-10.2 [facility] Serum or plasma chloride abbi surement (moles/volume)Ordered By: [facility] on 07-04-2022 Chloride [Moles/Vol] 102 mmol/L 95-114 [facility] Serum or plasma glucose zainab urement (mass/volume)Ordered By: [facility] on 07-04-2022 Glucose [Mass/Vol] 207 mg/dL 70-100 [facility] Comment on above: ADA recommended refe rence rangeRandom Glucose Reference Range is dependent on time and content of last meal. Glucose of more than 200 mg/dL in a nonstressed, ambulatory subject supports the diagnosis of Diabetes Mellitus. Serum or plasma high density lipoprotein (HDL) cholesterol measurementOrdered By: [facility] on 07-04-2022 Cholesterol in HDL [Mass/Vol] 53 mg/dL 35-85 [facility] Comment on above: HDL CHOL ATP-III CLA SSIFICATION Cardiovascular RiskHDL > or equal to 60 mg/dL LOWHDL < 40 mg/dL HIGH Serum or plasma potassium me asurement (moles/volume)Ordered By: [facility] on 07-04-2022 Potassium [Moles/Vol] 4.2 mmol/L 3.5-5.1 [facility] Serum or plasma sodium measu rement (moles/volume)Ordered By: [facility] on 07-04-2022 Sodium [Moles/Vol] 138 mmol/L 136-146 [facility] Serum or plasma total biliru bin measurement (mass/volume)Ordered By: [facility] on 07-04-2022 Bilirubin [Mass/Vol] 0.6 mg/dL 0.3-1.2 [facility] Serum or plasma total carbon dioxide measurement (moles/volume)Ordered By: [facility] on 07-04-2022 CO2 [Moles/Vol] 29.0 mmol/L 22.0-30.0 [facility] Serum or plasma total choles terol/high density lipoprotein (HDL) cholesterol mass ratOrdered By: [facility] on 07-04-2022 Cholesterol.total/Chol esterol in HDL [Mass ratio] 4.5 {ratio} <5.0 [facility] Serum or plasma urea nitroge n measurement (mass/volume)Ordered By: [facility] on 07-04-2022 Urea nitrogen [Mass/Vol] 13 mg/dL 04-24 [facility] Vital Signs Date Time Vital Sign Value Performing Clinician Facility 07-12-2024 13:23-0500 Body height 162.6 cm Evelina hCan MD Work Phone: [facility] 07-12-2024 13:23-0500 Body mass index (BMI) [Ratio] 32.79 kg/m2 Evelina Chan MD Work Phone: [facility] 07-12-2024 13:23-0500 Body weight 86.64 kg Evelina Chan MD Work Phone: [facility] 07-12-2024 13:23-0500 Diastolic blood pressure 68 mm[Hg] Evelina Chan MD Work Phone: [facility] 07-12-2024 13:23-0500 Heart rate 98 /min Evelina Chan MD Work Phone: [facility] 07-12-2024 13:23-0500 Respiratory rate 18 /min Evelina Chan MD Work Phone: [facility] 07-12-2024 13:23-0500 Systolic blood pressure 132 mm[Hg] Evelina Chan MD Work Phone: [facility] 12-10-2023 10:52-0400 Body height 157.48 cm DO Alana Parkinson Work Phone: [facility] 12-10-2023 10:52-0400 Body mass index (BMI) [Ratio] 33.6 kg/m2 DO Alana Parkinson Work Phone: [facility] 12-10-2023 10:52-0400 Body temperature 97.2 [degF] DO Alana Parkinson Work Phone: [facility] 12-10-2023 10:52-0400 Body weight 83.46 kg DO Alana Parkinson Work Phone: [facility] 12-10-2023 10:52-0400 Diastolic blood pressure 78 mm[Hg] DO Alana Parkinson Work Phone: [facility] 12-10-2023 10:52-0400 Systolic blood pressure 132 mm[Hg] DO Alana Parkinson Work Phone: [facility] 07-27-2023 14:17-0500 Diastolic blood pressure 70 mm[Hg] DO Alana Parkinson Work Phone: [facility] 07-27-2023 14:17-0500 Heart rate 73 /min DO Alana Parkinson Work Phone: [facility] 07-27-2023 14:17-0500 Respiratory rate 20 /min DO Alana Parkinson Work Phone: [facility] 07-27-2023 14:17-0500 SaO2% (BldA) [Mass fraction] 97 % DO Alana Parkinson Work Phone: [facility] 07-27-2023 14:17-0500 Systolic blood pressure 146 mm[Hg] DO Alana Parkinson Work Phone: [facility] 07-27-2023 10:06-0500 Body height 157.48 cm DO Alana Parkinson Work Phone: [facility] 07-27-2023 10:06-0500 Body temperature 98.2 [degF] DO Alana Parkinson Work Phone: [facility] 07-27-2023 10:06-0500 Body weight 82.6 kg DO Alana Parkinson Work Phone: [facility] 01-20-2023 14:40-0400 Body height 157.48 cm Alana Parkinson Other [employer] Other 01-20-2023 14:40-0400 Body mass index (BMI) [Ratio] 33.65 kg/m2 Alana Parkinson Other [employer] Other 01-20-2023 14:40-0400 Body temperature 98.3 [degF] Alana Parkinson Other [employer] Other 01-20-2023 14:40-0400 Body weight 83.46 kg Alana Parkinson Other [employer] Other 01-20-2023 14:40-0400 Diastolic blood pressure 84 mm[Hg] Alana Parkinson Other [employer] Other 01-20-2023 14:40-0400 Respiratory rate 18 /min Alana Parkinson Other [employer] Other 01-20-2023 14:40-0400 SaO2% (BldA) [Mass fraction] 97 % Alana Parkinson Other [employer] Other 01-20-2023 14:40-0400 Systolic blood pressure 136 mm[Hg] Alana Parkinson Other [employer] Other 07-17-2022 13:30-0500 Body height 157.48 cm Alana Parkinson Other [employer] Other 07-17-2022 13:30-0500 Body mass index (BMI) [Ratio] 33.83 kg/m2 Alana Parkinson Other [employer] Other 07-17-2022 13:30-0500 Body temperature 96.8 [degF] Alana Parkinson Other [employer] Other 07-17-2022 13:30-0500 Body weight 83.92 kg Alana Parkinson Other [employer] Other 07-17-2022 13:30-0500 Diastolic blood pressure 88 mm[Hg] Alana Parkinson Other [employer] Other 07-17-2022 13:30-0500 Respiratory rate 18 /min Alana Parkinson Other [employer] Other 07-17-2022 13:30-0500 SaO2% (BldA) [Mass fraction] 98 % Alana Muellerariella Other [employer] Other 07-17-2022 13:30-0500 Systolic blood pressure 138 mm[Hg] Alana Parkinson Other [employer] Other 06-17-2022 15:00-0500 Body height 157.48 cm Noé Cageisle II Other [employer] Other 06-17-2022 15:00-0500 Body mass index (BMI) [Ratio] 33.47 kg/m2 Noé Maikel II Other [employer] Other 06-17-2022 15:00-0500 Body weight 83.01 kg Noé Maikel II Other [employer] Other 05-29-2022 13:28-0400 Body height 157.48 cm DO Alana Parkinson Work Phone: [facility] 05-29-2022 13:28-0400 Body temperature 97.7 [degF] DO Alana Parkinson Work Phone: [facility] 05-29-2022 13:28-0400 Body weight 83.5 kg DO Alana Parkinson Work Phone: [facility] 05-29-2022 13:28-0400 Diastolic blood pressure 78 mm[Hg] DO Alana Parkinson Work Phone: [facility] 05-29-2022 13:28-0400 Heart rate 111 /min DO Alana Parkinson Work Phone: [facility] 05-29-2022 13:28-0400 Respiratory rate 20 /min DO Alana Parkinson Work Phone: [facility] 05-29-2022 13:28-0400 SaO2% (BldA) [Mass fraction] 96 % DO Alana Parkinson Work Phone: [facility] 05-29-2022 13:0400 Systolic blood pressure 131 mm[Hg] DO Alana Parkinson Work Phone: [facility] 05-27-2022 12:26-0400 Body height 157.48 cm DO Alana Parkinson Work Phone: [facility] 05-27-2022 12:26-0400 Body temperature 98.2 [degF] DO Alana Parkinson Work Phone: [facility] 05-27-2022 12:260400 Body weight 83.05 kg DO Alana Parkinson Work Phone: [facility] 05-27-2022 12:26-0400 Diastolic blood pressure 95 mm[Hg] DO Alana Parkinson Work Phone: [facility] 05-27-2022 12:26-0400 Heart rate 95 /min DO Alana Parkinson Work Phone: [facility] 05-27-2022 12:26-0400 Respiratory rate 18 /min DO Alana Parkinson Work Phone: [facility] 05-27-2022 12:26-0400 SaO2% (BldA) [Mass fraction] 95 % DO Alana Parkinson Work Phone: [facility] 05-27-2022 12:26-0400 Systolic blood pressure 155 mm[Hg] DO Alana Parkinson Work Phone: [facility] 01-27-2022 10:50-0400 Body height 157.48 cm Alana Parkinson Other [employer] Other 01-27-2022 10:50-0400 Body mass index (BMI) [Ratio] 34.02 kg/m2 Alana Parkinson Other [employer] Other 01-27-2022 10:50-0400 Body temperature 97.3 [degF] Alana Parkinson Other [employer] Other 01-27-2022 10:50-0400 Body weight 84.37 kg Alana Parkinson Other [employer] Other 01-27-2022 10:50-0400 Diastolic blood pressure 94 mm[Hg] Aalna Parkinson Other [employer] Other 01-27-2022 10:50-0400 Respiratory rate 18 /min Alana Parkinson Other [employer] Other 01-27-2022 10:50-0400 SaO2% (BldA) [Mass fraction] 97 % Alana Parkinson Other [employer] Other 01-27-2022 10:50-0400 Systolic blood pressure 154 mm[Hg] Alana Parkinson Other [employer] Other 06-16-2021 10:10-0500 Body height 157.48 cm Alana Parkinson Other [employer] Other 06-16-2021 10:10-0500 Body mass index (BMI) [Ratio] 33.28 kg/m2 Alana Parkinson Other [employer] Other 06-16-2021 10:10-0500 Body temperature 97.1 [degF] Alana Muellerariella Other [employer] Other 06-16-2021 10:10-0500 Body weight 82.56 kg Alana Muellerariella Other [employer] Other 06-16-2021 10:10-0500 Diastolic blood pressure 88 mm[Hg] Alana Parkinson Other [employer] Other 06-16-2021 10:10-0500 Respiratory rate 18 /min Alana Muellerariella Other [employer] Other 06-16-2021 10:10-0500 SaO2% (BldA) [Mass fraction] 97 % Alana Muellerariella Other [employer] Other 06-16-2021 10:10-0500 Systolic blood pressure 138 mm[Hg] Alana Parkinson Other [employer] Other Encounters Encounter Date Encounter Type Care Provider Facility Start: 07-12-2024 End: 07-12-2024 Michelle flowsheet Evelina Chan MD Work Phone: [facility] Start: 07-12-2024 End: 07-12-2024 [employer] flowsheet Evelina Chan MD Work Phone: [facility] Start: 07-12-2024 End: 07-12-2024 Office outpatient visit 25 minutes Evelina Chan MD Work Phone: [facility] Comment on above: Type 2 diabetes ligia itus with hyperglycemia, with long-term current use of insulin (CMS/HCC) (Primary Dx); retirement (current) use of insulin (CMS/HCC); Vitamin D [...] Start: 03-20-2024 End: 03-20-2024 ambulatory Hector Wall Facility:[facility] Start: 03-20-2024 End: 03-20-2024 Discharged Recurring PHYSICIAN NO [facility] - [facility]/P Work Phone: Start: 2024 End: 04-11-2024 External Result Encounter Hector Wall DO Work Phone: [facility] External Department Unsolicited Start: 2024 End: 04-11-2024 External Result Encounter Hector Wall DO Work Phone: [facility] External Department Unsolicited Start: 2024 End: 2024 Departed Referred PHYSICIAN NO [facility] [place] Work Phone: Start: 2024 End: 2024 ambulatory PHYSICIAN NO [facility] Work Phone: Start: 03-07-2024 End: 03-07-2024 ambulatory HECTOR WALL Not Available Start: 03-05-2024 End: 03-05-2024 ambulatory JUAN PABLO RUEDA Not Available Start: 03-02-2024 End: 03-02-2024 ambulatory JESS MARSHS Not Available Start: 03-01-2024 ambulatory [facility] Work Phone: Start: 03-01-2024 Non-patient / Non-visit [facility] Physician [facility] Work Phone: Start: 02-29-2024 End: 02-29-2024 ambulatory JESSDIONNA MARSHS Not Available Start: 02-28-2024 End: 02-28-2024 ambulatory JESS MARSHS Not Available Start: 02-28-2024 End: 02-28-2024 ambulatory TABITHA THORNTON Not Available Start: 12-10-2023 End: 12-10-2023 ambulatory DO Alana Parkinson Work Phone: [facility] Work Phone: Start: 12-10-2023 End: 12-10-2023 Patient encounter procedure DO Alana Parkinson Work Phone: [facility] Physician [facility] [place] Work Phone: Start: 11-22-2023 End: 11-22-2023 Patient encounter procedure DO Alana Parkinson Work Phone: [facility] [place] Work Phone: Start: 11-22-2023 End: 11-22-2023 ambulatory DO Alana Parkinson Work Phone: [facility] Work Phone: Start: 11-16-2023 End: 11-16-2023 Patient encounter procedure DO Alana Parkinson Work Phone: [facility] [place] Work Phone: Start: 11-16-2023 End: 11-16-2023 ambulatory DO Alana Parkinson Work Phone: [facility] Work Phone: Start: 10-26-2023 End: 10-26-2023 ambulatory BRIGIDO MAN Not Available Start: 08-31-2023 End: 08-31-2023 Patient encounter procedure DO Alana Parkinson Work Phone: [facility] Work Phone: Start: 08-31-2023 End: 08-31-2023 ambulatory DO Alana Parkinson Work Phone: [facility] Work Phone: Start: 08-03-2023 End: 08-03-2023 ambulatory Alana Parkinson Other [employer] Other Start: 08-03-2023 Telephone encounter Alana Muellerariella [facility] [place] Start: 07-27-2023 End: 07-27-2023 Emergency department patient visit DO Alana Parkinson Work Phone: [facility]-Emergency Room Work Phone: Start: 06-18-2023 End: 06-18-2023 Patient encounter procedure DO Alana Parkinson Work Phone: [facility] [place] Work Phone: Start: 06-18-2023 End: 06-18-2023 ambulatory DO Alana Parkinson Work Phone: [facility] Work Phone: Start: 06-16-2023 End: 06-16-2023 ambulatory Alana Parkinson Other [employer] Other Start: 06-16-2023 Telephone encounter Alana Muellerariella [facility] [place] Start: 06-15-2023 End: 06-15-2023 ambulatory Alana Parkinson Other [employer] Other Start: 06-15-2023 Telephone encounter Alana Parkinson [facility] [place] Start: 01-25-2023 End: 01-25-2023 ambulatory Alana Parkinson Other [employer] Other Start: 01-25-2023 Telephone encounter Alana Parkinson [facility] [place] Start: 01-20-2023 End: 01-20-2023 ambulatory Alana Parkinson Other [employer] Other Start: 01-20-2023 Office outpatient vi sit 25 minutes Alana Parkinson [facility] [place] Start: 01-16-2023 End: 01-16-2023 ambulatory DO Alana Parkinson Work Phone: [facility] Work Phone: Start: 01-16-2023 End: 01-16-2023 Departed Referred DO Alana Parkinson Work Phone: [facility]Community Outreach Work Phone: Start: 10-20-2022 End: 10-20-2022 Patient encounter procedure DO Alana Parkinson Work Phone: [facility] [place] Work Phone: Start: 08-21-2022 End: 08-21-2022 ambulatory DO Alana Parkinson Work Phone: [facility] Work Phone: Start: 08-21-2022 End: 08-21-2022 Patient encounter procedure DO Alana Parkinson Work Phone: [facility] Work Phone: Start: 08-07-2022 End: 08-07-2022 ambulatory Alana Parkinson Other [employer] Other Start: 08-07-2022 Telephone encounter Alana Parkinson [facility] [place] Start: 07-17-2022 End: 07-17-2022 ambulatory Alana Parkinson Other [employer] Other Start: 07-17-2022 Office outpatient vi sit 25 minutes Alana Parkinson [facility] Family [facility] [place] Start: 07-17-2022 Telephone encounter Alana Parkinson [facility] [place] Start: 07-07-2022 End: 07-07-2022 ambulatory Noé Ko II Other [employer] Other Start: 07-07-2022 Telephone encounter Noé Ko II [facility] Start: 07-04-2022 End: 07-04-2022 ambulatory DO Alana Parkinson Work Phone: [facility] Work Phone: Start: 07-04-2022 End: 07-04-2022 Departed Referred DO Alana Parkinson Work Phone: [facility] Start: 07-01-2022 End: 07-01-2022 ambulatory DO Alana Parkinson Work Phone: [facility] Work Phone: Start: 07-01-2022 End: 07-01-2022 Patient encounter procedure DO Alana Parkinson Work Phone: [facility]-MRI [address] Start: 06-18-2022 End: 06-18-2022 ambulatory Alana Parkinson Other [employer] Other Start: 06-18-2022 Telephone encounter Alana Parkinson [facility] [place] Start: 06-17-2022 FQHC visit new patient Noé henriquez II [facility] Start: 06-17-2022 Telephone encounter Alana Parkinson [facility] [place] Start: 06-17-2022 End: 06-17-2022 ambulatory DO Alana Parkinson Work Phone: [facility] Work Phone: Start: 06-17-2022 End: 06-17-2022 Patient encounter procedure DO Alana Parkinson Work Phone: [facility] Start: 06-03-2022 End: 06-03-2022 ambulatory Alana Parkinson Other [employer] Other Start: 06-03-2022 Telephone encounter Alana Parkinson [facility] [place] Start: 06-02-2022 End: 06-02-2022 ambulatory Alana Parkinson Other [employer] Other Start: 06-02-2022 Telephone encounter Alana Parkinson [facility] [place] Start: 06-01-2022 End: 06-01-2022 Patient encounter procedure DO Alana Parkinson Work Phone: [facility] [place] Start: 06-01-2022 End: 06-01-2022 ambulatory DO Alana Parkinson Work Phone: [employer] Other Start: 06-01-2022 Telephone encounter Alana Parkinson [facility] [place] Start: 05-29-2022 End: 05-29-2022 Emergency department patient visit DO Alana Parkinson Work Phone: [facility] Start: 05-27-2022 End: 05-27-2022 Emergency department patient visit DO Alana Parkinson Work Phone: [facility] Start: 01-27-2022 End: 01-27-2022 ambulatory Alana Parkinson Other [employer] Other Start: 01-27-2022 Office outpatient vi sit 25 minutes Alana Parkinson [facility] [place] Start: 08-18-2021 End: 08-18-2021 ambulatory Alana Parkinson Other [employer] Other Start: 08-18-2021 Telephone encounter Alana Muellerariella [facility] [place] Start: 08-13-2021 End: 08-13-2021 ambulatory Alana Parkinson Other [employer] Other Start: 08-13-2021 Telephone encounter Alana Parkinson [facility] [place] Start: 06-16-2021 End: 06-16-2021 ambulatory Alana Parkinson Other [employer] Other Start: 06-16-2021 Office outpatient vi sit 25 minutes Alana Parkinson [facility] Procedures Date Procedure Procedure Detail Performing [...] procedure 11/08/2024 1:30 PM EDT Office Visit [facility] [address] [place] [id number] Evelina Chan MD [address] [place] [id number] [facility] Start: 10-26-2024 End: 10-26-2024 Patient encounter procedure 10/26/2024 10:45 AM EDT Office Visit [facility] [address] [place] [id number] Brigido Man MD [address] [place] [address] [facility] Start: 08-31-2024 Screening for malign ant neoplasm of breast Mammogram [facility] Start: 07-12-2024 End: 07-12-2024 Patient encounter procedure 07/12/2024 1:30 PM EST Office Visit [facility] [address] [place] [address] Evelina Chan MD [address] [place] [address] Type 2 diabetes mellitus with hyperglycemia, with long-term current use of insulin ([facility] Comment on above: Type 2 diabetes ligia itus with hyperglycemia, with long-term current use of insulin ([facility]) Start: 06-28-2024 End: 06-28-2024 Patient encounter procedure 06/28/2024 10:20 AM EST Office Visit [facility] [address] [place] [id number] Evelina Chan MD [address] [place] [address] [facility] Start: 04-12-2024 End: 04-12-2024 Patient encounter procedure 04/12/2024 10:30 AM EDT Office Visit [facility] [address] [facility] [facility] [address] [place] [address] Hector Wall, [address] [facility] [address] [place] [address] [facility] Start: 04-02-2024 Influenza vaccination Influenza Vacc ine (#1) [facility] Start: 03-01-2024 Patient referral [facility] Work Phone: Start: 12-10-2023 Patient referral [facility] Work Phone: Start: 06-01-2022 Duplex scan of lower limb veins US venous duplex [facility] Start: 06-01-2022 US Lower extremity v ein - left [facility] Start: 2019 Pneumococcal Vaccine : 65+ Years (1 of 1 - PCV) Pneumococcal Vaccine: 65+ Years (1 of 1 - PCV) [facility] Start: 1955 Screening for malign ant neoplasm of colon [facility] Bacteria identified in Urine by Culture [facility] Comprehensive metabo lic 2000 panel - Serum or Plasma [facility] Glucose measurement estimated from glycated hemoglobin [facility] Work Phone: Hemoglobin A1c measurement [facility] Work Phone: Patient Education [facility] Work Phone: Patient referral [facility] Work Phone: US Lower extremity v ein - left [facility] Immunizations Immunization Date Immunization Notes Care Provider Fa cility 05-29-2021 COVID-19 Vaccine Moderna - Documentation Purposes Only Alana Parkinson Other [facility] 11-08-2020 COVID-19 Vaccine Moderna - Documentation Purposes Only Alana Parkinson Other [facility] 10-11-2020 COVID-19 Vaccine Moderna - Documentation Purposes Only Alana Parkinson Other [facility] NEGATED: Highlighted row has not occurred!06-16-2021 influenza, seasonal, injectable Patient Objection Alana Parkinson Other [employer] Other Payers Date Payer Category Payer Medicare (Managed Care) [employer] [id number] 2023 Unknown [employer] D [facility] [employer] [id number] 2023-Present [address] [place] [address] [id number] 2023 Medicare [id number] 2023 Self-pay [id number] 2021 Private Health Insurance [id number] [id number] 1954 Unknown [id number] 2.16.840.1.871488.3.579.2. 1259 1954 Unknown [id number] 2.16.840.1.993036.3.579.2. 1258 1954 Unknown [id number] 2.840.1.093954.3.579.2. 1258 1954 Unknown [id number] 2.16.840.1.855967.3.579.2. 1258 1954 Unknown [id number] 2.840.1.383879.3.579.2. 1258 1954 Unknown [id number] 2.0.1.916404.3.579.2. 1258 1954 Unknown [id number] 2.0.1.551420.3.579.2. 1258 1954 Unknown [id number] 2.0.1.767568.3.579.2. 1258 1954 Unknown [id number] 2.0.1.453354.3.579.2. 1258 1954 Unknown [id number] 2.0.1.883425.3.579.2. 1258 1954 Unknown [id number] 2.0.1.402809.3.579.2. 1259 Medicare [id number] 2.0.1.510137.19 Unknown [id number] 2.0.1.034378.19 Unknown Regular Insurance [id number] Unknown [place] [id number] Unknown [id number] 2.840.1.605266.3.579.2. 531 Unknown [id number] 2.840.1.985598.3.579.2. 531 Unknown [id number] 2.16840.1.600213.3.579.2. 531 Unknown [id number] 2.840.1.377904.3.579.2. 531 Unknown [id number] 2.16.840.1.643356.3.579.2. 531 Unknown [id number] 2.16.840.1.358683.3.579.2. 531 Unknown [id number] 2.16.840.1.695725.3.579.2. 531 Social History Date Type Detail Facility Unknown if ever smoked [facility] [employer] Other Start: 10-26-2023 End: 03-07-2024 Sex Assigned At [facility] [employer] Other Start: 05-27-2022 End: 05-29-2022 Tobacco smoking status ILIS Never smoked tobacco (finding) [facility] Start: 1955 Sex Assigned At Female F [facility] Start: 07-27-2023 End: 12-10-2023 Tobacco smoking status ILIS Smoker (finding) [facility] Start: 03-07-2024 Tobacco smoking stat [facility] Smokes tobacco daily [facility] [...] MG tablet Every 24 hours Continuous Glucose 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 ([facility]) Mixed hyperlipidemia (CMS/HCC) Obesity, unspecified Osteoarthritis Osteopenia Type 2 diabetes mellitus with hyperglycemia ([facility]) Vitamin D deficiency, unspecified Past Surgical History: [...] hyperglycemia, with long-term current use of insulin ([facility]) - POCT glucose manually resulted - POCT [...] 45 mg once a day, prescription sent. retirement (current) use of insulin (CMS/HCC) Vitamin D deficiency, unspecified Mixed hyperlipidemia (CMS/HCC) LDL 153 continue with atorvastatin 20 mg once daily Class 1 obesity due to excess calories with serious comorbidity and body mass index (BMI) of 32.0 to 32.9 in adult Primary hypertension (CMS/HCC) Continue lisinopril Follow up in about 3 months (around 10/10/2024). documented in this encounter [facility] 03-21-2024 History of Presen t illness Narrative [...] follow-ups on file. documented in this encounter [facility] 03-01-2024 Hospital Discharg e instructions Ambulatory OrdersReferral to General Surgery Time Frame: 03/01/24, Location: None Selected [facility] Work Phone: 12-10-2023 Evaluation note Authored December 10, 2023 12:15 pm The above note written by __ _Sebastián Judge____ acting as human recorder, note dictated by Dr. Mendez .I performed the above HPI, ROS, and Examination. I formulated and dictated the treatment plan and was present for entire encounter. Alana Parkinson D.O. 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 Her is now in a chcf but she is not sure how long [...] to use the kit. She voices understanding. [employer] Other 12-30-2022 NoteHISTORY: Bone density screening. COMPARISON: [...] and signed by Corby Bueno on 07/31/2022 1312[facility]12-16-2022 Evaluation note* Encounter Date Diagnosis Assessment Notes Treatment Notes Treatment Clinical Notes Jul, Enlarged lymph nodes in armpit (ICD-10 - R59.0) [employer] Other 12-16-2022 Evaluation note* Encounter Date Diagnosis [...] and not her low back. Jul, Other fci (current) 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 (ICD-10 - Z79.899) Jul, [...] has gained two pounds since last seen. [employer] Other 11-16-2022 Evaluation note* Encounter Date Diagnosis [...] her into see one of our neurosurgeons. [employer] Other 10-31-2022 Evaluation note* Encounter Date Diagnosis Assessment Notes Treatment Notes Treatment Clinical Notes May, Leg pain (ICD-10 - M79.606) left leg May, Family history of DVT (ICD-10 - Z82.49) [employer] Other 06-28-2022 Evaluation note* Encounter Date Diagnosis [...] has a will and a power of deputy commonwealth's attorney and thinks she has a Healthcare power of deputy commonwealth's attorney. I did recommend that she provide the office with a copy of this. She should discuss her wishes with her and family. [employer] Other 01-12-2022 Evaluation note* Encounter Date Diagnosis Assessment Notes Treatment Notes Treatment Clinical Notes Aug, Hypertension (ICD-10 - I10) Aug, Hyperlipidemia (ICD-10 - E78.5) Aug, Diabetes type 2, uncontrolled (ICD-10 - E11.65) [employer] Other 11-15-2021 Evaluation note* Encounter Date Diagnosis [...] above medication daily as directed. Jun, Other fci (current) 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 (ICD-10 - Z79.899) Jun, [...] that we will continue to monitor closely. [employer] Other 09-16-2019 History general Narrative - Reported* [...] Jacobs arth roscopy 04/19/2012 Surgical History mammogram -[facility] Hospitalization History appendicitis Hospitalization History child x3 Hospitalization History child x 3 [facility] [employer] Other evaluation noteNo [facility] [employer] Other evaluation noteNo assessment information available [facility] Work Phone: evaluuexvd note* Diagnosis Onset Date Resolution Status Abdominal pain acute Constipation acute Diarrhea acute Fatty liver acute Hepatic hemangioma acute HTN (hypertension) acute Hyperlipidemia acute Nicotine dependence acute Osteopenia acute Other fci (current) 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 acute Tinnitus acute Uncontrolled type 2 diabetes mellitus acute [facility] Work Phone: evaluhmjbi note* Diagnosis Type 2 diabetes mellitus with hyperglycemia, with long-term current use of insulin ([facility])- 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 [facility] instructions Additional Instructions Take the antibiotic doxycycline twice a day for 10 days take with food 1 hydrocodone every 6 hours for severe pain You may still take plain ghyl-xyb-opaxzqe Tylenol and or ibuprofen for less severe pain You may take a shower but do not let the water run directly on the abscess site Change the dressing as needed but try to leave the packing in place Return to the ER in 2 days for packing removal recheck Return sooner if worsening redness swelling pain fever chills or any [facility] Work Phone: Hospital Discharge instructions Additional Instructions Apply warm compresses to the abscess left buttock several times a day Take antibiotic and pain medications as prescribed Have your vascular study completed as needed we discussed Return here if any problems persist worsening fever, chills, nausea, vomiting chest pain, shortness of breath or any other [facility] Work Phone: Hospital Discharge instructions Additional Instructions Follow-up with your primary care doctor Return to ED for worsening symptoms or [facility] Work Phone: Hospital Discharge instructionsAmbulatory Orders* Referral to Audiology Time Frame: 12/10/23, Location: None Selected * Referral to Endocrinology Time Frame: 12/10/23, Location: None Selected [facility] Work Phone: Reason for visit [facility] [employer] Other [employer] for visit [facility] [employer] Other Reason for Referral Reason appt pt needs cons ult to discuss uncontrolled Diabetes Diagnosis 1 Diabetes type 2, unc ontrolled (E11.65) Referral Organization [facility] [place] Referring Provider First Name Alana Referring Provider Last Name Gwendolyn Referring Provider Specialty Family Prac fabio Referred Organization [facility] Referred Provider Tabitha Sloan Referred Address ,[place], [place],[address] Referred Provider Specialty Family Medic ine Referral Priority Routine General Notes Lorena Miller 06/16/2021 09:47:09 AM > referral sent p2p with office note and last two community outreach labs. pt informed she will be contacted to schedule this appt. Reason appt consult for e eliud and treatment of lt lower leg pain/difficulty walking Diagnosis 1 Leg pain, left (M79. 605) Referral Organization [facility] [place] Referring Provider First Name Alana Referring Provider Last Name Gwendolyn Referring Provider Specialty Family Prac fabio Referred Organization [facility] Referred Provider Yonatan Ocasio Referred Address [address] [facility],[place],[address] Referred Provider Specialty Orthopedic S urgery Referral Priority Urgent General Notes Lorena Miller 06/03/2022 10:26:56 AM > referral sent p2p. pt understands she will be contacted to schedule this appt. Reason appt consult to aristeo duran diabetes and osteopenia treatment Diagnosis 1 Diabetes type 2, unc ontrolled (E11.65) Diagnosis 2 Osteopenia (M85.80) Referral Organization [facility] [place] Referring Provider First Name Alana Referring Provider Last Name Gwendolyn Referring Provider Specialty Family Prac fabio Referred Organization [employer] Referred Provider Evelina Chan Referred Address [address] [facility] [address],[place], [place],[address] Referred Provider Specialty Internal Med icine Referral [...] HTN (hypertension) Hyperlipidemia Nicotine dependence Osteopenia 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..] DO Primary Care Provider Active Noa Waters LACE ROLLER OPERATOR- Emergency Provider Active Team Status: Inactive Member [...] December 10, 2023 End: December 10, 2023 Social Work Professor Relationship Specialty Start Date End Date Alana Parkinson MD [address] [place] [address] PCP - General Family Medicine 10/26/23 Tabitha Thornton AUD [address] [place] [address] Audiology 02/28/24 Social Work Professor Relationship Specialty Start Date End Date Alana Parkinson MD [address] [place] [address] PCP - General Family Medicine 10/26/23 Tabitha Thornton AUD [address] [place] [address] Audiology 02/28/24 Social Work Professor Relationship Specialty Start Date End Date Alana Parkinson MD [address] [place] [address] PCP - General Family [facility] 10/26/23 Tabitha Thornton AUD [address] [place] [address] Audiology 02/28/24 Social Work Professor Relationship Specialty Start Date End Date Alana Parkinson MD [address] [place] [address] PCP - General Family [facility] 10/26/23 Tabitha Thornton AUD [address] [place] [address] Audiology 02/28/24 Social Work Professor Relationship Specialty Start Date End Date Alana Parkinson MD [address] [place] [address] PCP - General [facility] 10/26/23 Tabitha Thornton AUD [address] [place] [address] Audiology 02/28/24 Goals (unrecognized section and content) Goals may be documented in a n alternate section INFORMATION SOURCE (unrecogn ized section and content) DATE CREATED AUTHOR 07/31/2022 [facility] dical Specialist DATE CREATED AUTHOR AUTHOR'S ORGANIZ ATION 03/21/2024 [facility] DATE CREATED AUTHOR AUTHOR'S ORGANIZ ATION 07/15/2024 [facility] dical Specialists EPIC FOR RECORDS PERTAINING [...] BE BASED ON THE PRIMARY CLINICAL RECORDS. [facility]. provides no warranty or guarantee of the accuracy or completeness of information in this document.
[2024-10-02 06:52] LABS: Anion Gap 7.6; BUN Creatinine Ratio 38.7; Calcium 9.6 mg/dL (8.5-10.1); Carbon Dioxide 31.5 mmol/L (21.0-32.0); Chloride 104 mmol/L (98-107); Estimated GFR (African America >60 (>=60 mL/min/1.73m^2); Estimated GFR (Non-African Ame >60 (>=60 mL/min/1.73m^2); Glucose 167 mg/dL (74-106); Potassium 4.1 mmol/L (3.5-5.1); Sodium 139 mmol/L (136-145)
[2024-10-02 06:53] LABS: Magnesium 1.7 mg/dL (1.8-2.4)
--- NOTE | 2024-10-02 07:09 | P.PN_ITS ---
Progress Note: Subjective Subjective Interval history: Pain persisting and can feel pressure down in the area of the abscess Exam Constitutional Vital Signs, click to edit/add: Last Vital Signs Temp 98.1 F 10/02/24 02:57 Pulse 85 10/02/24 02:57 Resp 20 10/02/24 02:57 BP 128/69 10/02/24 02:57 Pulse Ox 96 10/02/24 02:57 O2 Del Method Room Air 10/02/24 02:57 Documenting provider has reviewed patient's vital signs: yes Common normals: no apparent distress Chest Common normals: inspection of chest normal Respiratory Common normals: normal respiratory effort, no retractions and clear to auscultation bilaterally Cardio Common normals: regular rate, regular rhythm and no murmurs GI Common normals: soft to palpation and no masses; negative for Normal to inspection, nondistended, normoactive bowel sounds present (Obese) Other: See pictures Back & Pelvis Common normals: no CVA tenderness Other: R buttocks with erythema and copious drainage, some erythema outside the line of demarcation Progress Note: Objective Labs Labs: Short CBC 10/02/24 Range/Units 06:25 WBC 6.5 (4.0-11.0) 10^3/uL Hgb 11.3 L (12.0-16.0) g/dL Hct 34.3 L (36.0-48.0) % Plt Count 253 (150-450) 10^3/uL BMP 10/02/24 06:25 Sodium 139 Potassium 4.1 Chloride 104 Carbon Dioxide 31.5 BUN 24.0 H Creatinine 0.62 Glucose 167 H Calcium 9.6 Progress Note: A&P Assessment and Plan (1) Cellulitis: Qualifiers: Site of cellulitis: buttock Qualified Code(s): L03.317 - Cellulitis of buttock (2) Back pain: (3) Abscess of skin or subcutaneous tissue: (4) Acute hyponatremia: (5) Diabetes type 2: (6) HTN (hypertension): Plan Admission findings: Leukocytosis, hyponatremia, sinus tachycardia, severely elevated hyperglycemia, severe protein calorie malnutrition positive blood culture from the previous emergency room visit, elevated BUN consistent with dehydration, and hypomagnesemia secondary to right gluteal abscess leading to sepsis Right gluteal abscess leading to [id number]-[id number] antibiotics, yesterday the erythema is finally inside line of demarcation, pressure still persisting induration persisting so we will check CT scan of pelvis, possible abscess and need for further drainage, no white blood cell count is improved, cultures pending Severely poorly controlled diabetes mellitus sugar over 500-insulin sliding scale and improve diet, still significant elevation-will increase long-acting insulin Hyponatremia secondary to the hyperglycemia-improved to normal Elevated BUN consistent with dehydration-IV fluids-improved Hypomagnesemia-supplement -improved Iron deficiency anemia-monitor daily-Down somewhat today Hypercholesterolemia continue with home medications Admission status: Patient failed outpatient treatment now with positive blood culture, secondary to right gluteal abscess and worse on day 2 pof admission, medically necessary treatment will span 2 midnights. Inpatient status-CT scan today, cultures hopefully back today or tomorrow and discharge tomorrow based on sensitivities ?
[2024-10-02] MEDS: JUVEN PACKET 1 PACKET PO ×2 (08:16→20:23)
[2024-10-02] MEDS: ENOXAPARIN SODIUM 40 MG/0.4 ML SYRINGE SUBQ (08:16)
[2024-10-02] MEDS: INSULIN ASPART 300 UNIT/3 ML PEN SUBQ ×4 (08:16→21:11)
[2024-10-02] MEDS: LISINOPRIL 10 MG TABLET PO (08:16)
[2024-10-02] MEDS: PROSTAT 15 GM PROTEIN/100 CAL 30 ML LIQUID PACKET PO ×2 (08:16→20:23)
[2024-10-02] MEDS: ENSURE HP 237 ML LIQUID PO ×2 (08:16→20:23)
[2024-10-02] MEDS: ATORVASTATIN CALCIUM 20 MG TABLET PO (08:16)
[2024-10-02] MEDS: INSULIN GLARGINE 300 UNIT/3 ML INSULN.PEN 40 UNIT SQ ×2 (08:17→21:10)
[2024-10-02] MEDS: PIOGLITAZONE 15 MG TABLET 45 MG PO (08:22)
--- NOTE | 2024-10-02 08:28 | CM.NOTE ---
Rounds made with Dr. Jung, pt will have repeat CT scan today of abscess. No discharge continue IV antibiotics, possible surgical consult pending CT results.
--- NOTE | 2024-10-02 10:17 | SWNOTE1 ---
SW reviewed PT/OT notes and no needs identified at this time.
--- NOTE | 2024-10-02 10:39 | CM.NOTE ---
Important Message From Medicare discussed with pt, pt verbalizes understanding and signs paper. Original given to pt and copy placed in pt's chart.
--- NOTE | 2024-10-02 11:10 | PT.DAILY ---
Physical Therapy Daily Note PT Daily Note/Assess Start: 10/02/24 11:07 Freq: Status: Active Protocol: Document 10/02/24 11:08 [facility] (Rec: 10/02/24 11:10 [facility] [id number]) Physical Therapy Daily Note/Assessment Time In/Time Out Time In 10:35 Time Out 10:50 Pain In Pain N/A Pain Out Pain N/A Subjective Subjective Pt supine upon arrival. Agrees to PT. needs to use restroom prior to amb. Therapeutic Exercise Time Therapeutic Exercise 3 Minutes (minutes) Therapeutic Exercise 0 Units Therapeutic Exercise Treatment Therapeutic Exercise Seated ex complete while sitting on couch 10x ea - to Treatment improve strength and maintain mobility Therapeutic Activity Time Therapeutic Activity 8 Minutes (minutes) Therapeutic Activity 1 Units Therapeutic Activity Treatment Bed Mobility Ability Independent Chair Transfer Independent Ability Therapeutic Activity Supine>sit IND. Sits EOB unsupported. Sit>stand IND. Pt Comments amb without AD to restroom 20', SUP. Pt able to perform toilet transfer and pericare SUP only. Pt sit> stand from toilet IND. Washes hands at sink without LOB . Pt amb 120' without AD, in henriquez with occ UE support on handrail but no LOB. Returned to sitting on couch in room for seated ex. Remains on couch. Call light within reach though pt is AD SOLOMON in room. Total Physical Therapy Time Total Therapy 11 Minutes Total Physical 1 Therapy Units Summary Daily Note Summary Improved gait endurance and stability with amb.
[2024-10-02 11:34] LABS: Glucometer 193 mg/dL (74-106)
[2024-10-02] MEDS: LEVOFLOXACIN IN DEXTROSE 5 % 750 MG/150 ML PREMIX 50 MG IV (11:36)
[2024-10-02] MEDS: OXYCODONE HCL/ACETAMINOPHEN 5MG/325MG 2 TAB PO ×2 (11:46→20:21)
--- NOTE | 2024-10-02 15:25 | CM.NOTE ---
Discussed with pt about Diabetes, pt was recently referred to Dr. Gutiérrez (endocrinology) and has an appointment at the end of this month. Talked with pt about importance of preventative medicine with chronic disease, pt verbalizes understanding. Pt has been managing diabetes for 25 years. Pt provided with education on diet, maintenance, and exercising. Pt states she was instructed to use a [employer] by her physician, pt picked it up 6 months ago but can't figure out how to use it. Encouraged pt to have someone bring the [employer] to hospital and nursing staff could educate pt on how to use and application.
[2024-10-02 16:30] LABS: Glucometer 239 mg/dL (74-106)
[2024-10-02 19:34] LABS: Glucometer 321 mg/dL (74-106)
[2024-10-03] VITALS (8 sets, daily range): BP systolic 114–162; BP diastolic 67–85; PULSE 78–96; TEMP 36.3–36.9; O2SAT 92–95
[2024-10-03] MEDS: OXYCODONE HCL/ACETAMINOPHEN 5MG/325MG 2 TAB PO ×4 (01:11→19:45)
[2024-10-03] MEDS: CEFTAZIDIME 2,000 MG in 0.9 % SODIUM CHLORIDE 100 ML 100 MG IV (01:12)
[2024-10-03] MEDS: MAGNESIUM OXIDE 400 MG TABLET PO ×3 (05:40→21:42)
--- NOTE | 2024-10-03 06:28 | P.PN_ITS ---
Progress Note: Subjective Subjective Interval history: Patient type feeling persisting Exam Constitutional Vital Signs, click to edit/add: Last Vital Signs Temp 97.8 F 10/03/24 04:00 Pulse 78 10/03/24 04:00 Resp 18 10/03/24 04:00 BP 114/75 10/03/24 04:00 Pulse Ox 93 L 10/03/24 04:44 O2 Del Method Room Air 10/03/24 04:44 Documenting provider has reviewed patient's vital signs: yes Common normals: no apparent distress Chest Common normals: inspection of chest normal Respiratory Common normals: normal respiratory effort and no retractions Cardio Common normals: regular rate and regular rhythm GI Common normals: soft to palpation; negative for Normal to inspection, nondistended, normoactive bowel sounds p resent (Obese) Other: See pictures Back & Pelvis Common normals: no CVA tenderness Other: R buttocks with erythema and copious drainage, some erythema outside the line of demarcation Progress Note: Objective Labs Labs: Short CBC 10/02/24 Range/Units 06:25 WBC 6.5 (4.0-11.0) 10^3/uL Hgb 11.3 L (12.0-16.0) g/dL Hct 34.3 L (36.0-48.0) % Plt Count 253 (150-450) 10^3/uL BMP 10/02/24 06:25 Sodium 139 Potassium 4.1 Chloride 104 Carbon Dioxide 31.5 BUN 24.0 H Creatinine 0.62 Glucose 167 H Calcium 9.6 Progress Note: A&P Assessment and Plan (1) Cellulitis: Qualifiers: Site of cellulitis: buttock Qualified Code(s): L03.317 - Cellulitis of buttock (2) Back pain: (3) Abscess of skin or subcutaneous tissue: (4) Acute hyponatremia: (5) Diabetes type 2: (6) HTN (hypertension): Plan Admission findings: Leukocytosis, hyponatremia, sinus tachycardia, severely elevated hyperglycemia, severe protein calorie malnutrition positive blood culture from the previous emergency room visit, elevated BUN consistent with dehydration, and hypomagnesemia secondary to right gluteal abscess leading to sepsis Right gluteal abscess leading to sepsis-2 different organisms growing gram- negative mavis and will look for group B [id number] antibiotics, yesterday the erythema is finally inside line of demarcation, pressure still persisting induration persisting so we will check CT scan of pelvis, possible abscess and need for further drainage, no white blood cell count is improved, cultures pending, hopefully sensitivities tomorrow, consult to general surgery for possible surgical debridement, n.p.o. at midnight Severely poorly controlled diabetes mellitus sugar over 500-insulin sliding scale and improve diet, still significant elevation-significantly improved from admission Hyponatremia secondary to the hyperglycemia-improved to normal Elevated BUN consistent with dehydration-IV fluids-improved Hypomagnesemia-supplement -continue to monitor Iron deficiency anemia-monitor daily-Down somewhat today Hypercholesterolemia continue with home medications Admission status: Patient failed outpatient treatment now with positive blood culture, secondary to right gluteal abscess and worse on day 2 pof admission, medically necessary treatment will span 2 midnights. Inpatient status-CT scan today, cultures hopefully back today or tomorrow and discharge tomorrow based on sensitivities ?
[2024-10-03 06:31] LABS: Basophils Absolute Auto 0.1 10^3/uL (0.0-0.1); Basophils Percent Auto 0.9 % (0.2-2.0); Eosinophils Absolute Auto 0.3 10^3/uL (0.0-0.7); Eosinophils Percent Auto 4.4 % (0.9-7.0); Hematocrit 36.1 % (36.0-48.0); Immature Granulocytes Abs Auto 0.18 10^3/uL (0.00-0.03); Immature Granulocytes Pct Auto 2.8 % (0.0-0.5); Lymphocytes Absolute Auto 1.4 10^3/uL (1.2-3.8); Lymphocytes Percent Auto 21.3 % (20.5-60.0); Mean Corpuscular HGB Conc 33.2 g/dL (29.9-35.2); Mean Corpuscular Hemoglobin 30.8 pg (26.7-34.0); Mean Corpuscular Volume 92.8 fL (81.0-99.0); Mean Platelet Volume 10.8 fL (9.5-13.5); Monocytes Absolute Auto 0.6 10^3/uL (0.3-0.8); Neutrophils Absolute Auto 3.9 10^3/uL (1.4-6.5); Neutrophils Percent Auto 61.6 % (43.0-75.0); Platelet Count 257 10^3/uL (150-450); Red Blood Count 3.89 10^6/uL (4.20-5.40); Red Cell Distribution Width 12.2 % (11.0-15.0); White Blood Count 6.3 10^3/uL (4.0-11.0)
[2024-10-03 06:38] LABS: Anion Gap 5.6; BUN Creatinine Ratio 36.8; Calcium 9.6 mg/dL (8.5-10.1); Carbon Dioxide 33.5 mmol/L (21.0-32.0); Chloride 105 mmol/L (98-107); Estimated GFR (African America >60 (>=60 mL/min/1.73m^2); Estimated GFR (Non-African Ame >60 (>=60 mL/min/1.73m^2); Glucose 131 mg/dL (74-106); Potassium 4.1 mmol/L (3.5-5.1); Sodium 140 mmol/L (136-145)
[2024-10-03 08:34] LABS: Glucometer 148 mg/dL (74-106)
--- NOTE | 2024-10-03 08:43 | CM.NOTE ---
Rounds made with Dr. Jung, consult for Dr. Barlow today for further recommendations. Discussed with pt culture results and possible need for outpatient IV antibiotics. No discharge today.
[2024-10-03] MEDS: LISINOPRIL 10 MG TABLET PO (09:28)
[2024-10-03] MEDS: ENSURE HP 237 ML LIQUID PO ×2 (09:28→21:42)
[2024-10-03] MEDS: PROSTAT 15 GM PROTEIN/100 CAL 30 ML LIQUID PACKET PO ×2 (09:28→21:42)
[2024-10-03] MEDS: JUVEN PACKET 1 PACKET PO ×2 (09:28→21:42)
[2024-10-03] MEDS: ENOXAPARIN SODIUM 40 MG/0.4 ML SYRINGE SUBQ (09:29)
[2024-10-03] MEDS: ATORVASTATIN CALCIUM 20 MG TABLET PO (09:29)
[2024-10-03] MEDS: INSULIN ASPART 300 UNIT/3 ML PEN SUBQ ×3 (09:29→21:44)
[2024-10-03] MEDS: PIOGLITAZONE 15 MG TABLET 45 MG PO (09:44)
[2024-10-03] MEDS: INSULIN GLARGINE 300 UNIT/3 ML INSULN.PEN 40 UNIT SQ ×2 (09:46→21:45)
--- NOTE | 2024-10-03 10:49 | PT.DAILY ---
Physical Therapy Daily Note PT Daily Note/Assess Start: 10/02/24 11:07 Freq: Status: Active Protocol: Document 10/03/24 10:25 [facility] (Rec: 10/03/24 10:49 [facility] [id number]) Physical Therapy Daily Note/Assessment Time In/Time Out Time In 10:25 Time Out 10:40 Subjective Subjective Denies complaints with therapy this morning. Therapeutic Activity Time Therapeutic Activity 10 Minutes (minutes) Therapeutic Activity 1 Units Therapeutic Activity Treatment Bed Mobility Ability Independent Chair Transfer Independent Ability Therapeutic Activity Gait 150' without AD SBA. Occasional use of rail in Comments henriquez for support but no LOB noted. Total Physical Therapy Time Total Therapy 10 Minutes Total Physical 1 Therapy Units Summary Daily Note Summary Improved ability with gait distance today. Patient in bed with call light in reach and all needs met post RX.
[2024-10-03 11:32] LABS: Glucometer 189 mg/dL (74-106)
[2024-10-03] MEDS: CEFTAZIDIME 2,000 MG in 0.9 % SODIUM CHLORIDE 100 ML 200 MG IV (14:28)
[2024-10-03 16:38] LABS: Glucometer 132 mg/dL (74-106)
[2024-10-03 20:41] LABS: Glucometer 181 mg/dL (74-106)
[2024-10-04] VITALS: BP 115/65; PULSE 90; TEMP 36.6; O2SAT 95
--- NOTE | 2024-10-04 | CONS_ITS ---
CONSULTATION DATE: 10/04/2024 REASON FOR CONSULTATION: Right buttock abscess. HISTORY OF PRESENT ILLNESS: Patient is a 69-year-old female with history of type 2 diabetes, hypertension, previous MRSA infections, who developed pain and swelling of the right medial buttock approximately 11 days ago. She was seen initially in the ER on 09/26/2024 and diagnosed with cellulitis. She did have tachycardia and elevated white blood cell count. The CT did not reveal evidence of a definite abscess. She reportedly did not want to be admitted for IV antibiotics, but was given IV antibiotics and sent home on oral antibiotics. She represented three days later with worsening pain and swelling and fluctuance in the area. We did an incision and drainage in the emergency room at that time and was admitted for IV antibiotics. She did have a large amount of purulent drainage that did grow Strep as well as E. coli. E. coli was somewhat resistant. She has been on antibiotics to appropriately cover these organisms. She has been afebrile. White count has normalized. She did continue to complain of pain and has had induration of that area since that time. Has had poor glucose control which appears to be more controlled today. She denies any history of previous abscess in that area or trauma to the area. She is not anticoagulated. PAST SURGICAL HISTORY: Significant for appendectomy. FAMILY HISTORY: Noncontributory. SOCIAL HISTORY: Patient denies alcohol use, is an every day, current smoker. REVIEW OF SYSTEMS: Ten system review of systems is negative for recent weight loss or weight gain. She denies increased fatigue or light-headedness. Has had no earache or tinnitus. No sinus congestion. No sore throat or hoarseness. No chest pain, palpitations or syncope. No chronic cough, shortness of breath or hemoptysis. No abdominal pain, nausea or vomiting. No diarrhea, constipation or decreased caliber of the stool. No melena, hematochezia or bright red blood per rectum. No dysuria, frequency, urgency or hematuria. No headaches, seizures or tremors. No easy bruising or bleeding. No heat or cold intolerance. No polydipsia, polyphagia or polyuria. PHYSICAL EXAM: VITAL SIGNS: Patient is currently afebrile. Blood pressure is 152/87. Pulse is 89 and regular. Respiratory rate is 18. O2 saturation is 96% on room air. GENERAL: In general, she is an obese female, currently in no acute distress. HEENT: Normocephalic, atraumatic. Sclerae anicteric. Conjunctiva are not injected. Oral mucosa is moist. NECK: Supple. There is no adenopathy. LUNGS: Reveals some basilar crackles. CARDIAC EXAM: Regular rhythm and rate without appreciable murmurs, rubs or gallops. ABDOMEN: Obese, soft, non-tender, non-distended. EXTREMITIES: Without clubbing, cyanosis or edema. NEURO EXAM: Non-focal. Non-lateralizing. SKIN: Within the medial buttock, there is an area of approximately 5 x 4 cm with induration and some brawny skin changes, as well as some superficial skin slough. There is approximately a 4 mm open area with some serosanguineous drainage with compression. No fluctuance or crepitus. No evidence of cellulitis. LABORATORY DATA: Laboratory values today reveal normal white blood cell count and more controlled glucose, under 200. IMAGING: CT scans that were performed on the as well as on the 02 of October were reviewed. ASSESSMENT: A 69-year-old female with diabetes, tobacco use with a large right buttock abscess, is now drained, with some residual induration, minimal serosanguineous drainage currently. RECOMMENDATIONS: I would recommend Sitz baths four times a day and after a bowel movement to kind of clean out the remaining infection. Keep the area covered as you are doing. Otherwise, keep it clean and dry. I would complete her course of antibiotic therapy. Currently does not require any surgical intervention for this. She can follow up as an outpatient, when she is discharged, for monitoring of healing of the area. I would advise dietary and medication control of her diabetes, as well as tobacco cessation to minimize recurrence or ongoing problems with wound healing. Thank you for allowing me to participate in her care. Please let me know if I can be of further assistance. Sincerely, Morgan Barlow M.D. NATALYA/natalia WILSON
[2024-10-04] MEDS: CEFTAZIDIME 2,000 MG in 0.9 % SODIUM CHLORIDE 100 ML 200 MG IV (01:10)
[2024-10-04] MEDS: OXYCODONE HCL/ACETAMINOPHEN 5MG/325MG 2 TAB PO ×2 (01:13→10:28)
[2024-10-04 03:21] VITALS: BP 122/77; PULSE 85; TEMP 36.6; O2SAT 92
[2024-10-04] MEDS: MAGNESIUM OXIDE 400 MG TABLET PO (05:41)
[2024-10-04 06:03] LABS: Basophils Percent Auto 0.6 % (0.2-2.0); Eosinophils Absolute Auto 0.3 10^3/uL (0.0-0.7); Eosinophils Percent Auto 3.8 % (0.9-7.0); Hematocrit 35.7 % (36.0-48.0); Hemoglobin 11.4 g/dL (12.0-16.0); Immature Granulocytes Abs Auto 0.12 10^3/uL (0.00-0.03); Immature Granulocytes Pct Auto 1.8 % (0.0-0.5); Lymphocytes Absolute Auto 1.4 10^3/uL (1.2-3.8); Lymphocytes Percent Auto 21.3 % (20.5-60.0); Mean Corpuscular HGB Conc 31.9 g/dL (29.9-35.2); Mean Corpuscular Volume 93.9 fL (81.0-99.0); Mean Platelet Volume 10.6 fL (9.5-13.5); Monocytes Absolute Auto 0.6 10^3/uL (0.3-0.8); Monocytes Percent Auto 8.4 % (1.7-12.0); Neutrophils Absolute Auto 4.3 10^3/uL (1.4-6.5); Neutrophils Percent Auto 64.1 % (43.0-75.0); Platelet Count 258 10^3/uL (150-450); Red Cell Distribution Width 12.6 % (11.0-15.0); White Blood Count 6.8 10^3/uL (4.0-11.0)
[2024-10-04 06:20] LABS: Anion Gap 9.2; BUN Creatinine Ratio 35.2; Calcium 9.5 mg/dL (8.5-10.1); Carbon Dioxide 33.2 mmol/L (21.0-32.0); Chloride 104 mmol/L (98-107); Estimated GFR (African America >60 (>=60 mL/min/1.73m^2); Estimated GFR (Non-African Ame >60 (>=60 mL/min/1.73m^2); Glucose 135 mg/dL (74-106); Potassium 4.4 mmol/L (3.5-5.1); Sodium 142 mmol/L (136-145)
--- NOTE | 2024-10-04 07:17 | P.PN_ITS ---
Progress Note: Subjective Subjective Interval history: Patient type feeling persisting Exam Constitutional Vital Signs, click to edit/add: Last Vital Signs Temp 97.8 F 10/04/24 03:21 Pulse 85 10/04/24 03:21 Resp 20 10/04/24 03:21 BP 122/77 10/04/24 03:21 Pulse Ox 92 L 10/04/24 03:21 O2 Del Method Room Air 10/04/24 03:21 Progress Note: Objective Labs Labs: Short CBC 10/04/24 Range/Units 05:53 WBC 6.8 (4.0-11.0) 10^3/uL Hgb 11.4 L (12.0-16.0) g/dL Hct 35.7 L (36.0-48.0) % Plt Count 258 (150-450) 10^3/uL BMP 10/04/24 05:53 Sodium 142 Potassium 4.4 Chloride 104 Carbon Dioxide 33.2 H BUN 25.0 H Creatinine 0.71 Glucose 135 H Calcium 9.5 Progress Note: A&P Assessment and Plan (1) Cellulitis: Qualifiers: Site of cellulitis: buttock Qualified Code(s): L03.317 - Cellulitis of buttock (2) Back pain: (3) Abscess of skin or subcutaneous tissue: (4) Acute hyponatremia: (5) Diabetes type 2: (6) HTN (hypertension): Plan Admission findings: Leukocytosis, hyponatremia, sinus tachycardia, severely elevated hyperglycemia, severe protein calorie malnutrition positive blood culture from the previous emergency room visit, elevated BUN consistent with dehydration, and hypomagnesemia secondary to right gluteal abscess leading to sepsis Right gluteal abscess leading to sepsis-2 different organisms growing gram-neg ative mavis and will look for group B [id number] antibiotics, yesterday the erythema is finally inside line of demarcation, pressure still persisting induration persisting so we will check CT scan of pelvis, possible abscess and need for further drainage, no white blood cell count is improved, cultures pending, hopefully sensitivities tomorrow, consult to general surgery for possible surgical debridement, n.p.o. at midnight Severely poorly controlled diabetes mellitus sugar over 500-insulin sliding scale and improve diet, still significant elevation-significantly improved from admission Hyponatremia secondary to the hyperglycemia-improved to normal Elevated BUN consistent with dehydration-IV fluids-improved Hypomagnesemia-supplement -continue to monitor Iron deficiency anemia-monitor daily-Down somewhat today Hypercholesterolemia continue with home medications Admission status: Patient failed outpatient treatment now with positive blood culture, secondary to right gluteal abscess and worse on day 2 pof admission, medically necessary treatment will span 2 midnights. Inpatient status-CT scan today, cultures hopefully back today or tomorrow and discharge tomorrow based on sensitivities ?
[2024-10-04 07:47] VITALS: BP 151/85; PULSE 84; TEMP 36.6; O2SAT 95
[2024-10-04] MEDS: ATORVASTATIN CALCIUM 20 MG TABLET PO (08:44)
[2024-10-04] MEDS: ENOXAPARIN SODIUM 40 MG/0.4 ML SYRINGE SUBQ (08:44)
[2024-10-04] MEDS: PROSTAT 15 GM PROTEIN/100 CAL 30 ML LIQUID PACKET PO (08:44)
[2024-10-04] MEDS: JUVEN PACKET 1 PACKET PO (08:44)
[2024-10-04] MEDS: INSULIN GLARGINE 300 UNIT/3 ML INSULN.PEN 40 UNIT SQ (08:46)
[2024-10-04] MEDS: ENSURE HP 237 ML LIQUID PO (08:47)
[2024-10-04] MEDS: LISINOPRIL 10 MG TABLET PO (08:47)
[2024-10-04] MEDS: POLYETHYLENE GLYCOL 3350 17 GM POWDER PACKET PO (08:48)
[2024-10-04] MEDS: PIOGLITAZONE 15 MG TABLET 45 MG PO (08:52)
--- NOTE | 2024-10-04 08:56 | CM.NOTE ---
Rounds made with Dr. Jung, discussed with pt about abscess being non-surgical and culture results. Pt will discharge today on oral antibiotics. Pt will need to f/u with PCP.
--- NOTE | 2024-10-04 09:10 | P.DS_ITS ---
DS: Providers Provider Date of admission: 09/29/24 20:48 Primary care physician: ALANA PARKINSON Consults: 09/30/24 08:23 Occupational Therapy Eval and Treat Routine Reason for consultation: Only if needed for Rehab Has provider been notified: No Physical Therapy Eval and Treat Routine Reason for consultation: Eval and Treat Has provider been notified: No 10/03/24 09:40 Consult to General Surgeon Routine Consulting Provider: Morgan Barlow Reason for consultation: gluteal abscess Has provider been notified: Yes DS: Diagnosis Discharge Diagnosis (1) Cellulitis: Qualifiers: Site of cellulitis: buttock Qualified Code(s): L03.317 - Cellulitis of buttock (2) Back pain: (3) Abscess of skin or subcutaneous tissue: (4) Acute hyponatremia: (5) Diabetes type 2: (6) HTN (hypertension): Plan Admission findings: Leukocytosis, hyponatremia, sinus tachycardia, severely elevated hyperglycemia, severe protein calorie malnutrition positive blood culture from the previous emergency room visit, elevated BUN consistent with dehydration, and hypomagnesemia secondary to right gluteal abscess leading to sepsis Right gluteal abscess leading to sepsis-2 different organisms growing gram- negative mavis and will look for group B cdnxr-[id number] antibiotics, yesterday the erythema is finally inside line of demarcation, pressure still persisting induration persisting so we will check CT scan of pelvis, possible abscess and need for further drainage, no white blood cell count is improved, cultures pending, hopefully sensitivities tomorrow, consult to general surgery for possible surgical debridement, n.p.o. at midnight Severely poorly controlled diabetes mellitus sugar over 500-insulin sliding scale and improve diet, still significant elevation-significantly improved from admission Hyponatremia secondary to the hyperglycemia-improved to normal Elevated BUN consistent with dehydration-IV fluids-improved Hypomagnesemia-supplement -continue to monitor Iron deficiency anemia-monitor daily-Down somewhat today Hypercholesterolemia continue with home medications Admission status: Patient failed outpatient treatment now with positive blood culture, secondary to right gluteal abscess and worse on day 2 pof admission, medically necessary treatment will span 2 midnights. Inpatient status-CT scan today, cultures hopefully back today or tomorrow and discharge tomorrow based on sensitivities ? DS: Summary Hospital Course Hospital Course: Patient was seen and evaluated in emergency room for cellulitis in the buttocks area CT scan showed just the cellulitis and was discharged to home pain increased returned and found to have abscess was drained by emergency room physician, patient was admitted for workup and treatment of same responded well to initial antibiotics however the swelling persisted, surgical consultation was done which showed no need for further surgical debridement, CT scan that did show progression of the cellulitis, culture did come back and is sensitive to cefdinir so we will change patient to oral agents discharged to home medically improved, sugars are also much improved we will continue with adjustments made here Time Spent with Patient Time attestation: Total time spent providing and/or coordinating discharge services: Exam Constitutional Vital Signs, click to edit/add: Last Vital Signs Temp 97.9 F 10/04/24 07:47 Pulse 84 10/04/24 07:47 Resp 18 10/04/24 08:33 BP 151/85 H 10/04/24 07:47 Pulse Ox 95 10/04/24 07:47 O2 Del Method Room Air 10/04/24 07:47 Documenting provider has reviewed patient's vital signs: yes Common normals: no apparent distress Chest Common normals: inspection of chest normal Respiratory Common normals: normal respiratory effort and clear to auscultation bilaterally Cardio Common normals: regular rate, regular rhythm and no murmurs GI Common normals: soft to palpation; negative for Normal to inspection, nondistended, normoactive bowel sounds present (Obese) Other: Entered and to chart our pictures to see Back & Pelvis Common normals: no CVA tenderness Other: R buttocks with erythema and copious drainage, some erythema outside the line of demarcation DS: Data Data Completed and Pending Labs on day of discharge: Labs from last 24 hours 10/04/24 10/03/24 10/03/24 05:53 20:40 16:37 WBC 6.8 RBC 3.80 L Hgb 11.4 L Hct 35.7 L MCV 93.9 MCH 30.0 MCHC 31.9 RDW 12.6 Plt Count 258 MPV 10.6 Neut % (Auto) 64.1 Lymph % (Auto) 21.3 [place] % (Auto) 8.4 Eos % (Auto) 3.8 Baso % (Auto) 0.6 Neut # (Auto) 4.3 Lymph # (Auto) 1.4 [place] # (Auto) 0.6 Eos # (Auto) 0.3 Baso # (Auto) 0.0 Abs Immat Gran (auto) 0.12 H Imm/Tot Granulo (auto) 1.8 H Sodium 142 Potassium 4.4 Chloride 104 Carbon Dioxide 33.2 H Anion Gap 9.2 BUN 25.0 H Creatinine 0.71 Est GFR ( Amer) >60 Est GFR (Non-Af Amer) >60 BUN/Creatinine Ratio 35.2 Glucose 135 H Calcium 9.5 POC Glucose 181 H 132 H 10/03/24 11:31 WBC RBC Hgb Hct MCV MCH MCHC RDW Plt Count MPV Neut % (Auto) Lymph % (Auto) [place] % (Auto) Eos % (Auto) Baso % (Auto) Neut # (Auto) Lymph # (Auto) [place] # (Auto) Eos # (Auto) Baso # (Auto) Abs Immat Gran (auto) Imm/Tot Granulo (auto) Sodium Potassium Chloride Carbon Dioxide Anion Gap BUN Creatinine Est GFR ( Amer) Est GFR (Non-Af Amer) BUN/Creatinine Ratio Glucose Calcium POC Glucose 189 H Preliminary micro results at discharge 09/29/24 17:12 Blood Culture Result 2 - Preliminary Blood NO GROWTH AT 36-48 HOURS. FINAL TO FOLLOW. 09/29/24 17:06 Blood Culture Result 1 - Preliminary Blood NO GROWTH AT 36-48 HOURS. FINAL TO FOLLOW. Discharge Plan Discharge Disposition: Home, Self-Care Condition: Good Discharge Medications: New insulin glargine [Lantus Solostar U-100 Insulin] 100 unit/mL (3 mL) Insulin P en 40 unit subcut BID Qty: 15 11RF cefdinir 300 mg capsule 600 mg PO DAILY Qty: 30 0RF oxycodone-acetaminophen 5-325 mg Tablet 1 tab PO Q4H PRN (Reason: Pain Scale 4-6) Qty: 30 0RF Continued oxycodone-acetaminophen [Percocet] 5-325 mg tablet 1 tab PO TID PRN (Reason: pain) 3 Days Qty: 9 0RF cephalexin 500 mg capsule 500 mg PO Q8H 7 Days Qty: 21 0RF doxycycline hyclate 100 mg capsule 100 mg PO BID 7 Days Qty: 14 0RF pioglitazone 45 mg tablet 45 mg PO DAILY lisinopril 10 mg tablet 10 mg PO DAILY atorvastatin 20 mg tablet 20 mg PO DAILY Levemir FlexTouch U100 Insulin 100 unit/mL (3 mL) insulin pen 60 unit subcut .QHS insulin aspart U-100 [Novolog FlexPen U-100 Insulin] 100 unit/mL (3 mL) insulin pen 8 unit subcut QAM Activity: increase activity as tolerated and resume usual activities as tolerated Diet: advance to your usual diet and diabetic diet Print Language: Kiswahili Patient Instructions: Cefdinir (By mouth) (Omnicef), Insulin Glargine (By injection) (Lantus, Lantus SoloStar, Toujeo, Semglee), Cellulitis (GEN), Abscess (GEN), Sitz Bath (DC), Abscess Incision and Drainage (GEN) Forms: Portal Instructions Follow Up Appointments: Dr. Parkinson's office will call the patient to schedule a follow up appt. [phone] Discharge Date/Time: 10/04/24 11:39 Discharge location: Home
[2024-10-04 09:17] VITALS: BP 152/87; PULSE 89; TEMP 36.4; O2SAT 96
--- NOTE | 2024-10-04 10:07 | CM.NOTE ---
2nd Important Message From Medicare discussed with pt, pt denies questions or concerns.
--- NOTE | 2024-10-04 11:14 | P.GSCN_ITS ---
History of Present Illness Consult details Consult date: 10/04/24 Requesting physician: Stef Jung Narrative: patient seen/examined/chart reviewed/ct images reviewed/consult dictated; 69 yo female with 11 day h/o right medial buttock pain and swelling, treated with antibiotics on 09/26/24; I & D on 09/29/24 and admission for IV antibiotics; cx with E coli and strep; clinically improved with normal wbc, afebrile, still with pain and induration; intermittent serosanguineous drainage; recommend sitz baths QID and after bms; keep area clean and dry, no ointments;cover until wound scabs over; can f/u with me as outpatient upon discharge; recommend smoking cessation. [facility] Medical History (Updated 09/29/24 @ 23:38 by Chani Loera, KARSTEN) Diabetes type 2 ?E11.9 - Type 2 diabetes mellitus without complications (ICD-10) HTN (hypertension) ?I10 - Essential (primary) hypertension (ICD-10) MRSA (methicillin resistant Staphylococcus aureus) ?A49.02 - Methicillin resistant Staphylococcus aureus infection, unspecified site (ICD-10) Surgical History (Updated 09/29/24 @ 23:38 by Chani Loera, RN) History of appendectomy ?Z90.49 - Acquired absence of other specified parts of digestive tract (ICD- 10) Family History (Updated 09/29/24 @ 21:10 by Chani Loera, RN) Other Family history of CHF (congestive heart failure) Family history of cancer Family history of diabetes mellitus Family history of myocardial infarction Family history of stroke Social History (Updated 09/29/24 @ 21:12 by Chani Loera, RN) Within the past year, how often did you have a drink containing alcohol: never Score interpretation: A score less than 3 is consistent with normal alcohol consumption. Smoking status: Current every day smoker Non-prescribed substance use: denies use Highest level of school completed/degree received: high school graduate Are you now , , , , never or living with a partner: In a typical week, how many times do you talk on the telephone with family, friends, or neighbors: 3 or more times per week How often do you get together with friends or relatives: 3 or more times per week Little interest or pleasure in doing things: not at all Feeling down, depressed, or hopeless: not at all Meds Home Medications and Allergies Home Medications ?Medication ?Instructions ?Recorded ?Confirmed ?Type cephalexin 500 mg capsule 500 mg PO Q8H 7 days #21 caps 09/26/24 09/29/24 Rx doxycycline hyclate 100 mg capsule 100 mg PO BID 7 days #14 caps 09/26/24 09/29/24 Rx oxycodone-acetaminophen 5 mg-325 1 tab PO TID PRN pain 3 days #9 09/26/24 09/29/24 Rx mg tablet (Percocet) tabs atorvastatin 20 mg tablet 20 mg PO DAILY 09/29/24 09/29/24 History insulin aspart U-100 100 unit/mL 8 unit subcut QAM 09/29/24 09/29/24 History (3 mL) subcutaneous pen (Novolog FlexPen U-100 Insulin aspart) insulin detemir U-100 100 unit/mL 60 unit subcut .QHS 09/29/24 09/29/24 History (3 mL) subcutaneous pen (Levemir FlexTouch U-100 Insulin) lisinopril 10 mg tablet 10 mg PO DAILY 09/29/24 09/29/24 History pioglitazone 45 mg tablet 45 mg PO DAILY 09/29/24 09/29/24 History cefdinir 300 mg capsule 600 mg (2 x 300 mg) PO DAILY #30 10/04/24 Rx caps insulin glargine 100 unit/mL (3 40 unit (0.4 mL) subcut BID #15 mL 10/04/24 Rx mL) subcutaneous pen (Lantus Solostar U-100 Insulin) Allergies Allergy/AdvReac Type Severity Reaction Status Date / Time Penicillins AdvReac Unknown Rash Verified 03/21/24 17:05 Sulfa (Sulfonamide AdvReac Unknown Rash Verified 03/21/24 17:05 Antibiotics) Exam Constitutional Vital Signs, click to edit/add: Last Vital Signs Temp 97.5 F L 10/04/24 09:17 Pulse 89 10/04/24 09:17 Resp 18 10/04/24 09:17 BP 152/87 H 10/04/24 09:17 Pulse Ox 96 10/04/24 09:17 O2 Del Method Room Air 10/04/24 09:17 Results Labs Labs: Abnormal lab results 10/03/24 10/03/24 10/03/24 Range/Units 11:31 16:37 20:40 RBC (4.20-5.40) 10^6/uL Hgb (12.0-16.0) g/dL Hct (36.0-48.0) % Abs Immat Gran (auto) (0.00-0.03) 10^3/uL Imm/Tot Granulo (auto) (0.0-0.5) % Carbon Dioxide (21.0-32.0) mmol/L BUN (7.0-18.0) mg/dL Glucose (74-106) mg/dL POC Glucose 189 H 132 H 181 H (74-106) mg/dL 10/04/24 Range/Units 05:53 RBC 3.80 L (4.20-5.40) 10^6/uL Hgb 11.4 L (12.0-16.0) g/dL Hct 35.7 L (36.0-48.0) % Abs Immat Gran (auto) 0.12 H (0.00-0.03) 10^3/uL Imm/Tot Granulo (auto) 1.8 H (0.0-0.5) % Carbon Dioxide 33.2 H (21.0-32.0) mmol/L BUN 25.0 H (7.0-18.0) mg/dL Glucose 135 H (74-106) mg/dL POC Glucose (74-106) mg/dL Diabetes panel 10/04/24 Range/Units 05:53 Sodium 142 (136-145) mmol/L Potassium 4.4 (3.5-5.1) mmol/L Chloride 104 (98-107) mmol/L Carbon Dioxide 33.2 H (21.0-32.0) mmol/L BUN 25.0 H (7.0-18.0) mg/dL Creatinine 0.71 (0.55-1.02) mg/dL Glucose 135 H (74-106) mg/dL Calcium 9.5 (8.5-10.1) mg/dL Calcium panel 10/04/24 Range/Units 05:53 Calcium 9.5 (8.5-10.1) mg/dL Pituitary panel 10/04/24 Range/Units 05:53 Sodium 142 (136-145) mmol/L Potassium 4.4 (3.5-5.1) mmol/L Chloride 104 (98-107) mmol/L Carbon Dioxide 33.2 H (21.0-32.0) mmol/L BUN 25.0 H (7.0-18.0) mg/dL Creatinine 0.71 (0.55-1.02) mg/dL Glucose 135 H (74-106) mg/dL Calcium 9.5 (8.5-10.1) mg/dL Adrenal panel 10/04/24 Range/Units 05:53 Sodium 142 (136-145) mmol/L Potassium 4.4 (3.5-5.1) mmol/L Chloride 104 (98-107) mmol/L Carbon Dioxide 33.2 H (21.0-32.0) mmol/L BUN 25.0 H (7.0-18.0) mg/dL Creatinine 0.71 (0.55-1.02) mg/dL Glucose 135 H (74-106) mg/dL Calcium 9.5 (8.5-10.1) mg/dL All other labs normal. Assessment and Plan Assessment and Plan (1) Cellulitis: Qualifiers: Site of cellulitis: buttock Qualified Code(s): L03.317 - Cellulitis of buttock (2) Back pain: (3) Abscess of skin or subcutaneous tissue: (4) Acute hyponatremia: (5) Diabetes type 2: (6) HTN (hypertension):
--- NOTE | 2024-10-05 15:02 | CM.DCFOLLOWU ---
1st attempt 10/05/24, no answer
--- NOTE | 2024-10-06 15:11 | CM.DCFOLLOWU ---
2nd attempt 10/06/24, no answer
--- NOTE | 2024-10-09 15:17 | CM.DCFOLLOWU ---
3rd attempt 10/09/24, no answer
== END 2024-10-04 11:39 | disposition home or self-care (01) | DRG 871 ==
LOC: ER 19:41 → MS 09-30 07:02
PROVIDERS: Family Medicine; Physician Assistant; Registered Nurse; Admitting Provider Family Medicine; Emergency Provider Emergency Medicine; PCP Family Medicine; Visit Provider Family Medicine
DX: A41.9 Sepsis, unspecified organism (principal); E43 Unspecified severe protein-calorie malnutrition; L03.317 Cellulitis of buttock; L02.31 Cutaneous abscess of buttock; E87.1 Hypo-osmolality and hyponatremia; B96.20 Unspecified Escherichia coli [E. coli] as the cause of diseases classified elsewhere; B95.5 Unspecified streptococcus as the cause of diseases classified elsewhere; D50.9 Iron deficiency anemia, unspecified; M79.18 Myalgia, other site; L53.8 Other specified erythematous conditions; I10 Essential (primary) hypertension; E11.65 Type 2 diabetes mellitus with hyperglycemia; E78.00 Pure hypercholesterolemia, unspecified; E83.42 Hypomagnesemia; F17.200 Nicotine dependence, unspecified, uncomplicated; Z79.899 Other long term (current) 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; Z79.4 Long term (current) use of insulin; Z88.0 Allergy status to penicillin; Z88.2 Allergy status to sulfonamides; Z86.14 Personal history of Methicillin resistant Staphylococcus aureus infection; Z68.33 Body mass index [BMI] 33.0-33.9, adult
CPT/HCPCS: 36415; 72193; 74177; 80048; 80053; 80202; 82009; 82800; 82948; 83605; 83735; 85025; 87040; 87070; 87150; 87186; 94761; 96365; 96366; 96367; 96375; 97161; 97165; 97530; 99285; 99406; J0696; J0713; J1171; J1650; J1885; J2270; J2405; J3370; Q9967